=== PATIENT | male | born 1995 | race Caucasian/White ===

== ENCOUNTER 2021-07-02 23:22 | Emergency (ER) | payer OTHER, SELFPAY ==
[2021-07-02 23:27] VITALS: BP 127/72; PULSE 70; O2SAT 100
--- NOTE | 2021-07-03 00:30 | PC.NURSE ---
pt has been covid swabbed, moaning out loud in the chair, taking his mask off and needs freg repeating to keep his mask on. pt has been explained that we are waiting for a bed for him and covid results.
[2021-07-03 00:54] LABS: COVID-19 Test Negative (Negative)
[2021-07-03 01:14] VITALS: BP 126/50; PULSE 78; RESP 18; TEMP 36.6; O2SAT 99
--- NOTE | 2021-07-03 01:14 | ED.GENADULT ---
HPI - General Adult General Chief complaint: Nausea/Vomiting/Diarrhea Stated complaint: flu like symptoms Time Seen by Provider: 07/02/21 23:42 Source: patient History of Present Illness HPI narrative: Patient complains of nausea and vomiting for the past 2 days. No diarrhea or constipation. Generalized abdominal discomfort. Positive rhinorrhea. He states he has been feeling hot cold. No sick contacts that he knows of. No prior history of similar issues. He has a history of bipolar disorder and ADHD for which he is post be on medications but has not taken them in a while as he has not come back to see his doctor Related Data Previous Rx's Medication Instructions Recorded azithromycin 250 mg tablet See Rx Instructions PO .COMPLEX #6 11/01/20 tab fluticasone propionate 50 1 spray INTRANASAL DAILY PRN 30 11/01/20 mcg/actuation nasal Days #16 g spray,suspension omeprazole magnesium 20 mg 20 mg PO BID #30 tab 07/03/21 tablet,delayed release (Prilosec OTC) ondansetron HCl 4 mg tablet 4 mg PO Q8H #10 tab 07/03/21 (Zofran) Allergies Allergy/AdvReac Type Severity Reaction Status Date / Time No Known Allergies Allergy Verified 11/01/20 11:52 [No Known Allergies*] Review of Systems Constitutional: Comments: Chills and sweats and general malaise ENT: Comments: Rhinorrhea Cardiovascular: Comments: No chest pain Respiratory: Comments: No cough Gastrointestinal: Comments: Nausea vomiting abdominal pain PMFSH Past Medical History Medical History (Updated 07/03/21 @ 01:44 by Jonatan Velasquez MD) Allergic rhinitis Surgical History History of surgery Family History Family History Father Depression Asthma Mother Asthma Depression Migraine Brother No problems noted. Sister No problems noted. Son In good health Social History Social History Alcohol intake: current Alcohol intake frequency: a few times a week Patient Tobacco Use Status: Current everyday Tobacco user Cigarettes Per Day: 5 Smoked in Last 30 Days: Yes Use of substances other than those prescribed or required for medical reasons: No Advance Directives: No Advance Directives Information Provided: No Physical Exam Vital Signs: Vital Signs: Last Vital Signs Temp 97.8 F 07/03/21 01:18 Pulse 78 07/03/21 01:18 Resp 15 07/03/21 01:18 BP 126/50 L 07/03/21 01:18 Pulse Ox 99 07/03/21 01:18 Body Mass Index 21.7 Const: Other: Patient wrapped in a blanket initially refusing to cooperate with the exam. Once he rolled over incorporated he appears in no acute distress. Overall he is disheveled and smells of marijuana HENMT: Other: Conjunctival injection bilaterally without discharge. Positive rhinorrhea Resp: Other: Clear and equal bilaterally Cardio: Other: Regular rate and rhythm without murmurs rubs or gallops GI: Other: Soft. Diffusely minimally tender without guarding or rebound. Normoactive bowel sounds. Nondistended Skin: Other: Warm and dry Psych: Other: Patient appears anxious Course Course Course Narrative: Gastroenteritis Dehydration Viral syndrome COVID-19 infection Cannabinoid hyperemesis syndrome Will treat with Zofran With tolerating p.o. as. Stable for discharge home Medical Decision Making Lab Data Labs: Lab Results 07/03/21 Range/Units 00:26 COVID-19 ([facility]) Negative (Negative) COVID-19 Clin Com See Note Discharge Plan Discharge Clinical Impression: Upper respiratory tract infection, Gastroenteritis Patient Disposition: Home, Self-Care Instructions: Upper Respiratory Infection (ED), Acute Nausea and Vomiting (ED) Prescriptions: New ondansetron HCl [Zofran] 4 mg tablet 4 mg PO Q8H Qty: 10 RF: 0 omeprazole magnesium [Prilosec OTC] 20 mg tablet,delayed release (DR/EC) 20 mg PO BID Qty: 30 RF: 0 No Action azithromycin 250 mg tablet See Rx Instructions PO .COMPLEX Qty: 6 RF: 0 fluticasone propionate 50 mcg/actuation spray,suspension 1 spray intranasal DAILY PRN (Reason: allergy symptoms) 30 Days Qty: 16 RF: 5
[2021-07-03 01:18] VITALS: BP 126/50; PULSE 78; RESP 15; TEMP 36.6; O2SAT 99; BMI 21.7
[2021-07-03] MEDS: Ondansetron ODT 4 MG TAB.RAPDIS TRANSLINGU (01:25)
--- NOTE | 2021-07-03 02:22 | PC.NURSE ---
Pt alert and oriented x4. Pt aggressive towards staff calling nursing staff stupid ass bitch . Pt signed dc paperwork and educated on dc and prescriptions and then continued to refuse leaving hospital. Security to bedside with conveyor line battery charger to educate patient on needing to leave hospital after dc. Pt ambulated out to waiting room with security. No IV in place, Vitals stable. Multiple attempts to call girlfriend for hop picker by RN.
--- NOTE | 2021-07-03 02:23 | PC.NURSE ---
RN CALLED TO PT BEDSIDE PT WAS D/C BUT REFUSING TO LEAVE THE ROOM. PT EXPRESSED HE DID NOT HAVE A RIDE, RN AV ATTEMPTED TO CALL PTS GF BUT SHE DID NOT ANSWER (DID CALL BACK AND STATED SHE WOULD PICK PT UP.) SECURITY WAS CALLED TO BEDSIDE W/THIS RN WHERE PT PROCEEDED TO REFUSE TO LEAVE THE BED, AND WHEN IT WAS EXPLAINED TO PT HE COULD WAIT FOR RIDE IN THE WAITING ROOM HE CALLED THIS RN A FUCKING STUPID BITCH AND TOLD SECURITY MULTIPLE TIMES TO SHUT THE FUCK UP ALSO STATING I AIN'T FUCKING SCARED OF YOU, I BEEN TO LONG TERM PT WAS ESCORTED OUT OF THE DEPT BY SECURITY DUE TO VERBAL ABUSE AND THREATS OF PHYSICAL VIOLENCE.
[2021-07-03 02:26] VITALS: BP 124/72; PULSE 74; RESP 15; TEMP 36.6; O2SAT 98
--- NOTE | 2021-07-03 02:26 | PC.NURSE ---
RN spoke with girlfriend, girlfriend on her way to citrus picker patient now.
== END 2021-07-03 02:27 | disposition home or self-care (01) ==
PROVIDERS: Emergency Provider Emergency Medicine; PCP Physician Assistant
DX: J06.9 Acute upper respiratory infection, unspecified (principal); K52.9 Noninfective gastroenteritis and colitis, unspecified; R11.2 Nausea with vomiting, unspecified; F17.210 Nicotine dependence, cigarettes, uncomplicated; Z20.822 Contact with and (suspected) exposure to COVID-19; Z71.6 Tobacco abuse counseling; Z79.899 Other long term (current) drug therapy
CPT/HCPCS: 36415; 87635; 99283; 99284

== ENCOUNTER 2021-07-30 23:33 | Emergency (ER) | payer OTHER, SELFPAY ==
--- NOTE | 2021-07-30 23:52 | ED.OVERDOSE ---
HPI - Overdose General Chief Complaint: General Medical Stated Complaint: ABD PAIN/DRUG ABUSE Time Seen by Provider: 07/30/21 23:48 Source: patient Mode of arrival: EMS History of Present Illness HPI Narrative: Patient history of substance abuse snort heroin and takes cannabis noted 5 bags earlier today no complaining of nausea not feeling good feels like throwing up feels better after hot shower Related Data Previous Rx's Medication Instructions Recorded azithromycin 250 mg tablet See Rx Instructions PO .COMPLEX #6 11/01/20 tab fluticasone propionate 50 1 spray INTRANASAL DAILY PRN 30 11/01/20 mcg/actuation nasal Days #16 g spray,suspension omeprazole magnesium 20 mg 20 mg PO BID #30 tab 07/03/21 tablet,delayed release (Prilosec OTC) ondansetron HCl 4 mg tablet 4 mg PO Q8H #10 tab 07/03/21 (Zofran) Allergies Allergy/AdvReac Type Severity Reaction Status Date / Time No Known Allergies Allergy Verified 11/01/20 11:52 [No Known Allergies*] Review of Systems Review of Systems: Yes all other systems are reviewed and are negative PMFSH Past Medical History Medical History Allergic rhinitis Surgical History History of surgery Family History Family History Father Depression Asthma Mother Asthma Depression Migraine Brother No problems noted. Sister No problems noted. Son In good health Social History Social History Alcohol intake: current Alcohol intake frequency: a few times a week Patient Tobacco Use Status: Current everyday Tobacco user Cigarettes Per Day: 5 Advance Directives: No Advance Directives Information Provided: No Physical Exam Vital Signs: Vital Signs: Last Vital Signs Temp 98.7 F 07/31/21 00:03 Pulse 90 07/31/21 00:03 Resp 18 07/31/21 00:03 BP 133/63 07/31/21 00:03 Pulse Ox 99 07/31/21 00:03 Body Mass Index 22.4 Appearance: Alert. Oriented X3. Very anxious Eyes: PERRLA, ENT: Pharynx normal. Oral Mucosa moist Neck: Normal inspection. Neck supple. CVS: Normal heart rate and rhythm. Pulses normal. Respiratory: No respiratory distress. Equal air entry bilateral, no wheezing/rales/rhonchi Abdomen: Soft and nontender. Bowel sounds are present, no mass palpable, no CVA tenderness Skin: Skin warm and dry. Normal skin color. Normal skin turgor. Extremities: No lower extremity edema. No calf tenderness Neuro: Oriented X 3. MDM - Overdose MDM Narrative Medical decision making narrative: Patient with anxiety cannabis and opiate use after Ativan feeling relaxed sleeping no active vomiting at this time will discharge patient home advised to follow-up with detox Lab Data Labs: Lab Results 07/31/21 Range/Units 00:09 COVID-19 ([facility]) Negative (Negative) COVID-19 Clin Com See Note Discharge Plan Discharge Clinical Impression: Multiple substance abuse Patient Disposition: Home, Self-Care Instructions: Polysubstance Abuse (ED) Additional Instructions: Stop using heroin and cannabis Follow-up with detox Prescriptions: No Action ondansetron HCl [Zofran] 4 mg tablet 4 mg PO Q8H Qty: 10 RF: 0 omeprazole magnesium [Prilosec OTC] 20 mg tablet,delayed release (DR/EC) 20 mg PO BID Qty: 30 RF: 0 azithromycin 250 mg tablet See Rx Instructions PO .COMPLEX Qty: 6 RF: 0 fluticasone propionate 50 mcg/actuation spray,suspension 1 spray intranasal DAILY PRN (Reason: allergy symptoms) 30 Days Qty: 16 RF: 5
[2021-07-30] MEDS: LORazepam 2 MG/ML VIAL IM (23:58)
[2021-07-30] MEDS: Ondansetron ODT 4 MG TAB.RAPDIS TRANSLINGU (23:58)
[2021-07-31 00:02] VITALS: BP 133/63; PULSE 90
[2021-07-31] MEDS: cloNIDine HCL 0.2 MG TABLET PO (00:02)
[2021-07-31 00:03] VITALS: BP 133/63; PULSE 90; RESP 18; TEMP 37.1; O2SAT 99; BMI 22.4
--- NOTE | 2021-07-31 00:28 | PC.NURSE ---
PTROLLING AROUND ON STRETCHER, YELLING FOR HELP, YELLING DOCTOR LOUDLY. EXPLAINED TO PT THAT WE NEEDED TO OBTAIN VITALS AND TRIAGE HIM. PT GIVEN SL CHOCOFRAN LYNN, FOR VOMITING. ASKED PT TO SCAN HIS WRIST BAND, HAD TO PRINT ANOTHER COPY, PT WRIPPED HIS BAND OFF. PT CONTINUED TO YELL, CLAIMED HE COULDN'T MOVE HIS ARM FOLLOWING IM INJECTION.
[2021-07-31 00:32] LABS: COVID-19 Test Negative (Negative); IDNOW Serial# 08D9AD1C
--- NOTE | 2021-07-31 00:46 | PC.NURSE ---
PT REQUESTED AND WAS GIVEN ICE CUBES. EXPLAINED TO PATIENT THAT HE NEEDS TO HOLD OFF ON WATER FOR NOW.
--- NOTE | 2021-07-31 01:01 | PC.NURSE ---
PT ABLE TO TOLERATE ICE CHIPS. PT ABLE TO FALL ASLEEP INTERMITTENTLY.
--- NOTE | 2021-07-31 01:19 | PC.NURSE ---
PT'S MOTHER IN WAITING ROOM TO BRING HIM HOME. PT BROUGHT TO WR BY WHEEN CHAIR BECAUSE HE STILL FELT A LITTLE NAUSEOUS. PT WAITING FOR RIDE WITH MOTHER IN [place]. SECURITY ASSISTED TRANSFERRING PT TO FOR SAFETY. PT HAS GOOD RESPIRATORY RATE AND EFFORT.
[2021-07-31 01:21] VITALS: BP 131/75; PULSE 89; RESP 16; O2SAT 97
== END 2021-07-31 01:23 | disposition home or self-care (01) ==
PROVIDERS: Emergency Provider Internal Medicine
DX: F11.10 Opioid abuse, uncomplicated (principal); F12.10 Cannabis abuse, uncomplicated; Z20.822 Contact with and (suspected) exposure to COVID-19
CPT/HCPCS: 36415; 87635; 96372; 99284; J2060

== ENCOUNTER 2021-07-31 13:43 | Emergency (ER) | payer OTHER, SELFPAY ==
[2021-07-31 14:01] VITALS: BP 104/84; PULSE 89; RESP 16; TEMP 36.9; O2SAT 99; BMI 22.4
--- NOTE | 2021-07-31 16:03 | ED_ITS ---
HPI - Nausea/Vomiting/Diarrhea General Chief complaint: Nausea/Vomiting/Diarrhea Stated complaint: vomiting body aches Time Seen by Provider: 07/31/21 16:02 Source: patient and old records reviewed Mode of arrival: ambulatory Limitations: no limitations History of Present Illness MD elicited complaint: nausea, vomiting and other (body aches, withdrawal from oxycodone and fentanyl) Pertinent past history: other (oxycodone and fentanyl abuse) Onset (ago): day(s) (last used Saturday ) Description of vomiting: food contents Associated nausea: Yes Associated abdominal pain: No Pain consistency: constant Severity: mild Quality: aching Exacerbating factors: none Relieving factors: none Context: other (substance abuse and withdrawal) Associated symptoms: myalgias, fever/chills, headaches, loss of appetite and malaise Treatment prior to arrival: other (seen yesterday for same thing) Related Data Previous Rx's Medication Instructions Recorded azithromycin 250 mg tablet See Rx Instructions PO .COMPLEX #6 11/01/20 tab fluticasone propionate 50 1 spray INTRANASAL DAILY PRN 30 11/01/20 mcg/actuation nasal Days #16 g spray,suspension omeprazole magnesium 20 mg 20 mg PO BID #30 tab 07/03/21 tablet,delayed release (Prilosec OTC) ondansetron HCl 4 mg tablet 4 mg PO Q8H #10 tab 07/03/21 (Zofran) buprenorphine 4 mg-naloxone 1 mg 1 film SUBLINGUAL DAILY #4 ea 07/31/21 sublingual film (Suboxone) ondansetron 4 mg disintegrating 4 mg PO Q8H PRN #20 tab 07/31/21 tablet Allergies Allergy/AdvReac Type Severity Reaction Status Date / Time No Known Allergies Allergy Verified 11/01/20 11:52 [No Known Allergies*] Review of Systems Review of Systems: Constitutional : No Weight loss, No Fever, No Chills ENT/Mouth : No sore throat, No Rhinorrhea Eyes: No Swelling, No Redness Cardiovascular : No Chest Pain, No SOB, NoEdema Respiratory : No Cough, No Sputum, No Wheezing Gastrointestinal : Positive Nausea, Positive Vomiting, positive Diarrhea, no abdominal Pain, No Hematochezia, No Melena Genitourinary : No Dysuria, No Urinary Frequency, No Hematuria, No Urgency Musculoskeletal : No joint pain, pos Myalgias, No Joint Swelling Skin : No Skin Lesions, No rash Neuro : No Weakness, No Numbness, No Dizziness, No Headache Psych : No Anxiety/Panic, No Depression Heme/Lymph: No Bruising, No Lymphadenopathy Endocrine : No Polyuria, No Polydipsia All other systems reviewed and are negative. Gastrointestinal: Gastrointestinal: Reports nausea PMFSH Past Medical History Attestation statement: The following information was validated with the patient. Medical History Allergic rhinitis Surgical History History of surgery Family History Family History Father Depression Asthma Mother Asthma Depression Migraine Brother No problems noted. Sister No problems noted. Son In good health Social History Social History (Updated 07/31/21 @ 16:33 by Darya Bishop DO) Alcohol intake: current Alcohol intake frequency: a few times a week Patient Tobacco Use Status: Current everyday Tobacco user Cigarettes Per Day: 5 Substance Use Type: Opiates Advance Directives: No Advance Directives Information Provided: Yes Physical Exam Vital Signs: Vital Signs: Last Vital Signs Temp 98.4 F 07/31/21 14:01 Pulse 89 07/31/21 14:01 Resp 16 07/31/21 14:01 BP 104/84 07/31/21 14:01 Pulse Ox 99 07/31/21 14:01 Body Mass Index 22.4 Appearance: Alert. Oriented X3. No acute distress. Eyes: Pupils equal, round and reactive to light. ENT: Pharynx normal. Neck: Normal inspection. Neck supple. CVS: Normal heart rate and rhythm. Pulses normal. Respiratory: No respiratory distress. Breath sounds normal. Abdomen: Soft and nontender. Skin: Skin warm and dry. Normal skin color. Normal skin turgor. Extremities: No lower extremity edema. No calf ttp Neuro: Oriented X 3. No motor deficit. No sensory deficit. Course Course Course Narrative: repeat dosing 2/0.5 did well with suboxone stable for DC can tolerate PO MDM - Nausea/Vomiting/Diarrhea MDM Narrative Medical decision making narrative: 25 yo male with opiate abuse using oxycodone with fentanyl last used Saturday here with body aches n/v and feeling in withdrawal. His story has changed somewhat but he is now firm on Saturday. Invol evie the recovery team he will be set up in our clinic. Does not want detox - will start on low dose suboxone Lab Data Result diagrams: 07/31/21 17:16 07/31/21 17:15 Labs: Lab Results 07/31/21 07/31/21 Range/Units 17:15 17:16 WBC 9.4 (4.8-10.8) X10*3/uL RBC 4.59 L (4.60-5.80) X10*6/uL Hgb 14.1 (14.0-18.0) g/dl Hct 40.8 L (42-52) % MCV 88.9 (80-98) fL MCH 30.7 (27.0-33.0) pg MCHC 34.6 (31.0-36.0) g/dl RDW 12.4 (11.0-16.0) % Plt Count 306 (160-400) X10*3/uL MPV 10.1 (9.4-12.4) fL Immature Gran % (Auto) 0.3 (0.0-0.4) % Neut % (Auto) 79.3 H (45-73) % Lymph % (Auto) 11.2 L (20-40) % [place] % (Auto) 9.0 (2-11) % Eos % (Auto) 0.0 (0-4) % Baso % (Auto) 0.2 (0-2) % Lymph # (Auto) 1.1 L (1.2-4.9) X10*3/uL [place] # (Auto) 0.8 (0.1-1.2) X10*3/uL Eos # (Auto) 0.0 (0.0-0.4) X10*3/uL Baso # (Auto) 0.0 (0.0-0.2) X10*3/uL Abs Immat Gran (auto) 0.03 (0.00-0.03) X10*3/uL Absolute Neuts (auto) 7.4 (2.0-8.3) X10*3/uL Absolute Nucleated RBC 0.000 (0.0-0.012) X10*3/uL Nucleated RBC % (auto) 0.0 (0.0-0.2) /100WBC Sodium 136 (135-145) mmol/L Potassium 3.6 (3.3-5.1) mmol/L Chloride 101 (96-108) mmol/L Carbon Dioxide 24 (22-29) mmol/L Anion Gap 15 (12-20) BUN 18 H (9-16) mg/dL Creatinine 1.01 (0.5-1.4) mg/dL Estim Creat Clear Calc 96.8 Estimated GFR > 60 Random Glucose 120 H (60-115) mg/dL Calcium 10.1 (8.4-10.2) mg/dL Total Bilirubin 1.1 H (0.0-1.0) mg/dL Direct Bilirubin 0.5 (0.0-0.5) mg/dL AST 32 (5-37) U/L ALT 16 (0-40) U/L Alkaline Phosphatase 73 (39-117) U/L Total Protein 7.9 (6.5-8.0) g/dL Albumin 4.6 (3.5-5.0) g/dL Discharge Plan Discharge Clinical Impression: Opiate withdrawal Patient Disposition: Home, Self-Care Instructions: Opioid Withdrawal (ED), Opioid Use Disorder (ED) Additional Instructions: return to ED for any worsening symptoms or concerns please follow up with our suboxone clinic Prescriptions: New buprenorphine-naloxone [Suboxone] 4-1 mg film 1 film sublingual DAILY Qty: 4 RF: 0 ondansetron 4 mg tablet,disintegrating 4 mg PO Q8H PRN (Reason: nausea and vomiting) Qty: 20 RF: 0 No Action ondansetron HCl [Zofran] 4 mg tablet 4 mg PO Q8H Qty: 10 RF: 0 omeprazole magnesium [Prilosec OTC] 20 mg tablet,delayed release (DR/EC) 20 mg PO BID Qty: 30 RF: 0 azithromycin 250 mg tablet See Rx Instructions PO .COMPLEX Qty: 6 RF: 0 fluticasone propionate 50 mcg/actuation spray,suspension 1 spray intranasal DAILY PRN (Reason: allergy symptoms) 30 Days Qty: 16 RF: 5
[2021-07-31] MEDS: Ondansetron ODT 4 MG TAB.RAPDIS TRANSLINGU (16:55)
--- NOTE | 2021-07-31 17:08 | PC.NURSE ---
pt projectile vomiting s/p zofran administration, suboxone held at this time, also unable to tolerate attempt at phlebotomy, MD Bishop made aware
[2021-07-31 17:27] LABS: MANUAL DIFF FLAG NO
[2021-07-31 17:28] LABS: Basophils Percent Auto 0.2 % (0-2); Hematocrit 40.8 % (42-52); Hemoglobin 14.1 g/dl (14.0-18.0); Imm Gran Abs Auto 0.03 X10*3/uL (0.00-0.03); Imm Gran Pct Auto 0.3 % (0.0-0.4); Lymphocytes Absolute Auto 1.1 X10*3/uL (1.2-4.9); Lymphocytes Percent Auto 11.2 % (20-40); Mean Corpuscular HGB Conc 34.6 g/dl (31.0-36.0); Mean Corpuscular Hemoglobin 30.7 pg (27.0-33.0); Mean Corpuscular Volume 88.9 fL (80-98); Mean Platelet Volume 10.1 fL (9.4-12.4); Monocytes Absolute Auto 0.8 X10*3/uL (0.1-1.2); Neutrophils Absolute Auto 7.4 X10*3/uL (2.0-8.3); Neutrophils Percent Auto 79.3 % (45-73); Platelet Count 306 X10*3/uL (160-400); Red Blood Count 4.59 X10*6/uL (4.60-5.80); Red Cell Distribution Width 12.4 % (11.0-16.0); White Blood Count 9.4 X10*3/uL (4.8-10.8)
[2021-07-31] MEDS: diphenhydrAMINE HCL 50 MG/ML VIAL 25 MG IM (17:31)
[2021-07-31] MEDS: Metoclopramide HCl 10 MG/2 ML VIAL IM (17:31)
[2021-07-31 17:46] LABS: Alanine Aminotransferase 16 U/L (0-40); Albumin Level 4.6 g/dL (3.5-5.0); Alkaline Phosphatase 73 U/L (39-117); Anion Gap 15 (12-20); Aspartate Amino Transferase 32 U/L (5-37); Bilirubin Direct 0.5 mg/dL (0.0-0.5); Bilirubin Total 1.1 mg/dL (0.0-1.0); Blood Urea Nitrogen 18 mg/dL (9-16); Calcium 10.1 mg/dL (8.4-10.2); Carbon Dioxide 24 mmol/L (22-29); Chloride 101 mmol/L (96-108); Creatinine Clr Calc Pharmacy 96.8; Estimated Glomerular Filt Rate > 60; Glucose Random 120 mg/dL (60-115); Potassium 3.6 mmol/L (3.3-5.1); Sodium 136 mmol/L (135-145); Total Protein 7.9 g/dL (6.5-8.0)
[2021-07-31] MEDS: Buprenorphine/Naloxone 2/0.5mg FILM 1 FILM SUBLINGUAL ×2 (18:39→19:55)
== END 2021-07-31 20:38 | disposition home or self-care (01) ==
PROVIDERS: Emergency Provider Emergency Medicine; PCP Internal Medicine
DX: F11.23 Opioid dependence with withdrawal (principal)
CPT/HCPCS: 36415; 80048; 80076; 85025; 96372; 99283; 99284; J1200; J2765

== ENCOUNTER 2021-08-03 08:07 | Emergency (ER) | payer OTHER, SELFPAY ==
--- NOTE | ~2021-08-03 | CT_ITS ---
EXAMINATION: CT ABDOMEN AND PELVIS WITHOUT CONTRAST CLINICAL INFORMATION: Abdominal pain, nausea and vomiting COMPARISON: Previous CT of the abdomen and pelvis March 2019 TECHNIQUE: Multidetector volumetric imaging was performed from the superior aspect of the liver through the pubic symphysis. Sagittal and coronal reformatted images were obtained on the technologist's workstation. This CT examination was performed using dose optimization techniques as appropriate, variously including the following: *Automated exposure control *Adjustment of mA and/or kV according to patient size (this includes techniques or standardized protocols for targeted exams where dose is matched to indication/reason for exam; i.e. extremities or head) *Use of iterative reconstruction technique DLP: 340 mGy-cm FINDINGS: LUNG BASES: The lung bases are clear. LIVER, GALLBLADDER, AND BILIARY TREE: The liver is normal in size, shape, and attenuation. No focal hepatic lesion or biliary ductal dilatation is present. The gallbladder is unremarkable with no evidence of radiopaque gallstones, gallbladder wall thickening, or obvious pericholecystic inflammatory changes. PANCREAS: Unremarkable. SPLEEN: Unremarkable. ADRENAL GLANDS: Unremarkable. KIDNEYS AND URETERS: The kidneys are normal in size, shape, and attenuation. No hydronephrosis, hydroureter, or calculi seen. No perinephric stranding. BLADDER: Unremarkable. GASTROINTESTINAL TRACT: The small and large bowel are unremarkable. The appendix is unremarkable. ABDOMINAL WALL: No significant hernia is appreciated. LYMPH NODES: Normal. VASCULAR: Unremarkable. PELVIC VISCERA: Unremarkable. OSSEOUS STRUCTURES: Unremarkable. CT/CT abdomen pelvis wo con IMPRESSION: Unremarkable exam.
[2021-08-03 08:24] VITALS: BP 113/78; PULSE 65; RESP 18; TEMP 36.6; O2SAT 98; BMI 22.4
--- NOTE | 2021-08-03 08:49 | ED_ITS ---
HPI - General Adult General Chief complaint: Nausea/Vomiting/Diarrhea Stated complaint: abd burning & pain, vomiting Time Seen by Provider: 08/03/21 08:49 Source: patient Mode of arrival: ambulatory Limitations: no limitations History of Present Illness HPI narrative: 25-year-old male is here today for complaints of abdominal pain. Patient was here twice on the and for the same. 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 Came in with abdominal pain diarrhea and nausea and vomiting. Patient reports that he has started Suboxone couple a days ago, however he reports that symptoms of withdrawal are better but he can stop vomiting. Patient has been vomiting for the last 2 days. Patient reports that he has severe vomiting and he has seen blood when he vomits. Patient reports that his diarrhea subsided. He reports severe epigastric discomfort and tenderness. Pain does not radiate anywhere. Patient reports that he can not keep anything down. Onset (ago): day(s) Location: abdomen Radiation: non-radiation Severity: severe Quality: stabbing and sharp Related Data Previous Rx's Medication Instructions Recorded azithromycin 250 mg tablet See Rx Instructions PO .COMPLEX #6 11/01/20 tab fluticasone propionate 50 1 spray INTRANASAL DAILY PRN 30 11/01/20 mcg/actuation nasal Days #16 g spray,suspension ondansetron HCl 4 mg tablet 4 mg PO Q8H #10 tab 07/03/21 (Zofran) buprenorphine 4 mg-naloxone 1 mg 1 film SUBLINGUAL DAILY #4 ea 07/31/21 sublingual film (Suboxone) omeprazole magnesium 20 mg 20 mg PO BID #30 tab 08/02/21 tablet,delayed release (Prilosec OTC) ondansetron 4 mg disintegrating 4 mg PO Q8H PRN #20 tab 08/02/21 tablet famotidine 20 mg tablet 20 mg PO BEDTIME #20 tab 08/03/21 pantoprazole 40 mg tablet,delayed 40 mg PO DAILY #20 tab 08/03/21 release Allergies Allergy/AdvReac Type Severity Reaction Status Date / Time No Known Allergies Allergy Verified 11/01/20 11:52 [No Known Allergies*] Review of Systems Review of Systems: Constitutional : No Weight loss, No Fever, No Chills, No Night Sweats, No Fatigue, No Malaise ENT/Mouth : No Hearing loss, No Ear Pain, No Nasal Congestion, No Sinus Pain, No Hoarseness, No sore throat, No Rhinorrhea, No Swallowing Difficulty Eyes: No Eye Pain, No Swelling, No Redness, No Foreign Body, No Discharge, No Vision Changes Cardiovascular : No Chest Pain, No SOB, No Dyspnea on Exertion, No Orthopnea, No Edema, No Palpitations Respiratory : No Cough, No Sputum, No Wheezing, No Smoke Exposure, No Dyspnea Gastrointestinal : Nausea, Vomiting, Diarrhea, No Constipation, abdominal Pain, No Hematochezia, No Melena Genitourinary : no irregular bleeding, No Dysuria, No Urinary Frequency, No Hematuria, No Urinary Incontinence, No Urgency, No Flank Pain, No Urinary Flow C hanges, No Hesitancy Musculoskeletal : No joint pain, No Myalgias, No Joint Swelling Skin : No Skin Lesions, No rash Neuro : No Weakness, No Numbness, No Paresthesias, No Loss of Consciousness, No Dizziness, No Headache Psych : Anxiety, No Depression, No SI/HI/AH/VH, No Social Issues, Yes all other systems are reviewed and are negative PMFSH Past Medical History Medical History Allergic rhinitis Surgical History History of surgery Family History Family History Father Depression Asthma Mother Asthma Depression Migraine Brother No problems noted. Sister No problems noted. Son In good health Social History Social History (Updated 07/31/21 @ 16:33 by Darya Bishop DO) Alcohol intake: current Alcohol intake frequency: does not drink Patient Tobacco Use Status: Current everyday Tobacco user Cigarettes Per Day: 5 Substance Use Type: Opiates Physical Exam Vital Signs: Vital Signs: Last Vital Signs Temp 98 F 08/03/21 08:24 Pulse 65 08/03/21 08:24 Resp 18 08/03/21 08:24 BP 113/78 08/03/21 08:24 Pulse Ox 98 08/03/21 08:24 Body Mass Index 22.4 Const: General: healthy appearing, no acute distress and well developed Nutritional Appearance: well nourished Orientation/consciousness: patient oriented x3 HENMT: Head: Yes normal to inspection, Yes normocephalic and Yes atraumatic Ears: hearing grossly normal bilaterally, external ears normal and TM's normal bilaterally General nose exam: Normal external nose present, Normal nares present and Normal nasal mucous membranes and turbinates present Face and s inus: Yes normal facial exam, Yes sinuses nontender and Yes face symmetric Mouth: Normal oral and palatal mucosa present, lip normal, tongue normal, oropharynx normal and moist mucous membranes Throat: Yes posterior oropharynx normal, Yes tonsils normal and Yes uvula midline Eyes: General: appearance normal, both eyes and all related structures Neck: Neck: Yes normal visual inspection, Yes full ROM and Yes trachea midline Thyroid: Thyroid normal Resp: Effort & Inspection: normal respiratory effort and able to speak in complete sentences Auscultation: clear to auscultation bilaterally Cardio: Rate: regular rate Rhythm: regular rhythm Heart sounds: S1 normal heart sound present and S2 normal heart sound present GI: Inspection: Yes normal to inspection and No distended Palpation (GI): Soft to palpation, Tenderness to palpation present (GI) (Epigastric area), Guarding due to palpation present (GI) (Epigastric area) and No hepatosplenomegaly present Auscultation: normal bowel sounds : General: Yes no CVA tenderness Back/Spine/Pelvis: Back: no CVA tenderness Cervical Spine: normal cervical lordosis Thoracic/Lumbar Spine: thoracic and lumbar spine normal to inspection Skin: General skin exam: elasticity normal, turgor normal and dry skin Neuro: General: patient oriented x3 Psych: Appearance: grossly normal Mental Status: other (Feeling anxious, tearful) Speech and movement: Normal speech and movement present Affect: normal affect Attitude: cooperative Course Course Course Narrative: 25-year-old male is here today after 3 days of withdrawing from heroin. Started Suboxone yesterday and reports that he feels like his withdrawal symptoms are going away, however he now reports that he has been vomiting. Upper epigastric discomfort, tenderness on exam. Will do CBC, liver profile lipase, BMP, IV fluids, will give him Protonix, Maalox with lidocaine. Will order CT scan as well Reevaluation(s) Reevaluation #1: Patient reports he is feeling much better. CT scan negative for any acute findings. No leukocytosis or anemia. Patient will go home and follow-up with PCP and GI. I will send him home with pantoprazole in the morning and famotidine in the evening. Patient's COVID test is negative Medical Decision Making Lab Data Result diagrams: 08/03/21 09:48 08/03/21 09:48 Labs: Lab Results 08/03/21 08/03/21 08/03/21 Range/Units 09:48 09:48 09:48 WBC 7.6 (4.8-10.8) X10*3/uL RBC 4.97 (4.60-5.80) X10*6/uL Hgb 15.5 (14.0-18.0) g/dl Hct 44.9 (42-52) % MCV 90.3 (80-98) fL MCH 31.2 (27.0-33.0) pg MCHC 34.5 (31.0-36.0) g/dl RDW 12.2 (11.0-16.0) % Plt Count 297 (160-400) X10*3/uL MPV 10.4 (9.4-12.4) fL Immature Gran % (Auto) 0.4 (0.0-0.4) % Neut % (Auto) 62.0 (45-73) % Lymph % (Auto) 24.3 (20-40) % [place] % (Auto) 11.8 H (2-11) % Eos % (Auto) 1.0 (0-4) % Baso % (Auto) 0.5 (0-2) % Lymph # (Auto) 1.9 (1.2-4.9) X10*3/uL [place] # (Auto) 0.9 (0.1-1.2) X10*3/uL Eos # (Auto) 0.1 (0.0-0.4) X10*3/uL Baso # (Auto) 0.0 (0.0-0.2) X10*3/uL Abs Immat Gran (auto) 0.03 (0.00-0.03) X10*3/uL Absolute Neuts (auto) 4.7 (2.0-8.3) X10*3/uL Absolute Nucleated RBC 0.000 (0.0-0.012) X10*3/uL Nucleated RBC % (auto) 0.0 (0.0-0.2) /100WBC Sodium 137 (135-145) mmol/L Potassium 4.2 (3.3-5.1) mmol/L Chloride 100 (96-108) mmol/L Carbon Dioxide 29 (22-29) mmol/L Anion Gap 12 (12-20) BUN 16 (9-16) mg/dL Creatinine 1.06 (0.5-1.4) mg/dL Estim Creat Clear Calc 92.2 Estimated GFR > 60 Random Glucose 114 (60-115) mg/dL Calcium 9.7 (8.4-10.2) mg/dL Total Bilirubin 1.4 H (0.0-1.0) mg/dL Direct Bilirubin 0.5 (0.0-0.5) mg/dL AST 27 (5-37) U/L ALT 15 (0-40) U/L Alkaline Phosphatase 72 (39-117) U/L Total Protein 8.0 (6.5-8.0) g/dL Albumin 4.6 (3.5-5.0) g/dL Lipase 28 (8-78) U/L COVID-19 ([facility]) Negative (Negative) COVID-19 Clin Com See Note Discharge Plan Discharge Clinical Impression: Gastroenteritis Abdominal pain Qualifiers: Abdominal location: epigastric Qualified Code(s): R10.13 - Epigastric pain Patient Disposition: Home, Self-Care Instructions: Gastritis (ED) Additional Instructions: You were seen here today for epigastric pain, nausea and vomiting. All your blood work and your CT scan are negative for any acute findings. Please follow- up with your primary care provider and GI specialist. You may return to emergency department if his symptoms will get worse or if you will experience any additional concerning symptoms. You will be given pantoprazole please take this in the morning half an hour before breakfast and famotidine take that in the evening. Stop taking Omeprazole Prescriptions: New pantoprazole 40 mg tablet,delayed release (DR/EC) 40 mg PO DAILY Qty: 20 RF: 0 famotidine 20 mg tablet 20 mg PO BEDTIME Qty: 20 RF: 0 No Action ondansetron 4 mg tablet,disintegrating 4 mg PO Q8H PRN (Reason: nausea and vomiting) Qty: 20 RF: 0 omeprazole magnesium [Prilosec OTC] 20 mg tablet,delayed release (DR/EC) 20 mg PO BID Qty: 30 RF: 0 ondansetron HCl [Zofran] 4 mg tablet 4 mg PO Q8H Qty: 10 RF: 0 buprenorphine-naloxone [Suboxone] 4-1 mg film 1 film sublingual DAILY Qty: 4 RF: 0 azithromycin 250 mg tablet See Rx Instructions PO .COMPLEX Qty: 6 RF: 0 fluticasone propionate 50 mcg/actuation spray,suspension 1 spray intranasal DAILY PRN (Reason: allergy symptoms) 30 Days Qty: 16 RF: 5 Referrals: Jimmy Gaitan MD [Primary Care Provider] - 2 days Osiris Ac MD [Physician] - 2 weeks Interventions: ED Discharge Assessment Last Done: 08/03/21 11:41 Discharge Date/Time: 08/03/21 11:42
[2021-08-03] MEDS: Pantoprazole Sodium 40 MG/10 ML VIAL IVPUSH (09:53)
[2021-08-03] MEDS: Magnesium Hydrox/Alum Hydrox 30 ML ORAL.SUSP 15 ML PO (09:56)
[2021-08-03] MEDS: Lidocaine HCl Viscous 2 % 15 ML SOLUTION MUCOUS MEM (09:56)
[2021-08-03] MEDS: 0.9 % Sodium Chloride 1,000 ML 999 ML IV (09:56)
[2021-08-03 10:01] LABS: MANUAL DIFF FLAG NO
[2021-08-03 10:10] LABS: Basophils Percent Auto 0.5 % (0-2); Eosinophils Absolute Auto 0.1 X10*3/uL (0.0-0.4); Hematocrit 44.9 % (42-52); Hemoglobin 15.5 g/dl (14.0-18.0); Imm Gran Abs Auto 0.03 X10*3/uL (0.00-0.03); Imm Gran Pct Auto 0.4 % (0.0-0.4); Lymphocytes Absolute Auto 1.9 X10*3/uL (1.2-4.9); Lymphocytes Percent Auto 24.3 % (20-40); Mean Corpuscular HGB Conc 34.5 g/dl (31.0-36.0); Mean Corpuscular Hemoglobin 31.2 pg (27.0-33.0); Mean Corpuscular Volume 90.3 fL (80-98); Mean Platelet Volume 10.4 fL (9.4-12.4); Monocytes Absolute Auto 0.9 X10*3/uL (0.1-1.2); Monocytes Percent Auto 11.8 % (2-11); Neutrophils Absolute Auto 4.7 X10*3/uL (2.0-8.3); Platelet Count 297 X10*3/uL (160-400); Red Blood Count 4.97 X10*6/uL (4.60-5.80); Red Cell Distribution Width 12.2 % (11.0-16.0); White Blood Count 7.6 X10*3/uL (4.8-10.8)
[2021-08-03 10:27] LABS: Alanine Aminotransferase 15 U/L (0-40); Albumin Level 4.6 g/dL (3.5-5.0); Alkaline Phosphatase 72 U/L (39-117); Anion Gap 12 (12-20); Aspartate Amino Transferase 27 U/L (5-37); Bilirubin Direct 0.5 mg/dL (0.0-0.5); Bilirubin Total 1.4 mg/dL (0.0-1.0); Blood Urea Nitrogen 16 mg/dL (9-16); Calcium 9.7 mg/dL (8.4-10.2); Carbon Dioxide 29 mmol/L (22-29); Chloride 100 mmol/L (96-108); Creatinine Clr Calc Pharmacy 92.2; Estimated Glomerular Filt Rate > 60; Glucose Random 114 mg/dL (60-115); Lipase 28 U/L (8-78); Potassium 4.2 mmol/L (3.3-5.1); Sodium 137 mmol/L (135-145)
[2021-08-03 10:29] LABS: COVID-19 Test Negative (Negative); IDNOW Serial# 9DD0AD1C
== END 2021-08-03 11:42 | disposition home or self-care (01) ==
PROVIDERS: Nurse Practitioner Family; Emergency Provider Emergency Medicine; PCP Internal Medicine
DX: K52.9 Noninfective gastroenteritis and colitis, unspecified (principal); R10.13 Epigastric pain; R11.2 Nausea with vomiting, unspecified; F17.200 Nicotine dependence, unspecified, uncomplicated; F11.20 Opioid dependence, uncomplicated; Z20.822 Contact with and (suspected) exposure to COVID-19
CPT/HCPCS: 36415; 74176; 80048; 80076; 83690; 85025; 87635; 96361; 96374; 96375; 99285

== ENCOUNTER 2021-08-07 17:29 | Emergency (ER) | payer OTHER, SELFPAY ==
[2021-08-07 17:37] VITALS: BP 141/94; PULSE 66; O2SAT 100
[2021-08-07 18:13] VITALS: BP 128/86; PULSE 72; RESP 18; TEMP 37.2; O2SAT 98; BMI 22.4
[2021-08-07 19:39] LABS: MANUAL DIFF FLAG NO
[2021-08-07] MEDS: 0.9 % Sodium Chloride 1,000 ML 999 ML IV (19:39)
[2021-08-07] MEDS: Magnesium Hydrox/Alum Hydrox 30 ML ORAL.SUSP PO (19:39)
[2021-08-07] MEDS: Famotidine/PF 20 MG/2 ML VIAL IVPUSH (19:39)
[2021-08-07] MEDS: Lidocaine HCl Viscous 2 % 15 ML SOLUTION MUCOUS MEM (19:39)
[2021-08-07 19:41] LABS: Basophils Percent Auto 0.3 % (0-2); Hematocrit 44.9 % (42.0-52.0); Hemoglobin 15.3 g/dl (14.0-18.0); Imm Gran Abs Auto 0.02 X10*3/uL (0.00-0.03); Imm Gran Pct Auto 0.3 % (0.0-0.4); Lymphocytes Absolute Auto 1.1 X10*3/uL (1.2-4.9); Lymphocytes Percent Auto 13.8 % (20-40); Mean Corpuscular HGB Conc 34.1 g/dl (31.0-36.0); Mean Corpuscular Volume 90.9 fL (80.0-98.0); Mean Platelet Volume 9.8 fL (9.4-12.4); Monocytes Absolute Auto 0.6 X10*3/uL (0.1-1.2); Monocytes Percent Auto 8.1 % (2-11); Neutrophils Absolute Auto 5.95 x10*3/uL (2.0-8.3); Neutrophils Percent Auto 77.5 % (45-73); Platelet Count 326 X10*3/uL (160-400); Red Blood Count 4.94 X10*6/uL (4.60-5.80); Red Cell Distribution Width 12.6 % (11.0-16.0); White Blood Count 7.7 X10*3/uL (4.8-10.8)
--- NOTE | 2021-08-07 19:50 | ED_ITS ---
HPI - Nausea/Vomiting/Diarrhea General Chief complaint: Nausea/Vomiting/Diarrhea Stated complaint: N/V ABD PAIN SINCE EATING THIS AM Time Seen by Provider: 08/07/21 19:14 Source: patient and EMS Mode of arrival: EMS Limitations: no limitations History of Present Illness HPI Narrative: 25-year-old male with a history of substance abuse here with complaints of nausea, vomiting and diarrhea since this morning after eating an egg breakfast sandwich. Patient is also complains of generalized abdominal pain. No fevers, chills, urinary symptoms. Of note patient was seen here August 03 for similar symptoms. He was thought to have some underlying gastritis and was discharged home on a PPI. At that time he was also withdrawing from opiates and he had just initiated Suboxone. Patient tells me discharge was feeling improved and for the last 2 days he has been feeling well until today when he ate the sandwich. He tells me he has vomited 3 times and had 3 episodes of diarrhea. Emesis is nonbloody, nonbilious. Associated nausea: Yes Related Data Previous Rx's Medication Instructions Recorded azithromycin 250 mg tablet See Rx Instructions PO .COMPLEX #6 11/01/20 tab fluticasone propionate 50 1 spray INTRANASAL DAILY PRN 30 11/01/20 mcg/actuation nasal Days #16 g spray,suspension ondansetron HCl 4 mg tablet 4 mg PO Q8H #10 tab 07/03/21 (Zofran) buprenorphine 4 mg-naloxone 1 mg 1 film SUBLINGUAL DAILY #4 ea 07/31/21 sublingual film (Suboxone) omeprazole magnesium 20 mg 20 mg PO BID #30 tab 08/02/21 tablet,delayed release (Prilosec OTC) ondansetron 4 mg disintegrating 4 mg PO Q8H PRN #20 tab 08/02/21 tablet famotidine 20 mg tablet 20 mg PO BEDTIME #20 tab 08/03/21 pantoprazole 40 mg tablet,delayed 40 mg PO DAILY #20 tab 08/03/21 release omeprazole 40 mg capsule,delayed 40 mg PO DAILY #30 cap 08/07/21 release ondansetron 4 mg disintegrating 4 mg PO Q6H PRN #10 tab 08/07/21 tablet sucralfate 1 gram tablet (Carafate) 1 g PO .achs #60 tab 08/07/21 Allergies Allergy/AdvReac Type Severity Reaction Status Date / Time No Known Allergies Allergy Verified 11/01/20 11:52 [No Known Allergies*] Review of Systems Review of Systems: Yes all other systems are reviewed and are negative Constitutional: Constitutional: Reports no additional constitutional complaints, Denies body ache(s), Denies chills, Denies fever(s), Denies headache(s) and Denies weakness Eyes: Eyes: Reports no additional eye complaints and Denies change in vision ENT: Reports system reviewed and no additional complaints, except as do cumented, Denies dizziness, Denies headache(s), Denies nasal congestion, Denies nasal discharge and Denies neck pain Cardiovascular: Cardiovascular: Reports no additional cardiovascular complaints, Denies chest pain, Denies leg edema and Denies dyspnea Respiratory: Respiratory: Reports no additional respiratory complaints, Denies cough and Denies dyspnea Gastrointestinal: Gastrointestinal: Reports no additional gastrointestinal complaints, Reports abdominal pain, Reports diarrhea, Reports nausea and Reports vomiting Genitourinary: Genitourinary: Denies urinary incontinence Musculoskeletal: Musculoskeletal: Reports no additional musculoskeletal complaints, Denies back pain, Denies arthralgias, Denies joint swelling, Denies neck pain, Denies numbness and Denies tingling Integumentary/Breasts: Skin/Breast: Reports system reviewed and no additional complaints, except as docu and Denies rash Neurologic: Reports system reviewed and no additional complaints, except as documented, Denies Abnormal speech present, Denies dizziness, Denies h eadache(s), Denies numbness, Denies tingling and Denies weakness PMFSH Past Medical History Attestation statement: The following information was validated with the patient. Source: old records reviewed and nursing notes reviewed Medical History Allergic rhinitis Surgical History History of surgery Family History Family History Father Depression Asthma Mother Asthma Depression Migraine Brother No problems noted. Sister No problems noted. Son In good health Social History Social History Alcohol intake: never Patient Tobacco Use Status: Current everyday Tobacco user Cigarettes Per Day: 5 Use of substances other than those prescribed or required for medical reasons: No Substance Use Type: Opiates Advance Directives: No Advance Directives Information Provided: No Physical Exam Vital Signs: Vital Signs: Last Vital Signs Temp 99 F 08/07/21 18:13 Pulse 72 08/07/21 18:13 Resp 18 08/07/21 18:13 BP 128/86 08/07/21 18:13 Pulse Ox 98 08/07/21 18:13 Body Mass Index 22.4 Const: General: cooperative, healthy appearing, comfortable and no acute distress Orientation/consciousness: patient oriented x3 Limitations: no limitations HENMT: Head: Yes normal to inspection Ears: hearing grossly normal bilaterally General nose exam: Normal external nose present Face and sinus: Yes normal facial exam Mouth: Normal oral and palatal mucosa present Throat: Yes posterior oropharynx normal Eyes: General: appearance normal, both eyes and all related structures Pupils: Equal, round and reactive pupils present Neck: Neck: Yes normal visual inspection Chest: Chest palpation & inspection: normal inspection of the chest Resp: Effort & Inspection: normal respiratory effort Auscultation: clear to auscultation bilaterally Cardio: Rate: regular rate Rhythm: regular rhythm Peripheral pulses: Peripheral pulses 2+ throughout GI: Inspection: Yes normal to inspection Palpation (GI): Soft to palpation and Tenderness to palpation present (GI) (Diffusely tender with no rebound or guarding) Auscultation: normal bowel sounds Back/Spine/Pelvis: Thoracic/Lumbar Spine: thoracic and lumbar spine normal to inspection Skin: General skin exam: no rashes or lesions noted Neuro: General: patient oriented x3, no focal motor deficits and normal sensation to monofilament Cranial nerves: Yes Equal, round and reactive pupils present Cognition (Neuro): normal cognition Speech: No Abnormal speech present Gait exam (Neuro): Normal gait present Motor exam (neuro): 5/5 motor strength present throughout Extrem: General: Yes normal to inspection Course Course Course Narrative: 25-year-old male here with complaints of nausea, vomiting, diarrhea, abdominal discomfort which is generalized after eating a breakfast sandwich is morning. Of note, the patient was seen here on August 03 and had labs, CT scan of the abdomen and pelvis on normal and was discharged home on a PPI for presumed gastritis. Patient tells me he at that time had started Suboxone for opiate withdrawal. However he has not continued Suboxone as he has not gone to the clinic. He is not using. On exam has mild diffuse tenderness with no rebound or guarding. Will check labs, UA. Will give PPI, GI cocktail and reassess 2049-labs are unchanged from previous. Patient is feeling improved. Will attempt PO trial. 2210-patient ate a cup and a half of ice. No additional vomiting episodes. Repeat abdominal exam benign. Feeling improved. Will discharge home. Reviewed worrisome signs and symptoms of when to return to the emergency department. Comfortable discharge home. MDM - Nausea/Vomiting/Diarrhea Medical Records Attestation: I reviewed the patient's medical records. Lab Data Attestation: I reviewed the patient's lab results. Result diagrams: 08/07/21 19:33 08/07/21 19:33 Labs: Lab Results 08/07/21 08/07/21 Range/Units 19:33 19:33 WBC 7.7 (4.8-10.8) X10*3/uL RBC 4.94 (4.60-5.80) X10*6/uL Hgb 15.3 (14.0-18.0) g/dl Hct 44.9 (42.0-52.0) % MCV 90.9 (80.0-98.0) fL MCH 31.0 (27.0-33.0) pg MCHC 34.1 (31.0-36.0) g/dl RDW 12.6 (11.0-16.0) % Plt Count 326 (160-400) X10*3/uL MPV 9.8 (9.4-12.4) fL Immature Gran % (Auto) 0.3 (0.0-0.4) % Neut % (Auto) 77.5 H (45-73) % Lymph % (Auto) 13.8 L (20-40) % [place] % (Auto) 8.1 (2-11) % Eos % (Auto) 0.0 (0-4) % Baso % (Auto) 0.3 (0-2) % Lymph # (Auto) 1.1 L (1.2-4.9) X10*3/uL [place] # (Auto) 0.6 (0.1-1.2) X10*3/uL Eos # (Auto) 0.0 (0.0-0.4) X10*3/uL Baso # (Auto) 0.0 (0.0-0.2) X10*3/uL Abs Immat Gran (auto) 0.02 (0.00-0.03) X10*3/uL Absolute Neuts (auto) 5.95 (2.0-8.3) x10*3/uL Absolute Nucleated RBC 0.000 (0.0-0.012) X10*3/uL Nucleated RBC % (auto) 0.0 (0.0-0.2) /100WBC Sodium 139 (135-145) mmol/L Potassium 4.4 (3.3-5.1) mmol/L Chloride 104 (96-108) mmol/L Carbon Dioxide 25 (22-29) mmol/L Anion Gap 14 (12-20) BUN 18 H (9-16) mg/dL Creatinine 1.10 (0.5-1.4) mg/dL Estim Creat Clear Calc 88.9 Estimated GFR > 60 Random Glucose 110 (60-115) mg/dL Calcium 9.8 (8.4-10.2) mg/dL Total Bilirubin 1.4 H (0.0-1.0) mg/dL Direct Bilirubin 0.5 (0.0-0.5) mg/dL AST 23 (5-37) U/L ALT 16 (0-40) U/L Alkaline Phosphatase 72 (39-117) U/L Total Protein 8.0 (6.5-8.0) g/dL Albumin 4.8 (3.5-5.0) g/dL Lipase 35 (8-78) U/L Discharge Plan Discharge Clinical Impression: Gastritis Patient Disposition: Home, Self-Care Instructions: Gastritis (ED), Diet for Stomach Ulcers and Gastritis (ED) Additional Instructions: Very bland diet as discussed. Follow-up with gastroenterology Prescriptions: New ondansetron 4 mg tablet,disintegrating 4 mg PO Q6H PRN (Reason: nausea and vomiting) Qty: 10 RF: 0 sucralfate [Carafate] 1 gram tablet 1 g PO .achs Qty: 60 RF: 0 omeprazole 40 mg capsule,delayed release(DR/EC) 40 mg PO DAILY Qty: 30 RF: 0 No Action ondansetron 4 mg tablet,disintegrating 4 mg PO Q8H PRN (Reason: nausea and vomiting) Qty: 20 RF: 0 omeprazole magnesium [Prilosec OTC] 20 mg tablet,delayed release (DR/EC) 20 mg PO BID Qty: 30 RF: 0 ondansetron HCl [Zofran] 4 mg tablet 4 mg PO Q8H Qty: 10 RF: 0 buprenorphine-naloxone [Suboxone] 4-1 mg film 1 film sublingual DAILY Qty: 4 RF: 0 pantoprazole 40 mg tablet,delayed release (DR/EC) 40 mg PO DAILY Qty: 20 RF: 0 famotidine 20 mg tablet 20 mg PO BEDTIME Qty: 20 RF: 0 azithromycin 250 mg tablet See Rx Instructions PO .COMPLEX Qty: 6 RF: 0 fluticasone propionate 50 mcg/actuation spray,suspension 1 spray intranasal DAILY PRN (Reason: allergy symptoms) 30 Days Qty: 16 RF: 5 Referrals: Osiris Ac MD [Physician] - 2 days Interventions: ED Discharge Assessment Last Done: 08/07/21 22:09 Discharge Date/Time: 08/07/21 22:10
[2021-08-07 20:01] LABS: Alanine Aminotransferase 16 U/L (0-40); Albumin Level 4.8 g/dL (3.5-5.0); Alkaline Phosphatase 72 U/L (39-117); Anion Gap 14 (12-20); Aspartate Amino Transferase 23 U/L (5-37); Bilirubin Direct 0.5 mg/dL (0.0-0.5); Bilirubin Total 1.4 mg/dL (0.0-1.0); Blood Urea Nitrogen 18 mg/dL (9-16); Calcium 9.8 mg/dL (8.4-10.2); Carbon Dioxide 25 mmol/L (22-29); Chloride 104 mmol/L (96-108); Creatinine Clr Calc Pharmacy 88.9; Estimated Glomerular Filt Rate > 60; Glucose Random 110 mg/dL (60-115); Lipase 35 U/L (8-78); Potassium 4.4 mmol/L (3.3-5.1); Sodium 139 mmol/L (135-145)
== END 2021-08-07 22:10 | disposition home or self-care (01) ==
PROVIDERS: Nurse Practitioner Family; Emergency Provider Emergency Medicine
DX: K29.70 Gastritis, unspecified, without bleeding (principal); F11.10 Opioid abuse, uncomplicated
CPT/HCPCS: 36415; 80048; 80076; 83690; 85025; 96361; 96374; 99284

== ENCOUNTER 2021-08-21 02:12 | Emergency (ER) | payer OTHER, SELFPAY ==
[2021-08-21 02:59] VITALS: BP 132/81; PULSE 75; RESP 16; TEMP 36.8; O2SAT 99; BMI 22.4
[2021-08-21 03:04] VITALS: BP 121/80; PULSE 76
[2021-08-21] MEDS: diphenhydrAMINE HCL 50 MG/ML VIAL 25 MG IM (03:28)
[2021-08-21] MEDS: Metoclopramide HCl 10 MG/2 ML VIAL IM (03:28)
[2021-08-21] MEDS: Ondansetron ODT 4 MG TAB.RAPDIS TRANSLINGU (03:28)
--- NOTE | 2021-08-21 03:53 | PC.NURSE ---
PT HAS BEEN NON COMPLIANT WITH HIS GERD MEDICATION, CAN'T GIVE A GOOD REASON WHY.
--- NOTE | 2021-08-21 03:54 | PC.NURSE ---
WANTS TO TRY A P.O[employer]ALLENGE, WILL START WITH ICE CHIPS.
--- NOTE | 2021-08-21 03:57 | ED_ITS ---
HPI - General Adult General Chief complaint: Nausea/Vomiting/Diarrhea Stated complaint: pain Time Seen by Provider: 08/21/21 03:12 Source: patient Mode of arrival: EMS History of Present Illness HPI narrative: 25-year-old male with history of peptic ulcer, GERD and presents with vomiting and epigastric pain that started approximately 4 hours ago. Patient endorses positive marijuana history otherwise, denies fevers, chills Related Data Previous Rx's Medication Instructions Recorded azithromycin 250 mg tablet See Rx Instructions PO .COMPLEX #6 11/01/20 tab fluticasone propionate 50 1 spray INTRANASAL DAILY PRN 30 11/01/20 mcg/actuation nasal Days #16 g spray,suspension ondansetron HCl 4 mg tablet 4 mg PO Q8H #10 tab 07/03/21 (Zofran) buprenorphine 4 mg-naloxone 1 mg 1 film SUBLINGUAL DAILY #4 ea 07/31/21 sublingual film (Suboxone) omeprazole magnesium 20 mg 20 mg PO BID #30 tab 08/02/21 tablet,delayed release (Prilosec OTC) ondansetron 4 mg disintegrating 4 mg PO Q8H PRN #20 tab 08/02/21 tablet famotidine 20 mg tablet 20 mg PO BEDTIME #20 tab 08/03/21 pantoprazole 40 mg tablet,delayed 40 mg PO DAILY #20 tab 08/03/21 release omeprazole 40 mg capsule,delayed 40 mg PO DAILY #30 cap 08/07/21 release ondansetron 4 mg disintegrating 4 mg PO Q6H PRN #10 tab 08/07/21 tablet sucralfate 1 gram tablet (Carafate) 1 g PO .achs #60 tab 08/07/21 Allergies Allergy/AdvReac Type Severity Reaction Status Date / Time No Known Allergies Allergy Verified 11/01/20 11:52 [No Known Allergies*] Review of Systems Review of Systems: Pertinent positives and negatives as stated in HPI 10 point review of systems is otherwise negative. [facility] Past Medical History Source: nursing notes reviewed Medical History Allergic rhinitis Surgical History History of surgery Family History Family History Father Depression Asthma Mother Asthma Depression Migraine Brother No problems noted. Sister No problems noted. Son In good health Social History Social History Alcohol intake: never Patient Tobacco Use Status: Current everyday Tobacco user Cigarettes Per Day: 5 Substance Use Type: Opiates Advance Directives: No Physical Exam Vital Signs: Vital Signs: Last Vital Signs Temp 98.2 F 08/21/21 02:59 Pulse 75 08/21/21 02:59 Resp 16 08/21/21 02:59 BP 132/81 08/21/21 02:59 Pulse Ox 99 08/21/21 02:59 Body Mass Index 22.4 VITAL SIGNS: Reviewed. GENERAL: Well developed, well nourished, in no acute distress. HEAD: Normocephalic/atraumatic EYES: PERRLA, EOMI OROPHARYNX: no oral lesions noted, posterior pharynx clear NECK: Supple, no adenopathy LUNGS: Normal breath sounds. No adventitious sounds or accessory muscle use. SpO2<99> CARDIOVASCULAR: Regular rate and rhythm without noted murmurs ABDOMEN: Soft, non-tender, non-distended with bowel sounds. SKIN: Inspection of the skin reveals no rashes NEUROLOGIC: Alert and oriented x 4. Course Course Course Narrative: 25-year-old male with history and clinical presentation consistent with gastritis and will be treated with combination medications to control vomiting and then provide medication for the inflammation and do a p.o. challenge. Patient was able to tolerate oral intake after receiving medication for the inflammation in his stomach and was strongly recommended to fill his prescription and take them as prescribed as well as following up with his primary care provider. Discharge Plan Discharge Clinical Impression: Gastritis Patient Disposition: Home, Self-Care Instructions: Diet for Stomach Ulcers and Gastritis (ED), Gastritis (ED) Additional Instructions: Resume all medications as prescribed for your stomach condition. Return to the ER for acute worsening of symptoms. Prescriptions: No Action ondansetron 4 mg tablet,disintegrating 4 mg PO Q8H PRN (Reason: nausea and vomiting) Qty: 20 RF: 0 omeprazole magnesium [Prilosec OTC] 20 mg tablet,delayed release (DR/EC) 20 mg PO BID Qty: 30 RF: 0 ondansetron HCl [Zofran] 4 mg tablet 4 mg PO Q8H Qty: 10 RF: 0 buprenorphine-naloxone [Suboxone] 4-1 mg film 1 film sublingual DAILY Qty: 4 RF: 0 pantoprazole 40 mg tablet,delayed release (DR/EC) 40 mg PO DAILY Qty: 20 RF: 0 famotidine 20 mg tablet 20 mg PO BEDTIME Qty: 20 RF: 0 ondansetron 4 mg tablet,disintegrating 4 mg PO Q6H PRN (Reason: nausea and vomiting) Qty: 10 RF: 0 sucralfate [Carafate] 1 gram tablet 1 g PO .achs Qty: 60 RF: 0 omeprazole 40 mg capsule,delayed release(DR/EC) 40 mg PO DAILY Qty: 30 RF: 0 azithromycin 250 mg tablet See Rx Instructions PO .COMPLEX Qty: 6 RF: 0 fluticasone propionate 50 mcg/actuation spray,suspension 1 spray intranasal DAILY PRN (Reason: allergy symptoms) 30 Days Qty: 16 RF: 5 Referrals: Jimmy Gaitan MD [Primary Care Provider] - 2 days Seferino Reveles [Physician] - 2 days (Patient with multiple visits for or significant gastritis symptoms. History of peptic ulcer, has been discharge on sucralfate. Would appreciate evaluation and treatment as indicated.)
[2021-08-21] MEDS: Lidocaine HCl Viscous 2 % 15 ML SOLUTION 10 ML MUCOUS MEM (04:17)
[2021-08-21] MEDS: Magnesium Hydrox/Alum Hydrox 30 ML ORAL.SUSP PO (04:17)
--- NOTE | 2021-08-21 04:24 | PC.NURSE ---
PT HAS HAD 2 CUPS OF ICE CHIPS AND 8 OUNCES OF WATER.
[2021-08-21] MEDS: Sucralfate Oral Suspension 1 GM/10 ML ORAL.SUSP PO (04:34)
[2021-08-21 04:46] VITALS: BP 130/80; PULSE 72; RESP 16; O2SAT 99
== END 2021-08-21 04:49 | disposition home or self-care (01) ==
PROVIDERS: Emergency Provider Student in an Organized Health Care Education/Training Program; PCP Internal Medicine
DX: K29.70 Gastritis, unspecified, without bleeding (principal)
CPT/HCPCS: 96372; 99284; J1200; J2765

== ENCOUNTER 2021-08-21 10:56 | Emergency (ER) | payer OTHER, SELFPAY ==
--- NOTE | 2021-08-21 11:13 | ED.NAVMDI ---
HPI - Nausea/Vomiting/Diarrhea General Chief complaint: Nausea/Vomiting/Diarrhea Stated complaint: N/V Time Seen by Provider: 08/21/21 11:06 Source: patient Mode of arrival: EMS Limitations: no limitations History of Present Illness HPI Narrative: This is a 25 years old male presented to the emergency department by ambulance with chief complaint no nausea vomiting or epigastric abdominal pain. He was seen yesterday by Dr. Rivera he was treated and released with diagnosis of gastritis MD elicited complaint: nausea and vomiting Pertinent past history: anorexia Onset (ago): day(s) (2) Description of vomiting: none Associated nausea: Yes Associated abdominal pain: Yes Location of pain: epigastric Radiation: epigastric Pain consistency: constant Quality: cramping Relieving factors: none Related Data Previous Rx's Medication Instructions Recorded azithromycin 250 mg tablet See Rx Instructions PO .COMPLEX #6 11/01/20 tab fluticasone propionate 50 1 spray INTRANASAL DAILY PRN 30 11/01/20 mcg/actuation nasal Days #16 g spray,suspension ondansetron HCl 4 mg tablet 4 mg PO Q8H #10 tab 07/03/21 (Zofran) buprenorphine 4 mg-naloxone 1 mg 1 film SUBLINGUAL DAILY #4 ea 07/31/21 sublingual film (Suboxone) omeprazole magnesium 20 mg 20 mg PO BID #30 tab 08/02/21 tablet,delayed release (Prilosec OTC) ondansetron 4 mg disintegrating 4 mg PO Q8H PRN #20 tab 08/02/21 tablet famotidine 20 mg tablet 20 mg PO BEDTIME #20 tab 08/03/21 pantoprazole 40 mg tablet,delayed 40 mg PO DAILY #20 tab 08/03/21 release omeprazole 40 mg capsule,delayed 40 mg PO DAILY #30 cap 08/07/21 release ondansetron 4 mg disintegrating 4 mg PO Q6H PRN #10 tab 08/07/21 tablet sucralfate 1 gram tablet (Carafate) 1 g PO .achs #60 tab 08/07/21 Allergies Allergy/AdvReac Type Severity Reaction Status Date / Time No Known Allergies Allergy Verified 11/01/20 11:52 [No Known Allergies*] Review of Systems Review of Systems: Yes all other systems are reviewed and are negative Constitutional: Constitutional: Reports fatigue and Denies fever(s) Cardiovascular: Cardiovascular: Reports Epigastric Pain Respiratory: Respiratory: Reports no additional respiratory complaints Gastrointestinal: Gastrointestinal: Reports nausea Neurologic: Reports system reviewed and no additional complaints, except as documented Endocrine: Endocrine: Reports fatigue PMFSH Past Medical History Medical History Allergic rhinitis Surgical History History of surgery Family History Family History Father Depression Asthma Mother Asthma Depression Migraine Brother No problems noted. Sister No problems noted. Son In good health Social History Social History Alcohol intake: never Patient Tobacco Use Status: Current everyday Tobacco user Cigarettes Per Day: 5 Substance Use Type: Opiates Advance Directives: No Advance Directives Information Provided: Yes Physical Exam Vital Signs: Vital Signs: Last Vital Signs Temp 97.5 F 08/21/21 11:52 Pulse 78 08/21/21 16:10 Resp 18 08/21/21 16:10 BP 125/60 08/21/21 16:10 Pulse Ox 99 08/21/21 16:10 Body Mass Index 22.4 Const: General: cooperative and well developed HENMT: Head: Yes normal to inspection Face and sinus: Yes normal facial exam Mouth: Normal oral and palatal mucosa present Neck: Neck: Yes normal visual inspection, Yes full ROM and Yes no lymphadenopathy Chest: Chest palpation & inspection: normal inspection of the chest Resp: Effort & Inspection: normal respiratory effort Auscultation: clear to auscultation bilaterally Cardio: Jugular venous distension: no JVD Palpation: normal PMI Rate: regular rate Rhythm: regular rhythm GI: Inspection: Yes normal to inspection Palpation (GI): Soft to palpation, not firm and nontender Course Course Course Narrative: Patient remained hemodynamically stable his blood work is unremarkable including CBC a chemistry he has been here almost 2 hours he has not vomited in the emergency room , he has no comorbidity , I think he can go home with antiemetic a clear liquid diet MDM - Nausea/Vomiting/Diarrhea Lab Data Result diagrams: 08/21/21 11:27 08/21/21 11:27 Labs: Lab Results 08/21/21 08/21/21 Range/Units 11:27 11:27 WBC 10.0 (4.8-10.8) X10*3/uL RBC 4.66 (4.60-5.80) X10*6/uL Hgb 14.4 (14.0-18.0) g/dl Hct 42.4 (42.0-52.0) % MCV 91.0 (80.0-98.0) fL MCH 30.9 (27.0-33.0) pg MCHC 34.0 (31.0-36.0) g/dl RDW 12.8 (11.0-16.0) % Plt Count 322 (160-400) X10*3/uL MPV 9.9 (9.4-12.4) fL Immature Gran % (Auto) 0.2 (0.0-0.4) % Neut % (Auto) 74.6 H (45-73) % Lymph % (Auto) 16.4 L (20-40) % [place] % (Auto) 8.5 (2-11) % Eos % (Auto) 0.0 (0-4) % Baso % (Auto) 0.3 (0-2) % Lymph # (Auto) 1.6 (1.2-4.9) X10*3/uL [place] # (Auto) 0.9 (0.1-1.2) X10*3/uL Eos # (Auto) 0.0 (0.0-0.4) X10*3/uL Baso # (Auto) 0.0 (0.0-0.2) X10*3/uL Abs Immat Gran (auto) 0.02 (0.00-0.03) X10*3/uL Absolute Neuts (auto) 7.5 (2.0-8.3) x10*3/uL Absolute Nucleated RBC 0.000 (0.0-0.012) X10*3/uL Nucleated RBC % (auto) 0.0 (0.0-0.2) /100WBC Sodium 140 (135-145) mmol/L Potassium 3.8 (3.3-5.1) mmol/L Chloride 103 (96-108) mmol/L Carbon Dioxide 24 (22-29) mmol/L Anion Gap 17 (12-20) BUN 15 (9-16) mg/dL Creatinine 1.04 (0.5-1.4) mg/dL Estim Creat Clear Calc 94.0 Estimated GFR > 60 Random Glucose 117 H (60-115) mg/dL Calcium 9.9 (8.4-10.2) mg/dL Total Bilirubin 1.1 H (0.0-1.0) mg/dL AST 27 (5-37) U/L ALT 17 (0-40) U/L Alkaline Phosphatase 74 (39-117) U/L Total Protein 7.7 (6.5-8.0) g/dL Albumin 4.5 (3.5-5.0) g/dL Lipase 30 (8-78) U/L Discharge Plan Discharge Clinical Impression: Vomiting Patient Disposition: Home, Self-Care Instructions: Acute Nausea and Vomiting (ED) Additional Instructions: Please merchandise pickup/receiving associate the prescriptions that were given to you a early this morning by my colleague stay on liquid diet for 24 hours Prescriptions: No Action ondansetron 4 mg tablet,disintegrating 4 mg PO Q8H PRN (Reason: nausea and vomiting) Qty: 20 RF: 0 omeprazole magnesium [Prilosec OTC] 20 mg tablet,delayed release (DR/EC) 20 mg PO BID Qty: 30 RF: 0 ondansetron HCl [Zofran] 4 mg tablet 4 mg PO Q8H Qty: 10 RF: 0 buprenorphine-naloxone [Suboxone] 4-1 mg film 1 film sublingual DAILY Qty: 4 RF: 0 pantoprazole 40 mg tablet,delayed release (DR/EC) 40 mg PO DAILY Qty: 20 RF: 0 famotidine 20 mg tablet 20 mg PO BEDTIME Qty: 20 RF: 0 ondansetron 4 mg tablet,disintegrating 4 mg PO Q6H PRN (Reason: nausea and vomiting) Qty: 10 RF: 0 sucralfate [Carafate] 1 gram tablet 1 g PO .achs Qty: 60 RF: 0 omeprazole 40 mg capsule,delayed release(DR/EC) 40 mg PO DAILY Qty: 30 RF: 0 azithromycin 250 mg tablet See Rx Instructions PO .COMPLEX Qty: 6 RF: 0 fluticasone propionate 50 mcg/actuation spray,suspension 1 spray intranasal DAILY PRN (Reason: allergy symptoms) 30 Days Qty: 16 RF: 5 Interventions: ED Discharge Assessment Last Done: 08/21/21 16:11 Discharge Date/Time: 08/21/21 16:11
[2021-08-21 11:18] VITALS: BP 120/68; BP 132/78; PULSE 58; PULSE 64; RESP 18; TEMP 36.1; O2SAT 100; BMI 22.4
[2021-08-21 11:31] LABS: MANUAL DIFF FLAG NO
[2021-08-21 11:39] LABS: Basophils Percent Auto 0.3 % (0-2); Hematocrit 42.4 % (42.0-52.0); Hemoglobin 14.4 g/dl (14.0-18.0); Imm Gran Abs Auto 0.02 X10*3/uL (0.00-0.03); Imm Gran Pct Auto 0.2 % (0.0-0.4); Lymphocytes Absolute Auto 1.6 X10*3/uL (1.2-4.9); Lymphocytes Percent Auto 16.4 % (20-40); Mean Corpuscular Hemoglobin 30.9 pg (27.0-33.0); Mean Platelet Volume 9.9 fL (9.4-12.4); Monocytes Absolute Auto 0.9 X10*3/uL (0.1-1.2); Monocytes Percent Auto 8.5 % (2-11); Neutrophils Absolute Auto 7.5 x10*3/uL (2.0-8.3); Neutrophils Percent Auto 74.6 % (45-73); Platelet Count 322 X10*3/uL (160-400); Red Blood Count 4.66 X10*6/uL (4.60-5.80); Red Cell Distribution Width 12.8 % (11.0-16.0)
[2021-08-21] MEDS: Metoclopramide HCl 10 MG/2 ML VIAL IVPUSH (11:49)
[2021-08-21] MEDS: LORazepam 2 MG/ML VIAL 1 MG IVPUSH (11:50)
[2021-08-21] MEDS: 0.9 % Sodium Chloride 1,000 ML 999 ML IVCONT (11:51)
[2021-08-21 11:52] VITALS: BP 123/69; PULSE 60; RESP 16; TEMP 36.4; O2SAT 100
[2021-08-21 11:57] LABS: Alanine Aminotransferase 17 U/L (0-40); Albumin Level 4.5 g/dL (3.5-5.0); Alkaline Phosphatase 74 U/L (39-117); Anion Gap 17 (12-20); Aspartate Amino Transferase 27 U/L (5-37); Bilirubin Total 1.1 mg/dL (0.0-1.0); Blood Urea Nitrogen 15 mg/dL (9-16); Calcium 9.9 mg/dL (8.4-10.2); Carbon Dioxide 24 mmol/L (22-29); Chloride 103 mmol/L (96-108); Estimated Glomerular Filt Rate > 60; Glucose Random 117 mg/dL (60-115); Lipase 30 U/L (8-78); Potassium 3.8 mmol/L (3.3-5.1); Sodium 140 mmol/L (135-145); Total Protein 7.7 g/dL (6.5-8.0)
--- NOTE | 2021-08-21 13:19 | PC.NURSE ---
pt is currently asleep, respirations even and unlabored,
--- NOTE | 2021-08-21 15:59 | PC.NURSE ---
pt tolerating po liquids no vomiting since the arrival t the ed,
[2021-08-21 16:10] VITALS: BP 125/60; PULSE 78; RESP 18; O2SAT 99
== END 2021-08-21 16:11 | disposition home or self-care (01) ==
PROVIDERS: Emergency Provider Emergency Medicine; PCP Physician Assistant
DX: R11.10 Vomiting, unspecified (principal)
CPT/HCPCS: 36415; 80053; 83690; 85025; 96361; 96374; 96375; 99284; J2060; J2765

== ENCOUNTER 2021-08-22 21:50 | Emergency (ER) | payer OTHER, SELFPAY ==
[2021-08-22 22:37] VITALS: BP 134/94; PULSE 67; TEMP 37.9; O2SAT 98; BMI 22.4
[2021-08-23] MEDS: Lidocaine HCl Viscous 2 % 15 ML SOLUTION 10 ML MUCOUS MEM (00:06)
[2021-08-23] MEDS: Magnesium Hydrox/Alum Hydrox 30 ML ORAL.SUSP PO (00:06)
[2021-08-23] MEDS: Ondansetron ODT 4 MG TAB.RAPDIS TRANSLINGU (00:06)
--- NOTE | 2021-08-23 00:47 | PC.NURSE ---
I attempted to re-assess this patient after administering GI cocktail and PO Zofran to the patient. Before I could finish asking the pt if he had any relief he stated yo, you're a fucking nigger and im about to go to [facility] your fucking ass. The pt then continued by yelling that you're not doing a goddamn thing to help me. Prior to this I had informed the pt that we had administered a GI cocktail and that I would re-assess him to see if it had helped any of the symptoms he presented with (epigastric discomfort/nausea/vomiting). I promptly walked away from this patient, informed him that I will no longer be caring for him, and informed charge machine operator and MD. MD is at bedside to speak with pt. Of Note: pt is alert and oriented x 3, does not appear to be in any distress - respirations are non-labored, speech celar and appropriate, skin warm and dry, pt is oriented x 3.
--- NOTE | 2021-08-23 01:05 | ED_ITS ---
HPI - Abdominal Pain General Chief Complaint: Abdominal Pain Stated Complaint: abd pain Time Seen by Provider: 08/22/21 23:32 Source: patient and family Mode of arrival: ambulatory History of Present Illness HPI narrative: 25-year-old male presents with recurrent visits for epigastric pain and history of peptic ulcer disease. Patient states that he has not picked up the medication that he has previously been prescribed. He denies any h ematemesis or melena/hematochezia but states that the pain is bothering him and he has had decreased appetite and nausea because of this. Related Data Previous Rx's Medication Instructions Recorded azithromycin 250 mg tablet See Rx Instructions PO .COMPLEX #6 11/01/20 tab fluticasone propionate 50 1 spray INTRANASAL DAILY PRN 30 11/01/20 mcg/actuation nasal Days #16 g spray,suspension ondansetron HCl 4 mg tablet 4 mg PO Q8H #10 tab 07/03/21 (Zofran) buprenorphine 4 mg-naloxone 1 mg 1 film SUBLINGUAL DAILY #4 ea 07/31/21 sublingual film (Suboxone) omeprazole magnesium 20 mg 20 mg PO BID #30 tab 08/02/21 tablet,delayed release (Prilosec OTC) ondansetron 4 mg disintegrating 4 mg PO Q8H PRN #20 tab 08/02/21 tablet famotidine 20 mg tablet 20 mg PO BEDTIME #20 tab 08/03/21 pantoprazole 40 mg tablet,delayed 40 mg PO DAILY #20 tab 08/03/21 release omeprazole 40 mg capsule,delayed 40 mg PO DAILY #30 cap 08/07/21 release ondansetron 4 mg disintegrating 4 mg PO Q6H PRN #10 tab 08/07/21 tablet sucralfate 1 gram tablet (Carafate) 1 g PO .achs #60 tab 08/07/21 ondansetron 4 mg disintegrating 4 mg PO Q6H PRN #10 tab 08/23/21 tablet sucralfate 100 mg/mL oral 10 ml PO QID #420 ml 08/23/21 suspension (Carafate) Allergies Allergy/AdvReac Type Severity Reaction Status Date / Time No Known Allergies Allergy Verified 11/01/20 11:52 [No Known Allergies*] Review of Systems Review of Systems Pertinent positives and negatives as stated in HPI 10 point review of systems is otherwise negative. Physical Exam Vital Signs: Vital Signs: Last Vital Signs Temp 100.2 F 08/22/21 22:37 Pulse 67 08/22/21 22:37 BP 134/94 H 08/22/21 22:37 Pulse Ox 98 08/22/21 22:37 Body Mass Index 22.4 VITAL SIGNS: Reviewed. GENERAL: Well developed, well nourished, in no acute distress. HEAD: Normocephalic/atraumatic EYES: PERRLA, EOMI OROPHARYNX: no oral lesions noted, posterior pharynx clear NECK: Supple, no adenopathy LUNGS: Normal breath sounds. No adventitious sounds or accessory muscle use. SpO2<98> CARDIOVASCULAR: Regular rate and rhythm without noted murmurs ABDOMEN: Soft, epigastric pain,, non-distended with bowel sounds. NEUROLOGIC: Alert and oriented x 4. Course Course Course Narrative: 25-year-old male with history and clinical presentation consi stent with gastritis and likely ulcer disease. Patient has been poorly compliant with prescriptions and medications for this treatment. He does have a follow-up appointment with his primary care provider next week and will be provided with a referral to see Gastroenterology. Patient tolerated combination gastritis medication and is stable for discharge to home. Discharge Plan Discharge Clinical Impression: Gastritis, Peptic ulcer disease Patient Disposition: Home, Self-Care Instructions: Peptic Ulcer (ED), Gastritis (ED), Diet for Stomach Ulcers and Gastritis (ED) Additional Instructions: 1. You have been sent sucralfate, ondansetron (Zofran) to the [facility] at [facility]. This pharmacy is open 24 hours. 2. At your last visit your provided with a referral to see Gastroenterology, I have again provided you with the referral below. Return to the ER for worsening symptoms. Prescriptions: New sucralfate [Carafate] 100 mg/mL suspension 10 ml PO QID Qty: 420 RF: 0 ondansetron 4 mg tablet,disintegrating 4 mg PO Q6H PRN (Reason: nausea and vomiting) Qty: 10 RF: 0 No Action ondansetron 4 mg tablet,disintegrating 4 mg PO Q8H PRN (Reason: nausea and vomiting) Qty: 20 RF: 0 omeprazole magnesium [Prilosec OTC] 20 mg tablet,delayed release (DR/EC) 20 mg PO BID Qty: 30 RF: 0 ondansetron HCl [Zofran] 4 mg tablet 4 mg PO Q8H Qty: 10 RF: 0 buprenorphine-naloxone [Suboxone] 4-1 mg film 1 film sublingual DAILY Qty: 4 RF: 0 pantoprazole 40 mg tablet,delayed release (DR/EC) 40 mg PO DAILY Qty: 20 RF: 0 famotidine 20 mg tablet 20 mg PO BEDTIME Qty: 20 RF: 0 ondansetron 4 mg tablet,disintegrating 4 mg PO Q6H PRN (Reason: nausea and vomiting) Qty: 10 RF: 0 sucralfate [Carafate] 1 gram tablet 1 g PO .achs Qty: 60 RF: 0 omeprazole 40 mg capsule,delayed release(DR/EC) 40 mg PO DAILY Qty: 30 RF: 0 azithromycin 250 mg tablet See Rx Instructions PO .COMPLEX Qty: 6 RF: 0 fluticasone propionate 50 mcg/actuation spray,suspension 1 spray intranasal DAILY PRN (Reason: allergy symptoms) 30 Days Qty: 16 RF: 5 Referrals: Jimmy Gaitan MD [Primary Care Provider] - 2 days Angel Luis Smiley MD [Physician] - 2 days (Suspect patient has peptic ulcer disease in addition to gastritis. Started on sucralfate) Print Language: Upper Sorbian [facility] Past Medical History Source: nursing notes reviewed Medical History Allergic rhinitis Surgical History History of surgery Family History Family History Father Depression Asthma Mother Asthma Depression Migraine Brother No problems noted. Sister No problems noted. Son In good health Social History Social History Alcohol intake: never Patient Tobacco Use Status: Current everyday Tobacco user Cigarettes Per Day: 5 Substance Use Type: Opiates Advance Directives: No Advance Directives Information Provided: No
--- NOTE | 2021-08-23 01:38 | PC.NURSE ---
Discharged at this time. The pt took PO Carafate and stated it wont even work by the time i get home anyways. He verbalized an understanding of all DC orders. I stressed the importance of following up with a range aide so that he could avoid returning to the E.D. I also stressed filing the prescribed meds and taking them according to the order - something he has admitted to not being compliant with after rtecent ER visits. He verbalized an understanding of this. Earlier, when the pt decided to yell at me, he also decided to refuse bloodwork and covid swab. was aware of this.
[2021-08-23] MEDS: Sucralfate Oral Suspension 1 GM/10 ML ORAL.SUSP PO (01:40)
== END 2021-08-23 01:44 | disposition home or self-care (01) ==
PROVIDERS: Emergency Provider Student in an Organized Health Care Education/Training Program; PCP Internal Medicine
DX: K29.00 Acute gastritis without bleeding (principal); R10.13 Epigastric pain; Z79.899 Other long term (current) drug therapy
CPT/HCPCS: 99284

== ENCOUNTER 2021-08-24 15:40 | Emergency (ER) | payer OTHER, SELFPAY ==
[2021-08-24 17:52] VITALS: BP 123/79; BP 128/86; PULSE 60; PULSE 67; RESP 18; TEMP 36.7; O2SAT 98; BMI 22.4
[2021-08-24 18:33] LABS: MANUAL DIFF FLAG NO
[2021-08-24 18:43] LABS: Appearance Urine CLEAR; Basophils Percent Auto 0.5 % (0-2); Color Urine YELLOW; Eosinophils Absolute Auto 0.1 X10*3/uL (0.0-0.4); Eosinophils Percent Auto 1.3 % (0-4); Glucose Urine UA NEG (NEG); Hematocrit 45.8 % (42.0-52.0); Hemoglobin 15.5 g/dl (14.0-18.0); Imm Gran Abs Auto 0.02 X10*3/uL (0.00-0.03); Imm Gran Pct Auto 0.3 % (0.0-0.4); Leukocyte Esterase Urine NEG (NEG); Lymphocytes Absolute Auto 1.4 X10*3/uL (1.2-4.9); Lymphocytes Percent Auto 18.1 % (20-40); Mean Corpuscular HGB Conc 33.8 g/dl (31.0-36.0); Mean Corpuscular Hemoglobin 30.8 pg (27.0-33.0); Mean Corpuscular Volume 91.1 fL (80.0-98.0); Mean Platelet Volume 9.9 fL (9.4-12.4); Monocytes Absolute Auto 0.8 X10*3/uL (0.1-1.2); Monocytes Percent Auto 10.7 % (2-11); Neutrophils Absolute Auto 5.4 x10*3/uL (2.0-8.3); Neutrophils Percent Auto 69.1 % (45-73); Nitrite Urine NEG (NEG); PH 6.5 (5.0-8.0); Platelet Count 324 X10*3/uL (160-400); Red Blood Count 5.03 X10*6/uL (4.60-5.80); Red Cell Distribution Width 12.3 % (11.0-16.0); Specific Gravity - Urine >= 1.030 (1.005-1.025); UACC Culture Trigger NO; Urine Blood NEG (NEG); Urine Ketones 5 MG/DL (NEG); Urine Protein 1+ MG/DL (NEG-TRACE); White Blood Count 7.7 X10*3/uL (4.8-10.8)
[2021-08-24 18:50] LABS: Alanine Aminotransferase 13 U/L (0-40); Albumin Level 4.7 g/dL (3.5-5.0); Alkaline Phosphatase 79 U/L (39-117); Anion Gap 13 (12-20); Aspartate Amino Transferase 21 U/L (5-37); Bilirubin Total 0.9 mg/dL (0.0-1.0); Blood Urea Nitrogen 11 mg/dL (9-16); Calcium 9.7 mg/dL (8.4-10.2); Carbon Dioxide 28 mmol/L (22-29); Chloride 100 mmol/L (96-108); Creatinine Clr Calc Pharmacy 97.8; Estimated Glomerular Filt Rate > 60; Glucose Random 115 mg/dL (60-115); Potassium 3.8 mmol/L (3.3-5.1); Sodium 137 mmol/L (135-145); Total Protein 7.9 g/dL (6.5-8.0)
[2021-08-24 18:55] LABS: Calcium Oxalate Crystals Urine TRACE /LPF; Mucus Urine 4+ /LPF; Squamous Epithelial Cell Urine TRACE /LPF
[2021-08-24 18:56] LABS: RBC Urine 0 /HPF (0)
== END 2021-08-24 22:23 | disposition left against medical advice (07) ==
PROVIDERS: Emergency Provider Emergency Medicine; PCP Internal Medicine
DX: K21.9 Gastro-esophageal reflux disease without esophagitis (principal)
CPT/HCPCS: 36415; 80053; 81001; 85025; 99283

== ENCOUNTER 2021-08-24 23:57 | Emergency (ER) | payer OTHER, SELFPAY ==
[2021-08-25 00:47] VITALS: BP 136/76; PULSE 60; RESP 18; TEMP 37.4; O2SAT 99; BMI 21.2
--- NOTE | 2021-08-25 04:25 | ED_ITS ---
HPI - General Adult General Chief complaint: Abdominal Pain Stated complaint: Abd pain Time Seen by Provider: 08/25/21 04:25 Source: patient Mode of arrival: ambulatory Limitations: no limitations History of Present Illness HPI narrative: patient with the chills and stomach burning for the past 4 days. In reviewing his chart he has had a complete work up including CT abd and pelvis and multiple labs. Patient states that he is not actively using drugs but is not taking suboxone. Patient had been using everyday for 2 months but stopped when we gave him suboxone. He did not enter a program. Onset (ago): week(s) Severity: mild Quality: burning Pain Consistency: constant Associated symptoms: denies other symptoms Related Data Previous Rx's Medication Instructions Recorded azithromycin 250 mg tablet See Rx Instructions PO .COMPLEX #6 11/01/20 tab fluticasone propionate 50 1 spray INTRANASAL DAILY PRN 30 11/01/20 mcg/actuation nasal Days #16 g spray,suspension ondansetron HCl 4 mg tablet 4 mg PO Q8H #10 tab 07/03/21 (Zofran) buprenorphine 4 mg-naloxone 1 mg 1 film SUBLINGUAL DAILY #4 ea 07/31/21 sublingual film (Suboxone) omeprazole magnesium 20 mg 20 mg PO BID #30 tab 08/02/21 tablet,delayed release (Prilosec OTC) ondansetron 4 mg disintegrating 4 mg PO Q8H PRN #20 tab 08/02/21 tablet famotidine 20 mg tablet 20 mg PO BEDTIME #20 tab 08/03/21 pantoprazole 40 mg tablet,delayed 40 mg PO DAILY #20 tab 08/03/21 release omeprazole 40 mg capsule,delayed 40 mg PO DAILY #30 cap 08/07/21 release ondansetron 4 mg disintegrating 4 mg PO Q6H PRN #10 tab 08/07/21 tablet sucralfate 1 gram tablet (Carafate) 1 g PO .achs #60 tab 08/07/21 ondansetron 4 mg disintegrating 4 mg PO Q6H PRN #10 tab 08/23/21 tablet sucralfate 100 mg/mL oral 10 ml PO QID #420 ml 08/23/21 suspension (Carafate) Allergies Allergy/AdvReac Type Severity Reaction Status Date / Time No Known Allergies Allergy Verified 08/24/21 17:51 [No Known Allergies*] Review of Systems Constitutional: Constitutional: Reports no additional constitutional complaints Eyes: Eyes: Reports no additional eye complaints ENT: Denies dizziness Cardiovascular: Cardiovascular: Reports no additional cardiovascular complaints Respiratory: Respiratory: Reports as per HPI Gastrointestinal: Gastrointestinal: Reports no additional gastrointestinal complaints Musculoskeletal: Musculoskeletal: Reports no additional musculoskeletal complaints Integumentary/Breasts: Skin/Breast: Denies rash Neurologic: Reports system reviewed and no additional complaints, except as documented, Denies dizziness and Denies Sensory deficit (Neuro) Psychiatric: Psychiatric: Denies anxiety [facility] Past Medical History Medical History Allergic rhinitis Surgical History History of surgery Family History Family History Father Depression Asthma Mother Asthma Depression Migraine Brother No problems noted. Sister No problems noted. Son In good health Social History Social History Alcohol intake: never Patient Tobacco Use Status: Current everyday Tobacco user Cigarettes Per Day: 5 Substance Use Type: Opiates Advance Directives: No Physical Exam Vital Signs: Vital Signs: Last Vital Signs Temp 99.4 F 08/25/21 00:47 Pulse 60 08/25/21 00:47 Resp 18 08/25/21 00:47 BP 136/76 08/25/21 00:47 Pulse Ox 99 08/25/21 00:47 Body Mass Index 21.2 Const: Other: diaphoresis Nutritional Appearance: average body habitus Orientation/consciousness: oriented to person and patient oriented x3 Limitations: no limitations HENMT: Head: Yes normal to inspection Ears: external ears normal General nose exam: Normal external nose present Mouth: Normal oral and palatal mucosa present and oropharynx normal Throat: Yes posterior oropharynx normal Eyes: General: appearance normal, both eyes and all related structures Neck: Other: supple Neck: Yes normal visual inspection Chest: Chest palpation & inspection: normal inspection of the chest Resp: Auscultation: clear to auscultation bilaterally Cardio: Jugular venous distension: no JVD Rate: regular rate Rhythm: regular rhythm Heart sounds: S1 normal heart sound present and S2 normal heart sound present GI: Inspection: Yes normal to inspection Palpation (GI): Soft to palpation, nontender and No hepatosplenomegaly present Auscultation: normal bowel sounds : General: Yes no CVA tenderness Back/Spine/Pelvis: Back: no CVA tenderness Skin: Other: diaphoretic General skin exam: no rashes or lesions noted Neuro: General: oriented to person and patient oriented x3 Cranial nerves: Yes CN's II-XII intact bilaterally Motor exam (neuro): 5/5 motor strength present throughout Sensory Exam: No Sensory deficit (Neuro) Extrem: General: Yes normal to inspection Psych: Appearance: grossly normal Course Reevaluation(s) Reevaluation #1: by history patient in opiate withdrawal, no with nausea, abdominal pain, diaphoresis, weakness shakes. Will give suboxone 4 and refer to [facility] detox Time: 04:37 Discharge Plan Discharge Clinical Impression: Opiate withdrawal Patient Disposition: Home, Self-Care Instructions: Opioid Withdrawal (ED), Opioid Use Disorder (ED) Additional Instructions: Must go to suboxone clinic on [facility] Prescriptions: No Action ondansetron 4 mg tablet,disintegrating 4 mg PO Q8H PRN (Reason: nausea and vomiting) Qty: 20 RF: 0 omeprazole magnesium [Prilosec OTC] 20 mg tablet,delayed release (DR/EC) 20 mg PO BID Qty: 30 RF: 0 ondansetron HCl [Zofran] 4 mg tablet 4 mg PO Q8H Qty: 10 RF: 0 buprenorphine-naloxone [Suboxone] 4-1 mg film 1 film sublingual DAILY Qty: 4 RF: 0 pantoprazole 40 mg tablet,delayed release (DR/EC) 40 mg PO DAILY Qty: 20 RF: 0 famotidine 20 mg tablet 20 mg PO BEDTIME Qty: 20 RF: 0 ondansetron 4 mg tablet,disintegrating 4 mg PO Q6H PRN (Reason: nausea and vomiting) Qty: 10 RF: 0 sucralfate [Carafate] 1 gram tablet 1 g PO .achs Qty: 60 RF: 0 omeprazole 40 mg capsule,delayed release(DR/EC) 40 mg PO DAILY Qty: 30 RF: 0 sucralfate [Carafate] 100 mg/mL suspension 10 ml PO QID Qty: 420 RF: 0 ondansetron 4 mg tablet,disintegrating 4 mg PO Q6H PRN (Reason: nausea and vomiting) Qty: 10 RF: 0 azithromycin 250 mg tablet See Rx Instructions PO .COMPLEX Qty: 6 RF: 0 fluticasone propionate 50 mcg/actuation spray,suspension 1 spray intranasal DAILY PRN (Reason: allergy symptoms) 30 Days Qty: 16 RF: 5
[2021-08-25] MEDS: Buprenorphine/Naloxone 4/1 mg FILM 1 FILM SUBLINGUAL (04:45)
[2021-08-25 04:49] VITALS: BP 130/62; PULSE 60; RESP 18; TEMP 37.2; O2SAT 99
== END 2021-08-25 04:54 | disposition home or self-care (01) ==
PROVIDERS: Emergency Provider Emergency Medicine
DX: F11.13 Opioid abuse with withdrawal (principal); R10.9 Unspecified abdominal pain; R68.83 Chills (without fever); F17.200 Nicotine dependence, unspecified, uncomplicated
CPT/HCPCS: 99283; 99284

== ENCOUNTER 2021-10-28 09:56 | Emergency (ER) | payer MEDICAID, SELFPAY ==
[2021-10-28 10:03] VITALS: BP 140/59; PULSE 120; RESP 19; TEMP 36.6; O2SAT 99; BMI 22.9
--- NOTE | 2021-10-28 10:31 | ED.GENADULT ---
HPI - General Adult General Chief complaint: General Medical Stated complaint: going through withdrawals Time Seen by Provider: 10/28/21 09:58 Source: patient Mode of arrival: ambulatory Limitations: no limitations History of Present Illness HPI narrative: 25-year-old male with a history of opiate use disorder on 12 mg of Suboxone daily, ADHD, bipolar disorder here with reports of restlessness, anxiety, irritability, body aches for the last 2 days. Patient tells me that 2 days ago he was smoking marijuana with friends that he believes was laced with fentanyl. He tells me that after using it several hours later he started to feel irritable and anxious and restless and has been unable to sleep with reports of body aches and joint pain. No nausea, vomiting, diarrhea or abdominal cramping. Denies any additional substance use. Has not taking his Suboxone last 2 days as he was worried this may put him into precipitated withdrawal Related Data Previous Rx's Medication Instructions Recorded azithromycin 250 mg tablet See Rx Instructions PO .COMPLEX #6 11/01/20 tab fluticasone propionate 50 1 spray INTRANASAL DAILY PRN 30 11/01/20 mcg/actuation nasal Days #16 g spray,suspension ondansetron HCl 4 mg tablet 4 mg PO Q8H #10 tab 07/03/21 (Zofran) buprenorphine 4 mg-naloxone 1 mg 1 film SUBLINGUAL DAILY #4 ea 07/31/21 sublingual film (Suboxone) omeprazole magnesium 20 mg 20 mg PO BID #30 tab 08/02/21 tablet,delayed release (Prilosec OTC) ondansetron 4 mg disintegrating 4 mg PO Q8H PRN #20 tab 08/02/21 tablet famotidine 20 mg tablet 20 mg PO BEDTIME #20 tab 08/03/21 pantoprazole 40 mg tablet,delayed 40 mg PO DAILY #20 tab 08/03/21 release omeprazole 40 mg capsule,delayed 40 mg PO DAILY #30 cap 08/07/21 release ondansetron 4 mg disintegrating 4 mg PO Q6H PRN #10 tab 08/07/21 tablet sucralfate 1 gram tablet (Carafate) 1 g PO .achs #60 tab 08/07/21 ondansetron 4 mg disintegrating 4 mg PO Q6H PRN #10 tab 08/23/21 tablet sucralfate 100 mg/mL oral 10 ml PO QID #420 ml 08/23/21 suspension (Carafate) Allergies Allergy/AdvReac Type Severity Reaction Status Date / Time No Known Allergies Allergy Verified 08/24/21 17:51 [No Known Allergies*] Review of Systems Review of Systems: Yes all other systems are reviewed and are negative Constitutional: Constitutional: Reports no additional constitutional complaints, Reports body ache(s), Denies chills, Denies fever(s), Denies headache(s) and Denies weakness Eyes: Eyes: Reports no additional eye complaints and Denies change in vision ENT: Reports system reviewed and no additional complaints, except as documented, Denies dizziness, Denies headache(s), Denies nasal congestion, Denies nasal discharge and Denies neck pain Cardiovascular: Cardiovascular: Reports no additional cardiovascular complaints, Denies chest pain, Denies leg edema and Denies dyspnea Respiratory: Respiratory: Reports no additional respiratory complaints, Denies cough and Denies dyspnea Gastrointestinal: Gastrointestinal: Reports no additional gastrointestinal complaints, Denies abdominal pain, Denies diarrhea, Denies nausea and Denies vomiting Genitourinary: Genitourinary: Denies urinary incontinence Musculoskeletal: Musculoskeletal: Reports no additional musculoskeletal complaints, Denies back pain, Denies arthralgias, Denies joint swelling, Denies neck pain, Denies numbness and Denies tingling Integumentary/Breasts: Skin/Breast: Reports system reviewed and no additional complaints, except as docu and Denies rash Neurologic: Reports system reviewed and no additional complaints, except as documented, Denies Abnormal speech present, Denies dizziness, Denies headache(s), Denies numbness, Denies tingling and Denies weakness Psychiatric: Psychiatric: Reports anxiety and Reports irritability Comments: +restlessness PMFSH Past Medical History Attestation statement: The following information was validated with the patient. Source: old records reviewed and nursing notes reviewed Medical History ADHD Allergic rhinitis Bipolar 1 disorder Surgical History History of surgery Family History Family History Father Depression Asthma Mother Asthma Depression Migraine Brother No problems noted. Sister No problems noted. Son In good health Social History Social History Alcohol intake: never Patient Tobacco Use Status: Current everyday Tobacco user Cigarettes Per Day: 5 Substance Use Type: Opiates Advance Directives: No Advance Directives Information Provided: No Physical Exam Vital Signs: Vital Signs: Last Vital Signs Temp 98 F 10/28/21 10:03 Pulse 120 H 10/28/21 10:03 Resp 19 10/28/21 10:03 BP 140/59 H 10/28/21 10:03 Pulse Ox 99 10/28/21 10:03 BMI result Body Mass Index 22.9 Const: Other: +anxious, pacing, restless General: cooperative Orientation/consciousness: patient oriented x3 Limitations: no limitations HENMT: Head: Yes normal to inspection Ears: hearing grossly normal bilaterally General nose exam: Normal external nose present Face and sinus: Yes normal facial exam Mouth: Normal oral and palatal mucosa present Throat: Yes posterior oropharynx normal Eyes: General: appearance normal, both eyes and all related structures Pupils: Equal, round and reactive pupils present Neck: Neck: Yes normal visual inspection Chest: Chest palpation & inspection: normal inspection of the chest Resp: Effort & Inspection: normal respiratory effort Auscultation: clear to auscultation bilaterally Cardio: Rate: regular rate Rhythm: regular rhythm Peripheral pulses: Peripheral pulses 2+ throughout GI: Inspection: Yes normal to inspection Palpation (GI): Soft to palpation and nontender Auscultation: normal bowel sounds Back/Spine/Pelvis: Thoracic/Lumbar Spine: thoracic and lumbar spine normal to inspection Skin: General skin exam: no rashes or lesions noted Neuro: General: patient oriented x3, no focal motor deficits and normal sensation to monofilament Cranial nerves: Yes Equal, round and reactive pupils present Cognition (Neuro): normal cognition Speech: No Abnormal speech present Gait exam (Neuro): Normal gait present Motor exam (neuro): 5/5 motor strength present throughout Extrem: General: Yes normal to inspection Course Course Course Narrative: 25-year-old male here with reports of irritability, restlessness, body pain, anxiety after smoking some marijuana 2 days ago that he is concerned was laced with fentanyl. He does have a longstanding history of opiate use disorder and is currently on Suboxone 12 mg daily. He d denies any additional substance use. He has not used his Suboxone last 2 days as he felt like this may put him into precipitated withdrawal Will check drug screen. Patient does not want to take his suboxone today. Will give IM toradol, PO ativan and re-assess. 1105-ZAFAR + opiates (fentanyl), PCP, cocaine, THC. Interested in detox. Will speak to recovery team 1130-Patient met with recovery team. Given info for follow-up in clinic. Searching for detox bed 1245-Declined by detox due to reports of single use. Given outpatient resources for home. Reviewed worrisome signs and symptoms of when to return to the emergency department. Comfortable discharge home. Medical Decision Making Lab Data Labs: Lab Results 10/28/21 Range/Units 10:36 Urine Opiates Screen POSITIVE H (Not Detect) Urine Fentanyl Screen POSITIVE H (Not Detect) Ur Barbiturates Screen Not Detected (Not Detect) Ur Phencyclidine Scrn POSITIVE H (Not Detect) Ur Amphetamines Screen Not Detected (Not Detect) U Benzodiazepines Scrn Not Detected (Not Detect) Urine Cocaine Screen POSITIVE H (Not Detect) U Marijuana (THC) Screen POSITIVE H (Not Detect) Discharge Plan Discharge Clinical Impression: Substance use Patient Disposition: Home, Self-Care Instructions: Polysubstance Abuse (ED) Additional Instructions: Start your Suboxone when you feel comfortable Follow-up with the clinic with the paperwork you were given by our recovery team Prescriptions: No Action ondansetron 4 mg tablet,disintegrating 4 mg PO Q8H PRN (Reason: nausea and vomiting) Qty: 20 RF: 0 omeprazole magnesium [Prilosec OTC] 20 mg tablet,delayed release (DR/EC) 20 mg PO BID Qty: 30 RF: 0 ondansetron HCl [Zofran] 4 mg tablet 4 mg PO Q8H Qty: 10 RF: 0 buprenorphine-naloxone [Suboxone] 4-1 mg film 1 film sublingual DAILY Qty: 4 RF: 0 pantoprazole 40 mg tablet,delayed release (DR/EC) 40 mg PO DAILY Qty: 20 RF: 0 famotidine 20 mg tablet 20 mg PO BEDTIME Qty: 20 RF: 0 ondansetron 4 mg tablet,disintegrating 4 mg PO Q6H PRN (Reason: nausea and vomiting) Qty: 10 RF: 0 sucralfate [Carafate] 1 gram tablet 1 g PO .achs Qty: 60 RF: 0 omeprazole 40 mg capsule,delayed release(DR/EC) 40 mg PO DAILY Qty: 30 RF: 0 sucralfate [Carafate] 100 mg/mL suspension 10 ml PO QID Qty: 420 RF: 0 ondansetron 4 mg tablet,disintegrating 4 mg PO Q6H PRN (Reason: nausea and vomiting) Qty: 10 RF: 0 azithromycin 250 mg tablet See Rx Instructions PO .COMPLEX Qty: 6 RF: 0 fluticasone propionate 50 mcg/actuation spray,suspension 1 spray intranasal DAILY PRN (Reason: allergy symptoms) 30 Days Qty: 16 RF: 5 Referrals: Jimmy Gaitan MD [Primary Care Provider] - 2 days Interventions: ED Discharge Assessment Last Done: 10/28/21 12:51 Discharge Date/Time: 10/28/21 12:54
[2021-10-28 10:58] LABS: Amphetamine Screen Urine Not Detected (Not Detect); Barbiturates, Urine Not Detected (Not Detect); Benzodiazepines Screen Urine Not Detected (Not Detect); Cannabinoid Screen Urine POSITIVE (Not Detect); Cocaine Screen Urine POSITIVE (Not Detect); Fentanyl, urine POSITIVE (Not Detect); Opiate Screen Urine POSITIVE (Not Detect); Phencyclidine Screen Urine POSITIVE (Not Detect)
[2021-10-28] MEDS: Ketorolac Tromethamine 60 MG/2 ML VIAL IM (10:59)
[2021-10-28] MEDS: LORazepam 1 MG TABLET 2 MG PO (11:00)
--- NOTE | 2021-10-28 12:16 | MHC.RECOVSUP ---
Recovery Support note: Patient is a 25 year old Malagasy speaking male who presented to [facility] ED due to withdrawal symptoms. Patient reports believes the cannabis he used was laced. Patient reports using cocaine and PCP. Patient reports he last used yesterday afternoon. Informed patient that it is most likely the opiates were present in the cocaine or PCP. Discussed harm reduction and fentanyl test strips. Patient reports he is on Suboxone however he is not sure if he is able to return to his program as he missed an appointment. Discussed [facility] and Hope saira Solis and provided patient with resources and the contact information for this technical proposal writer. Instructed patient to contact this technical proposal writer if he is unable to return to his clinic and this technical proposal writer will assist him with getting an appointment at the [facility]. Patient acknowledged. Patient is interested in going to detox. This technical proposal writer will attempt to secure an ATS bed for patient. Discussed case with patient's ED provider.
--- NOTE | 2021-10-28 12:50 | MHC.RECOVSUP ---
Recovery Support note: Jefe declines patient due to patient not having a pattern of use. No ATS beds at this time. Discussed with patient. Encouraged patient to restart Suboxone at home, waiting as long as he can and taking 1mg tonight or tomorrow and proceeding with additional small doses if symptoms improve with the first. Patient reports no questions at this time. Patient has contact information for this radio news writer in the event that he has questions or issues. Discussed case with ED provider.
== END 2021-10-28 12:54 | disposition home or self-care (01) ==
PROVIDERS: Nurse Practitioner Family; Emergency Provider Internal Medicine; PCP Internal Medicine
DX: F19.90 Other psychoactive substance use, unspecified, uncomplicated (principal); F17.200 Nicotine dependence, unspecified, uncomplicated; F11.20 Opioid dependence, uncomplicated; F12.90 Cannabis use, unspecified, uncomplicated; F14.90 Cocaine use, unspecified, uncomplicated
CPT/HCPCS: 80307; 96372; 99284; J1885

== ENCOUNTER 2021-11-26 18:04 | Emergency (ER) | payer MEDICAID, SELFPAY ==
[2021-11-26 18:08] VITALS: BP 132/68; PULSE 99; RESP 18; TEMP 36.7; O2SAT 99; BMI 27.4
--- NOTE | 2021-11-26 18:10 | PC.NURSE ---
unable to place order, pt given sl zofran in triage, ok per md
[2021-11-26 18:26] VITALS: BP 120/69; PULSE 76; RESP 16; O2SAT 98
--- NOTE | 2021-11-26 18:26 | ED.PSYCH ---
HPI - Psych General Chief Complaint: ETOH/Substance Use Stated Complaint: seeking detox, nausea Time Seen by Provider: 11/26/21 18:25 Source: patient Mode of arrival: ambulatory Limitations: no limitations History of Present Illness HPI Narrative: This is a 26-year-old male past medical history significant for substance abuse disorder, ADHD, bipolar d/o presenting to the emergency department with complaints of withdrawal from percocet, fentanyl and heroin he tells me he is seeking detox at this time. He tells me that the last time he used was this morning he used heroin and fentanyl, snorted. He tells me he typically uses about 2 bundles a day. He also reports body aches, fatigue and malaise and a slight abdominal discomfort. He tells me has been having intermittent chills but no fever. No sick contacts. He denies chest pain, shortness of breath, nausea, vomiting, fevers, weakness, dizziness, headache. He denies suicide ideation and homicidal ideation, he tells me is living with his girlfriend. MD complaint: substance abuse Onset (ago): day(s) (1) Duration: constant History of same: Yes Relieving factors: none Exacerbating factors: none Context: recent drug abuse Associated psychiatric symptoms: none Associated symptoms: denies other symptoms Treatments prior to arrival: none Related Data Previous Rx's Medication Instructions Recorded azithromycin 250 mg tablet See Rx Instructions PO .COMPLEX #6 11/01/20 tab fluticasone propionate 50 1 spray INTRANASAL DAILY PRN 30 11/01/20 mcg/actuation nasal Days #16 g spray,suspension ondansetron HCl 4 mg tablet 4 mg PO Q8H #10 tab 07/03/21 (Zofran) buprenorphine 4 mg-naloxone 1 mg 1 film SUBLINGUAL DAILY #4 ea 07/31/21 sublingual film (Suboxone) omeprazole magnesium 20 mg 20 mg PO BID #30 tab 08/02/21 tablet,delayed release (Prilosec OTC) ondansetron 4 mg disintegrating 4 mg PO Q8H PRN #20 tab 08/02/21 tablet famotidine 20 mg tablet 20 mg PO BEDTIME #20 tab 08/03/21 pantoprazole 40 mg tablet,delayed 40 mg PO DAILY #20 tab 08/03/21 release omeprazole 40 mg capsule,delayed 40 mg PO DAILY #30 cap 08/07/21 release ondansetron 4 mg disintegrating 4 mg PO Q6H PRN #10 tab 08/07/21 tablet sucralfate 1 gram tablet (Carafate) 1 g PO .achs #60 tab 08/07/21 ondansetron 4 mg disintegrating 4 mg PO Q6H PRN #10 tab 08/23/21 tablet sucralfate 100 mg/mL oral 10 ml PO QID #420 ml 08/23/21 suspension (Carafate) Allergies Allergy/AdvReac Type Severity Reaction Status Date / Time No Known Allergies Allergy Verified 08/24/21 17:51 [No Known Allergies*] Review of Systems Review of Systems: Constitutional : No Fever, + Chills, + body aches, +fatigue ENT/Mouth : No sore throat, No Rhinorrhea Eyes: No Eye Pain, No Swelling, No Redness Cardiovascular : No Chest Pain, No SOB Respiratory : No Cough, No Sputum Gastrointestinal : No Nausea, No Vomiting, No Diarrhea, No abdominal Pain Genitourinary : No Dysuria, No Hematuria Musculoskeletal : No joint pain, No Myalgias, No Joint Swelling Skin : No Skin Lesions, No rash Neuro : No Weakness, No Numbness Psych : No Anxiety, No Depression, No SI/HI/AH/VH All other systems reviewed and are negative Yes all other systems are reviewed and are negative [facility] Past Medical History Attestation statement: The following information was validated with the patient. Source: old records reviewed and nursing notes reviewed Medical History ADHD Allergic rhinitis Bipolar 1 disorder Surgical History History of surgery Family History Family History Father Depression Asthma Mother Asthma Depression Migraine Brother No problems noted. Sister No problems noted. Son In good health Social History Social History Alcohol intake: never Patient Tobacco Use Status: Current everyday Tobacco user Cigarettes Per Day: 5 Substance Use Type: Opiates Advance Directives: No Advance Directives Information Provided: No Physical Exam Vital Signs: Vital Signs: Last Vital Signs Temp 98.0 F 11/26/21 18:08 Pulse 99 11/26/21 18:08 Resp 18 11/26/21 18:08 BP 132/68 11/26/21 18:08 Pulse Ox 99 11/26/21 18:08 BMI result Body Mass Index 27.4 VSS Appearance: Alert.? Oriented X3.? No acute distress.? Head: Normocephalic, atraumatic, no step-offs or deformities Eyes: Pupils equal, round and reactive to light.? ENT: Pharynx normal.? Neck: Normal inspection.? Neck supple.? CVS: Normal heart rate and rhythm.? Pulses normal.? Respiratory: No respiratory distress.? Breath sounds normal.? Abdomen: Soft and nontender.? Skin: Skin warm and dry.? Normal skin color.? Normal skin turgor.? Extremities: No lower extremity edema.? No calf ttp. 5/5 strength to bilateral upper and lower extremities Back: No midline tenderness, no C-spine tenderness, full range of motion, no CVA tenderness bilaterally Neuro: Oriented X 3.? No motor deficit.? No sensory deficit. CN 2- 12 intact Course Reevaluation(s) Reevaluation #1: Spoke to the recovery specialist Eliseo that tells me that he has an intake at [facility] on he will likely be going there tomorrow morning. Will medically clear then placed in physician observation. Time: 18:30 Reevaluation #2: [facility] will be taking the patient tomorrow morning. Will continue to monitor until then. Time: 19:02 Reevaluation #3: CBC within normal limits. No acute electrolyte abnormalities. UA clean. Ethanol less than 10. COVID and flu negative. Patient's symptoms likely secondary to opiate withdrawal. Patient was given Ativan with improvement. Urine toxicology pending. At this time patient will be placed in physician observation to allow more time to be evaluated by the behavioral health team. At this time plan is for patient to go to [facility]. The reason I still want patient evaluated by the behavioral health team is to ensure patient has outpatient providers. At time observation was started patient, cooperative. No acute distress. Denies SI and HI. Will continue to monitor. Time: 20:16 MDM - Psych MDM Narrative Medical decision making narrative: 182 26-year-old male presenting to the emergency department requesting detox. No medical complaints PE benign Plan- speak to recovery specialist and medically clear. Will test for influenza as he reports sudden onset bodyaches. Medical Records Attestation: I reviewed the patient's medical records. Lab Data Attestation: I reviewed the patient's lab results. Result diagrams: 11/26/21 19:23 11/26/21 19:23 Labs: Lab Results 11/26/21 11/26/21 11/26/21 Range/Units 19:23 19: 19:23 WBC 6.0 (4.8-10.8) X10*3/uL RBC 4.81 (4.60-5.80) X10*6/uL Hgb 14.9 (14.0-18.0) g/dl Hct 44.8 (42.0-52.0) % MCV 93.1 (80.0-98.0) fL MCH 31.0 (27.0-33.0) pg MCHC 33.3 (31.0-36.0) g/dl RDW 12.8 (11.0-16.0) % Plt Count 298 (160-400) X10*3/uL MPV 10.0 (9.4-12.4) fL Immature Gran % (Auto) 0.2 (0.0-0.4) % Neut % (Auto) 81.5 H (45-73) % Lymph % (Auto) 11.9 L (20-40) % [place]ima % (Auto) 5.7 (2-11) % Eos % (Auto) 0.2 (0-4) % Baso % (Auto) 0.5 (0-2) % Lymph # (Auto) 0.7 L (1.2-4.9) X10*3/uL [place] # (Auto) 0.3 (0.1-1.2) X10*3/uL Eos # (Auto) 0.0 (0.0-0.4) X10*3/uL Baso # (Auto) 0.0 (0.0-0.2) X10*3/uL Abs Immat Gran (auto) 0.01 (0.00-0.03) X10*3/uL Absolute Neuts (auto) 4.9 (2.0-8.3) x10*3/uL Absolute Nucleated RBC 0.000 (0.0-0.012) X10*3/uL Nucleated RBC % (auto) 0.0 (0.0-0.2) /100WBC Sodium 138 (135-145) mmol/L Potassium 4.2 (3.3-5.1) mmol/L Chloride 103 (96-108) mmol/L Carbon Dioxide 27 (22-29) mmol/L Anion Gap 12 (12-20) BUN 14 (9-16) mg/dL Creatinine 0.82 (0.5-1.4) mg/dL Estim Creat Clear Calc 115.8 Estimated GFR > 60 Random Glucose 115 (60-115) mg/dL Calcium 10.4 H D (8.4-10.2) mg/dL Total Bilirubin 0.7 (0.0-1.0) mg/dL AST 31 D (5-37) U/L ALT 13 (0-40) U/L Alkaline Phosphatase 88 (39-117) U/L Total Protein 8.4 H (6.5-8.0) g/dL Albumin 4.7 (3.5-5.0) g/dL Lipase (8-78) U/L Ethyl Alcohol mg/dL COVID-19 (KIMBERLEE) Negative (Negative) COVID-19 Clin Com See Note Influenza Type A (JAMEE) (Negative) Influenza Type B (JAMEE) (Negative) Influenza A & B Note 11/26/21 11/26/21 11/26/21 Range/Units 19:23 19:23 19:23 WBC (4.8-10.8) X10*3/uL RBC (4.60-5.80) X10*6/uL Hgb (14.0-18.0) g/dl Hct (42.0-52.0) % MCV (80.0-98.0) fL MCH (27.0-33.0) pg MCHC (31.0-36.0) g/dl RDW (11.0-16.0) % Plt Count (160-400) X10*3/uL MPV (9.4-12.4) fL Immature Gran % (Auto) (0.0-0.4) % Neut % (Auto) (45-73) % Lymph % (Auto) (20-40) % Pima % (Auto) (2-11) % Eos % (Auto) (0-4) % Baso % (Auto) (0-2) % Lymph # (Auto) (1.2-4.9) X10*3/uL Pima # (Auto) (0.1-1.2) X10*3/uL Eos # (Auto) (0.0-0.4) X10*3/uL Baso # (Auto) (0.0-0.2) X10*3/uL Abs Immat Gran (auto) (0.00-0.03) X10*3/uL Absolute Neuts (auto) (2.0-8.3) x10*3/uL Absolute Nucleated RBC (0.0-0.012) X10*3/uL Nucleated RBC % (auto) (0.0-0.2) /100WBC Sodium (135-145) mmol/L Potassium (3.3-5.1) mmol/L Chloride (96-108) mmol/L Carbon Dioxide (22-29) mmol/L Anion Gap (12-20) BUN (9-16) mg/dL Creatinine (0.5-1.4) mg/dL Estim Creat Clear Calc Estimated GFR Random Glucose (60-115) mg/dL Calcium (8.4-10.2) mg/dL Total Bilirubin (0.0-1.0) mg/dL AST (5-37) U/L ALT (0-40) U/L Alkaline Phosphatase (39-117) U/L Total Protein (6.5-8.0) g/dL Albumin (3.5-5.0) g/dL Lipase 44 (8-78) U/L Ethyl Alcohol < 10 mg/dL COVID-19 (KIMBERLEE) (Negative) COVID-19 Clin Com Influenza Type A (JAMEE) Negative (Negative) Influenza Type B (JAMEE) Negative (Negative) Influenza A & B Note See Note Critical Care Time Critical Care Time Critical Care Time: No Discharge Plan Discharge Clinical Impression: Opiate withdrawal Patient Disposition: Still a Patient Prescriptions: No Action ondansetron 4 mg tablet,disintegrating 4 mg PO Q8H PRN (Reason: nausea and vomiting) Qty: 20 0RF omeprazole magnesium [Prilosec OTC] 20 mg tablet,delayed release (DR/EC) 20 mg PO BID Qty: 30 0RF ondansetron HCl [Zofran] 4 mg tablet 4 mg PO Q8H Qty: 10 0RF buprenorphine-naloxone [Suboxone] 4-1 mg film 1 film sublingual DAILY Qty: 4 0RF Rx Instructions: [id number] pantoprazole 40 mg tablet,delayed release (DR/EC) 40 mg PO DAILY Qty: 20 0RF Rx Instructions: Take 1 tablet half an hour before breakfast famotidine 20 mg tablet 20 mg PO BEDTIME Qty: 20 0RF ondansetron 4 mg tablet,disintegrating 4 mg PO Q6H PRN (Reason: nausea and vomiting) Qty: 10 0RF sucralfate [Carafate] 1 gram tablet 1 g PO .achs Qty: 60 0RF omeprazole 40 mg capsule,delayed release(DR/EC) 40 mg PO DAILY Qty: 30 0RF sucralfate [Carafate] 100 mg/mL suspension 10 ml PO QID Qty: 420 0RF Rx Instructions: swish in mouth and swallow; use after food/drink ondansetron 4 mg tablet,disintegrating 4 mg PO Q6H PRN (Reason: nausea and vomiting) Qty: 10 0RF azithromycin 250 mg tablet See Rx Instructions PO .COMPLEX Qty: 6 0RF Rx Instructions: take 500 mg today (day 1), then 250 mg for 4 days (days 2-5) PO fluticasone propionate 50 mcg/actuation spray,suspension 1 spray intranasal DAILY PRN (Reason: allergy symptoms) 30 Days Qty: 16 5RF Rx Instructions: administer into each nostril
--- NOTE | 2021-11-26 18:52 | MHC.RECOVSUP ---
? Reason for consult Recovery Support o Current location: [facility] o Identified substance use concern: Heroin - Withdrawal - Seeking ATS (detox) - Support ? Intervention: o ATS bed search started 630PM/completed 650PM o Community resources provided o Harm reduction discussion ? Plan: <del>o</del> <del>Referral</del> <del>to</del> <del>[facility]</del> <del>o</del> <del>Bed</del> <del>search</del> <del>in</del> <del>progress</del> <del>to</del> o Follow up tomorrow o Patient awaiting crisis evaluation o Patient to follow up with [facility] after discharge ? Additional information: Patient Has a bed Pending at [facility] Client just needs to update intake with [facility] @ 8 AM..
[2021-11-26 19:34] LABS: MANUAL DIFF FLAG NO
[2021-11-26 19:36] LABS: Basophils Percent Auto 0.5 % (0-2); Eosinophils Percent Auto 0.2 % (0-4); Hematocrit 44.8 % (42.0-52.0); Hemoglobin 14.9 g/dl (14.0-18.0); Imm Gran Abs Auto 0.01 X10*3/uL (0.00-0.03); Imm Gran Pct Auto 0.2 % (0.0-0.4); Lymphocytes Absolute Auto 0.7 X10*3/uL (1.2-4.9); Lymphocytes Percent Auto 11.9 % (20-40); Mean Corpuscular HGB Conc 33.3 g/dl (31.0-36.0); Mean Corpuscular Volume 93.1 fL (80.0-98.0); Monocytes Absolute Auto 0.3 X10*3/uL (0.1-1.2); Monocytes Percent Auto 5.7 % (2-11); Neutrophils Absolute Auto 4.9 x10*3/uL (2.0-8.3); Neutrophils Percent Auto 81.5 % (45-73); Platelet Count 298 X10*3/uL (160-400); Red Blood Count 4.81 X10*6/uL (4.60-5.80); Red Cell Distribution Width 12.8 % (11.0-16.0)
[2021-11-26] MEDS: LORazepam 1 MG TABLET PO ×2 (19:36→21:50)
[2021-11-26 19:51] LABS: Ethanol < 10 mg/dL
[2021-11-26 19:53] LABS: IDNOW Serial# 55D5AD1C; Influenza A Negative (Negative); Influenza B2 Negative (Negative)
[2021-11-26 19:54] LABS: COVID-19 Test Negative (Negative); Lipase 44 U/L (8-78)
[2021-11-26 19:56] LABS: Alanine Aminotransferase 13 U/L (0-40); Albumin Level 4.7 g/dL (3.5-5.0); Alkaline Phosphatase 88 U/L (39-117); Anion Gap 12 (12-20); Aspartate Amino Transferase 31 U/L (5-37); Bilirubin Total 0.7 mg/dL (0.0-1.0); Blood Urea Nitrogen 14 mg/dL (9-16); Calcium 10.4 mg/dL (8.4-10.2); Carbon Dioxide 27 mmol/L (22-29); Chloride 103 mmol/L (96-108); Creatinine Clr Calc Pharmacy 115.8; Estimated Glomerular Filt Rate > 60; Glucose Random 115 mg/dL (60-115); Potassium 4.2 mmol/L (3.3-5.1); Sodium 138 mmol/L (135-145); Total Protein 8.4 g/dL (6.5-8.0)
--- NOTE | 2021-11-26 19:59 | PC.NURSE ---
REQUESTED URINE SAMPLE. PT STATES ICAN'T PEE OFFERED WATER, PT HAD GINGERALE. PT STATES IT MAKES ME COLD. OFFERED PATIENT HOT TEA. PT REFUSED. PT ASKING FOR PAIN MED. [place] AWARE. STATES HE NEEDS TO GIVE A URINE FIRST. PT AWARE HE HAS TO GIVE URINE.
[2021-11-26] MEDS: Magnesium Hydrox/Alum Hydrox 30 ML ORAL.SUSP PO (20:38)
[2021-11-26] MEDS: PHENobarb/Hyoscy/Atropine/Scop 10 ML ELIXIR PO (20:38)
[2021-11-26] MEDS: Famotidine 20 MG TABLET PO (20:38)
--- NOTE | 2021-11-26 20:44 | PC.NURSE ---
PT C/O BURNING IN STOMACH. ASKING IF HE DOES NOT WANT TO GO TO DETOX THEN WHEN CAN HE TAKE SUBOXONE. HE HAS SCRIPTS AT HOME. DISCUSSED WITH PROVIDER. UNSAFE TO START SUBOXONE WITH OUT SUPERVISION CAN HAVE WORSE WITHDRAWLS. PT AWARE. PT HAS BED AT [facility] TOMORROW AM. PT ENCOURAGED TO WAIT. PT C/O CHILLS. PT YAWNING OCCASSIONALLY DURING CONVERSATION.
[2021-11-27 00:33] VITALS: BP 105/48; PULSE 104; RESP 16; TEMP 37.4; O2SAT 98
--- NOTE | 2021-11-27 00:46 | PC.NURSE ---
PT HAD CALLED THIS NURSE ASKING FOR SOMETHING FOR HIS CHILLS, APPEARED RESTLESS. MOVING LEGS AND FIDGETING IN BED. PT OFFERED WARM BLANKETS, JUICE, CRACKRS. PT AGREEABLE. PT ASKING FOR ICE. SPOKE WITH PROVIDER FOR SOMETHING FOR HIS WITHDRAWAL SYMPTOMS. WENT BACK TO ROOM PT ASLEEP ON BED. CALLED TO PATIENT. PT ANSWERED THAT HE WANTED BLANKETS. BLANKETS APPLIED. ASKED PT IF HE WANTED JUICE. PT CONTINUED TO SLEEP. RESP UNLABORED. WILL HOLD MEDS UNTIL PATIENT AWAKE. PROVIDER AWARE.
[2021-11-27] MEDS: Ondansetron ODT 4 MG TAB.RAPDIS TRANSLINGU ×3 (01:26→07:48)
[2021-11-27] MEDS: LORazepam 1 MG TABLET 2 MG PO (01:35)
[2021-11-27] MEDS: diphenhydrAMINE HCL 25 MG TABLET 50 MG PO (01:36)
--- NOTE | 2021-11-27 01:54 | PC.NURSE ---
PT MOVED TO BED 1 IN MAIN ED. CARE TRANSFERED AND REPORT GIVEN TO RODRIGO PICKARD.
[2021-11-27 02:58] VITALS: BP 126/77; PULSE 87; O2SAT 98
[2021-11-27] MEDS: TiZANidine HCL 4 MG TABLET PO (03:04)
[2021-11-27] MEDS: cloNIDine HCL 0.1 MG TABLET PO (03:04)
[2021-11-27 05:28] VITALS: BP 128/63; PULSE 78; RESP 16; O2SAT 97
[2021-11-27 06:09] VITALS: RESP 16; O2SAT 97
[2021-11-27] MEDS: LORazepam 1 MG TABLET PO (07:48)
== END 2021-11-27 09:33 | disposition other institution (70) ==
PROVIDERS: Physician Assistant; Emergency Provider Internal Medicine
DX: F11.23 Opioid dependence with withdrawal (principal); Z79.899 Other long term (current) drug therapy; Z20.822 Contact with and (suspected) exposure to COVID-19; Z71.51 Drug abuse counseling and surveillance of drug abuser
CPT/HCPCS: 80053; 82077; 83690; 85025; 87502; 87635; 99285; Q0163

== ENCOUNTER 2022-09-26 13:36 | Emergency (ER) | payer MEDICAID, SELFPAY ==
--- NOTE | ~2022-09-26 | XR_ITS ---
EXAMINATION: XR CHEST CLINICAL INFORMATION: Cough and right pleuritic chest pain. COMPARISON: None TECHNIQUE: 2 views of the chest were obtained. FINDINGS: No significant abnormality is noted involving the heart, lungs, mediastinum, bony thorax or soft tissues. XR/XR chest 2V IMPRESSION: Unremarkable chest examination.
[2022-09-26 13:38] VITALS: BP 134/86; PULSE 84; O2SAT 99
--- NOTE | 2022-09-26 13:43 | ED.URI ---
HPI - URI/Sore Throat General Chief Complaint: Nausea/Vomiting/Diarrhea Stated Complaint: flu like symptoms Time Seen by Provider: 09/26/22 14:13 Source: patient Mode of arrival: ambulatory Limitations: no limitations History of Present Illness MD elicited complaint: other ( Chills with nausea and vomiting) Onset (ago): day(s) (3) Consistency: constant Severity: mild Exacerbating factors: nothing Relieving factors: nothing Associated symptoms: chills, nausea and vomiting Treatments prior to arrival: none Related Data Previous Rx's Medication Instructions Recorded azithromycin 250 mg tablet See Rx Instructions PO .COMPLEX #6 11/01/20 tabs fluticasone propionate 50 1 spray intranasal DAILY PRN 11/01/20 mcg/actuation nasal allergy symptoms 30 days #16 grams spray,suspension ondansetron HCl 4 mg tablet 4 mg PO Q8H #10 tabs 07/03/21 (Zofran) buprenorphine 4 mg-naloxone 1 mg 1 film sublingual DAILY #4 ea 07/31/21 sublingual film (Suboxone) omeprazole magnesium 20 mg 20 mg PO BID #30 tabs 08/02/21 tablet,delayed release (Prilosec OTC) ondansetron 4 mg disintegrating 4 mg PO Q8H PRN nausea and 08/02/21 tablet vomiting #20 tabs famotidine 20 mg tablet 20 mg PO BEDTIME #20 tabs 08/03/21 pantoprazole 40 mg tablet,delayed 40 mg PO DAILY #20 tabs 08/03/21 release omeprazole 40 mg capsule,delayed 40 mg PO DAILY #30 caps 08/07/21 release ondansetron 4 mg disintegrating 4 mg PO Q6H PRN nausea and 08/07/21 tablet vomiting #10 tabs sucralfate 1 gram tablet (Carafate) 1 g PO .achs #60 tabs 08/07/21 ondansetron 4 mg disintegrating 4 mg PO Q6H PRN nausea and 08/23/21 tablet vomiting #10 tabs sucralfate 100 mg/mL oral 10 ml PO QID #420 mL 08/23/21 suspension (Carafate) cyclobenzaprine 10 mg tablet 10 mg PO Q8H #14 tabs 09/26/22 ibuprofen 800 mg tablet 800 mg PO Q8H PRN pain #14 tabs 09/26/22 Allergies Allergy/AdvReac Type Severity Reaction Status Date / Time No Known Allergies Allergy Verified 08/24/21 17:51 [No Known Allergies*] Review of Systems Review of Systems: Constitutional : No Weight loss, No Fever, + Chills, No Night Sweats, No Fatigue, No Malaise ENT/Mouth : No Hearing loss, No Ear Pain, No Nasal Congestion, No Sinus Pain, No Hoarseness, No sore throat, No Rhinorrhea, No Swallowing Difficulty Eyes: No Eye Pain, No Swelling, No Redness, No Foreign Body, No Discharge, No Vision Changes Cardiovascular : No Chest Pain, No SOB, No Dyspnea on Exertion, No Orthopnea, No Edema, No Palpitations Respiratory : No Cough, No Sputum, No Wheezing, No Smoke Exposure, No Dyspnea Gastrointestinal : + Nausea, + Vomiting, No Diarrhea, No Constipation, No abdominal Pain, No Hematochezia, No Melena Genitourinary : no irregular bleeding, No Dysuria, No Urinary Frequency, No Hematuria, No Urinary Incontinence, No Urgency, No Flank Pain, No Urinary Flow Changes, No Hesitancy Musculoskeletal : No joint pain, No Myalgias, No Joint Swelling Skin : No Skin Lesions, No rash Neuro : No Weakness, No Numbness, No Paresthesias, No Loss of Consciousness, No Dizziness, No Headache Psych : No Anxiety/Panic, No Depression, No SI/HI/AH/VH, No Social Issues, Heme/Lymph: No Bruising, No Bleeding,No Lymphadenopathy Endocrine : No Polyuria, No Polydipsia, No Temperature Intolerance Yes all other systems are reviewed and are negative [facility] Past Medical History Attestation statement: The following information was validated with the patient. Source: old records reviewed and nursing notes reviewed Medical History ADHD Allergic rhinitis Bipolar 1 disorder Surgical History History of surgery Family History Family History Father Depression Asthma Mother Asthma Depression Migraine Brother No problems noted. Sister No problems noted. Son In good health Social History Social History Alcohol intake: never Patient Tobacco Use Status: Current everyday Tobacco user Cigarettes Per Day: 5 Substance Use Type: Opiates Advance Directives: No Advance Directives Information Provided: No Physical Exam Vital Signs: Vital Signs: Last Vital Signs Temp 98.4 F 09/26/22 13:47 Pulse 81 09/26/22 13:47 Resp 18 09/26/22 13:47 BP 105/64 09/26/22 13:47 Pulse Ox 96 09/26/22 13:47 O2 Del Method 09/26/22 13:47 BMI result Body Mass Index 25.6 vital signs have been reviewed as normal and appeared to be correct. Blood pressure normal. Heart rate normal. Respiration rate normal. Temperature normal. Oxygen saturation normal. Appearance: Alert. Oriented X3. No acute distress. Head: Normal external exam. Normocephalic. Eyes: PERRLA. EOMI. Conjunctiva and sclera normal. Eyelids normal. ENT: EAC WNL. TM WNL. Pharynx normal. Uvula midline. Moist mucous membranes. No trismus noted. No drooling noted. No muffled voice noted. Neck: Normal inspection. Neck supple. FROM. No adenopathy. No meningeal signs. CVS: Normal heart rate and rhythm. Heart sound normal. No murmurs noted. Pulses normal throughout. Respiratory: No respiratory distress. Painless inspiration. Breath sounds normal. No wheezes/rales/rhonchi noted. Chest nontender. No accessory muscle usage noted or decreased air movement noted. Abdomen: Soft and nontender. Nondistended. No guarding. No rigidity. Bowel sounds normal in all 4 quadrants. No distention noted. No organomegaly noted. No visible injury noted. No rebound tenderness. Negative Rovsing sign. Negative obturator's sign. Negative psoas sign. Negative Frazier sign. Back: No CVA tenderness. Full range of motion noted. Skin: Skin warm and dry. Normal skin color. Normal skin turgor. No rashes/lesions/lacerations noted. Extremities: Extremities exhibit normal range of motion. Extremities nontender. Neuro: Oriented X 3. No motor deficit. No sensory deficit. Reflexes normal. Normal steady gait. CN's II-XII intact bilaterally? Course Course Course Narrative: patient negative for COVID/RSV/ flu. Patient able to tolerate p.o. fluids. Will DC home with symptomatic treatment instructions return if any new or worsening symptoms follow up with primary care provider. Patient understands agrees with this plan. Medical Decision Making Lab Data MDM Lab Attestation statement: I reviewed the patient's lab results. Labs: Lab Results 09/26/22 Range/Units 14:06 Influenza Type A (PCR) NEGATIVE (Negative) Influenza Type B (PCR) NEGATIVE (Negative) RSV RNA Qual (PCR) NEGATIVE (Negative) SARS-CoV-2 RNA (RT-PCR) NEGATIVE (Negative) Discharge Plan Discharge Clinical Impression: Acute viral syndrome Patient Disposition: Home, Self-Care Instructions: Viral Syndrome (ED) Prescriptions: New ibuprofen 800 mg tablet 800 mg PO Q8H PRN (Reason: pain) Qty: 14 0RF cyclobenzaprine 10 mg tablet 10 mg PO Q8H Qty: 14 0RF No Action ondansetron 4 mg tablet,disintegrating 4 mg PO Q8H PRN (Reason: nausea and vomiting) Qty: 20 0RF omeprazole magnesium [Prilosec OTC] 20 mg tablet,delayed release (DR/EC) 20 mg PO BID Qty: 30 0RF ondansetron HCl [Zofran] 4 mg tablet 4 mg PO Q8H Qty: 10 0RF buprenorphine-naloxone [Suboxone] 4-1 mg film 1 film sublingual DAILY Qty: 4 0RF Rx Instructions: [id number] pantoprazole 40 mg tablet,delayed release (DR/EC) 40 mg PO DAILY Qty: 20 0RF Rx Instructions: Take 1 tablet half an hour before breakfast famotidine 20 mg tablet 20 mg PO BEDTIME Qty: 20 0RF ondansetron 4 mg tablet,disintegrating 4 mg PO Q6H PRN (Reason: nausea and vomiting) Qty: 10 0RF sucralfate [Carafate] 1 gram tablet 1 g PO .achs Qty: 60 0RF omeprazole 40 mg capsule,delayed release(DR/EC) 40 mg PO DAILY Qty: 30 0RF sucralfate [Carafate] 100 mg/mL suspension 10 ml PO QID Qty: 420 0RF Rx Instructions: swish in mouth and swallow; use after food/drink ondansetron 4 mg tablet,disintegrating 4 mg PO Q6H PRN (Reason: nausea and vomiting) Qty: 10 0RF azithromycin 250 mg tablet See Rx Instructions PO .COMPLEX Qty: 6 0RF Rx Instructions: take 500 mg today (day 1), then 250 mg for 4 days (days 2-5) PO fluticasone propionate 50 mcg/actuation spray,suspension 1 spray intranasal DAILY PRN (Reason: allergy symptoms) 30 Days Qty: 16 5RF Rx Instructions: administer into each nostril Referrals: [facility] [Primary Care Provider] - 2 days
[2022-09-26 13:47] VITALS: BP 105/64; PULSE 81; RESP 18; TEMP 36.9; O2SAT 96; BMI 25.6
[2022-09-26 15:02] LABS: Influenza A PCR NEGATIVE (Negative); Influenza B PCR NEGATIVE (Negative); Resp Syncy Virus RNA Qual PCR NEGATIVE (Negative); SARS COV2 PCR INHOUSE NEGATIVE (Negative)
== END 2022-09-26 15:35 | disposition home or self-care (01) ==
PROVIDERS: Emergency Medicine Emergency Medical Services; Emergency Provider Student in an Organized Health Care Education/Training Program
DX: B34.9 Viral infection, unspecified (principal); R11.2 Nausea with vomiting, unspecified; Z20.822 Contact with and (suspected) exposure to COVID-19; F17.210 Nicotine dependence, cigarettes, uncomplicated
CPT/HCPCS: 0241U; 71046; 99283

== ENCOUNTER 2022-09-27 02:07 | Emergency (ER) | payer MEDICAID, SELFPAY ==
[2022-09-27 02:19] VITALS: BP 116/76; BP 156/72; PULSE 88; PULSE 89; RESP 17; TEMP 36.8; O2SAT 98; BMI 27.6
[2022-09-27 02:43] LABS: Basophils Percent Auto 0.6 % (0-2); Eosinophils Percent Auto 0.6 % (0-4); Hematocrit 44.5 % (42.0-52.0); Hemoglobin 15.2 g/dl (14.0-18.0); Imm Gran Abs Auto 0.02 X10*3/uL (0.00-0.03); Imm Gran Pct Auto 0.3 % (0.0-0.4); Lymphocytes Absolute Auto 1.2 X10*3/uL (1.2-4.9); Lymphocytes Percent Auto 17.6 % (20-40); MANUAL DIFF FLAG NO; Mean Corpuscular HGB Conc 34.2 g/dl (31.0-36.0); Mean Corpuscular Volume 87.9 fL (80.0-98.0); Mean Platelet Volume 10.6 fL (9.4-12.4); Monocytes Absolute Auto 0.7 X10*3/uL (0.1-1.2); Monocytes Percent Auto 9.9 % (2-11); Neutrophils Absolute Auto 4.7 x10*3/uL (2.0-8.3); Platelet Count 297 X10*3/uL (160-400); Red Blood Count 5.06 X10*6/uL (4.60-5.80); Red Cell Distribution Width 13.2 % (11.0-16.0); White Blood Count 6.6 X10*3/uL (4.8-10.8)
[2022-09-27] MEDS: LORazepam 2 MG/ML VIAL IVPUSH (02:57)
[2022-09-27] MEDS: 0.9 % Sodium Chloride 1,000 ML 999 ML IV (02:58)
[2022-09-27] MEDS: Prochlorperazine Edisylate 10 MG/2 ML VIAL IVPUSH (02:58)
[2022-09-27 03:01] LABS: Alanine Aminotransferase 13 U/L (0-40); Albumin Level 4.8 g/dL (3.5-5.0); Alkaline Phosphatase 99 U/L (39-117); Anion Gap 17 (12-20); Aspartate Amino Transferase 30 U/L (5-37); Bilirubin Total 1.1 mg/dL (0.0-1.0); Blood Urea Nitrogen 17 mg/dL (9-16); Calcium 10.3 mg/dL (8.4-10.2); Carbon Dioxide 22 mmol/L (22-29); Chloride 106 mmol/L (96-108); Creatinine Clr Calc Pharmacy 95.1; Estimated Glomerular Filt Rate > 60; Glucose Random 112 mg/dL (60-115); Potassium 4.1 mmol/L (3.3-5.1); Sodium 141 mmol/L (135-145); Total Protein 8.3 g/dL (6.5-8.0)
--- NOTE | 2022-09-27 03:36 | ED_ITS ---
HPI - Nausea/Vomiting/Diarrhea General Chief complaint: Nausea/Vomiting/Diarrhea Stated complaint: N/V/D Time Seen by Provider: 09/27/22 02:20 Source: patient Mode of arrival: EMS Limitations: no limitations History of Present Illness HPI Narrative: Patient history of substance abuse use cocaine heroin and cannabis 2 days ago since been vomiting was seen here earlier went home came back as not able to take the medication and still throwing up patient took a hot shower with partial relief Related Data Previous Rx's Medication Instructions Recorded azithromycin 250 mg tablet See Rx Instructions PO .COMPLEX #6 11/01/20 tabs fluticasone propionate 50 1 spray intranasal DAILY PRN 11/01/20 mcg/actuation nasal allergy symptoms 30 days #16 grams spray,suspension ondansetron HCl 4 mg tablet 4 mg PO Q8H #10 tabs 07/03/21 (Zofran) buprenorphine 4 mg-naloxone 1 mg 1 film sublingual DAILY #4 ea 07/31/21 sublingual film (Suboxone) omeprazole magnesium 20 mg 20 mg PO BID #30 tabs 08/02/21 tablet,delayed release (Prilosec OTC) ondansetron 4 mg disintegrating 4 mg PO Q8H PRN nausea and 08/02/21 tablet vomiting #20 tabs famotidine 20 mg tablet 20 mg PO BEDTIME #20 tabs 08/03/21 pantoprazole 40 mg tablet,delayed 40 mg PO DAILY #20 tabs 08/03/21 release omeprazole 40 mg capsule,delayed 40 mg PO DAILY #30 caps 08/07/21 release ondansetron 4 mg disintegrating 4 mg PO Q6H PRN nausea and 08/07/21 tablet vomiting #10 tabs sucralfate 1 gram tablet (Carafate) 1 g PO .achs #60 tabs 08/07/21 ondansetron 4 mg disintegrating 4 mg PO Q6H PRN nausea and 08/23/21 tablet vomiting #10 tabs sucralfate 100 mg/mL oral 10 ml PO QID #420 mL 08/23/21 suspension (Carafate) cyclobenzaprine 10 mg tablet 10 mg PO Q8H #14 tabs 09/26/22 ibuprofen 800 mg tablet 800 mg PO Q8H PRN pain #14 tabs 09/26/22 ondansetron HCl 4 mg tablet 4 mg PO Q8H #14 tabs 09/26/22 Allergies Allergy/AdvReac Type Severity Reaction Status Date / Time No Known Allergies Allergy Verified 08/24/21 17:51 [No Known Allergies*] Review of Systems Review of Systems: Yes all other systems are reviewed and are negative REPLACED BY [facility] Past Medical History Medical History ADHD Allergic rhinitis Bipolar 1 disorder Surgical History History of surgery Family History Family History Father Depression Asthma Mother Asthma Depression Migraine Brother No problems noted. Sister No problems noted. Son In good health Social History Social History Alcohol intake: current Alcohol intake frequency: holidays/special occasions only Alcohol type: hard liquor Patient Tobacco Use Status: Current everyday Tobacco user Cigarettes Per Day: 5 Smoked in Last 30 Days: Yes Use of substances other than those prescribed or required for medical reasons: Yes Substance Use Type: Heroin Last Used Substance: Days (ago) Advance Directives: No Physical Exam Vital Signs: Vital Signs: Last Vital Signs Temp 98.2 F 09/27/22 02:19 Pulse 89 09/27/22 02:19 Resp 17 09/27/22 02:19 BP 116/76 09/27/22 02:19 Pulse Ox 98 09/27/22 02:19 O2 Del Method 09/27/22 02:19 BMI result Body Mass Index 27.6 Appearance: Alert. Oriented X3. No acute distress. Eyes: PERRLA, No Nystagmus ENT: Pharynx normal. Oral Mucosa moist Neck: Normal inspection. Neck supple. CVS: Normal heart rate and rhythm. Pulses normal. Respiratory: No respiratory distress. Equal air entry bilateral, no wheezing/rales/rhonchi Abdomen: Soft and nontender. Bowel sounds are present, no mass palpable, no CVA tenderness Skin: Skin warm and dry. Normal skin color. Normal skin turgor. Extremities: No lower extremity edema. No calf tenderness Neuro: Oriented X 3. No motor deficit. No sensory deficit.No cerebellar signs , cranial nerves II-XII intact Medications Administered Discontinued Medications Generic Name Dose Route Start Last Admin Trade Name Farhad PRN Reason Stop Dose Admin Sodium Chloride 1,000 mls @ 999 mls/hr 09/27/22 02:48 09/27/22 04:00 Ns IV 09/27/22 03:48 Infused .Q1H1M ONE Infusion Lorazepam 2 mg 09/27/22 02:48 09/27/22 02:57 Lorazepam 2 Mg/Ml Vial IVPUSH 09/27/22 02:49 2 mg ONCE ONE Administration Prochlorperazine Edisylate 10 mg 09/27/22 02:48 09/27/22 02:58 Prochlorperazine Edisylate 10 Mg/2 Ml Vial IVPUSH 09/27/22 02:49 10 mg ONCE ONE Administration Medical Decision Making Medical Decision Making MDM Narrative: Patient feeling better now taking p.o. fluids will discharge patient home Lab Data MDM Lab Attestation statement: I reviewed the patient's lab results. Result Diagrams: 09/27/22 02:38 09/27/22 02:38 Labs: Lab Results 09/27/22 09/27/22 Range/Units 02:38 02:38 WBC 6.6 (4.8-10.8) X10*3/uL RBC 5.06 (4.60-5.80) X10*6/uL Hgb 15.2 (14.0-18.0) g/dl Hct 44.5 (42.0-52.0) % MCV 87.9 (80.0-98.0) fL MCH 30.0 (27.0-33.0) pg MCHC 34.2 (31.0-36.0) g/dl RDW 13.2 (11.0-16.0) % Plt Count 297 (160-400) X10*3/uL MPV 10.6 (9.4-12.4) fL Immature Gran % (Auto) 0.3 (0.0-0.4) % Neut % (Auto) 71.0 (45-73) % Lymph % (Auto) 17.6 L (20-40) % [place] % (Auto) 9.9 (2-11) % Eos % (Auto) 0.6 (0-4) % Baso % (Auto) 0.6 (0-2) % Lymph # (Auto) 1.2 (1.2-4.9) X10*3/uL [place] # (Auto) 0.7 (0.1-1.2) X10*3/uL Eos # (Auto) 0.0 (0.0-0.4) X10*3/uL Baso # (Auto) 0.0 (0.0-0.2) X10*3/uL Abs Immat Gran (auto) 0.02 (0.00-0.03) X10*3/uL Absolute Neuts (auto) 4.7 (2.0-8.3) x10*3/uL Absolute Nucleated RBC 0.000 (0.0-0.012) X10*3/uL Nucleated RBC % (auto) 0.0 (0.0-0.2) /100WBC Sodium 141 (135-145) mmol/L Potassium 4.1 (3.3-5.1) mmol/L Chloride 106 (96-108) mmol/L Carbon Dioxide 22 (22-29) mmol/L Anion Gap 17 (12-20) BUN 17 H (9-16) mg/dL Creatinine 1.00 (0.5-1.4) mg/dL Estim Creat Clear Calc 95.1 Estimated GFR > 60 Random Glucose 112 (60-115) mg/dL Calcium 10.3 H (8.4-10.2) mg/dL Total Bilirubin 1.1 H (0.0-1.0) mg/dL AST 30 (5-37) U/L ALT 13 (0-40) U/L Alkaline Phosphatase 99 (39-117) U/L Total Protein 8.3 H (6.5-8.0) g/dL Albumin 4.8 (3.5-5.0) g/dL Discharge Plan Discharge Clinical Impression: Polysubstance abuse Patient Disposition: Home, Self-Care Instructions: Polysubstance Abuse (ED) Additional Instructions: Stop using drugs Follow-up with detox Prescriptions: No Action ondansetron 4 mg tablet,disintegrating 4 mg PO Q8H PRN (Reason: nausea and vomiting) Qty: 20 0RF omeprazole magnesium [Prilosec OTC] 20 mg tablet,delayed release (DR/EC) 20 mg PO BID Qty: 30 0RF ibuprofen 800 mg tablet 800 mg PO Q8H PRN (Reason: pain) Qty: 14 0RF cyclobenzaprine 10 mg tablet 10 mg PO Q8H Qty: 14 0RF ondansetron HCl 4 mg tablet 4 mg PO Q8H Qty: 14 0RF ondansetron HCl [Zofran] 4 mg tablet 4 mg PO Q8H Qty: 10 0RF buprenorphine-naloxone [Suboxone] 4-1 mg film 1 film sublingual DAILY Qty: 4 0RF Rx Instructions: [id number] pantoprazole 40 mg tablet,delayed release (DR/EC) 40 mg PO DAILY Qty: 20 0RF Rx Instructions: Take 1 tablet half an hour before breakfast famotidine 20 mg tablet 20 mg PO BEDTIME Qty: 20 0RF ondansetron 4 mg tablet,disintegrating 4 mg PO Q6H PRN (Reason: nausea and vomiting) Qty: 10 0RF sucralfate [Carafate] 1 gram tablet 1 g PO .achs Qty: 60 0RF omeprazole 40 mg capsule,delayed release(DR/EC) 40 mg PO DAILY Qty: 30 0RF sucralfate [Carafate] 100 mg/mL suspension 10 ml PO QID Qty: 420 0RF Rx Instructions: swish in mouth and swallow; use after food/drink ondansetron 4 mg tablet,disintegrating 4 mg PO Q6H PRN (Reason: nausea and vomiting) Qty: 10 0RF azithromycin 250 mg tablet See Rx Instructions PO .COMPLEX Qty: 6 0RF Rx Instructions: take 500 mg today (day 1), then 250 mg for 4 days (days 2-5) PO fluticasone propionate 50 mcg/actuation spray,suspension 1 spray intranasal DAILY PRN (Reason: allergy symptoms) 30 Days Qty: 16 5RF Rx Instructions: administer into each nostril Discharge Date/Time: 09/27/22 04:52
== END 2022-09-27 04:52 | disposition home or self-care (01) ==
PROVIDERS: Emergency Provider Internal Medicine
DX: F19.10 Other psychoactive substance abuse, uncomplicated (principal); R11.2 Nausea with vomiting, unspecified; F11.20 Opioid dependence, uncomplicated; F17.210 Nicotine dependence, cigarettes, uncomplicated; F12.90 Cannabis use, unspecified, uncomplicated
CPT/HCPCS: 36415; 80053; 85025; 96361; 96374; 96375; 99284; J2060

== ENCOUNTER 2022-11-13 03:22 | Emergency (ER) | payer MEDICAID, SELFPAY ==
[2022-11-13 03:27] VITALS: BP 113/87; BP 116/73; PULSE 85; PULSE 86; RESP 14; TEMP 36.4; O2SAT 98; O2SAT 99; BMI 24.2
--- NOTE | 2022-11-13 03:39 | ED_ITS ---
HPI - Overdose General Chief Complaint: Overdose Stated Complaint: OD, 4MG NARCAN GIVEN Time Seen by Provider: 11/13/22 03:25 History of Present Illness HPI Narrative: Patient is a 27-year-old male status post overdose on heroin. Presented today after getting 4 Narcan from [employer]. Patient complaining of mild headache. No other complaints. He did to drugs for recreational reasons. Related Data Previous Rx's Medication Instructions Recorded azithromycin 250 mg tablet See Rx Instructions PO .COMPLEX #6 11/01/20 tabs fluticasone propionate 50 1 spray intranasal DAILY PRN 11/01/20 mcg/actuation nasal allergy symptoms 30 days #16 grams spray,suspension ondansetron HCl 4 mg tablet 4 mg PO Q8H #10 tabs 07/03/21 (Zofran) buprenorphine 4 mg-naloxone 1 mg 1 film sublingual DAILY #4 ea 07/31/21 sublingual film (Suboxone) omeprazole magnesium 20 mg 20 mg PO BID #30 tabs 08/02/21 tablet,delayed release (Prilosec OTC) ondansetron 4 mg disintegrating 4 mg PO Q8H PRN nausea and 08/02/21 tablet vomiting #20 tabs famotidine 20 mg tablet 20 mg PO BEDTIME #20 tabs 08/03/21 pantoprazole 40 mg tablet,delayed 40 mg PO DAILY #20 tabs 08/03/21 release omeprazole 40 mg capsule,delayed 40 mg PO DAILY #30 caps 08/07/21 release ondansetron 4 mg disintegrating 4 mg PO Q6H PRN nausea and 08/07/21 tablet vomiting #10 tabs sucralfate 1 gram tablet (Carafate) 1 g PO .achs #60 tabs 08/07/21 ondansetron 4 mg disintegrating 4 mg PO Q6H PRN nausea and 08/23/21 tablet vomiting #10 tabs sucralfate 100 mg/mL oral 10 ml PO QID #420 mL 08/23/21 suspension (Carafate) cyclobenzaprine 10 mg tablet 10 mg PO Q8H #14 tabs 09/26/22 ibuprofen 800 mg tablet 800 mg PO Q8H PRN pain #14 tabs 09/26/22 ondansetron HCl 4 mg tablet 4 mg PO Q8H #14 tabs 09/26/22 Allergies Allergy/AdvReac Type Severity Reaction Status Date / Time No Known Allergies Allergy Verified 08/24/21 17:51 [No Known Allergies*] Review of Systems Review of Systems: Positive overdose on heroin Yes all other systems are reviewed and are negative [facility] Past Medical History Attestation statement: The following information was validated with the patient. Medical History ADHD Allergic rhinitis Bipolar 1 disorder Surgical History History of surgery Family History Family History Father Depression Asthma Mother Asthma Depression Migraine Brother No problems noted. Sister No problems noted. Son In good health Social History Social History Alcohol intake: current Alcohol intake frequency: holidays/special occasions only Alcohol type: hard liquor Patient Tobacco Use Status: Current everyday Tobacco user Cigarettes Per Day: 5 Substance Use Type: Heroin Physical Exam Vital Signs: Vital Signs: Last Vital Signs Temp 97.5 F 11/13/22 03:27 Pulse 85 11/13/22 03:27 Resp 16 11/13/22 04:36 BP 116/73 11/13/22 03:27 Pulse Ox 99 11/13/22 03:27 O2 Del Method 11/13/22 03:27 BMI result Body Mass Index 24.2 Appearance: Alert. Oriented X3. No acute distress. Eyes: Pupils equal, round and reactive to light. ENT: Pharynx normal. Neck: Normal inspection. Neck supple. No lymph nodes noted. No crepitus CVS: Normal heart rate and rhythm. Pulses normal. Normal S1 and S2 Respiratory: No respiratory distress. Breath sounds normal. No Wheezing. No rales Abdomen: Soft and nontender. No rigidity. No distention. good BS x4 Skin: Skin warm and dry. Normal skin color. Normal skin turgor. Extremities: No lower extremity edema. Neurovascular intact to all extremities. No Lacerations. No Rash Neuro: Oriented X 3. No motor deficit. No sensory deficit. Moving all extermities. No slurred speech Medications Administered Discontinued Medications Generic Name Dose Route Start Last Admin Trade Name Freq PRN Reason Stop Dose Admin Acetaminophen 650 mg 11/13/22 03:42 11/13/22 03:51 Acetaminophen 325 Mg Tablet PO 11/13/22 03:43 650 mg ONCE ONE Administration Ondansetron HCl 4 mg 11/13/22 03:53 11/13/22 03:58 Ondansetron Odt 4 Mg Tab.Shannon PLATT 11/13/22 03:54 4 mg ONCE ONE Administration Medical Decision Making Medical Decision Making [facility] Narrative: Well-appearing no acute distress. Will monitor patient for 2 hours. Offered patient detox. He refused at this time. Differential Diagnosis Differential Diagnoses: The differential diagnosis associated with the presentation includes Overdose on heroin, hypoglycemia Lab Data [facility] Lab Attestation statement: I reviewed the patient's lab results. External Record Review External record reviewed: Inpatient record Social Determinants Patient?s care significantly limited by Social Determinants of Health including: Alcoholism and drug addiction in family and Unemployment Discharge Plan Discharge Clinical Impression: Accidental heroin overdose Instructions: Narcotic Use Disorder (ED) Additional Instructions: Please stop using heroin. Please go to detox. Prescriptions: No Action ondansetron 4 mg tablet,disintegrating 4 mg PO Q8H PRN (Reason: nausea and vomiting) Qty: 20 0RF omeprazole magnesium [Prilosec OTC] 20 mg tablet,delayed release (DR/EC) 20 mg PO BID Qty: 30 0RF ibuprofen 800 mg tablet 800 mg PO Q8H PRN (Reason: pain) Qty: 14 0RF cyclobenzaprine 10 mg tablet 10 mg PO Q8H Qty: 14 0RF ondansetron HCl 4 mg tablet 4 mg PO Q8H Qty: 14 0RF ondansetron HCl [Zofran] 4 mg tablet 4 mg PO Q8H Qty: 10 0RF buprenorphine-naloxone [Suboxone] 4-1 mg film 1 film sublingual DAILY Qty: 4 0RF Rx Instructions: [id number] pantoprazole 40 mg tablet,delayed release (DR/EC) 40 mg PO DAILY Qty: 20 0RF Rx Instructions: Take 1 tablet half an hour before breakfast famotidine 20 mg tablet 20 mg PO BEDTIME Qty: 20 0RF ondansetron 4 mg tablet,disintegrating 4 mg PO Q6H PRN (Reason: nausea and vomiting) Qty: 10 0RF sucralfate [Carafate] 1 gram tablet 1 g PO .achs Qty: 60 0RF omeprazole 40 mg capsule,delayed release(DR/EC) 40 mg PO DAILY Qty: 30 0RF sucralfate [Carafate] 100 mg/mL suspension 10 ml PO QID Qty: 420 0RF Rx Instructions: swish in mouth and swallow; use after food/drink ondansetron 4 mg tablet,disintegrating 4 mg PO Q6H PRN (Reason: nausea and vomiting) Qty: 10 0RF azithromycin 250 mg tablet See Rx Instructions PO .COMPLEX Qty: 6 0RF Rx Instructions: take 500 mg today (day 1), then 250 mg for 4 days (days 2-5) PO fluticasone propionate 50 mcg/actuation spray,suspension 1 spray intranasal DAILY PRN (Reason: allergy symptoms) 30 Days Qty: 16 5RF Rx Instructions: administer into each nostril Referrals: [facility] [Provider Group] Interventions: [place]-Suicide Risk Severity Scale Last Done: 11/13/22 03:46
--- NOTE | 2022-11-13 03:44 | PC.NURSE ---
this rn assumed care of pt at this time. 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 belongings secured with security. VSS. dr chawla present at bedside.
[2022-11-13] MEDS: Acetaminophen 325 MG TABLET 650 MG PO (03:51)
[2022-11-13] MEDS: Ondansetron ODT 4 MG TAB.RAPDIS TRANSLINGU (03:58)
--- NOTE | 2022-11-13 04:16 | PC.NURSE ---
pt awake and arousable at this time. pt medicated according to dec. pt wears gps ankle monitor. 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 per security and discharge rn pt okay to keep molded frames assembler in room to use as needed. pt tolerated PO medication
[2022-11-13 04:36] VITALS: RESP 16
--- NOTE | 2022-11-13 04:37 | PC.NURSE ---
pt sleeping on stretcher at this time. RR 16 non labored
[2022-11-13 05:04] VITALS: RESP 12
--- NOTE | 2022-11-13 05:36 | PC.NURSE ---
pt ready for discharge. pt asked if thisrn could try calling sister claudia @ [phone]. this rn LM for pt sister to return rebekah. relayed this message to pt. pt attempting to call sister as well as girl friend. RR 14 non labored at this time
[2022-11-13 06:00] VITALS: BP 107/48; PULSE 94; RESP 14; TEMP 36.8; O2SAT 97
[2022-11-13] MEDS: Naloxone HCl Nasal TAKE HOME 4 MG SPRAY NOSTRILALT (06:19)
--- NOTE | 2022-11-13 06:30 | PC.NURSE ---
vss. skin pwd. pt ambulatory at discharge. pt provided with at home narcan pack. bus pass provided to pt. pt calm and cooperative. pt provided with discharge packet. pt verbalizes understanding of discharge plan. this rn escorted pt down to decon to retrieve belongings at time of discharge. pt discharged to bus stop
== END 2022-11-13 06:33 | disposition home or self-care (01) ==
PROVIDERS: Emergency Provider Emergency Medicine Emergency Medical Services
DX: T40.1X1A Poisoning by heroin, accidental (unintentional), initial encounter (principal); R51.9 Headache, unspecified; Y92.9 Unspecified place or not applicable; Z79.899 Other long term (current) drug therapy; Z71.51 Drug abuse counseling and surveillance of drug abuser
CPT/HCPCS: 99283; 99285

== ENCOUNTER 2023-01-31 04:54 | Emergency (ER) | payer MEDICAID, SELFPAY ==
[2023-01-31 04:57] VITALS: BP 126/62; PULSE 83; RESP 18; TEMP 36.6; O2SAT 97; BMI 25.9
[2023-01-31 06:00] VITALS: BP 108/63; PULSE 79; RESP 16; TEMP 36.6; O2SAT 98
--- NOTE | 2023-01-31 06:36 | ED.NAVMDI ---
HPI - Nausea/Vomiting/Diarrhea General Chief complaint: Nausea/Vomiting/Diarrhea Stated complaint: Nausea vomitting Time Seen by Provider: 01/31/23 06:33 Source: patient and EMS Mode of arrival: EMS Limitations: no limitations History of Present Illness HPI Narrative: 27 yo male presents to the ER for evaluation of body aches, chills and fatigue that started yesterday along with nausea and vomiting that started today. He states his girlfriend had similar symptoms a few days ago and had the flu. He denies fevers, diarrhea, abdominal pain, chest pain, SOB, cough. He states he slept most of yesterday and did not eat much. He vomited a couple of times this morning, no bile or blood. MD elicited complaint: nausea and vomiting Onset (ago): hour(s) Description of vomiting: food contents Associated nausea: Yes Associated abdominal pain: No Location of pain: none Pain consistency: intermittent Exacerbating factors: none Relieving factors: none Context: sick contacts Associated symptoms: myalgias, fever/chills, headaches, loss of appetite, malaise, nausea/vomiting, weakness and fatigue Related Data Previous Rx's Medication Instructions Recorded azithromycin 250 mg tablet See Rx Instructions PO .COMPLEX #6 11/01/20 tabs fluticasone propionate 50 1 spray intranasal DAILY PRN 11/01/20 mcg/actuation nasal allergy symptoms 30 days #16 grams spray,suspension ondansetron HCl 4 mg tablet 4 mg PO Q8H #10 tabs 07/03/21 (Zofran) buprenorphine 4 mg-naloxone 1 mg 1 film sublingual DAILY #4 ea 07/31/21 sublingual film (Suboxone) omeprazole magnesium 20 mg 20 mg PO BID #30 tabs 08/02/21 tablet,delayed release (Prilosec OTC) ondansetron 4 mg disintegrating 4 mg PO Q8H PRN nausea and 08/02/21 tablet vomiting #20 tabs famotidine 20 mg tablet 20 mg PO BEDTIME #20 tabs 08/03/21 pantoprazole 40 mg tablet,delayed 40 mg PO DAILY #20 tabs 08/03/21 release omeprazole 40 mg capsule,delayed 40 mg PO DAILY #30 caps 08/07/21 release ondansetron 4 mg disintegrating 4 mg PO Q6H PRN nausea and 08/07/21 tablet vomiting #10 tabs sucralfate 1 gram tablet (Carafate) 1 g PO .achs #60 tabs 08/07/21 ondansetron 4 mg disintegrating 4 mg PO Q6H PRN nausea and 08/23/21 tablet vomiting #10 tabs sucralfate 100 mg/mL oral 10 ml PO QID #420 mL 08/23/21 suspension (Carafate) cyclobenzaprine 10 mg tablet 10 mg PO Q8H #14 tabs 09/26/22 ibuprofen 800 mg tablet 800 mg PO Q8H PRN pain #14 tabs 09/26/22 ondansetron HCl 4 mg tablet 4 mg PO Q8H #14 tabs 09/26/22 ondansetron 4 mg disintegrating 4 mg PO Q8H PRN nausea and 01/31/23 tablet vomiting #10 tabs Allergies Allergy/AdvReac Type Severity Reaction Status Date / Time No Known Allergies Allergy Verified 08/24/21 17:51 [No Known Allergies*] Review of Systems Review of Systems: Yes all other systems are reviewed and are negative Gastrointestinal: Gastrointestinal: Reports nausea PMFSH Past Medical History Medical History ADHD Allergic rhinitis Bipolar 1 disorder Surgical History History of surgery Family History Family History Father Depression Asthma Mother Asthma Depression Migraine Brother No problems noted. Sister No problems noted. Son In good health Social History Social History Alcohol intake: current Alcohol intake frequency: holidays/special occasions only Alcohol type: hard liquor Patient Tobacco Use Status: Current everyday Tobacco user Cigarettes Per Day: 5 Substance Use Type: Heroin Advance Directives: No Advance Directives Information Provided: Yes Physical Exam Vital Signs: Vital Signs: Last Vital Signs Temp 97.9 F 01/31/23 06:00 Pulse 79 01/31/23 06:00 Resp 16 01/31/23 06:00 BP 108/63 01/31/23 06:00 Pulse Ox 98 01/31/23 06:00 O2 Del Method Room Air 01/31/23 06:00 BMI result Body Mass Index 25.9 Appearance: Alert. Oriented X3. No acute distress. Head: normocephalic, atraumatic. Eyes: Pupils equal, round and reactive to light. ENT: Pharynx normal. No tonsillar swelling or exudate. Neck: Normal inspection. Neck supple. CVS: Normal heart rate and rhythm. Pulses normal. Respiratory: No respiratory distress. Breath sounds normal. Abdomen: Soft and nontender. +BS x4 Skin: Skin warm and dry. Normal skin color. Normal skin turgor. No rashes. Extremities: No lower extremity edema. No joint swelling. Neuro/psych: Oriented X 3. No motor deficit. No sensory deficit. CN II-XII intact. Normal speech and cognition. Medical Decision Making Medical Decision Making MDM Narrative: 27 yo male presents to the ER for evaluation of chills, fatigue, body aches, and nausea and vomiting in the setting of known flu exposure. His VS are stable and his exam is benign. He was given zofran and pepcid in the ER. He was tolerating PO. He is stable for d/c home with prn zofran and supportive care. patient agrees w/ plan, discussed findings, dx and treatment. Differential Diagnosis Differential Diagnoses: The differential diagnosis associated with the presentation includes viral syndrome, gastroenteritis, flu, covid, less likely cholecystitis, appendicitis, colitis, SBO Independent Historian Clinical information obtained from an independent historian. History obtained from or confirmed by: EMS External Record Review External record reviewed: Outpatient record and Prior outpatient labs Tests considered The following testing was considered but not selected: basic labs considered but deferred - VSS normal, PE normal. no clinical signs of dehydration Prescription Management I considered prescription management with: Antiviral and Other (antiemetics) Critical Care Time Critical Care Time Critical Care Time: No Discharge Plan Discharge Clinical Impression: Acute nausea with nonbilious vomiting, Acute viral syndrome Patient Disposition: Home, Self-Care Instructions: Acute Nausea and Vomiting (ED), Viral Syndrome (ED) Additional Instructions: take the prescribed nausea medication as directed rest and drink plenty of fluids take motrin and tylenol as needed for fevers, body aches and headache If you develop new or worsening symptoms call 911 or come back to the ER for further evaluation. Prescriptions: New ondansetron 4 mg tablet,disintegrating 4 mg PO Q8H PRN (Reason: nausea and vomiting) Qty: 10 0RF No Action ondansetron 4 mg tablet,disintegrating 4 mg PO Q8H PRN (Reason: nausea and vomiting) Qty: 20 0RF omeprazole magnesium [Prilosec OTC] 20 mg tablet,delayed release (DR/EC) 20 mg PO BID Qty: 30 0RF ibuprofen 800 mg tablet 800 mg PO Q8H PRN (Reason: pain) Qty: 14 0RF cyclobenzaprine 10 mg tablet 10 mg PO Q8H Qty: 14 0RF ondansetron HCl 4 mg tablet 4 mg PO Q8H Qty: 14 0RF ondansetron HCl [Zofran] 4 mg tablet 4 mg PO Q8H Qty: 10 0RF buprenorphine-naloxone [Suboxone] 4-1 mg film 1 film sublingual DAILY Qty: 4 0RF Rx Instructions: [id number] pantoprazole 40 mg tablet,delayed release (DR/EC) 40 mg PO DAILY Qty: 20 0RF Rx Instructions: Take 1 tablet half an hour before breakfast famotidine 20 mg tablet 20 mg PO BEDTIME Qty: 20 0RF ondansetron 4 mg tablet,disintegrating 4 mg PO Q6H PRN (Reason: nausea and vomiting) Qty: 10 0RF sucralfate [Carafate] 1 gram tablet 1 g PO .achs Qty: 60 0RF omeprazole 40 mg capsule,delayed release(DR/EC) 40 mg PO DAILY Qty: 30 0RF sucralfate [Carafate] 100 mg/mL suspension 10 ml PO QID Qty: 420 0RF Rx Instructions: swish in mouth and swallow; use after food/drink ondansetron 4 mg tablet,disintegrating 4 mg PO Q6H PRN (Reason: nausea and vomiting) Qty: 10 0RF azithromycin 250 mg tablet See Rx Instructions PO .COMPLEX Qty: 6 0RF Rx Instructions: take 500 mg today (day 1), then 250 mg for 4 days (days 2-5) PO fluticasone propionate 50 mcg/actuation spray,suspension 1 spray intranasal DAILY PRN (Reason: allergy symptoms) 30 Days Qty: 16 5RF Rx Instructions: administer into each nostril
[2023-01-31] MEDS: Famotidine 20 MG TABLET PO (06:52)
[2023-01-31] MEDS: Acetaminophen 325 MG TABLET 975 MG PO (06:52)
[2023-01-31] MEDS: Ondansetron ODT 4 MG TAB.RAPDIS TRANSLINGU (06:52)
== END 2023-01-31 07:02 | disposition home or self-care (01) ==
PROVIDERS: Emergency Provider Internal Medicine
DX: B34.9 Viral infection, unspecified (principal); R11.2 Nausea with vomiting, unspecified; F11.20 Opioid dependence, uncomplicated; F17.210 Nicotine dependence, cigarettes, uncomplicated
CPT/HCPCS: 99283; 99284

== ENCOUNTER 2023-01-31 15:01 | Emergency (ER) | payer MEDICAID, SELFPAY ==
[2023-01-31 15:10] VITALS: PULSE 86; O2SAT 98
--- NOTE | 2023-01-31 15:22 | ED.GENADULT ---
HPI - General Adult General Chief complaint: Nausea/Vomiting/Diarrhea Stated complaint: NAUSEA Related Data Home Medications ?Medication ?Instructions ?Recorded ?Confirmed albuterol sulfate 90 mcg/actuation 2 puff inhalation Q6H PRN wheezing 02/04/23 02/04/23 aerosol inhaler (Ventolin HFA) buprenorphine 12 mg-naloxone 3 mg 15 mg sublingual BID 02/04/23 02/04/23 sublingual film (Suboxone) clonidine HCl 0.1 mg tablet 0.1 mg PO BEDTIME PRN Anxiety 02/04/23 02/04/23 fluticasone propionate 50 1 spray intranasal DAILY 02/04/23 02/04/23 mcg/actuation nasal spray,suspension Previous Rx's ?Medication ?Instructions ?Recorded sucralfate 100 mg/mL oral 10 ml PO QID #420 mL 08/23/21 suspension (Carafate) buprenorphine 8 mg-naloxone 2 mg 1 film sublingual BID #10 ea 03/18/23 sublingual film (Suboxone) naloxone 4 mg/actuation nasal 4 mg intranasal Q2M PRN opioid 03/18/23 spray (Narcan) overdose #2 ea omeprazole 20 mg capsule,delayed 20 mg PO DAILY #14 caps 03/18/23 release buprenorphine 12 mg-naloxone 3 mg 1 film sublingual BID #14 ea 04/19/23 sublingual film (Suboxone) Allergies Allergy/AdvReac Type Severity Reaction Status Date / Time No Known Allergies Allergy Verified 02/29/24 12:57 [facility] Past Medical History Medical History ADHD Bipolar 1 disorder Allergic rhinitis Surgical History History of surgery Family History Family History Father Depression Asthma Mother Asthma Depression Migraine Brother No problems noted. Sister No problems noted. Son In good health Social History Social History Alcohol intake: current Alcohol intake frequency: holidays/special occasions only Alcohol type: hard liquor Patient Tobacco Use Status: Current everyday Tobacco user Cigarettes Per Day: 5 Substance Use Type: Heroin Physical Exam ED Vital Signs: BMI result Body Mass Index 22.6 Course Course Course Narrative: This is an RME: Additional HPI, ROS, PE not included below will be deferred to primary provider. 27 year old male presents with concerns of dehydration due to nausea and vomiting. Patient was seen in the ED yesterday and was given zofran and tylenol and reports little improvement of symptoms PE: benign Plan: basic labs Medical Decision Making Lab Data 01/31/23 15:37 01/31/23 15:37 Labs: Lab Results 01/31/23 Range/Units 15:37 WBC 8.7 (4.8-10.8) X10*3/uL RBC 5.04 (4.60-5.80) X10*6/uL Hgb 15.3 (14.0-18.0) g/dl Hct 46.4 (42.0-52.0) % MCV 92.1 (80.0-98.0) fL MCH 30.4 (27.0-33.0) pg MCHC 33.0 (31.0-36.0) g/dl RDW 13.4 (11.0-16.0) % Plt Count 322 (160-400) X10*3/uL MPV 10.1 (9.4-12.4) fL Immature Gran % (Auto) 0.1 (0.0-0.4) % Neut % (Auto) 65.1 (45-73) % Lymph % (Auto) 21.7 (20-40) % Garfield % (Auto) 9.7 (2-11) % Eos % (Auto) 2.6 (0-4) % Baso % (Auto) 0.8 (0-2) % Lymph # (Auto) 1.9 (1.2-4.9) X10*3/uL [place] # (Auto) 0.8 (0.1-1.2) X10*3/uL Eos # (Auto) 0.2 (0.0-0.4) X10*3/uL Baso # (Auto) 0.1 (0.0-0.2) X10*3/uL Abs Immat Gran (auto) 0.01 (0.00-0.03) X10*3/uL Absolute Neuts (auto) 5.7 (2.0-8.3) x10*3/uL Absolute Nucleated RBC 0.000 (0.0-0.012) X10*3/uL Nucleated RBC % (auto) 0.0 (0.0-0.2) /100WBC Sodium 145 (135-145) mmol/L Potassium 4.3 (3.3-5.1) mmol/L Chloride 107 (96-108) mmol/L Carbon Dioxide 26 (22-29) mmol/L Anion Gap 16 (12-20) BUN 8 L (9-16) mg/dL Creatinine 0.90 (0.5-1.4) mg/dL Estim Creat Clear Calc 110.7 Estimated GFR > 60 Random Glucose 117 H (60-115) mg/dL Calcium 10.1 (8.4-10.2) mg/dL Total Bilirubin 0.8 (0.0-1.0) mg/dL AST 28 (5-37) U/L ALT 34 (0-40) U/L Alkaline Phosphatase 85 (39-117) U/L Total Protein 8.0 (6.5-8.0) g/dL Albumin 4.6 (3.5-5.0) g/dL Discharge Plan Discharge Clinical Impression: Eloped from emergency department Patient Disposition: Elopement Prescriptions: No Action sucralfate [Carafate] 100 mg/mL suspension 10 ml PO QID Qty: 420 0RF Rx Instructions: swish in mouth and swallow; use after food/drink buprenorphine-naloxone [Suboxone] 12-3 mg film 1 film sublingual BID Qty: 14 0RF clonidine HCl 0.1 mg tablet 0.1 mg PO BEDTIME PRN (Reason: Anxiety) albuterol sulfate [Ventolin HFA] 90 mcg/actuation HFA aerosol inhaler 2 puff INHALATION Q6H PRN (Reason: wheezing) fluticasone propionate [Flonase] 50 mcg/actuation [place],Suspension 1 spray INTRANASAL DAILY Rx Instructions: administer into each nostril buprenorphine-naloxone [Suboxone] 12-3 mg film 15 mg sublingual BID omeprazole 20 mg capsule,delayed release(DR/EC) 20 mg PO DAILY Qty: 14 0RF naloxone [Narcan] 4 mg/actuation spray,non-aerosol 4 mg intranasal Q2M PRN (Reason: opioid overdose) Qty: 2 0RF Rx Instructions: spray 1 dose into ONE nostril; alternate nostrils w each dose until help arrives buprenorphine-naloxone [Suboxone] 8-2 mg film 1 film sublingual BID Qty: 10 0RF Interventions: ED Discharge Assessment Last Done: 01/31/23 19:40 Discharge Date/Time: 01/31/23 19:41 Print Language: Serbian
[2023-01-31 15:25] VITALS: BP 125/73; PULSE 97; RESP 20; TEMP 36.9; O2SAT 97; BMI 22.6
[2023-01-31 15:41] LABS: MANUAL DIFF FLAG NO
[2023-01-31 15:43] LABS: Basophils Absolute Auto 0.1 X10*3/uL (0.0-0.2); Basophils Percent Auto 0.8 % (0-2); Eosinophils Absolute Auto 0.2 X10*3/uL (0.0-0.4); Eosinophils Percent Auto 2.6 % (0-4); Hematocrit 46.4 % (42.0-52.0); Hemoglobin 15.3 g/dl (14.0-18.0); Imm Gran Abs Auto 0.01 X10*3/uL (0.00-0.03); Imm Gran Pct Auto 0.1 % (0.0-0.4); Lymphocytes Absolute Auto 1.9 X10*3/uL (1.2-4.9); Lymphocytes Percent Auto 21.7 % (20-40); Mean Corpuscular Hemoglobin 30.4 pg (27.0-33.0); Mean Corpuscular Volume 92.1 fL (80.0-98.0); Mean Platelet Volume 10.1 fL (9.4-12.4); Monocytes Absolute Auto 0.8 X10*3/uL (0.1-1.2); Monocytes Percent Auto 9.7 % (2-11); Neutrophils Absolute Auto 5.7 x10*3/uL (2.0-8.3); Neutrophils Percent Auto 65.1 % (45-73); Platelet Count 322 X10*3/uL (160-400); Red Blood Count 5.04 X10*6/uL (4.60-5.80); Red Cell Distribution Width 13.4 % (11.0-16.0); White Blood Count 8.7 X10*3/uL (4.8-10.8)
[2023-01-31 16:01] LABS: Alanine Aminotransferase 34 U/L (0-40); Albumin Level 4.6 g/dL (3.5-5.0); Alkaline Phosphatase 85 U/L (39-117); Anion Gap 16 (12-20); Aspartate Amino Transferase 28 U/L (5-37); Bilirubin Total 0.8 mg/dL (0.0-1.0); Blood Urea Nitrogen 8 mg/dL (9-16); Calcium 10.1 mg/dL (8.4-10.2); Carbon Dioxide 26 mmol/L (22-29); Chloride 107 mmol/L (96-108); Creatinine Clr Calc Pharmacy 110.7; Estimated Glomerular Filt Rate > 60; Glucose Random 117 mg/dL (60-115); Potassium 4.3 mmol/L (3.3-5.1); Sodium 145 mmol/L (135-145)
== END 2023-01-31 19:41 | disposition left against medical advice (07) ==
LOC: HO.ED 19:37
PROVIDERS: Physician Assistant; Emergency Provider Emergency Medicine
DX: R11.2 Nausea with vomiting, unspecified (principal); F11.20 Opioid dependence, uncomplicated; F17.210 Nicotine dependence, cigarettes, uncomplicated
CPT/HCPCS: 36415; 80053; 85025; 99282; 99283

== ENCOUNTER 2023-01-31 20:21 | Emergency (ER) | payer MEDICAID, SELFPAY ==
[2023-01-31 21:09] VITALS: BP 129/67; PULSE 102; RESP 20; TEMP 37.5; O2SAT 97; BMI 22.6
[2023-01-31 23:00] LABS: COVID-19 Test Negative (Negative); IDNOW Serial# 08D9AD1C
[2023-01-31 23:00] LABS: IDNOW Serial# BCCEAD1C; Influenza A Negative (Negative); Influenza B2 Negative (Negative)
[2023-01-31 23:46] VITALS: BP 119/38; PULSE 84; RESP 16; TEMP 36.8; O2SAT 96
[2023-01-31] MEDS: LORazepam 1 MG TABLET PO (23:57)
[2023-01-31] MEDS: Ondansetron ODT 4 MG TAB.RAPDIS TRANSLINGU (23:57)
[2023-01-31] MEDS: Magnesium Hydrox/Alum Hydrox 30 ML ORAL.SUSP PO (23:57)
[2023-01-31] MEDS: Lidocaine HCl Viscous 2 % 15 ML SOLUTION MUCOUS MEM (23:57)
--- NOTE | 2023-01-31 23:57 | ED_ITS ---
HPI - General Adult General Chief complaint: Nausea/Vomiting/Diarrhea Stated complaint: Vomiting Time Seen by Provider: 01/31/23 23:37 Source: patient, RN notes reviewed and old records reviewed Mode of arrival: ambulatory Limitations: no limitations History of Present Illness HPI narrative: 27-year-old male presents for evaluation of vomiting, chills, burning upper abdominal pain Patient was seen here early this morning. He had labs that were reassuring he was discharged home with Zofran. 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 He states that the registration department at this facility was able to give him his insurance number to bring to the pharmacy After reviewing the patient's medical history, I asked him if he had been using opiates. The patient admits that he did use 2 bags of heroin the day prior to the onset of his symptoms He is prescribed Suboxone in the community Related Data Previous Rx's Medication Instructions Recorded azithromycin 250 mg tablet See Rx Instructions PO .COMPLEX #6 11/01/20 tabs fluticasone propionate 50 1 spray intranasal DAILY PRN 11/01/20 mcg/actuation nasal allergy symptoms 30 days #16 grams spray,suspension ondansetron HCl 4 mg tablet 4 mg PO Q8H #10 tabs 07/03/21 (Zofran) buprenorphine 4 mg-naloxone 1 mg 1 film sublingual DAILY #4 ea 07/31/21 sublingual film (Suboxone) omeprazole magnesium 20 mg 20 mg PO BID #30 tabs 08/02/21 tablet,delayed release (Prilosec OTC) ondansetron 4 mg disintegrating 4 mg PO Q8H PRN nausea and 08/02/21 tablet vomiting #20 tabs famotidine 20 mg tablet 20 mg PO BEDTIME #20 tabs 08/03/21 pantoprazole 40 mg tablet,delayed 40 mg PO DAILY #20 tabs 08/03/21 release omeprazole 40 mg capsule,delayed 40 mg PO DAILY #30 caps 08/07/21 release ondansetron 4 mg disintegrating 4 mg PO Q6H PRN nausea and 08/07/21 tablet vomiting #10 tabs sucralfate 1 gram tablet (Carafate) 1 g PO .achs #60 tabs 08/07/21 ondansetron 4 mg disintegrating 4 mg PO Q6H PRN nausea and 08/23/21 tablet vomiting #10 tabs sucralfate 100 mg/mL oral 10 ml PO QID #420 mL 08/23/21 suspension (Carafate) cyclobenzaprine 10 mg tablet 10 mg PO Q8H #14 tabs 09/26/22 ibuprofen 800 mg tablet 800 mg PO Q8H PRN pain #14 tabs 09/26/22 ondansetron HCl 4 mg tablet 4 mg PO Q8H #14 tabs 09/26/22 ondansetron 4 mg disintegrating 4 mg PO Q8H PRN nausea and 01/31/23 tablet vomiting #10 tabs Allergies Allergy/AdvReac Type Severity Reaction Status Date / Time No Known Allergies Allergy Verified 01/31/23 21:13 [No Known Allergies*] Review of Systems Constitutional: Constitutional: Reports body ache(s), Reports chills, Denies fever(s) and Reports headache(s) ENT: Reports headache(s) Cardiovascular: Cardiovascular: Denies chest pain and Denies dyspnea Respiratory: Respiratory: Denies cough and Denies dyspnea Gastrointestinal: Gastrointestinal: Reports abdominal pain, Reports nausea and Reports vomiting Integumentary/Breasts: Skin/Breast: Denies rash Neurologic: Reports headache(s) [facility] Past Medical History Medical History ADHD Allergic rhinitis Bipolar 1 disorder Surgical History History of surgery Family History Family History Father Depression Asthma Mother Asthma Depression Migraine Brother No problems noted. Sister No problems noted. Son In good health Social History Social History Alcohol intake: never Patient Tobacco Use Status: Current everyday Tobacco user Cigarettes Per Day: 5 Smoked in Last 30 Days: Yes Use of substances other than those prescribed or required for medical reasons: Yes Substance Use Type: Marijuana Advance Directives: No Advance Directives Information Provided: Yes Physical Exam ED Vital Signs: Vital Signs - 24 hr 01/31/23 21:09 01/31/23 23:46 02/01/23 00:36 Temperature 99.5 F 98.3 F 98.0 F Pulse Rate 102 H 84 54 Respiratory Rate 20 16 10 L Blood Pressure 129/67 119/38 L 112/44 L Pulse Oximetry 97 96 96 Oxygen Delivery Method Room Air Room Air Room Air BMI result Body Mass Index 22.6 Const General: healthy appearing, comfortable, no acute distress, alert and awake Nutritional Appearance: well nourished Orientation/consciousness: patient oriented x3 HENMT Head: Yes normocephalic and Yes atraumatic Eyes Eyelids: Yes eyelids normal Conjunctivae: conjunctivae normal Sclerae: sclerae normal Corneas: corneas normal Pupils: Equal, round and reactive pupils present EOM: EOMs intact bilaterally Neck Neck: Yes full ROM Resp Effort & Inspection: normal respiratory effort, able to speak in complete sentences, no audible wheezes and not labored GI Inspection: No distended Palpation (GI): Soft to palpation, not firm, nontender, no guarding and not rig id Auscultation: normoactive bowel sounds Skin General skin exam: no rashes or lesions noted and elasticity normal Neuro General: patient oriented x3 Cranial nerves: Yes Equal, round and reactive pupils present and Yes Bilaterally intact EOM present Cognition (Neuro): normal cognition Extrem Other: Moving all extremities well without any obvious deformities Course Reevaluation(s) Reevaluation #1: Patient still reporting worsening symptoms. Explain to the patient that sometime believe this is related to withdrawal, Suboxone would likely help his symptoms as he has not taken in a few days. Explain to the patient that you should not use Suboxone wall your currently high but you should use when you are withdrawal and he is agreeable to take a dose of Suboxone. Time: 00:26 Reevaluation #2: Patient reports feeling somewhat better after the Suboxone, he is still somewhat anxious and restless. He will be given 1 more dose of Ativan and his younger sister will come pick him up for a sober ride home Time: 01:34 Medications Administered Discontinued Medications Generic Name Dose Route Start Last Admin Trade Name Reillyq PRN Reason Stop Dose Admin Al Hydroxide/Mg Hydroxide 30 ml 01/31/23 23:44 01/31/23 23:57 Magnesium Hydrox/Alum Hydrox 30 Ml Oral.Susp PO 01/31/23 23:45 30 ml ONCE ONE Administration Buprenorphine/Naloxone 1 film 02/01/23 00:26 02/01/23 00:42 Buprenorphine/Naloxone 8/2 Mg Film SUBLINGUAL 02/01/23 00:27 1 film ONCE ONE Administration Lidocaine HCl 15 ml 01/31/23 23:44 01/31/23 23:57 Lidocaine Hcl Viscous 2 % 15 Ml Solution MUCOUS MEM 01/31/23 23:45 15 ml ONCE ONE Administration Lorazepam 1 mg 01/31/23 23:44 01/31/23 23:57 Lorazepam 1 Mg Tablet PO 01/31/23 23:45 1 mg ONCE ONE Administration Ondansetron HCl 4 mg 01/31/23 23:44 01/31/23 23:57 Ondansetron Odt 4 Mg Tab.Rapdis TRANSLINGU 01/31/23 23:45 4 mg ONCE ONE Administration Medical Decision Making Medical Decision Making MDM Narrative: I reviewed the patient's workup from earlier today. After discussing with the patient his recent opiate abuse, I feel that the most likely diagnosis is opiate withdrawal. The patient reports that he was told in the past too we 48 hours after relapsing before he can safely his Suboxone again and he does not want to deviate from that. He is slightly tachycardic to 102 but otherwise vital signs are stable. I do not see any indication to repeat imaging. Will treat the patient symptomatically with GI cocktail, Zofran, Ativan. Differential Diagnosis Opiate withdrawal Gastritis Viral syndrome Influenza Lab Data Labs: Lab Results 01/31/23 01/31/23 Range/Units 22:16 22:17 COVID-19 (KIMBERLEE) Negative (Negative) COVID-19 Clin Com See Note Influenza Type A (JAMEE) Negative (Negative) Influenza Type B (JAMEE) Negative (Negative) Influenza A & B Note See Note Discharge Plan Discharge Clinical Impression: Opiate withdrawal Patient Disposition: Home, Self-Care Instructions: Opioid Withdrawal (ED) Additional Instructions: Your symptoms were most likely related to opiate withdrawal. You may resume your Suboxone tomorrow morning Follow-up with your primary doctor Prescriptions: No Action ondansetron 4 mg tablet,disintegrating 4 mg PO Q8H PRN (Reason: nausea and vomiting) Qty: 20 0RF omeprazole magnesium [Prilosec OTC] 20 mg tablet,delayed release (DR/EC) 20 mg PO BID Qty: 30 0RF ibuprofen 800 mg tablet 800 mg PO Q8H PRN (Reason: pain) Qty: 14 0RF cyclobenzaprine 10 mg tablet 10 mg PO Q8H Qty: 14 0RF ondansetron HCl 4 mg tablet 4 mg PO Q8H Qty: 14 0RF ondansetron HCl [Zofran] 4 mg tablet 4 mg PO Q8H Qty: 10 0RF buprenorphine-naloxone [Suboxone] 4-1 mg film 1 film sublingual DAILY Qty: 4 0RF Rx Instructions: [id number] pantoprazole 40 mg tablet,delayed release (DR/EC) 40 mg PO DAILY Qty: 20 0RF Rx Instructions: Take 1 tablet half an hour before breakfast famotidine 20 mg tablet 20 mg PO BEDTIME Qty: 20 0RF ondansetron 4 mg tablet,disintegrating 4 mg PO Q6H PRN (Reason: nausea and vomiting) Qty: 10 0RF sucralfate [Carafate] 1 gram tablet 1 g PO .achs Qty: 60 0RF omeprazole 40 mg capsule,delayed release(DR/EC) 40 mg PO DAILY Qty: 30 0RF sucralfate [Carafate] 100 mg/mL suspension 10 ml PO QID Qty: 420 0RF Rx Instructions: swish in mouth and swallow; use after food/drink ondansetron 4 mg tablet,disintegrating 4 mg PO Q6H PRN (Reason: nausea and vomiting) Qty: 10 0RF ondansetron 4 mg tablet,disintegrating 4 mg PO Q8H PRN (Reason: nausea and vomiting) Qty: 10 0RF azithromycin 250 mg tablet See Rx Instructions PO .COMPLEX Qty: 6 0RF Rx Instructions: take 500 mg today (day 1), then 250 mg for 4 days (days 2-5) PO fluticasone propionate 50 mcg/actuation spray,suspension 1 spray intranasal DAILY PRN (Reason: allergy symptoms) 30 Days Qty: 16 5RF Rx Instructions: administer into each nostril
[2023-02-01 00:36] VITALS: BP 112/44; PULSE 54; RESP 10; TEMP 36.7; O2SAT 96
[2023-02-01] MEDS: Buprenorphine/Naloxone 8/2 mg FILM 1 FILM SUBLINGUAL (00:42)
[2023-02-01] MEDS: LORazepam 1 MG TABLET PO (01:46)
== END 2023-02-01 01:48 | disposition home or self-care (01) ==
PROVIDERS: Emergency Provider Emergency Medicine
DX: F11.23 Opioid dependence with withdrawal (principal); R11.2 Nausea with vomiting, unspecified; F17.210 Nicotine dependence, cigarettes, uncomplicated; F12.90 Cannabis use, unspecified, uncomplicated; Z20.822 Contact with and (suspected) exposure to COVID-19
CPT/HCPCS: 87502; 87635; 99283; 99284

== ENCOUNTER 2023-02-01 04:48 | Emergency (ER) | payer MEDICAID, SELFPAY ==
[2023-02-01 05:00] VITALS: BP 150/100; BP 156/100; PULSE 110; PULSE 112; RESP 17; O2SAT 94; BMI 22.6
--- NOTE | 2023-02-01 05:05 | PC.NURSE ---
c/o abd pain, n/v, diarrhea states he threw up all of his meds and is concerned about needing more
--- NOTE | 2023-02-01 05:27 | ED.ABDPAIN ---
HPI - Abdominal Pain General Chief Complaint: Abdominal Pain Stated Complaint: vomiting abdominal pain Time Seen by Provider: 02/01/23 05:28 Source: patient Mode of arrival: EMS Limitations: no limitations History of Present Illness HPI narrative: Patient with cannabis induced vomiting/cyclic vomiting with history of substance abuse been here 3 times in last 24 hours for same unable to get the prescription filled says that when he went home started vomiting again Related Data Previous Rx's Medication Instructions Recorded azithromycin 250 mg tablet See Rx Instructions PO .COMPLEX #6 11/01/20 tabs fluticasone propionate 50 1 spray intranasal DAILY PRN 11/01/20 mcg/actuation nasal allergy symptoms 30 days #16 grams spray,suspension ondansetron HCl 4 mg tablet 4 mg PO Q8H #10 tabs 07/03/21 (Zofran) buprenorphine 4 mg-naloxone 1 mg 1 film sublingual DAILY #4 ea 07/31/21 sublingual film (Suboxone) omeprazole magnesium 20 mg 20 mg PO BID #30 tabs 08/02/21 tablet,delayed release (Prilosec OTC) ondansetron 4 mg disintegrating 4 mg PO Q8H PRN nausea and 08/02/21 tablet vomiting #20 tabs famotidine 20 mg tablet 20 mg PO BEDTIME #20 tabs 08/03/21 pantoprazole 40 mg tablet,delayed 40 mg PO DAILY #20 tabs 08/03/21 release omeprazole 40 mg capsule,delayed 40 mg PO DAILY #30 caps 08/07/21 release ondansetron 4 mg disintegrating 4 mg PO Q6H PRN nausea and 08/07/21 tablet vomiting #10 tabs sucralfate 1 gram tablet (Carafate) 1 g PO .achs #60 tabs 08/07/21 ondansetron 4 mg disintegrating 4 mg PO Q6H PRN nausea and 08/23/21 tablet vomiting #10 tabs sucralfate 100 mg/mL oral 10 ml PO QID #420 mL 08/23/21 suspension (Carafate) cyclobenzaprine 10 mg tablet 10 mg PO Q8H #14 tabs 09/26/22 ibuprofen 800 mg tablet 800 mg PO Q8H PRN pain #14 tabs 09/26/22 ondansetron HCl 4 mg tablet 4 mg PO Q8H #14 tabs 09/26/22 ondansetron 4 mg disintegrating 4 mg PO Q8H PRN nausea and 01/31/23 tablet vomiting #10 tabs Allergies Allergy/AdvReac Type Severity Reaction Status Date / Time No Known Allergies Allergy Verified 01/31/23 21:13 [No Known Allergies*] Review of Systems Review of Systems Yes all other systems are reviewed and are negative [facility] Past Medical History Medical History ADHD Allergic rhinitis Bipolar 1 disorder Surgical History History of surgery Family History Family History Father Depression Asthma Mother Asthma Depression Migraine Brother No problems noted. Sister No problems noted. Son In good health Social History Social History Alcohol intake: current Alcohol intake frequency: holidays/special occasions only Alcohol type: hard liquor Patient Tobacco Use Status: Current everyday Tobacco user Cigarettes Per Day: 5 Smoked in Last 30 Days: Yes Use of substances other than those prescribed or required for medical reasons: Yes Substance Use Type: Painkillers Substance Use Type Other:: percs Advance Directives: No Advance Directives Information Provided: Yes Physical Exam ED Vital Signs: Vital Signs - 24 hr 02/01/23 05:00 02/01/23 06:14 Pulse Rate 110 H 74 Respiratory Rate 17 23 H Blood Pressure 156/100 H 121/60 Pulse Oximetry 94 98 Oxygen Delivery Method Room Air Room Air BMI result Body Mass Index 22.6 Appearance: Alert. Oriented X3. No acute distress. Anxious Eyes: PERRLA, No Nystagmus ENT: Pharynx normal. Oral Mucosa moist Neck: Normal inspection. Neck supple. CVS: Normal heart rate and rhythm. Pulses normal. Respiratory: No respiratory distress. Equal air entry bilateral, no wheezing/rales/rhonchi Abdomen: Soft and nontender. Bowel sounds are present, no mass palpable, no CVA tenderness Skin: Skin warm and dry. Normal skin color. Normal skin turgor. Extremities: No lower extremity edema. No calf tenderness Neuro: Oriented X 3. No motor deficit. No sensory deficit.No cerebellar signs , cranial nerves II-XII intact Medical Decision Making Medical Decision Making [facility] Narrative: Patient with cannabis abuse cyclic vomiting feeling much better sleeping at this time after Compazine and Ativan will discharge patient home Medications Administered Discontinued Medications Generic Name Dose Route Start Last Admin Trade Name Freq PRN Reason Stop Dose Admin Lorazepam 2 mg 02/01/23 05:26 02/01/23 05:44 Lorazepam 2 Mg/Ml Vial IM 02/01/23 05:27 2 mg STAT STA Administration Prochlorperazine Edisylate 10 mg 02/01/23 05:26 02/01/23 05:42 Prochlorperazine Edisylate 10 Mg/2 Ml Vial IM 02/01/23 05:27 10 mg ONCE ONE Administration Discharge Plan Discharge Clinical Impression: Cyclic vomiting syndrome, Cannabinoid hyperemesis syndrome Patient Disposition: Home, Self-Care Instructions: Cannabis Abuse (ED), Cyclic Vomiting Syndrome (ED) Additional Instructions: Stop smoking cannabis and other drugs Follow with PCP Prescriptions: No Action ondansetron 4 mg tablet,disintegrating 4 mg PO Q8H PRN (Reason: nausea and vomiting) Qty: 20 0RF omeprazole magnesium [Prilosec OTC] 20 mg tablet,delayed release (DR/EC) 20 mg PO BID Qty: 30 0RF ibuprofen 800 mg tablet 800 mg PO Q8H PRN (Reason: pain) Qty: 14 0RF cyclobenzaprine 10 mg tablet 10 mg PO Q8H Qty: 14 0RF ondansetron HCl 4 mg tablet 4 mg PO Q8H Qty: 14 0RF ondansetron HCl [Zofran] 4 mg tablet 4 mg PO Q8H Qty: 10 0RF buprenorphine-naloxone [Suboxone] 4-1 mg film 1 film sublingual DAILY Qty: 4 0RF Rx Instructions: [id number] pantoprazole 40 mg tablet,delayed release (DR/EC) 40 mg PO DAILY Qty: 20 0RF Rx Instructions: Take 1 tablet half an hour before breakfast famotidine 20 mg tablet 20 mg PO BEDTIME Qty: 20 0RF ondansetron 4 mg tablet,disintegrating 4 mg PO Q6H PRN (Reason: nausea and vomiting) Qty: 10 0RF sucralfate [Carafate] 1 gram tablet 1 g PO .achs Qty: 60 0RF omeprazole 40 mg capsule,delayed release(DR/EC) 40 mg PO DAILY Qty: 30 0RF sucralfate [Carafate] 100 mg/mL suspension 10 ml PO QID Qty: 420 0RF Rx Instructions: swish in mouth and swallow; use after food/drink ondansetron 4 mg tablet,disintegrating 4 mg PO Q6H PRN (Reason: nausea and vomiting) Qty: 10 0RF ondansetron 4 mg tablet,disintegrating 4 mg PO Q8H PRN (Reason: nausea and vomiting) Qty: 10 0RF azithromycin 250 mg tablet See Rx Instructions PO .COMPLEX Qty: 6 0RF Rx Instructions: take 500 mg today (day 1), then 250 mg for 4 days (days 2-5) PO fluticasone propionate 50 mcg/actuation spray,suspension 1 spray intranasal DAILY PRN (Reason: allergy symptoms) 30 Days Qty: 16 5RF Rx Instructions: administer into each nostril
[2023-02-01] MEDS: Prochlorperazine Edisylate 10 MG/2 ML VIAL IM (05:42)
[2023-02-01] MEDS: LORazepam 2 MG/ML VIAL IM (05:44)
[2023-02-01 06:14] VITALS: BP 121/60; PULSE 74; RESP 23; O2SAT 98
--- NOTE | 2023-02-01 06:16 | PC.NURSE ---
Addendum entered by Ana Koch 02/01/23 06:16: bp wnl Original Note: vs assessed
== END 2023-02-01 06:24 | disposition home or self-care (01) ==
PROVIDERS: Emergency Provider Internal Medicine
DX: R11.15 Cyclical vomiting syndrome unrelated to migraine (principal); F12.10 Cannabis abuse, uncomplicated; F17.210 Nicotine dependence, cigarettes, uncomplicated; Z79.899 Other long term (current) drug therapy
CPT/HCPCS: 96372; 99284; J2060

== ENCOUNTER 2023-02-01 15:22 | Emergency (ER) | payer MEDICAID, SELFPAY ==
[2023-02-01 17:07] VITALS: BP 122/68; BP 122/75; PULSE 71; PULSE 75; RESP 18; TEMP 36.5; O2SAT 98; O2SAT 99; BMI 24.6
--- NOTE | 2023-02-01 17:08 | ED_ITS ---
HPI - Nausea/Vomiting/Diarrhea General Chief complaint: Abdominal Pain Stated complaint: NAUSEA, VOMITING Related Data Home Medications Medication Instructions Recorded Confirmed albuterol sulfate 90 mcg/actuation 2 puff inhalation Q6H PRN wheezing 02/04/23 02/04/23 aerosol inhaler (Ventolin HFA) buprenorphine 12 mg-naloxone 3 mg 15 mg sublingual BID 02/04/23 02/04/23 sublingual film (Suboxone) clonidine HCl 0.1 mg tablet 0.1 mg PO BEDTIME PRN Anxiety 02/04/23 02/04/23 fluticasone propionate 50 1 spray intranasal DAILY 02/04/23 02/04/23 mcg/actuation nasal spray,suspension Previous Rx's Medication Instructions Recorded sucralfate 100 mg/mL oral 10 ml PO QID #420 mL 08/23/21 suspension (Carafate) Allergies Allergy/AdvReac Type Severity Reaction Status Date / Time No Known Allergies Allergy Verified 01/31/23 21:13 [No Known Allergies*] PMFSH Past Medical History Medical History ADHD Allergic rhinitis Bipolar 1 disorder Surgical History History of surgery Family History Family History Father Depression Asthma Mother Asthma Depression Migraine Brother No problems noted. Sister No problems noted. Son In good health Social History Social History Alcohol intake: unknown Patient Tobacco Use Status: Current everyday Tobacco user Cigarettes Per Day: 5 Smoked in Last 30 Days: No Use of substances other than those prescribed or required for medical reasons: Yes Substance Use Type: Heroin Substance Use Frequency Other:: relapsed recently Last Used Substance: Days (ago) Advance Directives: No Advance Directives Information Provided: Yes Physical Exam Vital Signs: Vital Signs: Last Vital Signs Temp 97.7 F 02/01/23 17:07 Pulse 71 02/01/23 17:07 Resp 18 02/01/23 17:07 BP 122/75 02/01/23 17:07 Pulse Ox 99 02/01/23 17:07 O2 Del Method Room Air 02/01/23 17:07 BMI result Body Mass Index 24.6 Course Course Course Narrative: RME: 27yo M w/PMHx cyclical vomiting, seen in our ED multiple times in the last 2 days, most recently d/c this AM c/o nausea and vomiting x5 episodes since 11AM. Also reports abdominal pain Labs, UA, ZAFAR, ethanol ordered Full HPI, ROS and PE to be performed by primary ED provider. Discharge Plan Discharge Clinical Impression: Nausea & vomiting Patient Disposition: Elopement Prescriptions: No Action sucralfate [Carafate] 100 mg/mL suspension 10 ml PO QID Qty: 420 0RF Rx Instructions: swish in mouth and swallow; use after food/drink clonidine HCl 0.1 mg tablet 0.1 mg PO BEDTIME PRN (Reason: Anxiety) albuterol sulfate [Ventolin HFA] 90 mcg/actuation HFA aerosol inhaler 2 puff INHALATION Q6H PRN (Reason: wheezing) fluticasone propionate [Flonase] 50 mcg/actuation [place],Suspension 1 spray INTRANASAL DAILY Rx Instructions: administer into each nostril buprenorphine-naloxone [Suboxone] 12-3 mg film 15 mg sublingual BID Interventions: ED Discharge Assessment Last Done: 02/01/23 21:11 Discharge Date/Time: 02/01/23 21:19
--- NOTE | 2023-02-01 20:44 | PC.NURSE ---
pt not in waiting room at 2030
== END 2023-02-01 21:19 | disposition left against medical advice (07) ==
LOC: HO.ED 21:14
PROVIDERS: Emergency Provider Emergency Medicine
DX: R11.2 Nausea with vomiting, unspecified (principal); F11.20 Opioid dependence, uncomplicated
CPT/HCPCS: 99282

== ENCOUNTER 2023-02-02 16:09 | Emergency (ER) | payer MEDICAID, SELFPAY ==
--- NOTE | ~2023-02-02 | XR_ITS ---
EXAMINATION: XR CHEST CLINICAL INFORMATION: Nausea, vomiting, epigastric discomfort COMPARISON: Chest x-ray of 09/26/2022 and 06/21/2018 TECHNIQUE: 2 views of the chest were obtained. FINDINGS: Cardiomediastinal silhouette is stable and normal. No abnormal tracheal deviation. Lungs are symmetrically well expanded and clear. No evidence of pleural effusions, pneumothorax, pneumomediastinum or pulmonary edema. No evidence of free subdiaphragmatic air. Regional skeleton is intact. XR/XR chest 2V IMPRESSION: No radiographic evidence of pneumonia. No acute pulmonary process.
[2023-02-02 16:14] VITALS: BP 110/68; BP 118/71; PULSE 75; PULSE 84; RESP 16; TEMP 37; O2SAT 98; BMI 22.6
--- NOTE | 2023-02-02 17:14 | ED_ITS ---
HPI - General Adult General Chief complaint: General Medical Stated complaint: ABD PAIN Time Seen by Provider: 02/02/23 16:55 Source: patient, EMS and RN notes reviewed Mode of arrival: EMS History of Present Illness HPI narrative: 27-year-old male is here today for cyclic vomiting. Was seen here in the past couple days trying to get in to detox. Patient states the last time that he use opiates was 5 days ago. Patient reports epigastric discomfort feeling nauseous, anxious. project coach states that patient has a detox bed available in the morning. Related Data Previous Rx's Medication Instructions Recorded azithromycin 250 mg tablet See Rx Instructions PO .COMPLEX #6 11/01/20 tabs fluticasone propionate 50 1 spray intranasal DAILY PRN 11/01/20 mcg/actuation nasal allergy symptoms 30 days #16 grams spray,suspension ondansetron HCl 4 mg tablet 4 mg PO Q8H #10 tabs 07/03/21 (Zofran) buprenorphine 4 mg-naloxone 1 mg 1 film sublingual DAILY #4 ea 07/31/21 sublingual film (Suboxone) omeprazole magnesium 20 mg 20 mg PO BID #30 tabs 08/02/21 tablet,delayed release (Prilosec OTC) ondansetron 4 mg disintegrating 4 mg PO Q8H PRN nausea and 08/02/21 tablet vomiting #20 tabs famotidine 20 mg tablet 20 mg PO BEDTIME #20 tabs 08/03/21 pantoprazole 40 mg tablet,delayed 40 mg PO DAILY #20 tabs 08/03/21 release omeprazole 40 mg capsule,delayed 40 mg PO DAILY #30 caps 08/07/21 release ondansetron 4 mg disintegrating 4 mg PO Q6H PRN nausea and 08/07/21 tablet vomiting #10 tabs sucralfate 1 gram tablet (Carafate) 1 g PO .achs #60 tabs 08/07/21 ondansetron 4 mg disintegrating 4 mg PO Q6H PRN nausea and 08/23/21 tablet vomiting #10 tabs sucralfate 100 mg/mL oral 10 ml PO QID #420 mL 08/23/21 suspension (Carafate) cyclobenzaprine 10 mg tablet 10 mg PO Q8H #14 tabs 09/26/22 ibuprofen 800 mg tablet 800 mg PO Q8H PRN pain #14 tabs 09/26/22 ondansetron HCl 4 mg tablet 4 mg PO Q8H #14 tabs 09/26/22 ondansetron 4 mg disintegrating 4 mg PO Q8H PRN nausea and 01/31/23 tablet vomiting #10 tabs Allergies Allergy/AdvReac Type Severity Reaction Status Date / Time No Known Allergies Allergy Verified 01/31/23 21:13 [No Known Allergies*] Review of Systems Review of Systems: Constitutional : No Weight loss, No Fever, No Chills, No Night Sweats, No Fatigue, No Malaise ENT/Mouth : No Hearing loss, No Ear Pain, No Nasal Congestion, No Sinus Pain, No Hoarseness, No sore throat, No Rhinorrhea, No Swallowing Difficulty Eyes: No Eye Pain, No Swelling, No Redness, No Foreign Body, No Discharge, No Vision Changes Cardiovascular : No Chest Pain, No SOB, No Dyspnea on Exertion, No Orthopnea, No Edema, No Palpitations Respiratory : No Cough, No Sputum, No Wheezing, No Smoke Exposure, No Dyspnea Gastrointestinal : Nausea, Vomiting, No Diarrhea, No Constipation, No abdo mike Pain, No Hematochezia, No Melena Genitourinary : no irregular bleeding, No Dysuria, No Urinary Frequency, No Hematuria, No Urinary Incontinence, No Urgency, No Flank Pain, No Urinary Flow Changes, No Hesitancy Musculoskeletal : No joint pain, No Myalgias, No Joint Swelling Skin : No Skin Lesions, No rash Yes all other systems are reviewed and are negative PMFSH Past Medical History Medical History ADHD Allergic rhinitis Bipolar 1 disorder Surgical History History of surgery Family History Family History Father Depression Asthma Mother Asthma Depression Migraine Brother No problems noted. Sister No problems noted. Son In good health Social History Social History Alcohol intake: current Alcohol intake frequency: holidays/special occasions only Alcohol type: hard liquor Patient Tobacco Use Status: Current everyday Tobacco user Cigarettes Per Day: 5 Substance Use Type: Painkillers Advance Directives: No Advance Directives Information Provided: Yes Physical Exam ED Vital Signs: Vital Signs - 24 hr 02/02/23 16:14 02/02/23 19:27 Temperature 98.6 F 98.4 F Pulse Rate 75 71 Respiratory Rate 16 18 Blood Pressure 118/71 107/65 Pulse Oximetry 98 98 Oxygen Delivery Method Room Air Room Air BMI result Body Mass Index 22.6 Appearance: Alert. Oriented X3. No acute distress. Anxious Eyes: PERRLA, No Nystagmus ENT: Pharynx normal. Oral Mucosa moist Neck: Normal inspection. Neck supple. CVS: Normal heart rate and rhythm. Pulses normal. Respiratory: No respiratory distress. Equal air entry bilateral, no wheezing/rales/rhonchi Abdomen: Soft and nontender. Bowel sounds are present, no mass palpable, no CVA tenderness Skin: Skin warm and dry. Normal skin color. Normal skin turgor. Extremities: No lower extremity edema. No calf tenderness Neuro: Oriented X 3. No motor deficit. No sensory deficit.No cerebellar signs , cranial nerves II-XII intact Course Course Course Narrative: 27-year-old male is here today for cyclic vomiting. Was seen here in the past couple days trying to get in to detox. Patient states the last time that he use opiates was 5 days ago. Patient reports epigastric discomfort feeling nauseous, anxious. project coach states that patient has a detox bed available in the morning. Will repeat blood work again today, medicate patient with nausea medicine and Ativan. Reevaluation(s) Reevaluation #1: Mildly elevated liver enzymes, normal lipase. Patient reports that he is feeling better after medicated with lorazepam and Zofran. Patient cooperative denies SI or HI. Medications Administered Discontinued Medications Generic Name Dose Route Start Last Admin Trade Name Freq PRN Reason Stop Dose Admin Lorazepam 1 mg 02/02/23 17:27 02/02/23 18:11 Lorazepam 2 Mg/Ml Vial IVPUSH 02/02/23 17:28 1 mg STAT STA Administration Lorazepam 1 mg 02/02/23 20:43 02/02/23 20:47 Lorazepam 1 Mg Tablet PO 02/02/23 20:44 1 mg ONCE ONE Administration Lorazepam 1 mg 02/02/23 20:49 02/02/23 21:40 Lorazepam 2 Mg/Ml Vial IVPUSH 02/02/23 20:50 1 mg STAT STA Administration Ondansetron HCl 4 mg 02/02/23 17:27 02/02/23 18:11 Ondansetron Hcl 4 Mg/2 Ml Vial IVPUSH 02/02/23 17:28 4 mg ONCE STA Administration Medical Decision Making Medical Decision Making [facility] Narrative: 27-year-old male is here today for cyclic vomiting. Was seen here in the past couple days trying to get in to detox. Patient states the last time that he use opiates was 5 days ago. Patient reports epigastric discomfort feeling nauseous, anxious. project coach states that patient has a detox bed available in the morning. Will repeat blood work again today, medicate patient with nausea medicine and Ativan. Lab Data [facility] Lab Attestation statement: I reviewed the patient's lab results. 02/02/23 17:49 02/02/23 17:49 Labs: Lab Results 02/02/23 02/02/23 02/02/23 Range/Units 17:49 17:49 21:34 WBC 7.3 (4.8-10.8) X10*3/uL RBC 5.41 (4.60-5.80) X10*6/uL Hgb 16.0 (14.0-18.0) g/dl Hct 47.5 (42.0-52.0) % MCV 87.8 (80.0-98.0) fL MCH 29.6 (27.0-33.0) pg MCHC 33.7 (31.0-36.0) g/dl RDW 13.2 (11.0-16.0) % Plt Count 318 (160-400) X10*3/uL MPV 10.0 (9.4-12.4) fL Immature Gran % (Auto) 0.3 (0.0-0.4) % Neut % (Auto) 59.7 (45-73) % Lymph % (Auto) 25.5 (20-40) % Ada % (Auto) 13.6 H (2-11) % Eos % (Auto) 0.4 (0-4) % Baso % (Auto) 0.5 (0-2) % Lymph # (Auto) 1.9 (1.2-4.9) X10*3/uL Ada # (Auto) 1.0 (0.1-1.2) X10*3/uL Eos # (Auto) 0.0 (0.0-0.4) X10*3/uL Baso # (Auto) 0.0 (0.0-0.2) X10*3/uL Abs Immat Gran (auto) 0.02 (0.00-0.03) X10*3/uL Absolute Neuts (auto) 4.4 (2.0-8.3) x10*3/uL Absolute Nucleated RBC 0.000 (0.0-0.012) X10*3/uL Nucleated RBC % (auto) 0.0 (0.0-0.2) /100WBC Sodium 137 (135-145) mmol/L Potassium 4.2 (3.3-5.1) mmol/L Chloride 104 (96-108) mmol/L Carbon Dioxide 24 (22-29) mmol/L Anion Gap 13 (12-20) BUN 24 H (9-16) mg/dL Creatinine 0.91 (0.5-1.4) mg/dL Estim Creat Clear Calc 109.5 Estimated GFR > 60 Random Glucose 107 (60-115) mg/dL Calcium 10.3 H (8.4-10.2) mg/dL Total Bilirubin 1.5 H (0.0-1.0) mg/dL AST 50 H (5-37) U/L ALT 57 H (0-40) U/L Alkaline Phosphatase 85 (39-117) U/L Total Protein 8.5 H (6.5-8.0) g/dL Albumin 4.6 (3.5-5.0) g/dL Lipase 32 (8-78) U/L Urine Color Dark Yellow Urine Appearance Clear Urine pH 6.5 (5.0-9.0) Ur Specific [place] 1.025 (1.005-1.025) Urine Protein Trace (Neg-Trace) mg/dL Urine Glucose (UA) Negative (Negative) mg/dL Urine Ketones Trace (Negative) mg/dL Urine Blood Negative (Negative) Urine Nitrite Negative (Negative) Ur Leukocyte Esterase Negative (Negative) Urine Opiates Screen (Not Detect) Urine Fentanyl Screen (Not Detect) Ur Barbiturates Screen (Not Detect) Ur Phencyclidine Scrn (Not Detect) Ur Amphetamines Screen (Not Detect) U Benzodiazepines Scrn (Not Detect) Urine Cocaine Screen (Not Detect) U Marijuana (THC) Screen (Not Detect) 02/02/23 Range/Units 21:34 WBC (4.8-10.8) X10*3/uL RBC (4.60-5.80) X10*6/uL Hgb (14.0-18.0) g/dl Hct (42.0-52.0) % MCV (80.0-98.0) fL MCH (27.0-33.0) pg MCHC (31.0-36.0) g/dl RDW (11.0-16.0) % Plt Count (160-400) X10*3/uL MPV (9.4-12.4) fL Immature Gran % (Auto) (0.0-0.4) % Neut % (Auto) (45-73) % Lymph % (Auto) (20-40) % Ada % (Auto) (2-11) % Eos % (Auto) (0-4) % Baso % (Auto) (0-2) % Lymph # (Auto) (1.2-4.9) X10*3/uL Ada # (Auto) (0.1-1.2) X10*3/uL Eos # (Auto) (0.0-0.4) X10*3/uL Baso # (Auto) (0.0-0.2) X10*3/uL Abs Immat Gran (auto) (0.00-0.03) X10*3/uL Absolute Neuts (auto) (2.0-8.3) x10*3/uL Absolute Nucleated RBC (0.0-0.012) X10*3/uL Nucleated RBC % (auto) (0.0-0.2) /100WBC Sodium (135-145) mmol/L Potassium (3.3-5.1) mmol/L Chloride (96-108) mmol/L Carbon Dioxide (22-29) mmol/L Anion Gap (12-20) BUN (9-16) mg/dL Creatinine (0.5-1.4) mg/dL Estim Creat Clear Calc Estimated GFR Random Glucose (60-115) mg/dL Calcium (8.4-10.2) mg/dL Total Bilirubin (0.0-1.0) mg/dL AST (5-37) U/L ALT (0-40) U/L Alkaline Phosphatase (39-117) U/L Total Protein (6.5-8.0) g/dL Albumin (3.5-5.0) g/dL Lipase (8-78) U/L Urine Color Urine Appearance Urine pH (5.0-9.0) Ur Specific [place] (1.005-1.025) Urine Protein (Neg-Trace) mg/dL Urine Glucose (UA) (Negative) mg/dL Urine Ketones (Negative) mg/dL Urine Blood (Negative) Urine Nitrite (Negative) Ur Leukocyte Esterase (Negative) Urine Opiates Screen Not Detected (Not Detect) Urine Fentanyl Screen POSITIVE H (Not Detect) Ur Barbiturates Screen Not Detected (Not Detect) Ur Phencyclidine Scrn Not Detected (Not Detect) Ur Amphetamines Screen Not Detected (Not Detect) U Benzodiazepines Scrn Not Detected (Not Detect) Urine Cocaine Screen Not Detected (Not Detect) U Marijuana (THC) Screen POSITIVE H (Not Detect) Discharge Plan Discharge Clinical Impression: Admitted to substance misuse detoxification center Patient Disposition: Still a Patient Prescriptions: No Action ondansetron 4 mg tablet,disintegrating 4 mg PO Q8H PRN (Reason: nausea and vomiting) Qty: 20 0RF omeprazole magnesium [Prilosec OTC] 20 mg tablet,delayed release (DR/EC) 20 mg PO BID Qty: 30 0RF ibuprofen 800 mg tablet 800 mg PO Q8H PRN (Reason: pain) Qty: 14 0RF cyclobenzaprine 10 mg tablet 10 mg PO Q8H Qty: 14 0RF ondansetron HCl 4 mg tablet 4 mg PO Q8H Qty: 14 0RF ondansetron HCl [Zofran] 4 mg tablet 4 mg PO Q8H Qty: 10 0RF buprenorphine-naloxone [Suboxone] 4-1 mg film 1 film sublingual DAILY Qty: 4 0RF Rx Instructions: [id number] pantoprazole 40 mg tablet,delayed release (DR/EC) 40 mg PO DAILY Qty: 20 0RF Rx Instructions: Take 1 tablet half an hour before breakfast famotidine 20 mg tablet 20 mg PO BEDTIME Qty: 20 0RF ondansetron 4 mg tablet,disintegrating 4 mg PO Q6H PRN (Reason: nausea and vomiting) Qty: 10 0RF sucralfate [Carafate] 1 gram tablet 1 g PO .achs Qty: 60 0RF omeprazole 40 mg capsule,delayed release(DR/EC) 40 mg PO DAILY Qty: 30 0RF sucralfate [Carafate] 100 mg/mL suspension 10 ml PO QID Qty: 420 0RF Rx Instructions: swish in mouth and swallow; use after food/drink ondansetron 4 mg tablet,disintegrating 4 mg PO Q6H PRN (Reason: nausea and vomiting) Qty: 10 0RF ondansetron 4 mg tablet,disintegrating 4 mg PO Q8H PRN (Reason: nausea and vomiting) Qty: 10 0RF azithromycin 250 mg tablet See Rx Instructions PO .COMPLEX Qty: 6 0RF Rx Instructions: take 500 mg today (day 1), then 250 mg for 4 days (days 2-5) PO fluticasone propionate 50 mcg/actuation spray,suspension 1 spray intranasal DAILY PRN (Reason: allergy symptoms) 30 Days Qty: 16 5RF Rx Instructions: administer into each nostril
--- NOTE | 2023-02-02 17:17 | PC.NURSE ---
Per recovery team, pt has a bed at [facility] at 10am tomorrow, confirmed.
--- NOTE | 2023-02-02 17:25 | MHC.RECOVSUP ---
? Reason for consult Recovery Support o Current location: ED18 o Identified substance use concern: Alcohol/ opiate - Withdrawal - Seeking ATS (detox) - Support ? Intervention: <del>o</del> <del>ATS</del> <del>bed</del> <del>search</del> <del>started/completed/in</del> <del>process</del> <del>o</del> <del>MAT</del> <del>started</del> <del>or</del> <del>to</del> <del>be</del> <del>started</del> o Community resources provided o Harm reduction discussion ? Plan: o Patient to follow up with [facility] after discharge ? Additional information: Patient came to the ED seeking help with withdrawal.. Patient Has a confirmed bed for tomorrow 10:15 AM at [facility]..Patient will be held till tomorrow..
--- NOTE | 2023-02-02 17:28 | ECG_ITS ---
Test Reason : abd pain/vomitting Blood Pressure : / mmHG Vent. Rate : 073 BPM Atrial Rate : 073 BPM P-R Int : 128 ms QRS Dur : 116 ms QT Int : 386 ms P-R-T Axes : 023 059 048 degrees QTc Int : 425 ms Normal sinus rhythm Incomplete right bundle branch block Borderline ECG When compared with ECG of 16-NOV-2017 09:41, No significant change was found Referred By: Marita Roth Electronically Signed By:Bert Beaver
[2023-02-02 17:55] LABS: MANUAL DIFF FLAG NO
[2023-02-02 17:56] LABS: Basophils Percent Auto 0.5 % (0-2); Eosinophils Percent Auto 0.4 % (0-4); Hematocrit 47.5 % (42.0-52.0); Imm Gran Abs Auto 0.02 X10*3/uL (0.00-0.03); Imm Gran Pct Auto 0.3 % (0.0-0.4); Lymphocytes Absolute Auto 1.9 X10*3/uL (1.2-4.9); Lymphocytes Percent Auto 25.5 % (20-40); Mean Corpuscular HGB Conc 33.7 g/dl (31.0-36.0); Mean Corpuscular Hemoglobin 29.6 pg (27.0-33.0); Mean Corpuscular Volume 87.8 fL (80.0-98.0); Monocytes Percent Auto 13.6 % (2-11); Neutrophils Absolute Auto 4.4 x10*3/uL (2.0-8.3); Neutrophils Percent Auto 59.7 % (45-73); Platelet Count 318 X10*3/uL (160-400); Red Blood Count 5.41 X10*6/uL (4.60-5.80); Red Cell Distribution Width 13.2 % (11.0-16.0); White Blood Count 7.3 X10*3/uL (4.8-10.8)
[2023-02-02] MEDS: LORazepam 2 MG/ML VIAL 1 MG IVPUSH ×2 (18:11→21:40)
[2023-02-02] MEDS: ondansetron HCL 4 MG/2 ML VIAL IVPUSH (18:11)
[2023-02-02 18:12] LABS: Alanine Aminotransferase 57 U/L (0-40); Albumin Level 4.6 g/dL (3.5-5.0); Alkaline Phosphatase 85 U/L (39-117); Anion Gap 13 (12-20); Aspartate Amino Transferase 50 U/L (5-37); Bilirubin Total 1.5 mg/dL (0.0-1.0); Blood Urea Nitrogen 24 mg/dL (9-16); Calcium 10.3 mg/dL (8.4-10.2); Carbon Dioxide 24 mmol/L (22-29); Chloride 104 mmol/L (96-108); Creatinine Clr Calc Pharmacy 109.5; Estimated Glomerular Filt Rate > 60; Glucose Random 107 mg/dL (60-115); Lipase 32 U/L (8-78); Potassium 4.2 mmol/L (3.3-5.1); Sodium 137 mmol/L (135-145); Total Protein 8.5 g/dL (6.5-8.0)
[2023-02-02 19:27] VITALS: BP 107/65; PULSE 71; RESP 18; TEMP 36.9; O2SAT 98
[2023-02-02] MEDS: LORazepam 1 MG TABLET PO (20:47)
[2023-02-02 21:45] LABS: Appearance Urine Clear; Color Urine Dark Yellow; Glucose Urine UA Negative (Negative); Leukocyte Esterase Urine Negative (Negative); Nitrite Urine Negative (Negative); PH 6.5 (5.0-9.0); Specific Gravity - Urine 1.025 (1.005-1.025); Urine Blood Negative (Negative); Urine Ketones Trace mg/dL (Negative); Urine Protein Trace mg/dL (Neg-Trace)
[2023-02-02 22:04] LABS: Amphetamine Screen Urine Not Detected (Not Detect); Barbiturates, Urine Not Detected (Not Detect); Benzodiazepines Screen Urine Not Detected (Not Detect); Cannabinoid Screen Urine POSITIVE (Not Detect); Cocaine Screen Urine Not Detected (Not Detect); Fentanyl, urine POSITIVE (Not Detect); Opiate Screen Urine Not Detected (Not Detect); Phencyclidine Screen Urine Not Detected (Not Detect)
[2023-02-03] MEDS: LORazepam 1 MG TABLET PO (02:35)
== END 2023-02-03 02:47 | disposition home or self-care (01) ==
PROVIDERS: Nurse Practitioner Family; Emergency Provider Internal Medicine; PCP Nurse Practitioner Primary Care
DX: R11.15 Cyclical vomiting syndrome unrelated to migraine (principal); R11.0 Nausea; F41.9 Anxiety disorder, unspecified; R74.8 Abnormal levels of other serum enzymes; F11.20 Opioid dependence, uncomplicated; F17.210 Nicotine dependence, cigarettes, uncomplicated; Z79.899 Other long term (current) drug therapy
CPT/HCPCS: 36415; 71046; 80053; 80307; 81003; 83690; 85025; 93005; 96374; 96375; 99285; J2060; J2405

== ENCOUNTER 2023-02-04 00:11 | Emergency (ER) | payer MEDICAID, SELFPAY ==
[2023-02-04 00:27] VITALS: BP 106/62; BP 128/80; PULSE 65; PULSE 79; RESP 13; TEMP 36.7; O2SAT 98; BMI 22.6
--- NOTE | 2023-02-04 00:55 | PC.NURSE ---
pt has been at [facility] ED multiple times for detox [facility] him for 10:15am; upon pt's arrival he was told they unfortunately did not have a bed for him but that they would later this morning around the same time pt c/o n/v, dizziness, anxiety
[2023-02-04 01:03] VITALS: BP 106/62; PULSE 65; RESP 13; TEMP 36.7; O2SAT 98
--- NOTE | 2023-02-04 01:13 | ED_ITS ---
HPI - Nausea/Vomiting/Diarrhea General Chief complaint: Nausea/Vomiting/Diarrhea Stated complaint: n/v/d Time Seen by Provider: 02/04/23 01:12 Source: patient Mode of arrival: ambulatory Limitations: no limitations History of Present Illness HPI Narrative: Patient history of substance abuse takes fentanyl and heroin last dose was 1 week ago but discharge here earlier today at 10:00 supposed to go to detox but according to patient transfer was not coordinated and did not have the bed patient complaining nausea vomiting diffuse abdominal pain feels in withdrawal with increased anxiety Related Data Previous Rx's Medication Instructions Recorded azithromycin 250 mg tablet See Rx Instructions PO .COMPLEX #6 11/01/20 tabs fluticasone propionate 50 1 spray intranasal DAILY PRN 11/01/20 mcg/actuation nasal allergy symptoms 30 days #16 grams spray,suspension ondansetron HCl 4 mg tablet 4 mg PO Q8H #10 tabs 07/03/21 (Zofran) buprenorphine 4 mg-naloxone 1 mg 1 film sublingual DAILY #4 ea 07/31/21 sublingual film (Suboxone) omeprazole magnesium 20 mg 20 mg PO BID #30 tabs 08/02/21 tablet,delayed release (Prilosec OTC) ondansetron 4 mg disintegrating 4 mg PO Q8H PRN nausea and 08/02/21 tablet vomiting #20 tabs famotidine 20 mg tablet 20 mg PO BEDTIME #20 tabs 08/03/21 pantoprazole 40 mg tablet,delayed 40 mg PO DAILY #20 tabs 08/03/21 release omeprazole 40 mg capsule,delayed 40 mg PO DAILY #30 caps 08/07/21 release ondansetron 4 mg disintegrating 4 mg PO Q6H PRN nausea and 08/07/21 tablet vomiting #10 tabs sucralfate 1 gram tablet (Carafate) 1 g PO .achs #60 tabs 08/07/21 ondansetron 4 mg disintegrating 4 mg PO Q6H PRN nausea and 08/23/21 tablet vomiting #10 tabs sucralfate 100 mg/mL oral 10 ml PO QID #420 mL 08/23/21 suspension (Carafate) cyclobenzaprine 10 mg tablet 10 mg PO Q8H #14 tabs 09/26/22 ibuprofen 800 mg tablet 800 mg PO Q8H PRN pain #14 tabs 09/26/22 ondansetron HCl 4 mg tablet 4 mg PO Q8H #14 tabs 09/26/22 ondansetron 4 mg disintegrating 4 mg PO Q8H PRN nausea and 01/31/23 tablet vomiting #10 tabs Allergies Allergy/AdvReac Type Severity Reaction Status Date / Time No Known Allergies Allergy Verified 01/31/23 21:13 [No Known Allergies*] Review of Systems Review of Systems: Yes all other systems are reviewed and are negative [facility] Past Medical History Medical History ADHD Allergic rhinitis Bipolar 1 disorder Surgical History History of surgery Family History Family History Father Depression Asthma Mother Asthma Depression Migraine Brother No problems noted. Sister No problems noted. Son In good health Social History Social History Alcohol intake: unknown Patient Tobacco Use Status: Current everyday Tobacco user Cigarettes Per Day: 5 Smoked in Last 30 Days: No Use of substances other than those prescribed or required for medical reasons: Yes Substance Use Type: Heroin Substance Use Frequency Other:: relapsed recently Last Used Substance: Days (ago) Advance Directives: No Advance Directives Information Provided: Yes Physical Exam Vital Signs: Vital Signs: Last Vital Signs Temp 98.0 F 02/04/23 04:52 Pulse 60 02/04/23 04:52 Resp 12 02/04/23 04:52 BP 106/60 02/04/23 04:52 Pulse Ox 98 02/04/23 04:52 O2 Del Method Room Air 02/04/23 04:52 BMI result Body Mass Index 22.6 Appearance: Alert. Oriented X3. No acute distress. Eyes: PERRLA, No Nystagmus ENT: Pharynx normal. Oral Mucosa moist Neck: Normal inspection. Neck supple. CVS: Normal heart rate and rhythm. Pulses normal. Respiratory: No respiratory distress. Equal air entry bilateral, no wheezing/rales/rhonchi Abdomen: Soft and diffuse abdominal tenderness no rebound tenderness/ guarding. Bowel sounds are present, no mass palpable, no CVA tenderness Skin: Skin warm and dry. Normal skin color. Normal skin turgor. Extremities: No lower extremity edema. No calf tenderness Neuro: Oriented X 3. No motor deficit. No sensory deficit.No cerebellar signs , cranial nerves II-XII intact Medications Administered Discontinued Medications Generic Name Dose Route Start Last Admin Trade Name Freq PRN Reason Stop Dose Admin Buprenorphine/Naloxone 1 film 02/04/23 01:26 02/04/23 01:51 Buprenorphine/Naloxone 8/2 Mg Film SUBLINGUAL 02/04/23 01:27 1 film ONCE ONE Administration Lorazepam 2 mg 02/04/23 01:13 02/04/23 01:23 Lorazepam 2 Mg/Ml Vial IM 02/04/23 01:14 2 mg ONCE ONE Administration Prochlorperazine Edisylate 10 mg 02/04/23 01:13 02/04/23 01:22 Prochlorperazine Edisylate 10 Mg/2 Ml Vial IM 02/04/23 01:14 10 mg ONCE ONE Administration Medical Decision Making Medical Decision Making [facility] Narrative: Patient still wants to go to detox will get care team involved in a.m. patient medically cleared Lab Data [facility] Lab Attestation statement: I reviewed the patient's lab results. Labs: Lab Results 02/04/23 Range/Units 01:58 Urine Opiates Screen Not Detected (Not Detect) Urine Fentanyl Screen POSITIVE H (Not Detect) Ur Barbiturates Screen Not Detected (Not Detect) Ur Phencyclidine Scrn Not Detected (Not Detect) Ur Amphetamines Screen Not Detected (Not Detect) U Benzodiazepines Scrn Not Detected (Not Detect) Urine Cocaine Screen Not Detected (Not Detect) U Marijuana (THC) Screen POSITIVE H (Not Detect) Discharge Plan Discharge Clinical Impression: Active substance abuse Patient Disposition: Still a Patient Prescriptions: No Action ondansetron 4 mg tablet,disintegrating 4 mg PO Q8H PRN (Reason: nausea and vomiting) Qty: 20 0RF omeprazole magnesium [Prilosec OTC] 20 mg tablet,delayed release (DR/EC) 20 mg PO BID Qty: 30 0RF ibuprofen 800 mg tablet 800 mg PO Q8H PRN (Reason: pain) Qty: 14 0RF cyclobenzaprine 10 mg tablet 10 mg PO Q8H Qty: 14 0RF ondansetron HCl 4 mg tablet 4 mg PO Q8H Qty: 14 0RF ondansetron HCl [Zofran] 4 mg tablet 4 mg PO Q8H Qty: 10 0RF buprenorphine-naloxone [Suboxone] 4-1 mg film 1 film sublingual DAILY Qty: 4 0RF Rx Instructions: [id number] pantoprazole 40 mg tablet,delayed release (DR/EC) 40 mg PO DAILY Qty: 20 0RF Rx Instructions: Take 1 tablet half an hour before breakfast famotidine 20 mg tablet 20 mg PO BEDTIME Qty: 20 0RF ondansetron 4 mg tablet,disintegrating 4 mg PO Q6H PRN (Reason: nausea and vomiting) Qty: 10 0RF sucralfate [Carafate] 1 gram tablet 1 g PO .achs Qty: 60 0RF omeprazole 40 mg capsule,delayed release(DR/EC) 40 mg PO DAILY Qty: 30 0RF sucralfate [Carafate] 100 mg/mL suspension 10 ml PO QID Qty: 420 0RF Rx Instructions: swish in mouth and swallow; use after food/drink ondansetron 4 mg tablet,disintegrating 4 mg PO Q6H PRN (Reason: nausea and vomiting) Qty: 10 0RF ondansetron 4 mg tablet,disintegrating 4 mg PO Q8H PRN (Reason: nausea and vomiting) Qty: 10 0RF azithromycin 250 mg tablet See Rx Instructions PO .COMPLEX Qty: 6 0RF Rx Instructions: take 500 mg today (day 1), then 250 mg for 4 days (days 2-5) PO fluticasone propionate 50 mcg/actuation spray,suspension 1 spray intranasal DAILY PRN (Reason: allergy symptoms) 30 Days Qty: 16 5RF Rx Instructions: administer into each nostril
[2023-02-04] MEDS: Prochlorperazine Edisylate 10 MG/2 ML VIAL IM (01:22)
[2023-02-04] MEDS: LORazepam 2 MG/ML VIAL IM (01:23)
[2023-02-04] MEDS: Buprenorphine/Naloxone 8/2 mg FILM 1 FILM SUBLINGUAL (01:51)
[2023-02-04 02:21] LABS: Amphetamine Screen Urine Not Detected (Not Detect); Barbiturates, Urine Not Detected (Not Detect); Benzodiazepines Screen Urine Not Detected (Not Detect); Cannabinoid Screen Urine POSITIVE (Not Detect); Cocaine Screen Urine Not Detected (Not Detect); Fentanyl, urine POSITIVE (Not Detect); Opiate Screen Urine Not Detected (Not Detect); Phencyclidine Screen Urine Not Detected (Not Detect)
[2023-02-04 03:14] VITALS: BP 104/54; PULSE 57; RESP 12; TEMP 36.7; O2SAT 97
--- NOTE | 2023-02-04 03:15 | PC.NURSE ---
pt diaphoretic vs assessed MD aware pt expresses not wanting to be home alone with his thoughts as he fears using again lives with girlfriend, but girlfriend 'works a lot' hence why he is home alone for extended periods of time requesting refreshments- provided
[2023-02-04 04:52] VITALS: BP 106/60; PULSE 60; RESP 12; TEMP 36.7; O2SAT 98
[2023-02-04 07:11] VITALS: BP 90/56; PULSE 62; RESP 18; TEMP 37.1
--- NOTE | 2023-02-04 09:22 | PC.NURSE ---
this RN spoke to Rosalva Schmidt at [facility] concerning Pt's GPS monitor. She requested that pt be brought outside so GPS could unfreeze and a point could be accessed. We discussed his pending admission to [facility] and that if he is leaving shortly than the GPS could be unfrozen then
--- NOTE | 2023-02-04 09:56 | PHA.MEDREC ---
Pharmacy Consult ? Medication Reconciliation Pharmacy has completed the medication reconciliation.
[2023-02-04 10:03] VITALS: BP 103/49
== END 2023-02-04 10:20 ==
PROVIDERS: Emergency Provider Internal Medicine
DX: F11.10 Opioid abuse, uncomplicated (principal); R11.2 Nausea with vomiting, unspecified; F17.210 Nicotine dependence, cigarettes, uncomplicated; Z71.6 Tobacco abuse counseling; Z79.899 Other long term (current) drug therapy
CPT/HCPCS: 80307; 96372; 99284; J2060

== ENCOUNTER 2023-03-10 17:58 | Emergency (ER) | payer MEDICAID, SELFPAY ==
--- NOTE | ~2023-03-10 | CT_ITS ---
EXAMINATION: CT ABDOMEN AND PELVIS WITHOUT CONTRAST CLINICAL INFORMATION: Lower abdominal pain. Rule out appendicitis. COMPARISON: 08/03/2021 TECHNIQUE: Multidetector volumetric imaging was performed from the superior aspect of the liver through the pubic symphysis. Sagittal and coronal reformatted images were obtained on the technologist's workstation. This CT examination was performed using dose optimization techniques as appropriate, variously including the following: *Automated exposure control *Adjustment of mA and/or kV according to patient size (this includes techniques or standardized protocols for targeted exams where dose is matched to indication/reason for exam; i.e. extremities or head) *Use of iterative reconstruction technique DLP: 286 mGy-cm FINDINGS: LUNG BASES: The visualized lung bases are unremarkable. LIVER, GALLBLADDER, AND BILIARY TREE: The liver is normal in size, shape, and attenuation. No focal hepatic lesion or biliary ductal dilatation is present. The gallbladder is unremarkable with no evidence of radiopaque gallstones, gallbladder wall thickening, or obvious pericholecystic inflammatory changes. PANCREAS: Unremarkable. SPLEEN: Unremarkable. ADRENAL GLANDS: Unremarkable. KIDNEYS AND URETERS: The kidneys are normal in size, shape, and attenuation. No hydronephrosis, hydroureter, or calculi seen. No perinephric stranding. BLADDER: Unremarkable. GASTROINTESTINAL TRACT: Stomach, small bowel, and colon are normal in caliber. No bowel wall thickening or surrounding inflammatory changes. Appendix is normal. No intraperitoneal free fluid or free air. A small peripherally hyperattenuating 6 mm diverticulum is evident in the right lower quadrant in the region of the cecum without evidence of acute diverticulitis. ABDOMINAL WALL: No significant hernia is appreciated. LYMPH NODES: Normal. VASCULAR: Unremarkable. PELVIC VISCERA: The prostate and seminal vesicles are unremarkable. OSSEOUS STRUCTURES: Unremarkable. CT/CT abdomen pelvis wo IV con IMPRESSION: No acute intra-abdominal or intrapelvic abnormalities. Normal appendix. Probable mild right-sided colonic diverticulosis. Fleischner guidelines were followed.
[2023-03-10 18:01] VITALS: BP 118/78; PULSE 72; O2SAT 97
[2023-03-10 18:03] VITALS: BP 102/61; PULSE 80; RESP 18; TEMP 37; O2SAT 99; BMI 22.9
--- NOTE | 2023-03-10 18:06 | ED_ITS ---
HPI - General Adult General Chief complaint: Nausea/Vomiting/Diarrhea Stated complaint: VOMITNG,CHILLS AND SWEATS PER EMS Time Seen by Provider: 03/10/23 22:08 Source: patient Mode of arrival: ambulatory Limitations: no limitations History of Present Illness HPI narrative: 27-year-old male came in for evaluation of bone ache, runny nose, abdominal pain, fever, chills, nausea, and vomiting. Patient use street Percocet as a recreational drug last use was yesterday morning, patient feels withdrawal symptoms. Related Data Home Medications Medication Instructions Recorded Confirmed albuterol sulfate 90 mcg/actuation 2 puff inhalation Q6H PRN wheezing 02/04/23 02/04/23 aerosol inhaler (Ventolin HFA) buprenorphine 12 mg-naloxone 3 mg 15 mg sublingual BID 02/04/23 02/04/23 sublingual film (Suboxone) clonidine HCl 0.1 mg tablet 0.1 mg PO BEDTIME PRN Anxiety 02/04/23 02/04/23 fluticasone propionate 50 1 spray intranasal DAILY 02/04/23 02/04/23 mcg/actuation nasal spray,suspension Previous Rx's Medication Instructions Recorded sucralfate 100 mg/mL oral 10 ml PO QID #420 mL 08/23/21 suspension (Carafate) Allergies Allergy/AdvReac Type Severity Reaction Status Date / Time No Known Allergies Allergy Verified 03/10/23 18:02 [No Known Allergies*] Review of Systems Review of Systems: All other systems are reviewed and are negative Constitutional: Reports as per HPI and Reports no additional constitutional complaints Eyes: Reports as per HPI and Reports no additional eye complaints Reports system reviewed and no additional complaints, except as documented Cardiovascular: Reports as per HPI and Reports no additional cardiovascular complaints Respiratory: Reports as per HPI and Reports no additional respiratory complaints Gastrointestinal: Reports as per HPI and Reports no additional gastrointestinal complaints Genitourinary: Reports no additional female genitourinary complaints Musculoskeletal: Reports no additional musculoskeletal complaints Skin/Breast: Reports system reviewed and no additional complaints, except as docu Psychiatric: Reports no additional psychiatric complaints Endocrine: Reports no additional endocrine complaints Hematologic/Lymphatic: Reports no additional hematologic/lymphatic complaints Allergic/Immunologic: Reports no additional allergic/immunologic complaints Reports system reviewed and no additional complaints, except as documented and Reports Abnormal speech present [facility] Past Medical History Medical History ADHD Allergic rhinitis Bipolar 1 disorder Surgical History History of surgery Family History Family History Father Depression Asthma Mother Asthma Depression Migraine Brother No problems noted. Sister No problems noted. Son In good health Social History Social History Alcohol intake: current Alcohol intake frequency: holidays/special occasions only Alcohol type: hard liquor Patient Tobacco Use Status: Current everyday Tobacco user Cigarettes Per Day: 5 Substance Use Type: Prescription Drugs Physical Exam ED Vital Signs: Vital Signs - 24 hr 03/10/23 18:03 03/10/23 20:21 Temperature 98.6 F 97.6 F Pulse Rate 80 70 Respiratory Rate 18 16 Blood Pressure 102/61 100/57 L Pulse Oximetry 99 99 Oxygen Delivery Method Room Air Room Air BMI result Body Mass Index 22.9 Vital signs have been reviewed as appeared to be correct. Blood pressure normal. Heart rate normal. Respiration rate normal. Temperature normal. Oxygen saturation normal. Appearance: Alert. Oriented X3. No acute distress. Head: Normal external exam. Normocephalic. Atraumatic. No Padilla signs noted. No raccoon eyes noted Eyes: PERRLA. EOMI. Conjunctiva and sclera normal. Eyelids normal. ENT: TM's Normal. Pharynx normal. Uvula midline. Moist mucous membranes. No trismus noted. No drooling noted. No muffled voice noted. Neck: Normal inspection. Neck supple. FROM. No adenopathy. Thyroid Normal. No meningeal signs. No neck mass noted. CVS: Normal heart rate and rhythm. Heart sound normal. No murmurs noted. Pulses normal throughout. Respiratory: No respiratory distress. Painless inspiration. Breath sounds normal. No wheezes/rales/rhonchi noted. Chest nontender. No accessory muscle usage noted or decreased air movement noted. Abdomen: Soft, diffuse abdominal tenderness, no rebound tenderness, no guarding.. Bowel sounds normal in all 4 quadrants. No distention noted. No organomegaly noted. No visible injury noted. Back: No CVA tenderness. Full range of motion noted. Skin: Skin warm and dry. Normal skin color. Normal skin turgor. No rashes/lesions/lacerations noted. Extremities: No lower extremity edema. Extremities exhibit normal range of motion. Extremities nontender. Neuro: Oriented X 3. Cranial nerve exam: II-XII are grossly intact No motor deficit. No sensory deficit. Reflexes normal. Course Course Course Narrative: RME: 27 yold male presents tot he ED for abdominal pain, nausea and vomitting. patient state using perocet yesterday morning and admits to abusing them while by ingested them or sniffing. patient last used subaxone last week. Withdrawal symptoms? labs, UA, and ZAFAR. Reevaluation(s) Reevaluation #1: Narcotic withdrawn, patient now feels better, last use was yesterday morning patient was instructed to follow up with our [facility] in the morning to consider starting on Suboxone. Medications Administered Discontinued Medications Generic Name Dose Route Start Last Admin Trade Name Freq PRN Reason Stop Dose Admin Al Hydroxide/Mg Hydroxide 30 ml 03/10/23 22:19 03/10/23 22:35 Magnesium Hydrox/Alum Hydrox 30 Ml Oral.Susp PO 03/10/23 22:20 30 ml ONCE ONE Administration Famotidine 20 mg 03/10/23 22:19 03/10/23 22:36 Famotidine/Pf 20 Mg/2 Ml Vial IVPUSH 03/10/23 22:20 20 mg ONCE ONE Administration Sodium Chloride 1,000 mls @ 999 mls/hr 03/10/23 22:19 03/10/23 23:39 Ns IV 03/10/23 23:19 Infused .Q1H1M ONE Infusion Ondansetron HCl 4 mg 03/10/23 22:19 03/10/23 22:36 Ondansetron Hcl 4 Mg/2 Ml Vial IVPUSH 03/10/23 22:20 4 mg ONCE ONE Administration Medical Decision Making Differential Diagnosis Differential Diagnoses: The differential diagnosis associated with the presentation includes (Acute pancreatitis, acute appendicitis, colitis, gastroenteritis, narcotic withdrawal symptoms.) Admission/Observation Consideration of admission/observation: Escalation of care including admission/observation considered Lab Data MDM Lab Attestation statement: I reviewed the patient's lab results. 03/10/23 18:23 03/10/23 18:23 Labs: Lab Results 03/10/23 03/10/23 Range/Units 18:23 18:23 WBC 7.6 (4.8-10.8) X10*3/uL RBC 5.04 (4.60-5.80) X10*6/uL Hgb 15.4 (14.0-18.0) g/dl Hct 46.1 (42.0-52.0) % MCV 91.5 (80.0-98.0) fL MCH 30.6 (27.0-33.0) pg MCHC 33.4 (31.0-36.0) g/dl RDW 13.3 (11.0-16.0) % Plt Count 334 (160-400) X10*3/uL MPV 10.5 (9.4-12.4) fL Immature Gran % (Auto) 0.3 (0.0-0.4) % Neut % (Auto) 75.1 H (45-73) % Lymph % (Auto) 15.2 L (20-40) % [place] % (Auto) 7.7 (2-11) % Eos % (Auto) 0.9 (0-4) % Baso % (Auto) 0.8 (0-2) % Lymph # (Auto) 1.2 (1.2-4.9) X10*3/uL [place] # (Auto) 0.6 (0.1-1.2) X10*3/uL Eos # (Auto) 0.1 (0.0-0.4) X10*3/uL Baso # (Auto) 0.1 (0.0-0.2) X10*3/uL Abs Immat Gran (auto) 0.02 (0.00-0.03) X10*3/uL Absolute Neuts (auto) 5.7 (2.0-8.3) x10*3/uL Absolute Nucleated RBC 0.000 (0.0-0.012) X10*3/uL Nucleated RBC % (auto) 0.0 (0.0-0.2) /100WBC Sodium 141 (135-145) mmol/L Potassium 4.8 (3.3-5.1) mmol/L Chloride 105 (96-108) mmol/L Carbon Dioxide 26 (22-29) mmol/L Anion Gap 15 (12-20) BUN 14 (9-16) mg/dL Creatinine 0.95 (0.5-1.4) mg/dL Estim Creat Clear Calc 105.4 Estimated GFR > 60 Random Glucose 108 (60-115) mg/dL Calcium 10.2 (8.4-10.2) mg/dL Total Bilirubin 1.0 (0.0-1.0) mg/dL AST 21 (5-37) U/L ALT 9 (0-40) U/L Alkaline Phosphatase 83 (39-117) U/L Total Protein 8.2 H (6.5-8.0) g/dL Albumin 4.6 (3.5-5.0) g/dL Lipase 20 (8-78) U/L Independent Interpretation I performed an independent interpretation of an: CT Scan (Abdomen pelvis: No acute intra-abdominal pathology.) Radiology Impression Discussion of test interpretation with radiology: I have reviewed the radiologist's reading. Chronic Conditions Patient?s care impacted by: Other (Substance abuse) Discharge Plan Discharge Clinical Impression: Narcotic withdrawal Patient Disposition: Home, Self-Care Instructions: Narcotic Withdrawal (ED) Prescriptions: No Action sucralfate [Carafate] 100 mg/mL suspension 10 ml PO QID Qty: 420 0RF Rx Instructions: swish in mouth and swallow; use after food/drink clonidine HCl 0.1 mg tablet 0.1 mg PO BEDTIME PRN (Reason: Anxiety) albuterol sulfate [Ventolin HFA] 90 mcg/actuation HFA aerosol inhaler 2 puff INHALATION Q6H PRN (Reason: wheezing) fluticasone propionate [Flonase] 50 mcg/actuation [place],Suspension 1 spray INTRANASAL DAILY Rx Instructions: administer into each nostril buprenorphine-naloxone [Suboxone] 12-3 mg film 15 mg sublingual BID Referrals: Sharon Dumont CNP [Nurse Practitioner] - Camilla Montano NP [Primary Care Provider] - Interventions: ED Discharge Assessment Last Done: 03/11/23 07:08 Discharge Date/Time: 03/11/23 07:09
[2023-03-10 18:26] LABS: MANUAL DIFF FLAG NO
[2023-03-10 18:28] LABS: Basophils Absolute Auto 0.1 X10*3/uL (0.0-0.2); Basophils Percent Auto 0.8 % (0-2); Eosinophils Absolute Auto 0.1 X10*3/uL (0.0-0.4); Eosinophils Percent Auto 0.9 % (0-4); Hematocrit 46.1 % (42.0-52.0); Hemoglobin 15.4 g/dl (14.0-18.0); Imm Gran Abs Auto 0.02 X10*3/uL (0.00-0.03); Imm Gran Pct Auto 0.3 % (0.0-0.4); Lymphocytes Absolute Auto 1.2 X10*3/uL (1.2-4.9); Lymphocytes Percent Auto 15.2 % (20-40); Mean Corpuscular HGB Conc 33.4 g/dl (31.0-36.0); Mean Corpuscular Hemoglobin 30.6 pg (27.0-33.0); Mean Corpuscular Volume 91.5 fL (80.0-98.0); Mean Platelet Volume 10.5 fL (9.4-12.4); Monocytes Absolute Auto 0.6 X10*3/uL (0.1-1.2); Monocytes Percent Auto 7.7 % (2-11); Neutrophils Absolute Auto 5.7 x10*3/uL (2.0-8.3); Neutrophils Percent Auto 75.1 % (45-73); Platelet Count 334 X10*3/uL (160-400); Red Blood Count 5.04 X10*6/uL (4.60-5.80); Red Cell Distribution Width 13.3 % (11.0-16.0); White Blood Count 7.6 X10*3/uL (4.8-10.8)
[2023-03-10 18:44] LABS: Alanine Aminotransferase 9 U/L (0-40); Albumin Level 4.6 g/dL (3.5-5.0); Alkaline Phosphatase 83 U/L (39-117); Anion Gap 15 (12-20); Aspartate Amino Transferase 21 U/L (5-37); Blood Urea Nitrogen 14 mg/dL (9-16); Calcium 10.2 mg/dL (8.4-10.2); Carbon Dioxide 26 mmol/L (22-29); Chloride 105 mmol/L (96-108); Creatinine Clr Calc Pharmacy 105.4; Estimated Glomerular Filt Rate > 60; Glucose Random 108 mg/dL (60-115); Lipase 20 U/L (8-78); Potassium 4.8 mmol/L (3.3-5.1); Sodium 141 mmol/L (135-145); Total Protein 8.2 g/dL (6.5-8.0)
[2023-03-10 20:21] VITALS: BP 100/57; PULSE 70; RESP 16; TEMP 36.4; O2SAT 99
[2023-03-10] MEDS: Magnesium Hydrox/Alum Hydrox 30 ML ORAL.SUSP PO (22:35)
[2023-03-10] MEDS: ondansetron HCL 4 MG/2 ML VIAL IVPUSH (22:36)
[2023-03-10] MEDS: Famotidine/PF 20 MG/2 ML VIAL IVPUSH (22:36)
[2023-03-10] MEDS: 0.9 % Sodium Chloride 1,000 ML 999 ML IV (22:36)
== END 2023-03-11 07:09 | disposition home or self-care (01) ==
PROVIDERS: Physician Assistant; Emergency Provider Emergency Medicine; PCP Nurse Practitioner Primary Care
DX: F11.23 Opioid dependence with withdrawal (principal); R11.2 Nausea with vomiting, unspecified; M79.10 Myalgia, unspecified site; R50.9 Fever, unspecified; R10.2 Pelvic and perineal pain; F17.210 Nicotine dependence, cigarettes, uncomplicated; Z79.899 Other long term (current) drug therapy; Z71.6 Tobacco abuse counseling
CPT/HCPCS: 36415; 74176; 80053; 83690; 85025; 96361; 96374; 96375; 99284; J2405

== ENCOUNTER 2023-03-11 14:02 | Emergency (ER) | payer MEDICAID, SELFPAY ==
[2023-03-11 14:14] VITALS: BP 130/76; PULSE 70; O2SAT 99
[2023-03-11 15:10] VITALS: BP 113/65; BP 130/76; PULSE 70; PULSE 81; RESP 18; TEMP 36.6; O2SAT 100; O2SAT 99; BMI 22.8
--- NOTE | 2023-03-11 15:11 | ED.ABDPAIN ---
HPI - Abdominal Pain General Chief Complaint: Nausea/Vomiting/Diarrhea Stated Complaint: NAUSEA, VOMITING Related Data Home Medications Medication Instructions Recorded Confirmed albuterol sulfate 90 mcg/actuation 2 puff inhalation Q6H PRN wheezing 02/04/23 02/04/23 aerosol inhaler (Ventolin HFA) buprenorphine 12 mg-naloxone 3 mg 15 mg sublingual BID 02/04/23 02/04/23 sublingual film (Suboxone) clonidine HCl 0.1 mg tablet 0.1 mg PO BEDTIME PRN Anxiety 02/04/23 02/04/23 fluticasone propionate 50 1 spray intranasal DAILY 02/04/23 02/04/23 mcg/actuation nasal spray,suspension Previous Rx's Medication Instructions Recorded sucralfate 100 mg/mL oral 10 ml PO QID #420 mL 08/23/21 suspension (Carafate) Allergies Allergy/AdvReac Type Severity Reaction Status Date / Time No Known Allergies Allergy Verified 03/10/23 18:02 [No Known Allergies*] PMFSH Past Medical History Medical History ADHD Allergic rhinitis Bipolar 1 disorder Surgical History History of surgery Family History Family History Father Depression Asthma Mother Asthma Depression Migraine Brother No problems noted. Sister No problems noted. Son In good health Social History Social History Alcohol intake: current Alcohol intake frequency: holidays/special occasions only Alcohol type: hard liquor Patient Tobacco Use Status: Current everyday Tobacco user Cigarettes Per Day: 5 Substance Use Type: Prescription Drugs Physical Exam ED Vital Signs: Vital Signs - 24 hr 03/11/23 15:10 Temperature 97.9 F Pulse Rate 81 Respiratory Rate 18 Blood Pressure 113/65 Pulse Oximetry 100 Oxygen Delivery Method Room Air BMI result Body Mass Index 22.8 Course Course Course Narrative: Patient complains of nausea vomiting and diffuse abdominal pain worse in the mid abdomen coming and going Patient was here last night for same problem with CT normal, no acute lab abnormalities, 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 was in recovery until a relapse several weeks ago and was using opiates daily for about 3-4 weeks, stopped 4 days ago and has had nausea crampy abdominal 10 and vomiting and diarrhea for past 2 days In triage she is given a Zofran a Pepcid and a Suboxone patch which he consented to take Labs are ordered This is rapid medical exam in triage pending full evaluation by provider in the department with history exam evaluation and dispo Medications Administered Discontinued Medications Generic Name Dose Route Start Last Admin Trade Name Freq PRN Reason Stop Dose Admin Al Hydroxide/Mg Hydroxide 30 ml 03/11/23 15:17 03/11/23 15:22 Magnesium Hydrox/Alum Hydrox 30 Ml Oral.Susp PO 03/11/23 15:18 30 ml ONCE ONE Administration Buprenorphine/Naloxone 1 film 03/11/23 15:21 03/11/23 15:28 Buprenorphine/Naloxone 8/2 Mg Film SUBLINGUAL 03/11/23 15:22 1 film ONCE ONE Administration Famotidine 20 mg 03/11/23 15:16 03/11/23 15:19 Famotidine 20 Mg Tablet PO 03/11/23 15:17 20 mg ONCE ONE Administration Ondansetron HCl 4 mg 03/11/23 15:16 03/11/23 15:19 Ondansetron Odt 4 Mg Tab.Rapdis TRANSLINGU 03/11/23 15:17 4 mg ONCE ONE Administration Discharge Plan Discharge Prescriptions: No Action sucralfate [Carafate] 100 mg/mL suspension 10 ml PO QID Qty: 420 0RF Rx Instructions: swish in mouth and swallow; use after food/drink clonidine HCl 0.1 mg tablet 0.1 mg PO BEDTIME PRN (Reason: Anxiety) albuterol sulfate [Ventolin HFA] 90 mcg/actuation HFA aerosol inhaler 2 puff INHALATION Q6H PRN (Reason: wheezing) fluticasone propionate [Flonase] 50 mcg/actuation [place],Suspension 1 spray INTRANASAL DAILY Rx Instructions: administer into each nostril buprenorphine-naloxone [Suboxone] 12-3 mg film 15 mg sublingual BID
[2023-03-11] MEDS: Ondansetron ODT 4 MG TAB.RAPDIS TRANSLINGU (15:19)
[2023-03-11] MEDS: Famotidine 20 MG TABLET PO (15:19)
[2023-03-11] MEDS: Magnesium Hydrox/Alum Hydrox 30 ML ORAL.SUSP PO (15:22)
[2023-03-11] MEDS: Buprenorphine/Naloxone 8/2 mg FILM 1 FILM SUBLINGUAL (15:28)
--- NOTE | 2023-03-11 16:25 | MHC.RECOVRN ---
Met with pt in ED waiting room to discuss management of withdrawal symptoms. Pt actively vomiting, diaphoretic, rhinorrhea, watery eyes, body aches, restlessness. Pt reports having been on Suboxone in the past, per Kimberli, last script in November 2022, 24 mg daily, from [facility]. Pt wishes to reengage in care. Pt reveived 8 mg film at approx 1530, pt reports it did not dissolve due to vomiting. Pt interested in receiving more Suboxone to address withdrawal symptoms. Discussed with Sharon Dumont APRN. Recommendation 16 mg once, pt agreeable. Discussed with ED provider, Suboxone 16 mg ordered.
[2023-03-11 17:20] VITALS: BP 123/68; PULSE 64; RESP 16; TEMP 37.2; O2SAT 98
[2023-03-11 17:21] LABS: MANUAL DIFF FLAG NO
--- NOTE | 2023-03-11 17:21 | MHC.EDTECH ---
PT BLOOD DRAWN AND SENT TO LAB ,VITALS SIGN RECHECK ,PROVIDER SAID PT CAN HAVE ICE CHIPS .
[2023-03-11 17:27] LABS: Basophils Percent Auto 0.5 % (0-2); Hematocrit 47.3 % (42.0-52.0); Hemoglobin 15.9 g/dl (14.0-18.0); Imm Gran Abs Auto 0.02 X10*3/uL (0.00-0.03); Imm Gran Pct Auto 0.2 % (0.0-0.4); Lymphocytes Absolute Auto 0.7 X10*3/uL (1.2-4.9); Lymphocytes Percent Auto 8.2 % (20-40); Mean Corpuscular HGB Conc 33.6 g/dl (31.0-36.0); Mean Corpuscular Hemoglobin 30.2 pg (27.0-33.0); Mean Corpuscular Volume 89.8 fL (80.0-98.0); Mean Platelet Volume 10.1 fL (9.4-12.4); Monocytes Absolute Auto 0.4 X10*3/uL (0.1-1.2); Monocytes Percent Auto 4.8 % (2-11); Neutrophils Absolute Auto 7.2 x10*3/uL (2.0-8.3); Neutrophils Percent Auto 86.3 % (45-73); Platelet Count 346 X10*3/uL (160-400); Red Blood Count 5.27 X10*6/uL (4.60-5.80); Red Cell Distribution Width 13.1 % (11.0-16.0); White Blood Count 8.3 X10*3/uL (4.8-10.8)
[2023-03-11 17:39] LABS: Alanine Aminotransferase 13 U/L (0-40); Albumin Level 4.8 g/dL (3.5-5.0); Alkaline Phosphatase 80 U/L (39-117); Aspartate Amino Transferase 23 U/L (5-37); Bilirubin Direct 0.3 mg/dL (0.0-0.5); Bilirubin Total 1.2 mg/dL (0.0-1.0); Lipase 23 U/L (8-78); Total Protein 8.3 g/dL (6.5-8.0)
== END 2023-03-11 23:10 | disposition left against medical advice (07) ==
PROVIDERS: Physician Assistant Medical; Emergency Provider Emergency Medicine
DX: R11.2 Nausea with vomiting, unspecified (principal); R10.9 Unspecified abdominal pain; F11.20 Opioid dependence, uncomplicated; F17.210 Nicotine dependence, cigarettes, uncomplicated; Z79.899 Other long term (current) drug therapy
CPT/HCPCS: 36415; 80076; 83690; 85025; 99282; 99283

== ENCOUNTER 2023-03-18 06:25 | Emergency (ER) | payer MEDICAID, SELFPAY ==
--- NOTE | ~2023-03-18 | CT_ITS ---
EXAMINATION: CT ABDOMEN AND PELVIS WITH CONTRAST CLINICAL INFORMATION: Abdominal pain COMPARISON: Previous CT of the abdomen and pelvis March 2023 TECHNIQUE: Multidetector volumetric images were obtained from the superior aspect of the liver through the pubic symphysis following administration 85 mL of Omnipaque 350 intravenous contrast. Sagittal and coronal reformatted images were obtained on the technologist's workstation. Oral contrast: Yes This CT examination was performed using dose optimization techniques as appropriate, variously including the following: *Automated exposure control *Adjustment of mA and/or kV according to patient size (this includes techniques or standardized protocols for targeted exams where dose is matched to indication/reason for exam; i.e. extremities or head) *Use of iterative reconstruction technique DLP: 336 mGy-cm FINDINGS: LUNG BASES: The visualized lung bases are unremarkable. LIVER, GALLBLADDER, AND BILIARY TREE: The liver is normal in size, shape, and attenuation. No focal hepatic lesion or biliary ductal dilatation is present. The gallbladder is unremarkable with no evidence of radiopaque gallstones, gallbladder wall thickening, or obvious pericholecystic inflammatory changes. PANCREAS: Unremarkable. SPLEEN: Unremarkable. ADRENAL GLANDS: Unremarkable. KIDNEYS AND URETERS: The kidneys are normal in size, shape, and attenuation. No hydronephrosis, hydroureter, or calculi seen. No perinephric stranding. Small cyst in the upper pole of the left kidney. No imaging follow-up recommended. BLADDER: Not optimally distended. Question mild diffuse bladder wall thickening versus changes due to underdistention. GASTROINTESTINAL TRACT: There is question of mild wall thickening of the distal colon versus changes due to underdistention. There are prominent small bowel folds and mild dilatation of the fluid-filled loops of the small bowel as well. Appearance is questionable for mild enterocolitis. The small and large bowel are otherwise unremarkable. The appendix is unremarkable. ABDOMINAL WALL: No significant hernia is appreciated. LYMPH NODES: Normal. VASCULAR: Unremarkable. PELVIC VISCERA: Unremarkable. OSSEOUS STRUCTURES: Unremarkable. CT/CT abdomen pelvis w IV con IMPRESSION: Question mild enterocolitis. Mild diffuse bladder wall thickening versus changes due to underdistention. Fleischner guidelines were followed.
[2023-03-18 06:29] VITALS: BP 132/87; BP 144/90; PULSE 70; PULSE 81; RESP 20; TEMP 37; O2SAT 97; O2SAT 98; BMI 22.6
--- NOTE | 2023-03-18 06:33 | ED.GENADULT ---
HPI - General Adult General Chief complaint: ETOH/Substance Use Stated complaint: NAUSEA AND VOMITING 3XDAYS Time Seen by Provider: 03/18/23 06:32 Source: patient and EMS Mode of arrival: EMS Limitations: no limitations History of Present Illness HPI narrative: Patient is a 27 year old male with a significant past medical history of heroin use and suboxone use who presents to the emergency department today complaining of nausea and vomiting that started on 03/15/2023. He was seen a week ago for heroin overdose and had been started on Suboxone. However, patient explains that he was unable to fill his prescription over the weekend due to personal reasons and started experiencing symptoms of nausea, vomiting, diarrhea, chills, tremors and non-radiating, burning epigastric pain. Patient smokes a pack/day of cigarettes and is an occasional drinker. His last Suboxone use was 03/15/2023 or 03/16/2023, patient is unable to clarify which date. He denies headache, shortness of breath, chest tightness, dizziness or vision changes. He reports no other acute concerns at this time. Onset (ago): day(s) Location: abdomen Radiation: non-radiation and abdomen Severity: moderate Severity scale (1-10): 4 Quality: burning and constant Pain Consistency: constant Relieving factors: none Exacerbating factors: none Associated symptoms: fever/chills, malaise and nausea/vomiting Related Data Home Medications Medication Instructions Recorded Confirmed albuterol sulfate 90 mcg/actuation 2 puff inhalation Q6H PRN wheezing 02/04/23 02/04/23 aerosol inhaler (Ventolin HFA) buprenorphine 12 mg-naloxone 3 mg 15 mg sublingual BID 02/04/23 02/04/23 sublingual film (Suboxone) clonidine HCl 0.1 mg tablet 0.1 mg PO BEDTIME PRN Anxiety 02/04/23 02/04/23 fluticasone propionate 50 1 spray intranasal DAILY 02/04/23 02/04/23 mcg/actuation nasal spray,suspension Previous Rx's Medication Instructions Recorded sucralfate 100 mg/mL oral 10 ml PO QID #420 mL 08/23/21 suspension (Carafate) naloxone 4 mg/actuation nasal 4 mg intranasal Q2M PRN opioid 03/18/23 spray (Narcan) overdose #2 ea omeprazole 20 mg capsule,delayed 20 mg PO DAILY #14 caps 03/18/23 release Allergies Allergy/AdvReac Type Severity Reaction Status Date / Time No Known Allergies Allergy Verified 03/10/23 18:02 [No Known Allergies*] Review of Systems Constitutional: Constitutional: Reports no additional constitutional complaints, Denies chills, Denies fever(s) and Denies night sweats Eyes: Eyes: Reports no additional eye complaints, Denies blurry vision, Denies change in vision and Denies diplopia ENT: Denies dizziness Cardiovascular: Cardiovascular: Reports no additional cardiovascular complaints Respiratory: Respiratory: Reports no additional respiratory complaints Gastrointestinal: Gastrointestinal: Reports abdominal pain, Reports diarrhea, Reports nausea and Reports vomiting Genitourinary: Genitourinary: Reports no additional male genitourinary complaints Musculoskeletal: Musculoskeletal: Reports no additional musculoskeletal complaints, Denies numbness and Denies tingling Neurologic: Denies dizziness, Denies numbness and Denies tingling Psychiatric: Psychiatric: Reports no additional psychiatric complaints Endocrine: Endocrine: Reports no additional endocrine complaints Hematologic/Lymphatic: Hematologic/Lymphatic: Reports no additional hematologic/lymphatic complaints Allergic/Immunologic: Allergic/Immunologic: Reports no additional allergic/immunologic complaints [facility] Past Medical History Attestation statement: The following information was validated with the patient. Source: old records reviewed Medical History ADHD Allergic rhinitis Bipolar 1 disorder Surgical History History of surgery Family History Family History Father Depression Asthma Mother Asthma Depression Migraine Brother No problems noted. Sister No problems noted. Son In good health Social History Social History Alcohol intake: current Alcohol intake frequency: holidays/special occasions only Alcohol type: hard liquor Patient Tobacco Use Status: Current everyday Tobacco user Cigarettes Per Day: 5 Smoked in Last 30 Days: Yes Use of substances other than those prescribed or required for medical reasons: Yes Substance Use Type: Heroin Substance Use Frequency: Recent Binge Any prior treatment program specific to substance use: No Advance Directives: No Advance Directives Information Provided: Yes Physical Exam ED Vital Signs: Vital Signs - 24 hr 03/18/23 06:29 03/18/23 06:35 03/18/23 07:12 Temperature 98.6 F 98.6 F 98.5 F Pulse Rate 81 98 65 Respiratory Rate 20 18 18 Blood Pressure 132/87 132/87 132/80 Pulse Oximetry 97 99 99 Oxygen Delivery Method Room Air Room Air Room Air 03/18/23 11:00 Temperature Pulse Rate 59 Respiratory Rate 16 Blood Pressure 116/77 Pulse Oximetry 96 Oxygen Delivery Method Room Air BMI result Body Mass Index 22.6 Const General: cooperative, alert, awake, acute distress and ill appearing Nutritional Appearance: well nourished Orientation/consciousness: patient oriented x3 Limitations: no limitations HENMT Head: Yes normal to inspection and Yes atraumatic Ears: hearing grossly normal bilaterally and external ears normal General nose exam: Normal external nose present, no nasal discharge noted and no epistaxis Face and sinus: Yes normal facial exam, No abrasion and No laceration Mouth: Normal oral and palatal mucosa present, no drooling and no muffled voice Eyes General: appearance normal, both eyes and all related structures Periorbital: periorbital findings normal Eyelids: Yes eyelids normal Conjunctivae: conjunctivae normal Pupils: Equal, round and reactive pupils present EOM: EOMs intact bilaterally Neck Neck: Yes normal visual inspection, Yes full ROM and Yes no lymphadenopathy Chest Chest palpation & inspection: normal inspection of the chest Resp Effort & Inspection: normal respiratory effort and able to speak in complete sentences Auscultation: clear to auscultation bilaterally Cardio Jugular venous distension: no JVD Rhythm: regular rhythm Heart sounds: S1 normal heart sound present and S2 normal heart sound present GI Inspection: Yes normal to inspection Palpation (GI): Soft to palpation, not firm, nontender, no guarding and not rigid Neuro General: patient oriented x3 and moves all extremities Cranial nerves: Yes Equal, round and reactive pupils present Cognition (Neuro): normal cognition Motor exam (neuro): 5/5 motor strength present throughout Sensory Exam: Normal double simultaneous stimulation for sensation Coordination: [id number] test normal Extrem General: Yes normal to inspection, Yes full ROM and Yes capillary refill normal Psych Appearance: grossly normal Mental Status: mental status grossly normal Affect: normal affect Attitude: cooperative Thought process: Normal thought process present Thought content: Normal thought content present Insight: Good insight present (Psych) Medications Administered Discontinued Medications Generic Name Dose Route Start Last Admin Trade Name Freq PRN Reason Stop Dose Admin Buprenorphine/Naloxone 2 film 03/18/23 08:57 03/18/23 09:24 Buprenorphine/Naloxone 8/2 Mg Film SUBLINGUAL 03/18/23 08:58 2 film ONCE ONE Administration Haloperidol Lactate 5 mg 03/18/23 07:19 03/18/23 07:36 Haloperidol Lactate 5 Mg/Ml Vial IM 03/18/23 07:20 5 mg ONCE ONE Administration Sodium Chloride 1,000 mls @ 999 mls/hr 03/18/23 06:45 03/18/23 08:32 Ns IV 03/18/23 07:45 Infused .Q1H1M LULÚ Infusion Iohexol 100 ml 03/18/23 08:05 03/18/23 08:06 Iohexol 350 Mg/Ml 100 Ml Infus..Btl IV 03/18/23 08:06 85 ml ONCE ONE Administration Metoclopramide HCl 10 mg 03/18/23 06:38 03/18/23 06:52 Metoclopramide Hcl 10 Mg/2 Ml Vial IVPUSH 03/18/23 06:39 10 mg ONCE ONE Administration Pantoprazole Sodium 40 mg 03/18/23 10:35 03/18/23 10:57 Pantoprazole Sodium 40 Mg/10 Ml Vial IVPUSH 03/18/23 10:36 40 mg ONCE ONE Administration Medical Decision Making Medical Decision Making MDM Narrative: Patient is a 27 year old assigned male at with a history of heroin use and saboxone use presenting to the emergency department today with abdominal / epigastric pain, nausea, and vomiting. Patient's physical exam was as noted in the physical exam portion of this chart. Patient's blood work was unremarkable. Patient's abdomen/pelvis CT showed no acute process. Recovery team met with the patient and provided him suboxone and follow up. I explained my physical exam findings as well as all test results to the patient. I answered all questions asked by the patient. I stressed the importance of the patient taking his medication as prescribed. I stressed the importance of the patient following up with his primary care provider and a GI specialist. I stressed the importance of the patient returning to the emergency department immediately if his symptoms were to worsen or if he were to develop any dizziness, shortness of breath, difficulty breathing, chest pain, blurry vision, loss of vision, nausea, vomiting, abdominal pain, fever, chills, back pain, or any other complaints. Patient verbalized agreement and understanding with this treatment plan and discharge. Differential Diagnosis Differential Diagnoses: The differential diagnosis associated with the presentation includes epigastric pain, opiate withdrawal Admission/Observation Consideration of admission/observation: Escalation of care including admission/observation considered Patient would have been admitted to the hospital had his work up had any findings where hospital admission was appropriate. Consult Healthcare Provider Management of the patient was discussed with: Behavioral Health Provider (spoke with recovery team as noted in the MDM portion of this chart. ) Lab Data [facility] Lab Attestation statement: I reviewed the patient's lab results. My interpretation of these studies and their corresponding values is that they are grossly normal. 03/18/23 06:47 03/18/23 06:47 Labs: Lab Results 03/18/23 03/18/23 Range/Units 06:47 06:47 WBC 6.9 (4.8-10.8) X10*3/uL RBC 5.10 (4.60-5.80) X10*6/uL Hgb 15.5 (14.0-18.0) g/dl Hct 46.8 (42.0-52.0) % MCV 91.8 (80.0-98.0) fL MCH 30.4 (27.0-33.0) pg MCHC 33.1 (31.0-36.0) g/dl RDW 13.5 (11.0-16.0) % Plt Count 333 (160-400) X10*3/uL MPV 10.3 (9.4-12.4) fL Immature Gran % (Auto) 0.3 (0.0-0.4) % Neut % (Auto) 56.8 (45-73) % Lymph % (Auto) 31.0 (20-40) % [place] % (Auto) 7.6 (2-11) % Eos % (Auto) 3.3 (0-4) % Baso % (Auto) 1.0 (0-2) % Lymph # (Auto) 2.1 (1.2-4.9) X10*3/uL [place] # (Auto) 0.5 (0.1-1.2) X10*3/uL Eos # (Auto) 0.2 (0.0-0.4) X10*3/uL Baso # (Auto) 0.1 (0.0-0.2) X10*3/uL Abs Immat Gran (auto) 0.02 (0.00-0.03) X10*3/uL Absolute Neuts (auto) 3.9 (2.0-8.3) x10*3/uL Absolute Nucleated RBC 0.000 (0.0-0.012) X10*3/uL Nucleated RBC % (auto) 0.0 (0.0-0.2) /100WBC Sodium 144 (135-145) mmol/L Potassium 4.2 (3.3-5.1) mmol/L Chloride 109 H (96-108) mmol/L Carbon Dioxide 26 (22-29) mmol/L Anion Gap 13 (12-20) BUN 11 (9-16) mg/dL Creatinine 0.87 (0.5-1.4) mg/dL Estim Creat Clear Calc 114.5 Estimated GFR > 60 Random Glucose 102 (60-115) mg/dL Calcium 10.3 H (8.4-10.2) mg/dL Magnesium 2.1 (1.6-2.6) mg/dL Total Bilirubin 0.6 (0.0-1.0) mg/dL AST 24 (5-37) U/L ALT 20 (0-40) U/L Alkaline Phosphatase 79 (39-117) U/L Total Protein 8.1 H (6.5-8.0) g/dL Albumin 4.7 (3.5-5.0) g/dL Independent Interpretation I performed an independent interpretation of an: CT Scan Interpretation: My interpretation is in agreement with the radiologist's impression of this imaging study. EXAMINATION: CT ABDOMEN AND PELVIS WITH CONTRAST? CLINICAL INFORMATION: Abdominal pain? COMPARISON: Previous CT of the abdomen and pelvis March 2023 TECHNIQUE: Multidetector volumetric images were obtained from the superior aspect of the liver through the pubic symphysis following administration 85 mL of Omnipaque 350 intravenous contrast. Sagittal and coronal reformatted images were obtained on the technologist's workstation.? Oral contrast: Yes This CT examination was performed using dose optimization techniques as appropriate, variously including the following: *Automated exposure control *Adjustment of mA and/or kV according to patient size (this includes techniques or standardized protocols for targeted exams where dose is matched to indication/reason for exam; i.e. extremities or head) *Use of iterative reconstruction technique DLP: 336 mGy-cm FINDINGS: LUNG BASES: The visualized lung bases are unremarkable.? LIVER, GALLBLADDER, AND BILIARY TREE: The liver is normal in size, shape, and attenuation. No focal hepatic lesion or biliary ductal dilatation is present. The gallbladder is unremarkable with no evidence of radiopaque gallstones, gallbladder wall thickening, or obvious pericholecystic inflammatory changes.? PANCREAS: Unremarkable.? SPLEEN: Unremarkable.? ADRENAL GLANDS: Unremarkable.? KIDNEYS AND URETERS: The kidneys are normal in size, shape, and attenuation. No hydronephrosis, hydroureter, or calculi seen. No perinephric stranding. Small cyst in the upper pole of the left kidney. No imaging follow-up recommended. BLADDER: Not optimally distended. Question mild diffuse bladder wall thickening versus changes due to underdistention. GASTROINTESTINAL TRACT: There is question of mild wall thickening of the distal colon versus changes due to underdistention. There are prominent small bowel folds and mild dilatation of the fluid-filled loops of the small bowel as well. Appearance is questionable for mild enterocolitis. The small and large bowel are otherwise unremarkable. The appendix is unremarkable.? ABDOMINAL WALL: No significant hernia is appreciated.? LYMPH NODES: Normal. VASCULAR: Unremarkable. PELVIC VISCERA: Unremarkable.? OSSEOUS STRUCTURES: Unremarkable.? CT/CT abdomen pelvis w IV con IMPRESSION: Question mild enterocolitis. Mild diffuse bladder wall thickening versus changes due to underdistention. ? Fleischner guidelines were followed. Dictated By: Annette Jarvis MD Signed By: Electronically signed by Annette Jarvis MD 03/18/23 1340 Independent Historian Clinical information obtained from an independent historian. History obtained from or confirmed by: EMS (EMS provided additional history and confirmed the patient's history) Critical Care Time Critical Care Time Critical Care Time: Yes Total Critical Care Time: 30 Attestation: I spent 30 minutes of Critical Care Time with this patient. This does not include time spent on separately reported billable procedures. Discharge Plan Discharge Clinical Impression: Epigastric pain, Substance abuse Patient Disposition: Home, Self-Care Instructions: Polysubstance Abuse (ED), Epigastric Pain (ED) Additional Instructions: Follow up with your primary care provider and a GI specialist. Return to the emergency department immediately if your symptoms worsen or if you develop any dizziness, shortness of breath, difficulty breathing, chest pain, blurry vision, loss of vision, nausea, vomiting, abdominal pain, fever, chills, back pain, or any other complaints. Prescriptions: New omeprazole 20 mg capsule,delayed release(DR/EC) 20 mg PO DAILY Qty: 14 0RF naloxone [Narcan] 4 mg/actuation spray,non-aerosol 4 mg intranasal Q2M PRN (Reason: opioid overdose) Qty: 2 0RF Rx Instructions: spray 1 dose into ONE nostril; alternate nostrils w each dose until help arrives No Action sucralfate [Carafate] 100 mg/mL suspension 10 ml PO QID Qty: 420 0RF Rx Instructions: swish in mouth and swallow; use after food/drink clonidine HCl 0.1 mg tablet 0.1 mg PO BEDTIME PRN (Reason: Anxiety) albuterol sulfate [Ventolin HFA] 90 mcg/actuation HFA aerosol inhaler 2 puff INHALATION Q6H PRN (Reason: wheezing) fluticasone propionate [Flonase] 50 mcg/actuation [place],Suspension 1 spray INTRANASAL DAILY Rx Instructions: administer into each nostril buprenorphine-naloxone [Suboxone] 12-3 mg film 15 mg sublingual BID Referrals: [facility] Family Medicine [Provider Group] (Call to establish and follow up with a primary care provider. If you already have a primary care provider, please follow up with them.) [facility] [Provider Group] (Call to establish and follow up with a primary care provider. If you already have a primary care provider, please follow up with them.) [facility] [Provider Group] (Call to establish and follow up with a primary care provider. If you already have a primary care provider, please follow up with them.) Stand Alone Forms: Work/School Release Interventions: ED Discharge Assessment Last Done: 03/18/23 11:11 Discharge Date/Time: 03/18/23 11:11 Print Language: Ukrainian
[2023-03-18 06:35] VITALS: BP 132/87; PULSE 98; RESP 18; TEMP 37; O2SAT 99
[2023-03-18 06:52] LABS: MANUAL DIFF FLAG NO
[2023-03-18] MEDS: 0.9 % Sodium Chloride 1,000 ML 999 ML IV (06:52)
[2023-03-18] MEDS: Metoclopramide HCl 10 MG/2 ML VIAL IVPUSH (06:52)
[2023-03-18 06:54] LABS: Basophils Absolute Auto 0.1 X10*3/uL (0.0-0.2); Eosinophils Absolute Auto 0.2 X10*3/uL (0.0-0.4); Eosinophils Percent Auto 3.3 % (0-4); Hematocrit 46.8 % (42.0-52.0); Hemoglobin 15.5 g/dl (14.0-18.0); Imm Gran Abs Auto 0.02 X10*3/uL (0.00-0.03); Imm Gran Pct Auto 0.3 % (0.0-0.4); Lymphocytes Absolute Auto 2.1 X10*3/uL (1.2-4.9); Mean Corpuscular HGB Conc 33.1 g/dl (31.0-36.0); Mean Corpuscular Hemoglobin 30.4 pg (27.0-33.0); Mean Corpuscular Volume 91.8 fL (80.0-98.0); Mean Platelet Volume 10.3 fL (9.4-12.4); Monocytes Absolute Auto 0.5 X10*3/uL (0.1-1.2); Monocytes Percent Auto 7.6 % (2-11); Neutrophils Absolute Auto 3.9 x10*3/uL (2.0-8.3); Neutrophils Percent Auto 56.8 % (45-73); Platelet Count 333 X10*3/uL (160-400); Red Cell Distribution Width 13.5 % (11.0-16.0); White Blood Count 6.9 X10*3/uL (4.8-10.8)
[2023-03-18 07:12] VITALS: BP 132/80; PULSE 65; RESP 18; TEMP 36.9; O2SAT 99
--- NOTE | 2023-03-18 07:14 | PC.NURSE ---
pt is a/o x 4 no sob/rene noted speaks in full sentences. c/o / abd pain, n/v 100ml of vomittus. pt has an ankle bracelet on. ivf infusing. pt aware of plan of care.
[2023-03-18 07:22] LABS: Alanine Aminotransferase 20 U/L (0-40); Albumin Level 4.7 g/dL (3.5-5.0); Alkaline Phosphatase 79 U/L (39-117); Anion Gap 13 (12-20); Aspartate Amino Transferase 24 U/L (5-37); Bilirubin Total 0.6 mg/dL (0.0-1.0); Blood Urea Nitrogen 11 mg/dL (9-16); Calcium 10.3 mg/dL (8.4-10.2); Carbon Dioxide 26 mmol/L (22-29); Chloride 109 mmol/L (96-108); Creatinine Clr Calc Pharmacy 114.5; Estimated Glomerular Filt Rate > 60; Glucose Random 102 mg/dL (60-115); Magnesium 2.1 mg/dL (1.6-2.6); Potassium 4.2 mmol/L (3.3-5.1); Sodium 144 mmol/L (135-145); Total Protein 8.1 g/dL (6.5-8.0)
[2023-03-18] MEDS: Haloperidol Lactate 5 MG/ML VIAL IM (07:36)
--- NOTE | 2023-03-18 08:00 | PC.NURSE ---
pt is aware of plan of care for transfer to [facility] at 1030 today via ambulance. pt ate 100% of breakfast. pt denies any si/hi. 1:1 sitter at bedside.
[2023-03-18] MEDS: iohexoL 350 MG/ML 100 ML INFUS..BTL IV (08:06)
[2023-03-18] MEDS: Buprenorphine/Naloxone 8/2 mg FILM 2 FILM SUBLINGUAL (09:24)
[2023-03-18] MEDS: Pantoprazole Sodium 40 MG/10 ML VIAL IVPUSH (10:57)
[2023-03-18 11:00] VITALS: BP 116/77; PULSE 59; RESP 16; O2SAT 96
--- NOTE | 2023-03-18 12:18 | HO.ADDICT_ITS ---
History of Present Illness Date of Service: 03/18/2023 Chief Complaint: NAUSEA AND VOMITING 3XDAYS Reason for Consult: opioid withdrawal Discussed with referring provider: Yes Sources of Information: patient interviewed and chart reviewed HPI Narrative: Patient is a 27 year old male with OUD who presented to [facility] ED on 03/11/23 with opioid withdrawal sx, Suboxone rx sent to pharmacy and patient to follow up with otpatient provider. Today, patient presents reporting withdrawal sx, nausea and vomiting. He states that he never made it to pharmacy picking tech the prescription and last used opioids on Saturday. Seen with control and recovery special tactics in room 19 of ED. Patient awake, alert, engaged in interview, but difficult to obtain information as he was a bit evasive and general with his responses. He states he has been using on and off for the past two years, but started up again approx 2 weeks ago. Unclear regarding amount of use as he provided various responses btwn 2-3 bags a day or every other day to one bundle daily. He has been treated with suboxone in the past He reports one overdose very recently Would like to initiate suboxone today. Review of Systems Constitutional: Reports as per HPI Diagnostics Vital Signs (24Hr): Vital Signs - 24 hr 03/18/23 06:29 03/18/23 06:35 03/18/23 07:12 Temperature 98.6 F 98.6 F 98.5 F Pulse Rate 81 98 65 Respiratory Rate 20 18 18 Blood Pressure 132/87 132/87 132/80 Pulse Oximetry 97 99 99 Oxygen Delivery Method Room Air Room Air Room Air 03/18/23 11:00 Temperature Pulse Rate 59 Respiratory Rate 16 Blood Pressure 116/77 Pulse Oximetry 96 Oxygen Delivery Method Room Air BMI result Body Mass Index 22.6 Labs 03/18/23 06:47 03/18/23 06:47 Labs: Laboratory Results - last 48 hr 03/18/23 03/18/23 06:47 06:47 WBC 6.9 RBC 5.10 Hgb 15.5 Hct 46.8 MCV 91.8 MCH 30.4 MCHC 33.1 RDW 13.5 Plt Count 333 MPV 10.3 Immature Gran % (Auto) 0.3 Neut % (Auto) 56.8 Lymph % (Auto) 31.0 [place] % (Auto) 7.6 Eos % (Auto) 3.3 Baso % (Auto) 1.0 Lymph # (Auto) 2.1 [place] # (Auto) 0.5 Eos # (Auto) 0.2 Baso # (Auto) 0.1 Abs Immat Gran (auto) 0.02 Absolute Neuts (auto) 3.9 Absolute Nucleated RBC 0.000 Nucleated RBC % (auto) 0.0 Sodium 144 Potassium 4.2 Chloride 109 H Carbon Dioxide 26 Anion Gap 13 BUN 11 Creatinine 0.87 Estim Creat Clear Calc 114.5 Estimated GFR > 60 Random Glucose 102 Calcium 10.3 H Magnesium 2.1 Total Bilirubin 0.6 AST 24 ALT 20 Alkaline Phosphatase 79 Total Protein 8.1 H Albumin 4.7 Imaging Radiology Impressions: ITS Impressions Abdomen/Pelvis CT 03/18/23 08:06 IMPRESSION: Question mild enterocolitis. Mild diffuse bladder wall thickening versus changes due to underdistention. Fleischner guidelines were followed. Mental Status Exam Mental Status Exam Patient Appearance: Appropriate Patient Orientation: Person, Place, Time and Situation Level of Consciousness: Awake and Appropriate Patient Behavior: Appropriate, Guarded and Cooperative Affect Description: Anxious Medications Allergies Allergies Allergy/AdvReac Type Severity Reaction Status Date / Time No Known Allergies Allergy Verified 03/10/23 18:02 [No Known Allergies*] Assessment & Plan Assessment & Plan (1) Opioid use disorder: Status: Acute Code(s): F11.90 - Opioid use, unspecified, uncomplicated Assessment and Plan: * suboxone 16mg dose now * rx waiting for him at pharmacy * to followup with [facility] * RN reinforced importance of following up with clinic and picking up rx Total time managing care of this patient today _30___ minutes. [facility] Past Medical History Medical History ADHD Allergic rhinitis Bipolar 1 disorder Family History Family History Father Depression Asthma Mother Asthma Depression Migraine Brother No problems noted. Sister No problems noted. Son In good health Surgical History Surgical History History of surgery Social History Social History Alcohol intake: current Alcohol intake frequency: holidays/special occasions only Alcohol type: hard liquor Patient Tobacco Use Status: Current everyday Tobacco user Cigarettes Per Day: 5 Smoked in Last 30 Days: Yes Use of substances other than those prescribed or required for medical reasons: Yes Substance Use Type: Heroin Substance Use Frequency: Recent Binge Any prior treatment program specific to substance use: No Advance Directives: No Advance Directives Information Provided: Yes
== END 2023-03-18 11:11 | disposition home or self-care (01) ==
PROVIDERS: Physician Assistant Medical; Emergency Provider Emergency Medicine Emergency Medical Services
DX: R10.13 Epigastric pain (principal); R11.2 Nausea with vomiting, unspecified; F11.90 Opioid use, unspecified, uncomplicated; F19.10 Other psychoactive substance abuse, uncomplicated; Z79.899 Other long term (current) drug therapy
CPT/HCPCS: 36415; 74177; 80053; 83735; 85025; 96361; 96372; 96374; 96375; 99285; J2765; Q9967

== ENCOUNTER 2023-04-19 17:42 | Emergency (ER) | payer MEDICAID, SELFPAY ==
[2023-04-19 17:51] VITALS: BP 117/59; BP 135/90; PULSE 122; PULSE 99; RESP 16; TEMP 36.8; O2SAT 99; BMI 22.6
--- NOTE | 2023-04-19 18:15 | ED_ITS ---
HPI - Overdose General Chief Complaint: Overdose Stated Complaint: opiate od, per ems Time Seen by Provider: 04/19/23 17:49 Source: EMS Mode of arrival: EMS Limitations: altered mental status History of Present Illness HPI Narrative: Patient comes to emergency room via EMS. Patient was found by bystanders overdosed in a park in [place]. Patient was given 8 mg intranasally by police department. On arrival to the emergency room, patient is very somnolent, arousable, denies suicidal or homicidal ideation. Related Data Home Medications Medication Instructions Recorded Confirmed albuterol sulfate 90 mcg/actuation 2 puff inhalation Q6H PRN wheezing 02/04/23 02/04/23 aerosol inhaler (Ventolin HFA) buprenorphine 12 mg-naloxone 3 mg 15 mg sublingual BID 02/04/23 02/04/23 sublingual film (Suboxone) clonidine HCl 0.1 mg tablet 0.1 mg PO BEDTIME PRN Anxiety 02/04/23 02/04/23 fluticasone propionate 50 1 spray intranasal DAILY 02/04/23 02/04/23 mcg/actuation nasal spray,suspension Previous Rx's Medication Instructions Recorded sucralfate 100 mg/mL oral 10 ml PO QID #420 mL 08/23/21 suspension (Carafate) buprenorphine 8 mg-naloxone 2 mg 1 film sublingual BID #10 ea 03/18/23 sublingual film (Suboxone) naloxone 4 mg/actuation nasal 4 mg intranasal Q2M PRN opioid 03/18/23 spray (Narcan) overdose #2 ea omeprazole 20 mg capsule,delayed 20 mg PO DAILY #14 caps 03/18/23 release buprenorphine 12 mg-naloxone 3 mg 1 film sublingual BID #14 ea 04/19/23 sublingual film (Suboxone) Allergies Allergy/AdvReac Type Severity Reaction Status Date / Time No Known Allergies Allergy Verified 03/10/23 18:02 [No Known Allergies*] Review of Systems Review of Systems: Yes Unobtainable due to mental condition PMFSH Past Medical History Medical History ADHD Allergic rhinitis Bipolar 1 disorder Surgical History History of surgery Family History Family History Father Depression Asthma Mother Asthma Depression Migraine Brother No problems noted. Sister No problems noted. Son In good health Social History Social History Alcohol intake: current Alcohol intake frequency: holidays/special occasions only Alcohol type: hard liquor Patient Tobacco Use Status: Current everyday Tobacco user Cigarettes Per Day: 5 Smoked in Last 30 Days: Yes Use of substances other than those prescribed or required for medical reasons: No Substance Use Type: Heroin Advance Directives: No Advance Directives Information Provided: Yes Physical Exam Vital Signs: Vital Signs: Last Vital Signs Temp 98.2 F 04/19/23 17:51 Pulse 99 04/19/23 17:51 Resp 16 04/19/23 17:51 BP 117/59 L 04/19/23 17:51 Pulse Ox 99 04/19/23 17:51 O2 Del Method Room Air 04/19/23 17:51 BMI result Body Mass Index 22.6 Const: Other: Appearance: Somnolent, easily arousable, falls back asleep immediately Eyes: Pupils equal, round and reactive to light. ENT: Pharynx normal. Neck: Normal inspection. Neck supple. No lymph nodes noted. No crepitus CVS: Normal heart rate and rhythm. Pulses normal. Normal S1 and S2 Respiratory: No respiratory distress. Breath sounds normal. No Wheezing. No rales Abdomen: Soft and nontender. No rigidity. No distention. Skin: Skin warm and dry. Normal skin color. Normal skin turgor. Extremities: No lower extremity edema. No Lacerations. No Rash Neuro: Somnolent, easily arousable and falls back asleep immediately Psych: Somnolent Course Course Course Narrative: -Patient received 8 mg intranasal from police department -patient is somnolent, is arousable, denies SI or HI, no Section 12 -we will re-evaluate the patient once more awake. -urine toxicology pending -patient will be given home Narcan when discharged -current vitals blood pressure 117/59, heart rate 99, respirations 16, oxygen saturation 99% on room air -physician observation started at 18:30 Medical Decision Making Medical Decision Making MDM Narrative: -patient was seen by the care team, patient lost his script for Suboxone. -the care team was able to get in touch with Sharon Tim, a new prescription of Suboxone was sent by her. -patient denies suicidal or homicidal ideation, patient ready for discharge. Differential Diagnosis Differential Diagnoses: The differential diagnosis associated with the presentation includes (Accidental overdose, substance abuse) Admission/Observation Consideration of admission/observation: Escalation of care including admission/observation considered (Initially, admission/observation was considered. For the last couple of hours, patient is awake, alert and oriented x3, coherent, clinically sober) Consult Healthcare Provider Management of the patient was discussed with: Behavioral Health Provider (Care team ) Discharge Plan Discharge Clinical Impression: Accidental overdose Patient Disposition: Home, Self-Care Instructions: Adult Overdose (ED) Additional Instructions: Please follow-up with your primary care physician tomorrow. If you have any worsening or new symptoms, please return to the emergency room or call 911 Prescriptions: New buprenorphine-naloxone [Suboxone] 12-3 mg film 1 film sublingual BID Qty: 14 0RF No Action sucralfate [Carafate] 100 mg/mL suspension 10 ml PO QID Qty: 420 0RF Rx Instructions: swish in mouth and swallow; use after food/drink clonidine HCl 0.1 mg tablet 0.1 mg PO BEDTIME PRN (Reason: Anxiety) albuterol sulfate [Ventolin HFA] 90 mcg/actuation HFA aerosol inhaler 2 puff INHALATION Q6H PRN (Reason: wheezing) fluticasone propionate [Flonase] 50 mcg/actuation [place],Suspension 1 spray INTRANASAL DAILY Rx Instructions: administer into each nostril buprenorphine-naloxone [Suboxone] 12-3 mg film 15 mg sublingual BID omeprazole 20 mg capsule,delayed release(DR/EC) 20 mg PO DAILY Qty: 14 0RF naloxone [Narcan] 4 mg/actuation spray,non-aerosol 4 mg intranasal Q2M PRN (Reason: opioid overdose) Qty: 2 0RF Rx Instructions: spray 1 dose into ONE nostril; alternate nostrils w each dose until help arrives buprenorphine-naloxone [Suboxone] 8-2 mg film 1 film sublingual BID Qty: 10 0RF
[2023-04-19 20:41] VITALS: BP 117/59; PULSE 79; RESP 17; TEMP 36.6; O2SAT 100
[2023-04-19] MEDS: Naloxone HCl Nasal TAKE HOME 4 MG SPRAY 8 MG NOSTRILALT (20:42)
--- NOTE | 2023-04-19 20:42 | PC.NURSE ---
vss. pt provided with take home narcan. pt ambulatory at discharge. pt provided with discharge plan. pt verbalized understanding of discharge plan. pt walked to [facility] to obtain belongings
--- NOTE | 2023-04-19 21:02 | MHC.RECOVSUP ---
? Reason for consult:OPI o? Current location:[id number]? o? Identified substance use concern:? -? Overdose -? Support ? Intervention: o? Community resources provided o? Harm reduction discussion ? Plan:Discharge w script ? Additional information:[facility] met with this pt and discussed treatment, pt informed [facility] about active enrollment with MAT through Dr. Flowers. Pt stated he lost his script and had an accidental OD, I collaborated with Sharon Dumont ([facility]) to obtain a script for this pt, Pt was discharged with a script sent to [facility] pharmacy. informed DR. Langston and provided the pt with recovery resources and business card for further outpatient services.
== END 2023-04-19 20:44 | disposition home or self-care (01) ==
PROVIDERS: Emergency Provider Emergency Medicine
DX: T40.1X1A Poisoning by heroin, accidental (unintentional), initial encounter (principal); R41.82 Altered mental status, unspecified; Z79.899 Other long term (current) drug therapy; Z71.51 Drug abuse counseling and surveillance of drug abuser
CPT/HCPCS: 99284

== ENCOUNTER 2023-11-12 14:08 | Outpatient (REF) | payer MEDICAID, SELFPAY ==
[2023-11-12 16:58] LABS: Alanine Aminotransferase 9 U/L (0-40); Albumin Level 4.8 g/dL (3.5-5.0); Alkaline Phosphatase 69 U/L (39-117); Aspartate Amino Transferase 22 U/L (5-37); Bilirubin Direct 0.3 mg/dL (0.0-0.5); Bilirubin Total 0.7 mg/dL (0.0-1.0); Total Protein 8.6 g/dL (6.5-8.0)
[2023-11-13 05:01] LABS: Syphilis Screen Nonreactive (Nonreactive)
[2023-11-13 07:42] LABS: Hepatitis A Antibody IgG REACTIVE (Nonreactive); ~Hepatitis A Antibody IgG 7.98 S/CO (0.00-0.99)
[2023-11-13 07:51] LABS: HBS Num1 1.67 mIU/mL (0-7.99); HBc Num1 0.21 S/CO (0.00-0.79); HBsAGNum1 0.37 S/CO (0.00-0.99); HIV AB/AG Nonreactive (Nonreactive); HIV Num 1 0.05 S/CO (0.00-0.99); Hepatitis B Core Antibody Nonreactive (Nonreactive); Hepatitis B Surface Antigen Negative (Negative); ~HepC Num1 0.13 S/CO (0.00-0.79); ~Hepatitis B Surface Antibody NONREACTIVE (Nonreactive); ~Hepatitis C Antibody Nonreactive (Nonreactive)
[2023-11-15 12:24] LABS: TS Negative Control Passed; TS Panel A 0; TS Panel B 0; TS Positive Control Passed; TSpotTB Negative (Negative)
== END 2023-11-12 14:09 | disposition home or self-care (01) ==
LOC: HO.HHCL 14:08
PROVIDERS: Visit Provider Emergency Medicine
DX: F11.20 Opioid dependence, uncomplicated (principal)
CPT/HCPCS: 36415; 80076; 86481; 86704; 86706; 86708; 86780; 86803; 87340; 87389

== ENCOUNTER 2024-02-29 11:31 | Emergency (ER) | payer MEDICAID, SELFPAY ==
[2024-02-29] VITALS (12 sets, daily range): BP systolic 105–129; BP diastolic 59–90; PULSE 100–126; RESP 12–40; TEMP 32–37.3; O2SAT 61–97; BMI 18.4
--- NOTE | ~2024-02-29 | XR_ITS ---
EXAMINATION: XR chest 1V CLINICAL INFORMATION: Reason for Exam Post intubation/NG placement COMPARISON: 02/02/2023 TECHNIQUE: Single portable frontal view. Tubes and lines: Endotracheal tube tip properly positioned about 4 cm above jannie, gastric tube passing below the diaphragm into the stomach. Lungs and pleura: Pulmonary opacity projecting over the right upper lobe suggesting infiltrate newly developed on today's exam Heart and mediastinum: The mediastinum is within normal limits.. Bones/soft tissue: Skeletal structures included are normal for patient's age. XR/XR chest 1V IMPRESSION: 1. Right upper lobe infiltrate newly developed. 2. ET tube and gastric tube properly positioned. 3. No pleural effusion.
--- NOTE | ~2024-02-29 | XR_ITS ---
EXAMINATION: XR CHEST CLINICAL INFORMATION: Difficulty breathing COMPARISON: None available. TECHNIQUE: Frontal view of the chest was obtained. FINDINGS: Extensive infiltration right upper lobe laterally and patchy infiltration at both bases. Appearance favors pneumonia. No parapneumonic effusion. No definite cavitation or air-fluid level. Heart and mediastinum normal. XR/XR chest 1V IMPRESSION: Bilateral infiltrates consistent with pneumonia. Recommend follow-up to ensure resolution and to exclude any underlying lesion.
--- NOTE | 2024-02-29 11:57 | PC.NURSE ---
2mg IV push narcan administered 4mg IV push zofran administered respiratory and provider at bedside
--- NOTE | 2024-02-29 12:02 | ED_ITS ---
HPI - Overdose General Chief Complaint: Overdose Stated Complaint: OVERDOSE Time Seen by Provider: 02/29/24 12:01 Source: EMS Mode of arrival: EMS History of Present Illness ED Provider: Dr Turner HPI Narrative: EMS history is that patient is suspected to be an overdose and received 12 mg of Narcan by EMS. Related Data Home Medications ?Medication ?Instructions ?Recorded ?Confirmed albuterol sulfate 90 mcg/actuation 2 puff inhalation Q6H PRN wheezing 02/04/23 02/04/23 aerosol inhaler (Ventolin HFA) buprenorphine 12 mg-naloxone 3 mg 15 mg sublingual BID 02/04/23 02/04/23 sublingual film (Suboxone) clonidine HCl 0.1 mg tablet 0.1 mg PO BEDTIME PRN Anxiety 02/04/23 02/04/23 fluticasone propionate 50 1 spray intranasal DAILY 02/04/23 02/04/23 mcg/actuation nasal spray,suspension Previous Rx's ?Medication ?Instructions ?Recorded sucralfate 100 mg/mL oral 10 ml PO QID #420 mL 08/23/21 suspension (Carafate) buprenorphine 8 mg-naloxone 2 mg 1 film sublingual BID #10 ea 03/18/23 sublingual film (Suboxone) naloxone 4 mg/actuation nasal 4 mg intranasal Q2M PRN opioid 03/18/23 spray (Narcan) overdose #2 ea omeprazole 20 mg capsule,delayed 20 mg PO DAILY #14 caps 03/18/23 release buprenorphine 12 mg-naloxone 3 mg 1 film sublingual BID #14 ea 04/19/23 sublingual film (Suboxone) Allergies Allergy/AdvReac Type Severity Reaction Status Date / Time No Known Allergies Allergy Verified 02/29/24 12:57 Review of Systems 2 Review of Systems: Yes Unobtainable due to mental condition [facility] Past Medical History Source: nursing notes reviewed Medical History ADHD Bipolar 1 disorder Allergic rhinitis Surgical History History of surgery Family History Family History Father Depression Asthma Mother Asthma Depression Migraine Brother No problems noted. Sister No problems noted. Son In good health Social History Social History Alcohol intake: current Alcohol intake frequency: holidays/special occasions only Alcohol type: hard liquor Patient Tobacco Use Status: Current everyday Tobacco user Cigarettes Per Day: 5 Substance Use Type: Heroin Advance Directives: No Advance Directives Information Provided: No Do you have a plan to hurt others: No Plan Physical Exam 2 Vital Signs: Vital Signs: Last Vital Signs Temp 99.1 F 02/29/24 14:14 Pulse 110 H 02/29/24 14:14 Resp 20 02/29/24 14:14 BP 118/86 02/29/24 14:14 Pulse Ox 93 02/29/24 14:14 O2 Del Method Mechanical Ventil ation 02/29/24 14:14 O2 Flow Rate 15 02/29/24 12:13 FiO2 100 02/29/24 13:43 Oxygen Flow Rate 15 02/29/24 12:05 BMI result Body Mass Index 18.4 VITAL SIGNS: Reviewed. GENERAL: Well developed, well nourished, in severe distress. HEAD: Normocephalic/atraumatic EYES: PERRLA, EOMI EARS: Ext canals without abnormality NOSE: Nares patent bilateral OROPHARYNX: no oral lesions noted, posterior pharynx clear NECK: Supple, no adenopathy LUNGS: Decreased breath sounds with tachypnea. SpO2<50> despite 100% assistance with Ambu bag CARDIOVASCULAR: Regular rate and rhythm without noted murmurs, no JVD or lower extremity edema. ABDOMEN: Soft, non-tender, non-distended with bowel sounds. MUSCULOSKELETAL: No tenderness, deformities, or effusions noted on gross inspection. EXTREMITIES: No cyanosis, clubbing or edema. SKIN: Inspection of the skin reveals no rashes NEUROLOGIC: Obtunded GCS-6 Medications Administered Generic Name Dose Route Start Last Admin Trade Name Freq PRN Reason Stop Dose Admin Propofol 1,000 mg in 100 mls @ 0 mls/hr 02/29/24 12:45 02/29/24 14:09 Diprivan IVCONT 40 mcg/kg/min .Q0M LULÚ 13.97 mls/hr Titration Protocol Per Protocol Discontinued Medications Generic Name Dose Route Start Last Admin Trade Name Freq PRN Reason Stop Dose Admin Etomidate 20 mg 02/29/24 12:31 02/29/24 12:22 Etomidate 20 Mg/10 Ml Vial IVPUSH 02/29/24 12:32 20 mg NOW STA Administration Sodium Chloride 1,000 mls @ 999 mls/hr 02/29/24 12:45 02/29/24 13:55 Ns IV 02/29/24 13:45 Infused .Q1H1M LULÚ Infusion Sodium Chloride 1,000 mls @ 999 mls/hr 02/29/24 13:15 02/29/24 13:20 Ns IV 02/29/24 14:15 999 mls/hr .Q1H1M LULÚ Administration Piperacillin Sod/Tazobactam 100 mls @ 200 mls/hr 02/29/24 13:02 02/29/24 13:55 Sod 4.5 gm/ Sodium Chloride IV 02/29/24 13:31 Infused ONCE ONE Infusion Vancomycin HCl 1,000 mg/ 270 mls @ 270 mls/hr 02/29/24 13:02 02/29/24 13:37 Sodium Chloride IV 02/29/24 14:01 Not Given ONCE ONE Vancomycin HCl 1,500 mg/ 500 mls @ 333.333 mls/hr 02/29/24 13:05 02/29/24 13:55 Sodium Chloride IV 02/29/24 14:34 333.33 mls/hr ONCE ONE Administration Naloxone HCl 2 mg 02/29/24 12:02 02/29/24 12:09 Naloxone Hcl 2 Mg/2 Ml Syringe IVPUSH 02/29/24 12:03 2 mg ONCE ONE Administration Naloxone HCl 2 mg 02/29/24 12:08 02/29/24 12:49 Naloxone Hcl 2 Mg/2 Ml Syringe IVPUSH 02/29/24 12:09 Not Given ONCE ONE Ondansetron HCl 4 mg 02/29/24 12:02 02/29/24 12:09 Ondansetron Hcl 4 Mg/2 Ml Vial IVPUSH 02/29/24 12:03 4 mg ONCE ONE Administration Rocuronium Curtis 100 mg 02/29/24 12:31 02/29/24 12:23 Rocuronium Curtis 50 Mg/5 Ml Vial IVPUSH 02/29/24 12:32 100 mg ONCE ONE Administration Procedures Intubation Intubation Type:: Emergency Endotracheal Intubation Intubation Date:: 02/29/24 Time out performed: Yes sedative: Etomidate Mg Given: 20 paralytic: Rocuronium Mg Given: 100 Laryngoscope: fiber optic video scope ET Tube Size: 7.5 ET Tube Uncuffed: No Tube Secured Depth (cm): 26 Tube Secured Location: lips Tube Placement Confirmation: visualized tube passing through cords, equal breath sounds bilaterally, no breath sounds over epigastrium and confirmation by capnometry Patient Tolerated Procedure: well Intubation Complications: none Additional Comments: Airway noted to be mildly edematous Medical Decision Making Medical Decision Making MDM Narrative: Attempted to additional mg of Narcan without improvement of oxygenation, patient remains tachypneic. Patient moved to room 4 in preparation for possible intubation. ABG correlates with pulse oximetry findings and decision made to intubate especially as there is no significant improvement in mentation. No obvious signs of trauma. Patient successfully intubated after RSI, unable to get oxygenation greater than 60% prior to intubation despite aggressive bagging with good chest rise and application of PEEP. Copious secretions noted within the pharynx and there was noted edema. Patient started on a propofol drip, nasogastric tube was placed and set at low/intermittent. I reviewed all investigations and hematologic indices demonstrate a leukocytosis but patient is not febrile and suspect a component of this may be reactive in nature but patient covered with antibiotics. Serial ABGs demonstrate improvement in oxygenation but noted to be hypercapnic and mildly respiratory acidotic and will adjust vent settings accordingly. Chemistry indices do not demonstrate an COLTEN and there is no electrolyte or liver enzyme derangements, lactic acid is elevated but felt that this is secondary to patient's prolonged hypoxic state and do not suspect underlying infectious etiology however as mentioned above patient covered with antibiotics and will receive IV fluids. Urine toxicology is grossly positive but was obtained after our SI, there is evidence of buprenorphine/methadone/fentanyl/benzos/cocaine/marijuana. Both chest x-rays are pending, however postprocedure demonstrates ETT in good position and nasogastric tube transversus distal to the diaphragm. Viral testing negative for COVID-19/influenza. 1345: I discussed case with [facility] who accepts patient for transfer to the ICU under Dr Chacon. 1448: Bed assignment obtained from [facility] and patient will be transferred over via ALS. Differential Diagnosis Differential Diagnoses: The differential diagnosis associated with the presentation includes Please see the discussion above Admission/Observation Consideration of admission/observation: Escalation of care including admission/observation considered Please see the discussion above Consult Healthcare Provider Management of the patient was discussed with: [employer] Please see the discussion above Lab Data MDM Lab Attestation statement: I reviewed the patient's lab results. Please see the discussion above 02/29/24 12:28 02/29/24 12:28 Labs: Lab Results 02/29/24 02/29/24 02/29/24 Range/Units 11:57 12:05 12:28 WBC 22.6 H (4.8-10.8) X10*3/uL RBC 4.86 (4.60-5.80) X10*6/uL Hgb 15.2 (14.0-18.0) g/dl Hct 46.1 (42.0-52.0) % MCV 94.9 (80.0-98.0) fL MCH 31.3 (27.0-33.0) pg MCHC 33.0 (31.0-36.0) g/dl RDW 13.7 (11.0-16.0) % Plt Count 357 (160-400) X10*3/uL MPV 10.4 (9.4-12.4) fL Immature Gran % (Auto) Cancelled Neut % (Auto) Cancelled Lymph % (Auto) Cancelled [place] % (Auto) Cancelled Eos % (Auto) Cancelled Baso % (Auto) Cancelled Lymph # (Auto) Cancelled [place] # (Auto) Cancelled Eos # (Auto) Cancelled Baso # (Auto) Cancelled Abs Immat Gran (auto) Cancelled Absolute Neuts (auto) Cancelled Absolute Nucleated RBC 0.000 (0.0-0.012) X10*3/uL Nucleated RBC % (auto) 0.0 (0.0-0.2) /100WBC Neutrophils % (Manual) 79 H (45-73) % Band Neutrophils % 5 (3-5) % Lymphocytes % (Manual) 7 L (20-40) % Monocytes % (Manual) 8 (2-11) % Metamyelocytes % 1 % Abs Neuts (Manual) 19.0 H (2.0-8.3) X10*3/uL Lymphocytes # (Manual) 1.6 (1.2-4.9) X10*3/uL Monocytes # (Manual) 1.8 H (0.1-1.2) X10*3/uL Metamyelocytes # 0.2 X10*3/uL Toxic Vacuolation PRESENT Platelet Estimate NORMAL (NORMAL) Plt Morphology Comment NORMAL RBC Morphology NORMAL O2 Saturation 62.0 % ABG pH at Pt Temp 7.36 (7.35-7.45) ABG pCO2 at Pt Temp 42 (32-45) mmHg ABG pO2 at Pt Temp 34 L* (83-108) mmHg ABG HCO3 24 (22-26) mmol/L ABG Base Excess (Actual) -1.1 mmol/L Sodium 144 (135-145) mmol/L Potassium 4.9 (3.3-5.1) mmol/L Chloride 107 (96-108) mmol/L Carbon Dioxide 24 (22-29) mmol/L Anion Gap 18 (12-20) BUN 22 H (9-16) mg/dL Creatinine 1.17 (0.5-1.4) mg/dL Estim Creat Clear Calc 77.3 Estimated GFR > 60 POC Glucose 102 (60-115) mg/dL Random Glucose 100 (60-115) mg/dL Lactic Acid (0.5-2.0) mmol/L Calcium 9.0 D (8.4-10.2) mg/dL Total Bilirubin 0.4 (0.0-1.0) mg/dL AST 48 H (5-37) U/L ALT 18 (0-40) U/L Alkaline Phosphatase 66 (39-117) U/L Total Protein 8.0 (6.5-8.0) g/dL Albumin 4.3 (3.5-5.0) g/dL Urine Opiates Screen (Not Detect) Ur Buprenorphine Scrn (Not Detect) ng/mL Ur Oxycodone Screen (Not Detect) ng/mL Urine Methadone Screen (Not Detect) ng/mL Urine Fentanyl Screen (Not Detect) Ur Barbiturates Screen (Not Detect) Ur Phencyclidine Scrn (Not Detect) Ur Amphetamines Screen (Not Detect) U Benzodiazepines Scrn (Not Detect) Urine Cocaine Screen (Not Detect) U Marijuana (THC) Screen (Not Detect) COVID-19 (KIMBERLEE) (Negative) COVID-19 Clin Com Influenza Type A (JAMEE) (Negative) Influenza Type B (JAMEE) (Negative) Influenza A & B Note 02/29/24 02/29/24 02/29/24 Range/Units 12:52 13:03 13:25 WBC (4.8-10.8) X10*3/uL RBC (4.60-5.80) X10*6/uL Hgb (14.0-18.0) g/dl Hct (42.0-52.0) % MCV (80.0-98.0) fL MCH (27.0-33.0) pg MCHC (31.0-36.0) g/dl RDW (11.0-16.0) % Plt Count (160-400) X10*3/uL MPV (9.4-12.4) fL Immature Gran % (Auto) Neut % (Auto) Lymph % (Auto) [place] % (Auto) Eos % (Auto) Baso % (Auto) Lymph # (Auto) [place] # (Auto) Eos # (Auto) Baso # (Auto) Abs Immat Gran (auto) Absolute Neuts (auto) Absolute Nucleated RBC (0.0-0.012) X10*3/uL Nucleated RBC % (auto) (0.0-0.2) /100WBC Neutrophils % (Manual) (45-73) % Band Neutrophils % (3-5) % Lymphocytes % (Manual) (20-40) % Monocytes % (Manual) (2-11) % Metamyelocytes % % Abs Neuts (Manual) (2.0-8.3) X10*3/uL Lymphocytes # (Manual) (1.2-4.9) X10*3/uL Monocytes # (Manual) (0.1-1.2) X10*3/uL Metamyelocytes # X10*3/uL Toxic Vacuolation Platelet Estimate (NORMAL) Plt Morphology Comment RBC Morphology O2 Saturation 88.0 % ABG pH at Pt Temp 7.27 L (7.35-7.45) ABG pCO2 at Pt Temp 50 H (32-45) mmHg ABG pO2 at Pt Temp 60 L (83-108) mmHg ABG HCO3 23 (22-26) mmol/L ABG Base Excess (Actual) -3.8 mmol/L Sodium (135-145) mmol/L Potassium (3.3-5.1) mmol/L Chloride (96-108) mmol/L Carbon Dioxide (22-29) mmol/L Anion Gap (12-20) BUN (9-16) mg/dL Creatinine (0.5-1.4) mg/dL Estim Creat Clear Calc Estimated GFR POC Glucose (60-115) mg/dL Random Glucose (60-115) mg/dL Lactic Acid 6.3 H* (0.5-2.0) mmol/L Calcium (8.4-10.2) mg/dL Total Bilirubin (0.0-1.0) mg/dL AST (5-37) U/L ALT (0-40) U/L Alkaline Phosphatase (39-117) U/L Total Protein (6.5-8.0) g/dL Albumin (3.5-5.0) g/dL Urine Opiates Screen Not Detected (Not Detect) Ur Buprenorphine Scrn Positive H (Not Detect) ng/mL Ur Oxycodone Screen Not Detected (Not Detect) ng/mL Urine Methadone Screen Positive H (Not Detect) ng/mL Urine Fentanyl Screen POSITIVE H (Not Detect) Ur Barbiturates Screen Not Detected (Not Detect) Ur Phencyclidine Scrn Not Detected (Not Detect) Ur Amphetamines Screen Not Detected (Not Detect) U Benzodiazepines Scrn POSITIVE H (Not Detect) Urine Cocaine Screen POSITIVE H (Not Detect) U Marijuana (THC) Screen POSITIVE H (Not Detect) COVID-19 (KIMBERLEE) (Negative) COVID-19 Clin Com Influenza Type A (JAMEE) (Negative) Influenza Type B (JAMEE) (Negative) Influenza A & B Note 02/29/24 Range/Units 13:39 WBC (4.8-10.8) X10*3/uL RBC (4.60-5.80) X10*6/uL Hgb (14.0-18.0) g/dl Hct (42.0-52.0) % MCV (80.0-98.0) fL MCH (27.0-33.0) pg MCHC (31.0-36.0) g/dl RDW (11.0-16.0) % Plt Count (160-400) X10*3/uL MPV (9.4-12.4) fL Immature Gran % (Auto) Neut % (Auto) Lymph % (Auto) [place] % (Auto) Eos % (Auto) Baso % (Auto) Lymph # (Auto) [place] # (Auto) Eos # (Auto) Baso # (Auto) Abs Immat Gran (auto) Absolute Neuts (auto) Absolute Nucleated RBC (0.0-0.012) X10*3/uL Nucleated RBC % (auto) (0.0-0.2) /100WBC Neutrophils % (Manual) (45-73) % Band Neutrophils % (3-5) % Lymphocytes % (Manual) (20-40) % Monocytes % (Manual) (2-11) % Metamyelocytes % % Abs Neuts (Manual) (2.0-8.3) X10*3/uL Lymphocytes # (Manual) (1.2-4.9) X10*3/uL Monocytes # (Manual) (0.1-1.2) X10*3/uL Metamyelocytes # X10*3/uL Toxic Vacuolation Platelet Estimate (NORMAL) Plt Morphology Comment RBC Morphology O2 Saturation % ABG pH at Pt Temp (7.35-7.45) ABG pCO2 at Pt Temp (32-45) mmHg ABG pO2 at Pt Temp (83-108) mmHg ABG HCO3 (22-26) mmol/L ABG Base Excess (Actual) mmol/L Sodium (135-145) mmol/L Potassium (3.3-5.1) mmol/L Chloride (96-108) mmol/L Carbon Dioxide (22-29) mmol/L Anion Gap (12-20) BUN (9-16) mg/dL Creatinine (0.5-1.4) mg/dL Estim Creat Clear Calc Estimated GFR POC Glucose (60-115) mg/dL Random Glucose (60-115) mg/dL Lactic Acid (0.5-2.0) mmol/L Calcium (8.4-10.2) mg/dL Total Bilirubin (0.0-1.0) mg/dL AST (5-37) U/L ALT (0-40) U/L Alkaline Phosphatase (39-117) U/L Total Protein (6.5-8.0) g/dL Albumin (3.5-5.0) g/dL Urine Opiates Screen (Not Detect) Ur Buprenorphine Scrn (Not Detect) ng/mL Ur Oxycodone Screen (Not Detect) ng/mL Urine Methadone Screen (Not Detect) ng/mL Urine Fentanyl Screen (Not Detect) Ur Barbiturates Screen (Not Detect) Ur Phencyclidine Scrn (Not Detect) Ur Amphetamines Screen (Not Detect) U Benzodiazepines Scrn (Not Detect) Urine Cocaine Screen (Not Detect) U Marijuana (THC) Screen (Not Detect) COVID-19 (KIMBERLEE) Negative (Negative) COVID-19 Clin Com See Note Influenza Type A (JAMEE) Negative (Negative) Influenza Type B (JAMEE) Negative (Negative) Influenza A & B Note See Note Radiology Impression Discussion of test interpretation with radiology: I have reviewed the radiologist's reading. Radiologist Impression: Please see the discussion above External Record Review External record reviewed: Outpatient record, Prior outpatient labs and Prior outpatient radiology Chronic Conditions Patient?s care impacted by: Other Asthma, ADHD, bipolar Social Determinants Patient?s care significantly limited by Social Determinants of Health including: Alcoholism and drug addiction in family Critical Care Time Critical Care Time Critical Care Time: Yes Total Critical Care Time: 120 Attestation: I personally attest to this time spent taking care of the patient. Discharge Plan Discharge Clinical Impression: Overdose, Acute hypoxemic respiratory failure, Polysubstance use disorder Patient Disposition: [facility] Transfer Details: Escalated level of care to intensive care unit, this facility does not have ICU beds available. Prescriptions: No Action sucralfate [Carafate] 100 mg/mL suspension 10 ml PO QID Qty: 420 0RF Rx Instructions: swish in mouth and swallow; use after food/drink buprenorphine-naloxone [Suboxone] 12-3 mg film 1 film sublingual BID Qty: 14 0RF clonidine HCl 0.1 mg tablet 0.1 mg PO BEDTIME PRN (Reason: Anxiety) albuterol sulfate [Ventolin HFA] 90 mcg/actuation HFA aerosol inhaler 2 puff INHALATION Q6H PRN (Reason: wheezing) fluticasone propionate [Flonase] 50 mcg/actuation [place],Suspension 1 spray INTRANASAL DAILY Rx Instructions: administer into each nostril buprenorphine-naloxone [Suboxone] 12-3 mg film 15 mg sublingual BID omeprazole 20 mg capsule,delayed release(DR/EC) 20 mg PO DAILY Qty: 14 0RF naloxone [Narcan] 4 mg/actuation spray,non-aerosol 4 mg intranasal Q2M PRN (Reason: opioid overdose) Qty: 2 0RF Rx Instructions: spray 1 dose into ONE nostril; alternate nostrils w each dose until help arrives buprenorphine-naloxone [Suboxone] 8-2 mg film 1 film sublingual BID Qty: 10 0RF Print Language: Burundian
[2024-02-29] MEDS: Naloxone HCl 2 MG/2 ML SYRINGE IVPUSH (12:09)
[2024-02-29] MEDS: ondansetron HCL 4 MG/2 ML VIAL IVPUSH (12:09)
[2024-02-29 12:14] LABS: ABG Base Excess -1.1 mmol/L; ABG HCO3 24 mmol/L (22-26); ABG pCO2 42 mmHg (32-45); ABG pH 7.36 (7.35-7.45); ABG pO2 34 mmHg (83-108)
--- NOTE | 2024-02-29 12:18 | PC.NURSE ---
respiratory/provider at bedside for intubation 20 mg etomidate 100 mg rocuronium 7.5 et tube, 26 at lip + color change OG tube inserted by provider
[2024-02-29] MEDS: Etomidate 20 MG/10 ML VIAL IVPUSH (12:22)
[2024-02-29] MEDS: Rocuronium Bromide 50 MG/5 ML VIAL 100 MG IVPUSH (12:23)
--- NOTE | 2024-02-29 12:31 | PC.NURSE ---
Addendum entered by Coco Gayle 02/29/24 13:35: propofol gtt started 1230 at 30mcg/kg/min - hour entered in error Original Note: propofol gtt started 1230 at 30mcg/kg/hr
[2024-02-29 12:35] LABS: Glucose, Whole Blood 102 mg/dL (60-115)
[2024-02-29] MEDS: propofoL 1,000 MG/100 ML VIAL 10.48 MG IVCONT (12:36)
[2024-02-29 12:40] LABS: Hematocrit 46.1 % (42.0-52.0); Hemoglobin 15.2 g/dl (14.0-18.0); Mean Corpuscular Hemoglobin 31.3 pg (27.0-33.0); Mean Corpuscular Volume 94.9 fL (80.0-98.0); Mean Platelet Volume 10.4 fL (9.4-12.4); Platelet Count 357 X10*3/uL (160-400); Red Blood Count 4.86 X10*6/uL (4.60-5.80); Red Cell Distribution Width 13.7 % (11.0-16.0); White Blood Count 22.6 X10*3/uL (4.8-10.8)
[2024-02-29 12:41] LABS: ABG Refer to POC result
[2024-02-29] MEDS: 0.9 % Sodium Chloride 1,000 ML 999 ML IV ×2 (12:49→13:20)
[2024-02-29 12:55] LABS: Alanine Aminotransferase 18 U/L (0-40); Albumin Level 4.3 g/dL (3.5-5.0); Alkaline Phosphatase 66 U/L (39-117); Anion Gap 18 (12-20); Aspartate Amino Transferase 48 U/L (5-37); Bilirubin Total 0.4 mg/dL (0.0-1.0); Blood Urea Nitrogen 22 mg/dL (9-16); Carbon Dioxide 24 mmol/L (22-29); Chloride 107 mmol/L (96-108); Creatinine Clr Calc Pharmacy 77.3; Estimated Glomerular Filt Rate > 60; Glucose Random 100 mg/dL (60-115); Potassium 4.9 mmol/L (3.3-5.1); Sodium 144 mmol/L (135-145)
[2024-02-29 13:03] LABS: Band Neutrophils Percent 5 % (3-5); Lymphocytes Absolute Manual 1.6 X10*3/uL (1.2-4.9); Lymphocytes Percent Manual 7 % (20-40); Metamyelocytes Absolute 0.2 X10*3/uL; Metamyelocytes Percent 1 %; Monocytes Absolute Manual 1.8 X10*3/uL (0.1-1.2); Monocytes Percent Manual 8 % (2-11); Neutrophils Percent Manual 79 % (45-73); Platelet Estimate NORMAL (NORMAL); Platelet Morphology Comment NORMAL; RBC Morphology NORMAL; Toxic Vacuolation PRESENT
[2024-02-29 13:11] LABS: Amphetamine Screen Urine Not Detected (Not Detect); Barbiturates, Urine Not Detected (Not Detect); Benzodiazepines Screen Urine POSITIVE (Not Detect); Buprenorphine Scr Positive (Not Detect); Cannabinoid Screen Urine POSITIVE (Not Detect); Cocaine Screen Urine POSITIVE (Not Detect); Fentanyl, urine POSITIVE (Not Detect); Methadone Screen, Urine Positive (Not Detect); Opiate Screen Urine Not Detected (Not Detect); Oxycodone Screen Urine Not Detected (Not Detect); Phencyclidine Screen Urine Not Detected (Not Detect)
[2024-02-29 13:19] LABS: Lactic Acid 6.3 mmol/L (0.5-2.0)
[2024-02-29] MEDS: Piperacillin Sodium/Tazobactam 4.5 GM in 0.9 % Sodium Chloride 100 ML IV (13:21)
[2024-02-29 13:34] LABS: ABG Base Excess -3.8 mmol/L; ABG HCO3 23 mmol/L (22-26); ABG pCO2 50 mmHg (32-45); ABG pH 7.27 (7.35-7.45); ABG pO2 60 mmHg (83-108)
--- NOTE | 2024-02-29 13:36 | PC.NURSE ---
antibiotics infusing at this time. temp sensing alvarado in place with approx 100mL output. et tube now 25 at lip
[2024-02-29] MEDS: vancomycin HCL 1,500 MG in 0.9 % Sodium Chloride 500 ML 333.33 MG IV (13:55)
[2024-02-29 14:02] LABS: COVID-19 Test Negative (Negative); IDNOW Serial# 08D9AD1C; IDNOW Serial# 152EDE1D; Influenza A Negative (Negative); Influenza B2 Negative (Negative)
--- NOTE | 2024-02-29 14:13 | PC.NURSE ---
propofol gtt increased to 40mcg/kg/min.
--- NOTE | 2024-02-29 14:52 | MHC.EDTECH ---
emptied 975ml out of bag.
[2024-02-29 14:55] LABS: ABG Refer to POC result
--- NOTE | 2024-02-29 14:57 | PC.NURSE ---
report given to Hakeem PICKARD at [facility]
[2024-02-29 15:07] LABS: Reflex Lactate? Lactic Acid Added
--- NOTE | 2024-02-29 15:09 | PC.NURSE ---
belongings placed in [facility] upon arrival
[2024-02-29 16:05] LABS: ~Lactic Acid-LAB USE ONLY 3.9 mmol/L (0.5-2.0)
[2024-02-29 17:24] LABS: Reflex Lactate? 2 Y
== END 2024-02-29 16:02 | disposition short-term general hospital (02) ==
PROVIDERS: Emergency Provider Student in an Organized Health Care Education/Training Program
DX: T50.901A Poisoning by unspecified drugs, medicaments and biological substances, accidental (unintentional), initial encounter (principal); R40.4 Transient alteration of awareness; F19.10 Other psychoactive substance abuse, uncomplicated; J80 Acute respiratory distress syndrome; Y92.9 Unspecified place or not applicable
CPT/HCPCS: 31500; 36415; 51702; 71045; 80053; 80307; 82803; 82947; 83605; 85007; 85027; 87040; 87502; 87635; 94002; 96361; 96365; 96366; 96375; 99285; J2310; J2405; J2543; J2704; J3371

== ENCOUNTER 2024-03-26 11:56 | Outpatient (REF) | payer MEDICAID, SELFPAY ==
[2024-03-26 13:42] LABS: Alanine Aminotransferase 86 U/L (0-40); Albumin Level 4.2 g/dL (3.5-5.0); Alkaline Phosphatase 73 U/L (39-117); Aspartate Amino Transferase 59 U/L (5-37); Bilirubin Direct 0.2 mg/dL (0.0-0.5); Bilirubin Total 0.4 mg/dL (0.0-1.0); Total Protein 7.7 g/dL (6.5-8.0)
[2024-03-27 04:50] LABS: HBS Num1 0.95 mIU/mL (0-7.99); HBc Num1 0.14 S/CO (0.00-0.79); HBsAGNum1 0.28 S/CO (0.00-0.99); HIV AB/AG Nonreactive (Nonreactive); HIV Num 1 0.07 S/CO (0.00-0.99); Hepatitis A Antibody IgM 0.27 Index (0-0.79); Hepatitis B Core Antibody Nonreactive (Nonreactive); Hepatitis B Surface Antigen Negative (Negative); ~HepC Num1 0.12 S/CO (0.00-0.79); ~Hepatitis A Antibody IgM Nonreactive (Nonreactive); ~Hepatitis B Surface Antibody NONREACTIVE (Nonreactive); ~Hepatitis C Antibody Nonreactive (Nonreactive)
[2024-03-29 23:04] LABS: RPR Rapid Plasma Reagin NON-REACTIVE (NON-REACTIVE)
[2024-03-30 22:42] LABS: TS Negative Control Passed; TS Panel A 0; TS Panel B 0; TS Positive Control Passed; TSpotTB Negative (Negative)
== END 2024-03-26 11:57 | disposition home or self-care (01) ==
LOC: HO.HHCL 11:56
PROVIDERS: Visit Provider Internal Medicine
DX: F11.20 Opioid dependence, uncomplicated (principal)
CPT/HCPCS: 36415; 80076; 86481; 86592; 86704; 86706; 86709; 86803; 87340; 87389

== ENCOUNTER 2024-04-22 16:42 | Outpatient (REF) | payer MEDICAID, SELFPAY ==
[2024-04-22 16:53] LABS: Appearance Urine Clear; Bacteria Urine None Seen (None Seen); Color Urine Yellow; Glucose Urine UA Negative (Negative); Hyaline Casts Urine 0-2 /LPF (0-2); Leukocyte Esterase Urine Negative (Negative); Nitrite Urine Negative (Negative); RBC Urine 0-2 /HPF (0-2); Squamous Epithelial Cell Urine 0-2 /HPF (0-2); Urine Blood Negative (Negative); Urine Ketones Negative (Negative); Urine Protein Negative (Neg-Trace); WBC Urine 0-5 /HPF (0-5)
[2024-04-22 18:44] LABS: CT PCR NOT DETECTED (Not Detect.); NG PCR NOT DETECTED (Not Detect.)
== END 2024-04-22 16:43 | disposition home or self-care (01) ==
LOC: HO.HHCLNP 16:42
PROVIDERS: Visit Provider Internal Medicine
DX: R39.9 Unspecified symptoms and signs involving the genitourinary system (principal)
CPT/HCPCS: 81001; 87491; 87591

== ENCOUNTER 2024-05-04 16:20 | Emergency (ER) | payer MEDICAID, SELFPAY ==
--- NOTE | ~2024-05-04 | CT_ITS ---
EXAMINATION: CT PELVIS WITH CONTRAST CLINICAL INFORMATION: Left buttock abscess. Large history of substance abuse. COMPARISON: None available. TECHNIQUE: Helical scanning was performed with submillimeter collimation through the pelvis with the use of oral contrast and during bolus intravenous injection of 100 mL of Omnipaque 350 intravenous contrast. Sagittal and coronal multiplanar 2-D reconstructions were obtained. This CT examination was performed using dose optimization techniques as appropriate, variously including the following: *Automated exposure control *Adjustment of mA and/or kV according to patient size (this includes techniques or standardized protocols for targeted exams where dose is matched to indication/reason for exam; i.e. extremities or head) *Use of iterative reconstruction technique DLP: 187 mGy-cm FINDINGS: PELVIS: There is scattered stool and gas seen throughout the colon without distention.. No free air or free fluid seen. There are uterine bladder is nondistended. Prostate gland is normal size. There is a soft tissue mass left para midline buttock measuring 3.81 cm in craniocaudad length, 2.2 cm AP and 2.2 cm wide and measures 27 Hounsfield units. There is adjacent fat stranding in bilateral buttocks extending to the midline. No bony erosive changes seen involving the sacrum to suspect any osteomyelitis. OSSEOUS STRUCTURES: No lytic or sclerotic process. No periosteal elevation. CT/CT pelvis w IV con IMPRESSION: Soft tissue mass left para midline buttock likely solidified abscess. There is no gas within. There is adjacent soft tissue induration and fat stranding. There is no evidence of osteomyelitis
[2024-05-04 16:57] VITALS: BP 142/78; PULSE 101; RESP 16; TEMP 37.7; O2SAT 98; BMI 24.5
--- NOTE | 2024-05-04 16:58 | ED_ITS ---
HPI - General Adult General Chief complaint: Skin/Abscess/Foreign Body Stated complaint: ? cyst on between buttock Time Seen by Provider: 05/04/24 18:47 Source: patient Mode of arrival: ambulatory Limitations: no limitations History of Present Illness ED Provider: Melanie ANN HPI narrative: 28-year-old male history of substance abuse on Suboxone ( denies IVDA), ADHD, pulmonary embolism on anticoagulants presents to the emergency department with abscess to the left buttocks, patient reports abscess has been present for the past 5 days it is very painful, hurts if he is sitting on his bottom, has drastically increased in size however he does tell me that he tried to pop it a few times. Patient reports pain 10/10 and a/c chills and night sweats. Denies fevers, nausea, vomiting, headache, vision changes, dizziness, chest pain and shortness of breath. Related Data Home Medications ?Medication ?Instructions ?Recorded ?Confirmed albuterol sulfate 90 mcg/actuation 2 puff inhalation Q6H PRN wheezing 02/04/23 02/04/23 aerosol inhaler (Ventolin HFA) buprenorphine 12 mg-naloxone 3 mg 15 mg sublingual BID 02/04/23 02/04/23 sublingual film (Suboxone) clonidine HCl 0.1 mg tablet 0.1 mg PO BEDTIME PRN Anxiety 02/04/23 02/04/23 fluticasone propionate 50 1 spray intranasal DAILY 02/04/23 02/04/23 mcg/actuation nasal spray,suspension Previous Rx's ?Medication ?Instructions ?Recorded sucralfate 100 mg/mL oral 10 ml PO QID #420 mL 08/23/21 suspension (Carafate) buprenorphine 8 mg-naloxone 2 mg 1 film sublingual BID #10 ea 03/18/23 sublingual film (Suboxone) naloxone 4 mg/actuation nasal 4 mg intranasal Q2M PRN opioid 03/18/23 spray (Narcan) overdose #2 ea omeprazole 20 mg capsule,delayed 20 mg PO DAILY #14 caps 03/18/23 release buprenorphine 12 mg-naloxone 3 mg 1 film sublingual BID #14 ea 04/19/23 sublingual film (Suboxone) cephalexin 500 mg tablet 500 mg PO Q6H 10 days #40 tabs 05/05/24 doxycycline hyclate 100 mg capsule 100 mg PO BID 10 days #20 caps 05/05/24 Allergies Allergy/AdvReac Type Severity Reaction Status Date / Time No Known Allergies Allergy Verified 05/04/24 16:58 Review of Systems 2 Review of Systems: Yes all other systems are reviewed and are negative [facility] Past Medical History Attestation statement: The following information was validated with the patient. Source: old records reviewed and nursing notes reviewed Medical History ADHD Bipolar 1 disorder Allergic rhinitis Surgical History History of surgery Family History Family History Father Depression Asthma Mother Asthma Depression Migraine Brother No problems noted. Sister No problems noted. Son In good health Social History Social History Alcohol intake: current Alcohol intake frequency: holidays/special occasions only Alcohol type: hard liquor Patient Tobacco Use Status: Current everyday Tobacco user Cigarettes Per Day: 5 Smoked in Last 30 Days: No Use of substances other than those prescribed or required for medical reasons: No Substance Use Type: Heroin Advance Directives: No Advance Directives Information Provided: No Do you have a plan to hurt others: No Plan Physical Exam ED Vital Signs: Vital Signs - 24 hr 05/04/24 16:57 Temperature 99.8 F Pulse Rate 101 H Respiratory Rate 16 Blood Pressure 142/78 H Pulse Oximetry 98 Oxygen Delivery Method Room Air BMI result Body Mass Index 24.5 vss Appearance: Alert.? Oriented X3.? No acute distress.? Head: Normocephalic, atraumatic, no step-offs or deformities Eyes: Pupils equal, round and reactive to light.? ENT: Pharynx normal.? Neck: Normal inspection.? Neck supple.? CVS: Normal heart rate and rhythm.? Pulses normal.? Respiratory: No respiratory distress.? Breath sounds normal.? Abdomen: Soft and nontender.? Skin: Skin warm and dry.? Normal skin color.? Normal skin turgor.? Extremities: No lower extremity edema.? No calf ttp. 5/5 strength to bilateral upper and lower extremities Sensative: PA-S Christopher G at bedside as senior director of strategy, large left sidded abscess to buttocks and tracking into gluteal cleft very ttp w/ overlying errythema and warmth Neuro: Oriented X 3.? No motor deficit.? No sensory deficit. CN 2-12 intact Course Course Course Narrative: This is an RME: Additional HPI, ROS, PE not included below will be deferred to primary provider. RME assessment and note performed by: Carol Duque PA-C This is a [id number]-male who presents to the ER with complaints of lump on buttocks x 5 days. Getting more painful and larger. No hx of similar in the past. No drainage. Unable to visualize in triage. Plan: Further ER evaluation needed/ Reevaluation(s) Reevaluation #1: CBC with leukocytosis 12.4 no left shift. Chemistry unremarkable. CRP elevated likely secondary to abscess. Initially patient was adamant that he only wanted a fine-needle aspiration, 20 cc of purulence removed. Then an incision and drainage was done with a small amount of purulence expressed from the site. Patient tolerated procedure well. He states he is feeling better. Patient to be discharged home with doxycycline Keflex. I did discuss this case with general surgery who recommends incision and drainage, p.o. antibiotics with MRSA coverage. And follow up as needed. Will send patient with strict return precautions due to the size of the abscess will have patient follow-up in 2 days for wound check. Educated patient on diagnosis and treatment plan, answered all question, patient verbalizes understanding. At this time patient will be discharged home, advised to return with new or worsening symptoms. Educated on worrisome signs and symptoms and when to return. At this time I feel comfortable discharge home. Time: 00:06 Medications Administered Discontinued Medications Generic Name Dose Route Start Last Admin Trade Name Freq PRN Reason Stop Dose Admin Piperacillin Sod/Tazobactam 50 mls @ 100 mls/hr 05/04/24 19:39 05/04/24 20:59 Sod 3.375 gm/ Sodium Chloride IV 05/04/24 20:08 Infused ONCE ONE Infusion Iohexol 85 ml 05/04/24 21:25 05/04/24 21:25 Iohexol 350 Mg/Ml 100 Ml Infus..Btl IV 05/04/24 21:26 85 ml ONCE ONE Administration Ketorolac Tromethamine 30 mg 05/04/24 19:38 05/04/24 20:08 Ketorolac Tromethamine 30 Mg/Ml Vial IVPUSH 05/04/24 19:39 30 mg ONCE ONE Administration Lidocaine HCl 30 ml 05/04/24 21:57 05/04/24 23:01 Lidocaine Hcl 1 % 10 Ml Vial SUBCUT 05/04/24 21:58 30 ml ONCE ONE Administration Medical Decision Making Medical Decision Making [facility] Narrative: 28-year-old male presents with painful abscess to buttocks x5 days worsening. History of substance use disorder however denies IVDA Physical exam with large abscess to left buttocks Hx and pe concerning for large abscess to left buttocks and w/ overlying cellulitis. Less likely Pedrito gangrene, osteomyelitis, necrotizing infection Plan- labs, imaging ( due to size and streaking), esr, crp, atbx Differential Diagnosis Differential Diagnoses: The differential diagnosis associated with the presentation includes Hx and pe concerning for large abscess to left buttocks and w/ overlying cellulitis. Less likely Ped[place] gangrene, osteomyelitis, necrotizing infection Admission/Observation Consideration of admission/observation: Escalation of care including admission/observation considered Possible Lab Data [facility] Lab Attestation statement: I reviewed the patient's lab results. 05/04/24 20:01 05/04/24 20:01 Labs: Lab Results 05/04/24 Range/Units 20:01 WBC 12.4 H (4.8-10.8) X10*3/uL RBC 4.65 (4.60-5.80) X10*6/uL Hgb 14.7 (14.0-18.0) g/dl Hct 42.5 (42.0-52.0) % MCV 91.4 (80.0-98.0) fL MCH 31.6 (27.0-33.0) pg MCHC 34.6 (31.0-36.0) g/dl RDW 13.0 (11.0-16.0) % Plt Count 257 D (160-400) X10*3/uL MPV 10.7 (9.4-12.4) fL Immature Gran % (Auto) 0.3 (0.0-0.4) % Neut % (Auto) 75.2 H (45-73) % Lymph % (Auto) 15.0 L (20-40) % [place] % (Auto) 8.8 (2-11) % Eos % (Auto) 0.2 (0-4) % Baso % (Auto) 0.5 (0-2) % Lymph # (Auto) 1.9 (1.2-4.9) X10*3/uL [place] # (Auto) 1.1 (0.1-1.2) X10*3/uL Eos # (Auto) 0.0 (0.0-0.4) X10*3/uL Baso # (Auto) 0.1 (0.0-0.2) X10*3/uL Abs Immat Gran (auto) 0.04 H (0.00-0.03) X10*3/uL Absolute Neuts (auto) 9.4 H (2.0-8.3) x10*3/uL Absolute Nucleated RBC 0.000 (0.0-0.012) X10*3/uL Nucleated RBC % (auto) 0.0 (0.0-0.2) /100WBC ESR 29 H (0-15) MM/HR Sodium 139 (135-145) mmol/L Potassium 3.8 D (3.3-5.1) mmol/L Chloride 100 (96-108) mmol/L Carbon Dioxide 27 (22-29) mmol/L Anion Gap 16 (12-20) BUN 12 (9-16) mg/dL Creatinine 0.80 (0.5-1.4) mg/dL Estim Creat Clear Calc 124.0 Estimated GFR > 60 Random Glucose 99 (60-115) mg/dL Lactic Acid 1.4 (0.5-2.0) mmol/L Calcium 10.6 H D (8.4-10.2) mg/dL Magnesium 1.8 (1.6-2.6) mg/dL Total Bilirubin 1.2 H (0.0-1.0) mg/dL AST 25 (5-37) U/L ALT 17 (0-40) U/L Alkaline Phosphatase 77 (39-117) U/L C-Reactive Protein 12.62 H (< or = 0.50) mg/dL Total Protein 9.2 H (6.5-8.0) g/dL Albumin 5.0 (3.5-5.0) g/dL Independent Interpretation I performed an independent interpretation of an: CT Scan (CT/CT pelvis w IV con IMPRESSION: Soft tissue mass left para midline buttock likely solidified abscess. There is no gas within. There is adjacent soft tissue induration and fat stranding. There is no evidence of osteomyelitis ) Radiology Impression Discussion of test interpretation with radiology: I have reviewed the radiologist's reading. External Record Review External record reviewed: Inpatient record, Office record, Outpatient record, Prior outpatient labs, Prior outpatient radiology, Primary care record and Outside ED record Chronic Conditions Patient?s care impacted by: Other (polysubstance abuse ) Social Determinants Patient?s care significantly limited by Social Determinants of Health including: Alcoholism and drug addiction in family and Other Social Determinant of Health Critical Care Time Critical Care Time Critical Care Time: No Discharge Plan Discharge Clinical Impression: Abscess of buttock, left Patient Disposition: Home, Self-Care Instructions: Abscess (ED), Abscess Follow-up (ED), Abscess Incision and Drainage (DC) Additional Instructions: Take your medications as prescribed. If you were prescribed antibiotics today, it is important that you take your medication to their entirety, do not skip any doses, do not finish them early. Follow-up with your primary care provider this week. Return to the emergency department with new or worsening symptoms. In case of emergency call 911 Return in 2 days for wound check. Follow up with general surgery if needed Apply warm compresses to the area. Prescriptions: New doxycycline hyclate 100 mg capsule 100 mg PO BID 10 Days Qty: 20 0RF cephalexin 500 mg tablet 500 mg PO Q6H 10 Days Qty: 40 0RF No Action sucralfate [Carafate] 100 mg/mL suspension 10 ml PO QID Qty: 420 0RF Rx Instructions: swish in mouth and swallow; use after food/drink buprenorphine-naloxone [Suboxone] 12-3 mg film 1 film sublingual BID Qty: 14 0RF clonidine HCl 0.1 mg tablet 0.1 mg PO BEDTIME PRN (Reason: Anxiety) albuterol sulfate [Ventolin HFA] 90 mcg/actuation HFA aerosol inhaler 2 puff INHALATION Q6H PRN (Reason: wheezing) fluticasone propionate [Flonase] 50 mcg/actuation [place],Suspension 1 spray INTRANASAL DAILY Rx Instructions: administer into each nostril buprenorphine-naloxone [Suboxone] 12-3 mg film 15 mg sublingual BID omeprazole 20 mg capsule,delayed release(DR/EC) 20 mg PO DAILY Qty: 14 0RF naloxone [Narcan] 4 mg/actuation spray,non-aerosol 4 mg intranasal Q2M PRN (Reason: opioid overdose) Qty: 2 0RF Rx Instructions: spray 1 dose into ONE nostril; alternate nostrils w each dose until help arrives buprenorphine-naloxone [Suboxone] 8-2 mg film 1 film sublingual BID Qty: 10 0RF Referrals: [facility] [place] General Surgeons [Provider Group] - 1 week Giulia Huff MD [Primary Care Provider] - 2 days Stand Alone Forms: Work/School Release Print Language: Citizen Of [place]
[2024-05-04 20:08] LABS: MANUAL DIFF FLAG NO
[2024-05-04] MEDS: Ketorolac Tromethamine 30 MG/ML VIAL IVPUSH (20:08)
[2024-05-04] MEDS: Piperacillin Sodium/Tazobactam 3.375 GM in 0.9 % Sodium Chloride 50 ML IV (20:09)
[2024-05-04 20:14] LABS: Basophils Absolute Auto 0.1 X10*3/uL (0.0-0.2); Basophils Percent Auto 0.5 % (0-2); Eosinophils Percent Auto 0.2 % (0-4); Hematocrit 42.5 % (42.0-52.0); Hemoglobin 14.7 g/dl (14.0-18.0); Imm Gran Abs Auto 0.04 X10*3/uL (0.00-0.03); Imm Gran Pct Auto 0.3 % (0.0-0.4); Lymphocytes Absolute Auto 1.9 X10*3/uL (1.2-4.9); Mean Corpuscular HGB Conc 34.6 g/dl (31.0-36.0); Mean Corpuscular Hemoglobin 31.6 pg (27.0-33.0); Mean Corpuscular Volume 91.4 fL (80.0-98.0); Mean Platelet Volume 10.7 fL (9.4-12.4); Monocytes Absolute Auto 1.1 X10*3/uL (0.1-1.2); Monocytes Percent Auto 8.8 % (2-11); Neutrophils Absolute Auto 9.4 x10*3/uL (2.0-8.3); Neutrophils Percent Auto 75.2 % (45-73); Platelet Count 257 X10*3/uL (160-400); Red Blood Count 4.65 X10*6/uL (4.60-5.80); White Blood Count 12.4 X10*3/uL (4.8-10.8)
--- NOTE | 2024-05-04 20:21 | PC.NURSE ---
pt from home, a&ox4, respirations even and unlabored. pt reporting onset of left buttox lump x5 days ago, pt reports pain and redness has increased. pt reports pain with ambulation and walking. pt reports attempting to squeeze lump without success. 20G placed in left ac, labs obtained, pt medicated per dec.
[2024-05-04 20:24] LABS: Lactic Acid 1.4 mmol/L (0.5-2.0)
[2024-05-04 20:29] LABS: Alanine Aminotransferase 17 U/L (0-40); Alkaline Phosphatase 77 U/L (39-117); Anion Gap 16 (12-20); Aspartate Amino Transferase 25 U/L (5-37); Bilirubin Total 1.2 mg/dL (0.0-1.0); Blood Urea Nitrogen 12 mg/dL (9-16); C Reactive Protein 12.62 mg/dL (< or = 0.50); Calcium 10.6 mg/dL (8.4-10.2); Carbon Dioxide 27 mmol/L (22-29); Chloride 100 mmol/L (96-108); Estimated Glomerular Filt Rate > 60; Glucose Random 99 mg/dL (60-115); Magnesium 1.8 mg/dL (1.6-2.6); Potassium 3.8 mmol/L (3.3-5.1); Sodium 139 mmol/L (135-145); Total Protein 9.2 g/dL (6.5-8.0)
[2024-05-04] MEDS: iohexoL 350 MG/ML 100 ML INFUS..BTL 85 ML IV (21:25)
[2024-05-04 21:36] LABS: Erythrocyte Sedimentation Rate 29 MM/HR (0-15)
--- NOTE | 2024-05-04 22:48 | PC.NURSE ---
Nitza DUMONT at bedside, 20CC of fluid drained from abscess at this time. pt refusing I&d at this time. pt refusing incision cut into abscess at this time. pt denies pain at this time, reporting some relief to buttox.
[2024-05-04] MEDS: Lidocaine HCl 1 % 10 ML VIAL 30 ML SUBCUT (23:01)
--- NOTE | 2024-05-04 23:02 | PC.NURSE ---
pt medicated per mar for anxiety at this time.
[2024-05-05 00:33] VITALS: BP 142/78; PULSE 74; RESP 16; TEMP 36.4; O2SAT 98
--- NOTE | 2024-05-07 02:51 | PC.NURSE ---
late entry- pt medicated with 2MG IV Ativan at 2300 05/04/2024. Nitza DUMONT to place order.
== END 2024-05-05 00:40 | disposition home or self-care (01) ==
PROVIDERS: Physician Assistant; Emergency Provider Emergency Medicine; PCP Internal Medicine
DX: L02.31 Cutaneous abscess of buttock (principal); R10.2 Pelvic and perineal pain; F11.10 Opioid abuse, uncomplicated; F17.210 Nicotine dependence, cigarettes, uncomplicated; Z79.899 Other long term (current) drug therapy
CPT/HCPCS: 10060; 36415; 72193; 80053; 83605; 83735; 85025; 85652; 86140; 87040; 96365; 96375; 99284; J1885; J2543; Q9967

== ENCOUNTER 2024-10-15 02:25 | Emergency (ER) | payer MEDICAID, SELFPAY ==
[2024-10-15 02:32] VITALS: BP 118/72; PULSE 90; O2SAT 99; BMI 24.4
[2024-10-15 02:39] VITALS: BP 125/73; PULSE 94; RESP 16; TEMP 36.6; O2SAT 99
--- NOTE | 2024-10-15 03:19 | MHC.EDTECH ---
This tech attempted to draw labs, patient uncooperative
[2024-10-15] MEDS: ondansetron HCL 4 MG/2 ML VIAL IVPUSH (04:12)
[2024-10-15] MEDS: 0.9 % Sodium Chloride 1,000 ML 999 ML IV ×2 (04:12→07:18)
[2024-10-15 04:13] LABS: Basophils Absolute Auto 0.1 X10*3/uL (0.0-0.2); Basophils Percent Auto 1.1 % (0-2); Eosinophils Absolute Auto 0.7 X10*3/uL (0.0-0.4); Eosinophils Percent Auto 8.3 % (0-4); Hematocrit 42.8 % (42.0-52.0); Hemoglobin 14.7 g/dl (14.0-18.0); Imm Gran Abs Auto 0.02 X10*3/uL (0.00-0.03); Imm Gran Pct Auto 0.2 % (0.0-0.4); Lymphocytes Absolute Auto 1.7 X10*3/uL (1.2-4.9); Lymphocytes Percent Auto 21.2 % (20-40); MANUAL DIFF FLAG NO; Mean Corpuscular HGB Conc 34.3 g/dl (31.0-36.0); Mean Corpuscular Hemoglobin 30.6 pg (27.0-33.0); Mean Corpuscular Volume 89.2 fL (80.0-98.0); Monocytes Absolute Auto 0.7 X10*3/uL (0.1-1.2); Monocytes Percent Auto 8.6 % (2-11); Neutrophils Percent Auto 60.6 % (45-73); Platelet Count 323 X10*3/uL (160-400); Red Cell Distribution Width 12.8 % (11.0-16.0); White Blood Count 8.2 X10*3/uL (4.8-10.8)
[2024-10-15 04:16] LABS: Appearance Urine Turbid; Color Urine Yellow; Glucose Urine UA Negative (Negative); Leukocyte Esterase Urine Negative (Negative); Nitrite Urine Negative (Negative); PH 8.5 (5.0-9.0); Specific Gravity - Urine >= 1.030 (1.005-1.025); Urine Blood Negative (Negative); Urine Ketones Trace mg/dL (Negative); Urine Protein Trace mg/dL (Neg-Trace)
--- NOTE | 2024-10-15 04:18 | PC.NURSE ---
Pt has been aggitated, refusing Labs and IV initially. Requesting ice chips and blankets repeatedly but leaving all on the floor. Pt walked to BR with steady gait. Has requested that new RN be assigned to care. Pt is hyperactive, denies ETOH and drug use. Disorganized and discheveled.
[2024-10-15 04:33] LABS: Amphetamine Screen Urine Not Detected (Not Detect); Barbiturates, Urine Not Detected (Not Detect); Benzodiazepines Screen Urine Not Detected (Not Detect); Buprenorphine Scr Not Detected (Not Detect); Cannabinoid Screen Urine POSITIVE (Not Detect); Cocaine Screen Urine POSITIVE (Not Detect); Fentanyl, urine POSITIVE (Not Detect); Methadone Screen, Urine Not Detected (Not Detect); Opiate Screen Urine POSITIVE (Not Detect); Oxycodone Screen Urine Not Detected (Not Detect); Phencyclidine Screen Urine Not Detected (Not Detect)
[2024-10-15 04:36] LABS: Alanine Aminotransferase 11 U/L (0-40); Albumin Level 4.2 g/dL (3.5-5.0); Alkaline Phosphatase 66 U/L (39-117); Anion Gap 14 (12-20); Aspartate Amino Transferase 35 U/L (5-37); Bilirubin Total 0.3 mg/dL (0.0-1.0); Blood Urea Nitrogen 13 mg/dL (9-16); Calcium 9.6 mg/dL (8.4-10.2); Carbon Dioxide 23 mmol/L (22-29); Chloride 111 mmol/L (96-108); Creatinine Clr Calc Pharmacy 149.4; Estimated Glomerular Filt Rate > 60; Ethanol < 10 mg/dL; Glucose Random 108 mg/dL (60-115); Lipase 79 U/L (8-78); Sodium 144 mmol/L (135-145); Total Protein 7.8 g/dL (6.5-8.0)
--- NOTE | 2024-10-15 05:03 | MHC.EDTECH ---
Pt threw up all over the floor, tech's including myself helped to clean him up. Patient was being disrespectful to me and the nurse.
--- NOTE | 2024-10-15 05:12 | PC.NURSE ---
late entry for 445. pt vomited all over the floor.
--- NOTE | 2024-10-15 05:45 | PC.NURSE ---
vomited again all over bed/floor. refused linen change. awaits Provider eval.
--- NOTE | 2024-10-15 05:48 | MHC.EDTECH ---
Unable to obtain patients vitals at this time. Patient denied vitals
[2024-10-15] MEDS: Metoclopramide HCl 10 MG/2 ML VIAL IVPUSH (07:02)
[2024-10-15] MEDS: diphenhydrAMINE HCL 50 MG/ML VIAL 25 MG IVPUSH (07:02)
--- NOTE | 2024-10-15 07:26 | ED.NAVMDI ---
HPI - Nausea/Vomiting/Diarrhea General Chief complaint: Nausea/Vomiting/Diarrhea Stated complaint: feeeling unwell, uncooperative w/ EMS Time Seen by Provider: 10/15/24 06:36 Source: patient, EMS, RN notes reviewed and old records reviewed Mode of arrival: EMS History of Present Illness ED Provider: Judit Wick PA-C HPI Narrative: 28-year-old male with a past medical history bipolar, ADHD, presenting to the ED via EMS complaining of abdominal discomfort, nausea, vomiting, diarrhea, chills x last night. Admits to illicit substance use. Denies ETOH. Denies fever, chills, travel, suspicious food intake, SI/HI. Poor historian, not forthcoming with information Related Data Home Medications ?Medication ?Instructions ?Recorded ?Confirmed albuterol sulfate 90 mcg/actuation 2 puff inhalation Q6H PRN wheezing 02/04/23 02/04/23 aerosol inhaler (Ventolin HFA) buprenorphine 12 mg-naloxone 3 mg 15 mg sublingual BID 02/04/23 02/04/23 sublingual film (Suboxone) clonidine HCl 0.1 mg tablet 0.1 mg PO BEDTIME PRN Anxiety 02/04/23 02/04/23 fluticasone propionate 50 1 spray intranasal DAILY 02/04/23 02/04/23 mcg/actuation nasal spray,suspension Previous Rx's ?Medication ?Instructions ?Recorded sucralfate 100 mg/mL oral 10 ml PO QID #420 mL 08/23/21 suspension (Carafate) buprenorphine 8 mg-naloxone 2 mg 1 film sublingual BID #10 ea 03/18/23 sublingual film (Suboxone) naloxone 4 mg/actuation nasal 4 mg intranasal Q2M PRN opioid 03/18/23 spray (Narcan) overdose #2 ea omeprazole 20 mg capsule,delayed 20 mg PO DAILY #14 caps 03/18/23 release buprenorphine 12 mg-naloxone 3 mg 1 film sublingual BID #14 ea 04/19/23 sublingual film (Suboxone) cephalexin 500 mg tablet 500 mg PO Q6H 10 days #40 tabs 05/05/24 doxycycline hyclate 100 mg capsule 100 mg PO BID 10 days #20 caps 05/05/24 Allergies Allergy/AdvReac Type Severity Reaction Status Date / Time No Known Allergies Allergy Verified 10/15/24 02:35 Review of Systems Review of Systems: Yes all other systems are reviewed and are negative Constitutional: Constitutional: Reports as per [facility] Past Medical History Attestation statement: The following information was validated with the patient. Source: old records reviewed Medical History ADHD Bipolar 1 disorder Allergic rhinitis Surgical History History of surgery Family History Family History Father Depression Asthma Mother Asthma Depression Migraine Brother No problems noted. Sister No problems noted. Son In good health Social History Social History Alcohol intake: current Alcohol intake frequency: holidays/special occasions only Alcohol type: hard liquor Patient Tobacco Use Status: Current everyday Tobacco user Cigarettes Per Day: 5 Smoked in Last 30 Days: No Use of substances other than those prescribed or required for medical reasons: No Substance Use Type: Heroin Advance Directives: No Advance Directives Information Provided: Yes Do you have a plan to hurt others: No Plan Physical Exam Vital Signs: Vital Signs: Last Vital Signs Temp 97.9 F 10/15/24 02:39 Pulse 94 10/15/24 02:39 Resp 16 10/15/24 02:39 BP 125/73 10/15/24 02:39 Pulse Ox 99 10/15/24 02:39 O2 Del Method Room Air 10/15/24 02:39 BMI result Body Mass Index 24.4 Const: Other: Disheveled General: no acute distress Orientation/consciousness: patient oriented x3 Limitations: no limitations HEENT: Head: Yes normal to inspection and Yes atraumatic Ears: hearing grossly normal bilaterally General nose exam: Normal external nose present Face and sinus: Yes normal facial exam Eyes: General: appearance normal, both eyes and all related structures EOM: EOMs intact bilaterally Neck: Neck: Yes normal visual inspection and Yes no meningeal signs Resp: Effort & Inspection: normal respiratory effort and no respiratory distress Auscultation: clear to auscultation bilaterally Cardio: Rate: regular rate Heart sounds: S1 normal heart sound present and S2 normal heart sound present GI: Inspection: Yes normal to inspection Palpation (GI): Soft to palpation, nontender, no guarding and not rigid Skin: Rashes: no rashes Wounds: no wounds Neuro: General: patient oriented x3, tone normal and no meningeal signs Cranial nerves: Yes CN's II-XII intact bilaterally Gait exam (Neuro): Normal gait present Extrem: General: Yes normal to inspection Course Course Course Narrative: -1313--no leukocytosis. Lipase 79. Labs otherwise reassuring. -UA not infected. Tox screen positive for opiates, fentanyl, cocaine, marijuana -viral testing negative -patient has tolerated p.o. in the ED without nausea or vomiting > addiction medicine spoke with patient, recommended initiating patient on 40 mg of methadone now, and he will follow-up with [facility]] tomorrow for additional dosing. Will discharge home with take-home Narcan. Results discussed with patient including worrisome signs and symptoms and strict return precautions, and when to return to the emergency department. They verbalized understanding and feel safe for discharge at this time. Medications Administered Discontinued Medications Generic Name Dose Route Start Last Admin Trade Name Farhad PRN Reason Stop Dose Admin Diphenhydramine HCl 25 mg 10/15/24 06:47 10/15/24 07:02 Diphenhydramine Hcl 50 Mg/Ml Vial IVPUSH 10/15/24 06:48 25 mg ONCE ONE Administration Sodium Chloride 1,000 mls @ 999 mls/hr 10/15/24 03:30 10/15/24 05:27 Ns IV 10/15/24 04:30 Infused .Q1H1M LULÚ Infusion Sodium Chloride 1,000 mls @ 999 mls/hr 10/15/24 07:15 10/15/24 09:31 Ns IV 10/15/24 08:15 Infused .Q1H1M LULÚ Infusion Ketorolac Tromethamine 15 mg 10/15/24 08:10 10/15/24 08:18 Ketorolac Tromethamine 15 Mg/Ml Vial IVPUSH 10/15/24 08:11 15 mg ONCE ONE Administration Metoclopramide HCl 10 mg 10/15/24 06:47 10/15/24 07:02 Metoclopramide Hcl 10 Mg/2 Ml Vial IVPUSH 10/15/24 06:48 10 mg ONCE ONE Administration Ondansetron HCl 4 mg 10/15/24 03:30 10/15/24 04:12 Ondansetron Hcl 4 Mg/2 Ml Vial IVPUSH 10/15/24 03:31 4 mg ONCE ONE Administration Medical Decision Making Medical Decision Making [facility] Narrative: 28-year-old male with a past medical history bipolar, ADHD, presenting to the ED via EMS complaining of abdominal discomfort, nausea, vomiting, diarrhea, chills x last night. On exam vital signs stable, NAD, nontoxic appearing, abdomen soft/nontender. Disheveled. Not forthcoming with history, partially cooperative with exam. Concern for substance abuse vs cyclical vomiting vs gastroenteritis vs viral illness vs opiate withdrawal.. Lower suspicion for acute appendicitis/diverticulitis Plan: Labs, UA, tox screen, addiction medicine consult, viral testing Please refer to course for remaining clinical decision making, interpretation of labs/imaging results, and discussions with consultants and/or family members. Differential Diagnosis Differential Diagnoses: The differential diagnosis associated with the presentation includes As above Admission/Observation Consideration of admission/observation: Escalation of care including admission/observation considered Consult Healthcare Provider Management of the patient was discussed with: Behavioral Health Provider (Addiction medicine) Lab Data [facility] Lab Attestation statement: I reviewed the patient's lab results. 10/15/24 04:07 10/15/24 04:07 Labs: Lab Results 10/15/24 10/15/24 10/15/24 Range/Units 04:07 04:08 07:16 WBC 8.2 (4.8-10.8) X10*3/uL RBC 4.80 (4.60-5.80) X10*6/uL Hgb 14.7 (14.0-18.0) g/dl Hct 42.8 (42.0-52.0) % MCV 89.2 (80.0-98.0) fL MCH 30.6 (27.0-33.0) pg MCHC 34.3 (31.0-36.0) g/dl RDW 12.8 (11.0-16.0) % Plt Count 323 D (160-400) X10*3/uL MPV 10.0 (9.4-12.4) fL Immature Gran % (Auto) 0.2 (0.0-0.4) % Neut % (Auto) 60.6 (45-73) % Lymph % (Auto) 21.2 (20-40) % [place] % (Auto) 8.6 (2-11) % Eos % (Auto) 8.3 H (0-4) % Baso % (Auto) 1.1 (0-2) % Lymph # (Auto) 1.7 (1.2-4.9) X10*3/uL [place] # (Auto) 0.7 (0.1-1.2) X10*3/uL Eos # (Auto) 0.7 H (0.0-0.4) X10*3/uL Baso # (Auto) 0.1 (0.0-0.2) X10*3/uL Abs Immat Gran (auto) 0.02 (0.00-0.03) X10*3/uL Absolute Neuts (auto) 5.0 (2.0-8.3) x10*3/uL Absolute Nucleated RBC 0.000 (0.0-0.012) X10*3/uL Nucleated RBC % (auto) 0.0 (0.0-0.2) /100WBC Sodium 144 (135-145) mmol/L Potassium 4.0 (3.3-5.1) mmol/L Chloride 111 H (96-108) mmol/L Carbon Dioxide 23 (22-29) mmol/L Anion Gap 14 (12-20) BUN 13 (9-16) mg/dL Creatinine 0.76 (0.5-1.4) mg/dL Estim Creat Clear Calc 149.4 Estimated GFR > 60 Random Glucose 108 (60-115) mg/dL Calcium 9.6 D (8.4-10.2) mg/dL Magnesium 2.1 (1.6-2.6) mg/dL Total Bilirubin 0.3 (0.0-1.0) mg/dL AST 35 (5-37) U/L ALT 11 (0-40) U/L Alkaline Phosphatase 66 (39-117) U/L Total Protein 7.8 (6.5-8.0) g/dL Albumin 4.2 (3.5-5.0) g/dL Lipase 79 H (8-78) U/L Urine Color Yellow Urine Appearance Turbid Urine pH 8.5 (5.0-9.0) Ur Specific [place] >= 1.030 H (1.005-1.025) Urine Protein Trace (Neg-Trace) mg/dL Urine Glucose (UA) Negative (Negative) mg/dL Urine Ketones Trace (Negative) mg/dL Urine Blood Negative (Negative) Urine Nitrite Negative (Negative) Ur Leukocyte Esterase Negative (Negative) Urine Opiates Screen POSITIVE H (Not Detect) Ur Buprenorphine Scrn Not Detected (Not Detect) ng/mL Ur Oxycodone Screen Not Detected (Not Detect) ng/mL Urine Methadone Screen Not Detected (Not Detect) ng/mL Urine Fentanyl Screen POSITIVE H (Not Detect) Ur Barbiturates Screen Not Detected (Not Detect) Ur Phencyclidine Scrn Not Detected (Not Detect) Ur Amphetamines Screen Not Detected (Not Detect) U Benzodiazepines Scrn Not Detected (Not Detect) Urine Cocaine Screen POSITIVE H (Not Detect) U Marijuana (THC) Screen POSITIVE H (Not Detect) Ethyl Alcohol < 10 mg/dL Influenza Type A (PCR) NEGATIVE (Negative) Influenza Type B (PCR) NEGATIVE (Negative) RSV RNA Qual (PCR) NEGATIVE (Negative) SARS-CoV-2 RNA (RT-PCR) NEGATIVE (Negative) Radiology Impression Discussion of test interpretation with radiology: I have reviewed the radiologist's reading. Independent Historian Clinical information obtained from an independent historian. History obtained from or confirmed by: EMS External Record Review External record reviewed: Inpatient record, Office record, Outpatient record, Prior outpatient labs, Prior outpatient radiology, Primary care record and Outside ED record Tests considered The following testing was considered but not selected: As above Prescription Management I considered prescription management with: Pain Medication and Other Chronic Conditions Patient?s care impacted by: Other Social Determinants Patient?s care significantly limited by Social Determinants of Health including: Inadequate housing, Low income, Alcoholism and drug addiction in family, Problems related to primary support group, Unemployment, Problems related to employment and Other Social Determinant of Health Discharge Plan Discharge Clinical Impression: Polysubstance use disorder, Nausea & vomiting, Opiate misuse Patient Disposition: Home, Self-Care Instructions: Acute Nausea and Vomiting (ED), Polysubstance Abuse (ED) Additional Instructions: Your blood work is reassuring You were dose of 40 mg of methadone today Please follow up with [facility] tomorrow as discussed for additional dosing/follow-up You are being sent home with Narcan, please have this on you at all times Please try to avoid alcohol and drug use. This can kill you Opiate use disorder You were seen in our Emergency Department today for treatment of opiate use disorder. You may have been dosed with medication for opiate use disorder (MOUD) in the form of suboxone or methadone. You may experience feeling some withdrawal symptoms and this is normal. The? dose in the Emergency Department is a starting dose and meant to be titrated up once you follow up with a clinic. Please do not feel discouraged, it is a process. The nurse has reviewed with you where to follow up and what information to bring with you, to continue treatment. You also may have been given naloxone (narcan) to take home with you. This medication is used to potentially treat opiate overdose. If you decide you want to stop or cut down on how much you?re using, you can call or walk into our outpatient Addiction Treatment office: [facility] (M-F 9am-5p) [address] [place] [address], [address] [phone] You may have been provided with safer injection?items, please take time to take care of YOU and your health. Use new supplies whenever possible to lessen the chances of infections and other illnesses.? ?If you need more supplies, please go [facility],? [address] [place] [address] OR you can call or text to coordinate delivery of safer supplies. You were also provided a list of several treatment providers in the area.? If you experience any worsening symptoms you cannot control please return to the ED or call 911. Please follow up at your next appointment. Things to look out for are fevers, chest pain, shortness of breath, severe pain, dizziness, fainting or any other concerns. Prescriptions: No Action sucralfate [Carafate] 100 mg/mL suspension 10 ml PO QID Qty: 420 0RF Rx Instructions: swish in mouth and swallow; use after food/drink buprenorphine-naloxone [Suboxone] 12-3 mg film 1 film sublingual BID Qty: 14 0RF clonidine HCl 0.1 mg tablet 0.1 mg PO BEDTIME PRN (Reason: Anxiety) albuterol sulfate [Ventolin HFA] 90 mcg/actuation HFA aerosol inhaler 2 puff INHALATION Q6H PRN (Reason: wheezing) fluticasone propionate [Flonase] 50 mcg/actuation [place],Suspension 1 spray INTRANASAL DAILY Rx Instructions: administer into each nostril buprenorphine-naloxone [Suboxone] 12-3 mg film 15 mg sublingual BID omeprazole 20 mg capsule,delayed release(DR/EC) 20 mg PO DAILY Qty: 14 0RF naloxone [Narcan] 4 mg/actuation spray,non-aerosol 4 mg intranasal Q2M PRN (Reason: opioid overdose) Qty: 2 0RF Rx Instructions: spray 1 dose into ONE nostril; alternate nostrils w each dose until help arrives buprenorphine-naloxone [Suboxone] 8-2 mg film 1 film sublingual BID Qty: 10 0RF doxycycline hyclate 100 mg capsule 100 mg PO BID 10 Days Qty: 20 0RF cephalexin 500 mg tablet 500 mg PO Q6H 10 Days Qty: 40 0RF Referrals: [facility] [Primary Care Provider] - Sharon Dumont CNP [Nurse Practitioner] - Stand Alone Forms: Substance Abuse Outpt Detox Print Language: Setswana
--- NOTE | 2024-10-15 07:49 | PC.NURSE ---
Care of Pt assumed at change of shift. Pt is very restless and agitated. A&Ox3 Skin is warm and dry Breaths and speech are unlabored Pt medicated per DEC.
[2024-10-15 07:50] LABS: Magnesium 2.1 mg/dL (1.6-2.6)
[2024-10-15] MEDS: Ketorolac Tromethamine 15 MG/ML VIAL IVPUSH (08:18)
--- NOTE | 2024-10-15 08:26 | PC.NURSE ---
Pt continues to be restless and agitated. Pt medicated per MAR for generalized discomfort. Pt offered PO trial and declined.
[2024-10-15 08:27] LABS: Influenza A PCR NEGATIVE (Negative); Influenza B PCR NEGATIVE (Negative); Resp Syncy Virus RNA Qual PCR NEGATIVE (Negative); SARS COV2 PCR INHOUSE NEGATIVE (Negative)
--- NOTE | 2024-10-15 09:35 | PC.NURSE ---
Pt request detox services. Provider aware and consult to recovery to be entered.
[2024-10-15] MEDS: methADONE HCl 20 MG/2 ML ORAL.CONC 40 MG PO (10:38)
[2024-10-15] MEDS: Naloxone HCl Nasal TAKE HOME 4 MG SPRAY 8 MG NOSTRILALT (10:40)
[2024-10-15 10:51] VITALS: BP 127/68; PULSE 88; RESP 18; TEMP 37.4; O2SAT 97
[2024-10-15 10:52] VITALS: BP 127/68; PULSE 88; RESP 18; TEMP 37.4; O2SAT 97
== END 2024-10-15 11:23 | disposition home or self-care (01) ==
PROVIDERS: Physician Assistant; Emergency Provider Emergency Medicine
DX: F19.10 Other psychoactive substance abuse, uncomplicated (principal); R11.2 Nausea with vomiting, unspecified; F11.20 Opioid dependence, uncomplicated; Z03.818 Encounter for observation for suspected exposure to other biological agents ruled out; F17.210 Nicotine dependence, cigarettes, uncomplicated; F31.9 Bipolar disorder, unspecified; F90.9 Attention-deficit hyperactivity disorder, unspecified type; Z79.899 Other long term (current) drug therapy
CPT/HCPCS: 0241U; 36415; 80053; 80307; 81003; 83690; 83735; 85025; 96361; 96374; 96375; 99285; J1200; J1885; J2405; J2765; S9485

== ENCOUNTER 2024-10-16 00:58 | Emergency (ER) | payer MEDICAID, SELFPAY ==
[2024-10-16 00:49] VITALS: BP 131/82; PULSE 75; O2SAT 98
[2024-10-16 00:59] VITALS: BP 115/76; PULSE 68; RESP 18; TEMP 36.8; O2SAT 98; BMI 19.9
[2024-10-16 02:00] VITALS: BP 116/73; PULSE 64; RESP 20; TEMP 37.1; O2SAT 96
[2024-10-16] MEDS: LORazepam 1 MG TABLET PO (03:32)
[2024-10-16] MEDS: Prochlorperazine Edisylate 10 MG/2 ML VIAL IM (03:46)
[2024-10-16 04:00] VITALS: BP 120/79; PULSE 73; RESP 20; TEMP 36.9; O2SAT 96
--- NOTE | 2024-10-16 04:29 | ED.NAVMDI ---
HPI - Nausea/Vomiting/Diarrhea General Chief complaint: Nausea/Vomiting/Diarrhea Stated complaint: nausea Time Seen by Provider: 10/16/24 03:06 Source: patient Mode of arrival: EMS Limitations: no limitations History of Present Illness ED Provider: HPI Narrative: Patient's history of opiate abuse has not taken heroin for last 2 days was seen here yesterday for vomiting/withdrawal comes here again for the same thing uncooperative with EMS did not vomit during transfer but started vomiting after coming to the ER does have a history of anxiety could not sleep for last 2 days Related Data Home Medications ?Medication ?Instructions ?Recorded ?Confirmed albuterol sulfate 90 mcg/actuation 2 puff inhalation Q6H PRN wheezing 02/04/23 02/04/23 aerosol inhaler (Ventolin HFA) buprenorphine 12 mg-naloxone 3 mg 15 mg sublingual BID 02/04/23 02/04/23 sublingual film (Suboxone) clonidine HCl 0.1 mg tablet 0.1 mg PO BEDTIME PRN Anxiety 02/04/23 02/04/23 fluticasone propionate 50 1 spray intranasal DAILY 02/04/23 02/04/23 mcg/actuation nasal spray,suspension Previous Rx's ?Medication ?Instructions ?Recorded sucralfate 100 mg/mL oral 10 ml PO QID #420 mL 08/23/21 suspension (Carafate) buprenorphine 8 mg-naloxone 2 mg 1 film sublingual BID #10 ea 03/18/23 sublingual film (Suboxone) naloxone 4 mg/actuation nasal 4 mg intranasal Q2M PRN opioid 03/18/23 spray (Narcan) overdose #2 ea omeprazole 20 mg capsule,delayed 20 mg PO DAILY #14 caps 03/18/23 release buprenorphine 12 mg-naloxone 3 mg 1 film sublingual BID #14 ea 04/19/23 sublingual film (Suboxone) cephalexin 500 mg tablet 500 mg PO Q6H 10 days #40 tabs 05/05/24 doxycycline hyclate 100 mg capsule 100 mg PO BID 10 days #20 caps 05/05/24 Allergies Allergy/AdvReac Type Severity Reaction Status Date / Time No Known Allergies Allergy Verified 10/16/24 01:01 Review of Systems Review of Systems: Yes all other systems are reviewed and are negative PMFSH Past Medical History Medical History ADHD Bipolar 1 disorder Allergic rhinitis Surgical History History of surgery Family History Family History Father Depression Asthma Mother Asthma Depression Migraine Brother No problems noted. Sister No problems noted. Son In good health Social History Social History Alcohol intake: current Alcohol intake frequency: holidays/special occasions only Alcohol type: hard liquor Patient Tobacco Use Status: Current everyday Tobacco user Cigarettes Per Day: 5 Substance Use Type: Heroin Advance Directives: No Physical Exam Vital Signs: Vital Signs: Last Vital Signs Temp 98.2 F 10/16/24 06:00 Pulse 74 10/16/24 06:00 Resp 16 10/16/24 06:00 BP 119/80 10/16/24 06:00 Pulse Ox 97 10/16/24 06:00 O2 Del Method Room Air 10/16/24 06:00 BMI result Body Mass Index 19.9 Appearance: Alert. Oriented X3. No acute distress. Eyes: No pallor or icterus ENT: Pharynx normal. Oral Mucosa moist Neck: Normal inspection. Neck supple. CVS: Normal heart rate and rhythm. Pulses normal. Respiratory: No respiratory distress. Equal air entry bilateral, no wheezing/rales/rhonchi Abdomen: Soft and nontender. Bowel sounds are present, no mass palpable, no CVA tenderness Skin: Skin warm and dry. Normal skin color. Normal skin turgor. Extremities: No lower extremity edema. No calf tenderness Neuro: Oriented X 3. No motor deficit. Medications Administered Discontinued Medications Generic Name Dose Route Start Last Admin Trade Name Freq PRN Reason Stop Dose Admin Lorazepam 1 mg 10/16/24 03:15 10/16/24 03:32 Lorazepam 1 Mg Tablet PO 10/16/24 03:16 1 mg ONCE ONE Administration Prochlorperazine Edisylate 10 mg 10/16/24 03:37 10/16/24 03:46 Prochlorperazine Edisylate 10 Mg/2 Ml Vial IM 10/16/24 03:38 10 mg ONCE ONE Administration Medical Decision Making Medical Decision Making MDM Narrative: Patient's opiate use disorder was not Suboxone still using drugs at this time patient calm and cooperative sleeping will follow up with detox today Discharge Plan Discharge Clinical Impression: Opioid use disorder Patient Disposition: Home, Self-Care Instructions: Opioid Use Disorder (ED) Additional Instructions: Stop using opiates and follow with detox as advised Prescriptions: No Action sucralfate [Carafate] 100 mg/mL suspension 10 ml PO QID Qty: 420 0RF Rx Instructions: swish in mouth and swallow; use after food/drink buprenorphine-naloxone [Suboxone] 12-3 mg film 1 film sublingual BID Qty: 14 0RF clonidine HCl 0.1 mg tablet 0.1 mg PO BEDTIME PRN (Reason: Anxiety) albuterol sulfate [Ventolin HFA] 90 mcg/actuation HFA aerosol inhaler 2 puff INHALATION Q6H PRN (Reason: wheezing) fluticasone propionate [Flonase] 50 mcg/actuation [place],Suspension 1 spray INTRANASAL DAILY Rx Instructions: administer into each nostril buprenorphine-naloxone [Suboxone] 12-3 mg film 15 mg sublingual BID omeprazole 20 mg capsule,delayed release(DR/EC) 20 mg PO DAILY Qty: 14 0RF naloxone [Narcan] 4 mg/actuation spray,non-aerosol 4 mg intranasal Q2M PRN (Reason: opioid overdose) Qty: 2 0RF Rx Instructions: spray 1 dose into ONE nostril; alternate nostrils w each dose until help arrives buprenorphine-naloxone [Suboxone] 8-2 mg film 1 film sublingual BID Qty: 10 0RF doxycycline hyclate 100 mg capsule 100 mg PO BID 10 Days Qty: 20 0RF cephalexin 500 mg tablet 500 mg PO Q6H 10 Days Qty: 40 0RF Print Language: [place]
[2024-10-16 06:00] VITALS: BP 119/80; PULSE 74; RESP 16; TEMP 36.8; O2SAT 97
[2024-10-16 06:33] VITALS: BP 119/80; PULSE 74; RESP 16; TEMP 36.8; O2SAT 97
--- NOTE | 2024-11-04 12:47 | MHC.RECOVRN ---
Pt accepted to [facility], transported via [facility].
== END 2024-10-16 06:33 | disposition home or self-care (01) ==
PROVIDERS: Emergency Provider Internal Medicine
DX: R11.2 Nausea with vomiting, unspecified (principal); F11.10 Opioid abuse, uncomplicated; F17.210 Nicotine dependence, cigarettes, uncomplicated; Z79.899 Other long term (current) drug therapy; Z71.51 Drug abuse counseling and surveillance of drug abuser
CPT/HCPCS: 99283; J0737

== ENCOUNTER 2024-11-04 07:00 | Emergency (ER) | payer MEDICAID, SELFPAY ==
[2024-11-04 07:13] VITALS: BP 128/83; BP 134/81; PULSE 84; RESP 16; TEMP 36.8; O2SAT 95; O2SAT 98; BMI 23.3
[2024-11-04 07:16] VITALS: BP 134/81; PULSE 84; RESP 16; TEMP 36.8; O2SAT 95
--- NOTE | 2024-11-04 07:23 | ED.GENADULT ---
[facility] - General Adult General Chief complaint: Nausea/Vomiting/Diarrhea Stated complaint: n/v/d since 8pm, not able to keep anything down Time Seen by Provider: 11/04/24 07:10 Source: patient Mode of arrival: ambulatory History of Present Illness ED Provider: Yue LITTLE narrative: 29-year-old male with history of asthma, denies alcohol use but states that he relapsed off of his Suboxone in used heroin yesterday morning, he began having upper abdominal discomfort with episodes of nausea and vomiting last night is unsure whether or not it may be related to food, states he began having small amounts of diarrhea at approximately 04:00 this morning. Also endorses cannabis use. Related Data Home Medications ?Medication ?Instructions ?Recorded ?Confirmed albuterol sulfate 90 mcg/actuation 2 puff inhalation Q6H PRN wheezing 02/04/23 02/04/23 aerosol inhaler (Ventolin HFA) buprenorphine 12 mg-naloxone 3 mg 15 mg sublingual BID 02/04/23 02/04/23 sublingual film (Suboxone) clonidine HCl 0.1 mg tablet 0.1 mg PO BEDTIME PRN Anxiety 02/04/23 02/04/23 fluticasone propionate 50 1 spray intranasal DAILY 02/04/23 02/04/23 mcg/actuation nasal spray,suspension Previous Rx's ?Medication ?Instructions ?Recorded sucralfate 100 mg/mL oral 10 ml PO QID #420 mL 08/23/21 suspension (Carafate) buprenorphine 8 mg-naloxone 2 mg 1 film sublingual BID #10 ea 03/18/23 sublingual film (Suboxone) naloxone 4 mg/actuation nasal 4 mg intranasal Q2M PRN opioid 03/18/23 spray (Narcan) overdose #2 ea omeprazole 20 mg capsule,delayed 20 mg PO DAILY #14 caps 03/18/23 release buprenorphine 12 mg-naloxone 3 mg 1 film sublingual BID #14 ea 04/19/23 sublingual film (Suboxone) cephalexin 500 mg tablet 500 mg PO Q6H 10 days #40 tabs 05/05/24 doxycycline hyclate 100 mg capsule 100 mg PO BID 10 days #20 caps 05/05/24 Allergies Allergy/AdvReac Type Severity Reaction Status Date / Time No Known Allergies Allergy Verified 11/04/24 07:15 Review of Systems Review of Systems: Pertinent positives and negatives as stated in HPI PMF Past Medical History Source: nursing notes reviewed Medical History ADHD Bipolar 1 disorder Allergic rhinitis Surgical History History of surgery Family History Family History Father Depression Asthma Mother Asthma Depression Migraine Brother No problems noted. Sister No problems noted. Son In good health Social History Social History Alcohol intake: current Alcohol intake frequency: a few times a month Alcohol type: hard liquor Patient Tobacco Use Status: Current everyday Tobacco user Cigarettes Per Day: 5 Smoked in Last 30 Days: Yes Use of substances other than those prescribed or required for medical reasons: Yes Substance Use Type: Opiates Substance Use Frequency Other:: Pt reports he quit 2 days ago Last Used Substance: Days (ago) Advance Directives: No Advance Directives Information Provided: Yes Do you have a plan to hurt others: No Plan Physical Exam ED Vital Signs: Vital Signs - 24 hr 11/04/24 07:13 11/04/24 07:16 Temperature 98.3 F 98.3 F Pulse Rate 84 84 Respiratory Rate 16 16 Blood Pressure 134/81 134/81 Pulse Oximetry 95 95 Oxygen Delivery Method Room Air Room Air BMI result Body Mass Index 23.3 VITAL SIGNS: Reviewed. GENERAL: Well developed, well nourished, in no acute distress. HEAD: Normocephalic/atraumatic EYES: PERRLA, EOMI EARS: Ext canals without abnormality NOSE: Nares patent bilateral OROPHARYNX: no oral lesions noted, posterior pharynx clear NECK: Supple, no adenopathy LUNGS: Normal breath sounds. No adventitious sounds or accessory muscle use. SpO2<95> CARDIOVASCULAR: Regular rate and rhythm without noted murmurs ABDOMEN: Soft, epigastric discomfort, non-distended with bowel sounds. MUSCULOSKELETAL: No tenderness, deformities, or effusions noted on gross inspection. EXTREMITIES: No cyanosis, clubbing or edema. SKIN: Inspection of the skin reveals no rashes NEUROLOGIC: Alert and oriented x 4. Strength and sensation to light touch were grossly intact x 4. Medications Administered Discontinued Medications Generic Name Dose Route Start Last Admin Trade Name Freq PRN Reason Stop Dose Admin Methadone HCl 35 mg 11/04/24 09:36 11/04/24 09:58 Methadone Hcl 20 Mg/2 Ml Oral.Conc PO 11/04/24 09:37 35 mg ONCE ONE Administration Ondansetron HCl 4 mg 11/04/24 07:19 11/04/24 07:30 Ondansetron Odt 4 Mg Tab.Rapdis TRANSLINGU 11/04/24 07:20 4 mg ONCE ONE Administration Ondansetron HCl 4 mg 11/04/24 09:36 11/04/24 09:42 Ondansetron Odt 4 Mg Tab.Rapdis TRANSLINGU 11/04/24 09:37 4 mg ONCE ONE Administration Medical Decision Making Medical Decision Making MDM Narrative: 07: 29-year-old male with history and clinical presentation, DD DX: Gastroenteritis, hyperemesis cannabis, pancreatitis, no clinical suspicion at this time for acute appendicitis or acute cholecystitis. PLAN: CBC, CMP, lipase, Zofran ODT, reassess Patient otherwise stable, cows-11, on review of patient's home medications it does appear that he received a prescription for Suboxone t.i.d. /2 on 10/27. Will offer patient Suboxone and place in addiction medicine consultation as it does not appear that he has interfaced with our addiction medicine team despite having been seen here on 10/16. 0906: I reviewed interpreted all investigations and there is no evidence of infectious leukocytosis, anemia, or thrombocytopenia. There is no demonstrate COLTEN/electrolyte or liver enzyme derangements. He is otherwise tolerating oral intake. I did communicate with addiction medicine who will evaluate and see the patient at this time. 0930: Addiction medicine evaluated the patient and reports that patient does not want to continue with Suboxone and instead wants to switch to methadone and attend the [facility]. The plan is to get nausea under control and provide patient with 35 mg of methadone here in the emergency room today and addiction medicine will refer the patient to the [facility] clinic and we will provide the patient with a last given dose of methadone letter. Differential Diagnosis Differential Diagnoses: The differential diagnosis associated with the presentation includes See above Admission/Observation Consideration of admission/observation: Escalation of care including admission/observation considered Patient does not meet inpatient level of care Lab Data 11/04/24 07:47 11/04/24 07:47 Labs: Lab Results 11/04/24 Range/Units 07:47 WBC 9.4 (4.8-10.8) X10*3/uL RBC 4.87 (4.60-5.80) X10*6/uL Hgb 15.1 (14.0-18.0) g/dl Hct 44.5 (42.0-52.0) % MCV 91.4 (80.0-98.0) fL MCH 31.0 (27.0-33.0) pg MCHC 33.9 (31.0-36.0) g/dl RDW 13.2 (11.0-16.0) % Plt Count 327 (160-400) X10*3/uL MPV 9.9 (9.4-12.4) fL Immature Gran % (Auto) 0.3 (0.0-0.4) % Neut % (Auto) 62.6 (45-73) % Lymph % (Auto) 15.8 L (20-40) % [place]rell % (Auto) 8.5 (2-11) % Eos % (Auto) 11.9 H (0-4) % Baso % (Auto) 0.9 (0-2) % Lymph # (Auto) 1.5 (1.2-4.9) X10*3/uL [place] # (Auto) 0.8 (0.1-1.2) X10*3/uL Eos # (Auto) 1.1 H (0.0-0.4) X10*3/uL Baso # (Auto) 0.1 (0.0-0.2) X10*3/uL Abs Immat Gran (auto) 0.03 (0.00-0.03) X10*3/uL Absolute Neuts (auto) 5.9 (2.0-8.3) x10*3/uL Absolute Nucleated RBC 0.000 (0.0-0.012) X10*3/uL Nucleated RBC % (auto) 0.0 (0.0-0.2) /100WBC Sodium 143 (135-145) mmol/L Potassium 4.1 (3.3-5.1) mmol/L Chloride 110 H (96-108) mmol/L Carbon Dioxide 26 (22-29) mmol/L Anion Gap 11 L (12-20) BUN 9 (9-16) mg/dL Creatinine 0.77 (0.5-1.4) mg/dL Estim Creat Clear Calc 127.7 Estimated GFR > 60 Random Glucose 97 (60-115) mg/dL Calcium 9.8 (8.4-10.2) mg/dL Total Bilirubin 0.5 (0.0-1.0) mg/dL AST 33 (5-37) U/L ALT 15 (0-40) U/L Total Protein 8.2 H (6.5-8.0) g/dL Albumin 4.3 (3.5-5.0) g/dL Lipase 38 (8-78) U/L Discharge Plan Discharge Clinical Impression: Opioid use disorder, Opiate withdrawal Patient Disposition: Home, Self-Care Instructions: Polysubstance Abuse (ED), Opioid Withdrawal (ED) Additional Instructions: You have been given a referral to [facility] as requested by you. You have received 1st dose of methadone in the emergency room and will be provided with the necessary letter when you present to [facility] tomorrow. Do not hesitate to return to the emergency room for any acute worsening of your symptoms. Prescriptions: No Action sucralfate [Carafate] 100 mg/mL suspension 10 ml PO QID Qty: 420 0RF Rx Instructions: swish in mouth and swallow; use after food/drink buprenorphine-naloxone [Suboxone] 12-3 mg film 1 film sublingual BID Qty: 14 0RF clonidine HCl 0.1 mg tablet 0.1 mg PO BEDTIME PRN (Reason: Anxiety) albuterol sulfate [Ventolin HFA] 90 mcg/actuation HFA aerosol inhaler 2 puff INHALATION Q6H PRN (Reason: wheezing) fluticasone propionate [Flonase] 50 mcg/actuation [place],Suspension 1 spray INTRANASAL DAILY Rx Instructions: administer into each nostril buprenorphine-naloxone [Suboxone] 12-3 mg film 15 mg sublingual BID omeprazole 20 mg capsule,delayed release(DR/EC) 20 mg PO DAILY Qty: 14 0RF naloxone [Narcan] 4 mg/actuation spray,non-aerosol 4 mg intranasal Q2M PRN (Reason: opioid overdose) Qty: 2 0RF Rx Instructions: spray 1 dose into ONE nostril; alternate nostrils w each dose until help arrives buprenorphine-naloxone [Suboxone] 8-2 mg film 1 film sublingual BID Qty: 10 0RF doxycycline hyclate 100 mg capsule 100 mg PO BID 10 Days Qty: 20 0RF cephalexin 500 mg tablet 500 mg PO Q6H 10 Days Qty: 40 0RF Referrals: Giulia Huff MD [Primary Care Provider] - Print Language: Marshallese
[2024-11-04] MEDS: Ondansetron ODT 4 MG TAB.RAPDIS TRANSLINGU ×2 (07:30→09:42)
--- OUTSIDE RECORDS SUMMARY | 2024-11-04 07:42 | XMS_ITS | Encounter Summary ---
Author Organization [employer] Address [address] [place] [address] Care Team Providers Care Spring Fitter Name Role Phone Giulia Huff MD Primary Care Provider + Sukhdeep Lane Unavailable Unavailable Temitope Lane RN Unavailable [phone] Encounter Details Date Type Department Care Team (Latest Contact Info) Description 10/13/2024 9:30 AM EST Clinical Support [facility] [address] [place] [address] Tracie Martin, NEERAJ Uncomplicated opioid dependence (CMS/HCC) Social History Tobacco Use Types Packs/Day Years Used Date Smoking Tobacco: Every Day Cigarettes Smokeless Tobacco: Never Alcohol Use Standard Drinks/Week Comments Not Currently 0 (1 standard drink = 0.6 oz pur e alcohol) oca Depression Answer Date Recorded Patient Health Questionnaire-9 Score 11 04/15/2024 Patient Health Questionnaire-9 Score 11 04/15/2024 Last PHQ-9: Questionnaire Data Not on file 0 04/15/2024 Housing Stability Answer Date Recorded What is your housing situation today? I have jamil winters 03/11/[address] you li ve. Do you have problems with any of the following? None of the above 03/11/2024 Food Insecurity Answer Date Recorded Within the past 12 months, y ou worried that your food would run out before you got money to buy more: Never True 07/24/2023 Within the past 12 months,th e food you bought just didn't last and you didn't have enough money to get more: Never True Transportation Answer Date Recorded In the past 12 months, has l ack of transportation kept you from medical appts, meetings, work or from getting things needed for daily living? No 07/24/2023 Utilities Answer Date Recorded In the past 12 months, has t he electric, gas, oil or water company threatened to shut off services in your home? No 07/24/2023 Depression Answer Date Recorded Patient Health Questionnaire-2 Score 4 04/15/2024 Sex and Gender Information Value Date Recorded Sex Assigned at Male 08/06/2022 10:39 AM EDT Legal Sex Male 10:39 AM EDT Gender Identity Male 08/06/2022 10:39 AM EDT Sexual Orientation Straight 08/06/2022 10 :39 AM EDT documented as of this encounter Progress Notes * Tracie Martin RN - 10/13/2024 9:30 AM EST Patient on current Suboxone dose of 24/6 mg Followed by Tracie Martin RN/[facility] Induction date: 07/26/23. LFTs done: 05/04/24 Behavioral health therapist: Magno Coleman Coach: Johnathon Dover LAST VISIT 09/29/24 F/U for opioid use disorder Utox CHAN, OPI, FEN, THC Returns to program for first time since July. States his primary goal is to stop using heroin. Started using ~ 2 months ago, now ~ 2 bundles a day. Snorts or smokes. Only snorts cocaine. No hx of IVDU. States has Narcan and FEN test strips. Does not want anymore. States has taking clonidine in the past without problems. This has included taking some from someone who had a Rx. Left his house a few days ago. Spending a lot of time on the street but has place to stay. Feels down. States no S.I., 'I would never do that' Recently to [facility] and will stop by today. Has been to Saturday 12 step support group. Declines seeing a team therapist. Maybe Detox post New Years, not now. WD symptoms diarrhe, vomiting, feeling terrible with chills. Use heroin this morning. As above. Welcomed back and reminded that we will provide as much support as he wants. Considering Detox post New Years. Declines Narcan and FEN test strips. Precipitated WD reviewed in detail. Rxed clonidine, imodium, and zofran. Reviwed possible ADRs withattention to clonidine, States he will stop by [place]. Rx 24/, prior dose. F/U 1 week. Cocaine use As above. Safe use reviewed. Continue to discuss. Tobacco use disorder Review at future visit. Diagnoses and all orders for this visit: Uncomplicated opioid dependence (CMS/[facility]) Cocaine use Tobacco use disorder TODAY 10/13/24 Luis presented today for OBAT RN IN PERSON VISIT for Opioid Use Disorder. He reported last heroin use was last night and he is expressing an interest in changing from suboxone treatment to methadonetreatment. rhythmic gymnastics coach Chano went to the [facility] methadone clinic across [facility] and obtained the hours for methadone intakes so patient can follow up. PLAN: Suboxone dosing schedule of 24 mg daily and management of side effects reviewed. Recovery support, harm reduction (including Narcan), and behavioral health attendance reviewed. Pt going to methadone for intake on . Patient expressed understanding and agreement with continuing plan of care. This information has been disclosed to you from records protected by federal confidentiality rules (42 CFR Part 2). The federal rules prohibit you from making any further disclosure of information inthis record that identifies a patient as having or having had a substance use disorder either directly, by reference to publicly available information, or through verification of such identification by another person unless further disclosure is expressly permitted by the written consent of the individual whose information is being disclosed or as otherwise permitted by (see2.3.1). The federal rules restrict any use of the information to investigate or prosecute with regard to a crime any patient with a substance use disorder, except as provided at 2.12??(5) and 2.65. documented in this encounter Plan of Treatment Upcoming Encounters Date Type Department Care Team (Late st Contact Info) Description 11/10/2024 10:15 AM EST Clinical Support [facility] [address] [place] [address] Tracie Martin RN documented as of this encounter Visit Diagnoses Diagnosis Uncomplicated opioid dependence (CMS/HCC) documented in this encounter Additional Health Concerns Assessment Noted Time PHQ-9 Depression Total Score: 11 024 11:00 AM EDT documented as of this encounter Care Teams Spring Fitter Relationship Specialty Start Date End Date Giulia Huff MD [address] [place] [address] PCP - General Internal Medicine 03/23/[address] Community Health Worker 05/18/[address], NEERAJ [address] [place] [phone] Housing Quality Standard Inspector 05/18/24 documented as of this encounter
--- OUTSIDE RECORDS SUMMARY | 2024-11-04 07:42 | XMS_ITS | Encounter Summary ---
Author Organization [employer] Address [address] [place] [address] Care Team Providers Care Preflight Mechanic Name Role Phone Giulia Huff MD Primary Care Provider + Sukhdeep Lane Unavailable Unavailable Temitope Lane RN Unavailable [phone] Reason for Visit * Reason Onset Date Comments Med Refill 10/12/2024 Encounter Details Date Type Department Care Team (Late st Contact Info) Description 10/12/2024 Refill [facility] [address] [place] [address] Tracie Martin, NEERAJ Opioid dependence, uncomplicated (CMS/HCC) Social History Tobacco Use Types Packs/Day [...] AM EDT documented as of this encounter Plan of Treatment Upcoming Encounters Date Type Department Care Team (Late st Contact Info) Description 11/10/2024 10:15 AM EST Clinical Support [facility] [address] [place] [phone] Tracie Martin RN documented as of this encounter Visit Diagnoses Diagnosis Opioid dependence, uncomplicated (CMS/HCC) documented in this encounter Additional Health Concerns Assessment Noted Time PHQ-9 Depression Total Score: 11 024 11:00 AM EDT documented as of this encounter Care Teams Preflight Mechanic Relationship Specialty Start Date End Date Giulia Huff MD [address] [place] [id number] PCP - General Internal Medicine 03/23/[address] Community Health Worker 05/18/[address], NEERAJ [address] [place] [phone] Import Customer Service Manager 05/18/24 documented as of this encounter
--- OUTSIDE RECORDS SUMMARY | 2024-11-04 07:43 | XMS_ITS | Encounter Summary ---
Author Organization [employer] Address [address] [facility] [address] [facility] [address] [place] [address] Care Team Providers Care Frontload Driver Name Role Phone Giulia Huff MD Primary Care Provider + Sukhdeep Lane Unavailable Unavailable Temitope Lane RN Unavailable [phone] Reason for Visit * Reason Comments Recovery Supports Encounter Details Date Type Department Care Team ([facility] st Contact Info) Description 10/27/2024 Patient Outreach [facility] [address] [place] [address] Johnathon Dover Recovery Supports Social History Tobacco Use Types Packs/Day Years [...] as of this encounter Progress Notes * Johnathon Dover - 10/27/2024 11:40 AM EST I met with Luis today. Setting: in person at [facility] Recovery Wellness Goals worked on: Social Stability Action taken/next steps: Offered person centered recovery support, Assisted with relapse prevention planning, and Referred to sober living Additional comments: I spoke with Luis and mentioned that he had contacted me about joining a recovery program. I then spoke with the clinician, Olimpia, for an assessment in order to make a referral to [facility]. Johnathon Dover documented in this encounter Plan of Treatment Upcoming Encounters Date Type Department Care Team (Late st Contact Info) Description 11/10/2024 10:15 AM EST Clinical Support [facility] [address] [place] [phone] Tracie Martin RN documented as of this encounter Visit Diagnoses Not on filedocumented in this encounter Additional Health Concerns Assessment Noted Time PHQ-9 Depression Total Score: 11 024 11:00 AM EDT documented as of this encounter Care Teams Frontload Driver Relationship Specialty Start Date End Date Giulia Huff MD [address] [place] [id number] PCP - General Internal Medicine 03/23/[address] Community Health Worker 05/18/[address] RN [address] [place] [phone] Security Rep 05/18/24 documented as of this encounter
--- OUTSIDE RECORDS SUMMARY | 2024-11-04 07:43 | XMS_ITS | Encounter Summary ---
Author Organization [employer] Address [address] [facility] 7t [place] [address] Care Team Providers Care Advanced Practice Psychiatric Nurse Name Role Phone Giulia Huff MD Primary Care Provider + Sukhdeep Lane Unavailable Unavailable Temitope Lane RN Unavailable Encounter Details Date Type Department Care Team (Late st Contact Info) Description 10/15/2024 Orders Only GENERIC EXTERNAL DATA DEPARTMENT Provider, Generic External Data Social History Tobacco Use Types Packs/Day Years [...] Description 11/10/2024 10:15 AM EST Clinical Support [facility] [address] [place] [address] Tracie Martin RN documented as of this encounter Procedures Procedure Name Priority Date/Time Associated Diagnosis Comments SARS COV2/INFLUENZA A/B AND RSV RNA QL NAAT Routine 10/15/2024 7:16 AM EST DRUG MONITOR, PANEL 1, SCREEN, URINE Routine 10/15/2024 4:08 AM EST ETHANOL Routine 10/15/2024 4:07 AM EST CBC WITH AUTO DIFFERENTIAL Routine 10/15/2024 4:07 AM EST URINALYSIS WITH REFLEX MICROSCOPIC Routine 10/15/2024 4:07 AM EST MAGNESIUM Routine 10/15/2024 4:07 AM EST LIPASE Routine 10/15/2024 4:07 AM EST COMPREHENSIVE METABOLIC PANEL Routine 10/15/2024 4:07 AM EST documented in this encounter Results * SARS-CoV-2 RNA, Influenza A/B, and RSV RNA, Ql NAAT (10/15/2024 7:16 AM EST) Influenza A PCR NEGATIVE Negative [facility] Influenza B PCR NEGATIVE Negative [facility] Resp Syncy Virus RNA Qual PCR NEGATIVE Negative [facility] SARS COV2 PCR NEGATIVE Negative [facility] Comment:All test results mus t be correlated with clinical findings.Negative results do not preclude SARS-CoV2, influenza Avirus, influenza B virus and/or RSV infectionand should not be used as the sole basis for treatment orother patient management decisions. Negative results must becombined with clinical observations, patient history, andepidemiological information.This test has not been evaluated for monitoring treatment ofinfection.This test has been authorized by the FDA under an EmergencyUse Authorization (EUA) for use by authorized laboratories.Testing performed on the [employer] GeneXpert utilizingreal-time RT-PCR.All SARS CoV2 and positive influenza A/B results arereported to [facility]. 10/15/2024 7:16 AM EST 10/15/2024 7:18 AM EST Generic External Data Provider LAB MICROBIOLOGY - GENERAL ORDERABLES Final Result [facility] [address] [place] [phone] * (ABNORMAL) Drug Monitoring, Panel 1, Screen, Urine (10/15/2024 4:08 AM EST) Opiate Screen Urine POSITIVE(A) Not Detect [facility] Comment:Opiate cut-off is 30 0 ng/mL.Positive results are unconfirmed and should not be used fornon-medical purposes. Barbiturates, Urine Not Detected Not Detect [facility] Comment:Barbiturate cut-off is 200 ng/mL.Positive results are unconfirmed and should not be used fornon-medical purposes. Phencyclidine Screen Urine Not Detected Not Detect [facility] Comment:Phencyclidine cut-of f is 25 ng/mL.Positive results are unconfirmed and should not be used fornon-medical purposes. Amphetamine Screen Urine Not Detected Not Detect [facility] Comment:Amphetamine cut-off is 1000 ng/mL.Positive results are unconfirmed and should not be used fornon-medical purposes. Benzodiazepines Screen Urine Not Detected Not Detect [facility] Comment:Benzodiazepine cut-o ff is 200 ng/mL.Positive results are unconfirmed and should not be used fornon-medical purposes. Cocaine Screen Urine POSITIVE(A) Not Detect [facility] Comment:Cocaine cut-off is 3 00 ng/mL.Positive results are unconfirmed and should not be used fornon-medical purposes. Cannabinoid Screen Urine POSITIVE(A) Not Detect [facility] Comment:Cannabinoid cut-off is 50 ng/mL.Positive results are unconfirmed and should not be used fornon-medical purposes. Methadone Screen, Urine Not Detected Not Detect ng/mL [facility] Comment:Methadone cut-off is 300 ng/mL.Positive results are unconfirmed and should not be used fornon-medical purposes. FENTANYL URINE POSITIVE(A) Not Detect [facility] Comment:Fentanyl cut-off is 1 ng/mL.Positive results are unconfirmed and should not be used fornon-medical purposes. Oxycodone Urine Screen Not Detected Not Detect ng/mL [facility] Comment:Oxycodone cut-off is 100 ng/mL.Positive results are unconfirmed and should not be used fornon-medical purposes. Buprenorphine Screen Not Detected Not Detect ng/mL [facility] Comment:Buprenorphine cut-of f is 5 ng/mL.Positive results are unconfirmed and should not be used fornon-medical purposes. 10/15/2024 4:08 AM EST 10/15/2024 4:12 AM EST Generic External Data Provider LAB URINE ORDERAB LES Final Result Performing Organization Address [facility] Co de Phone Number [facility] [address] [place] [phone] * Magnesium (10/15/2024 4:07 AM EST) Magnesium 2.1 1.6 - 2.6 mg/dL [facility] 10/15/2024 4:07 AM EST 10/15/2024 4:12 AM EST Generic External Data Provider LAB BLOOD ORDERAB LES Final Result Performing Organization Address [facility]/ZIP Co de Phone Number [facility] [address] [place] [address] [phone] * Ethanol (10/15/2024 4:07 AM EST) Pathologist [facility] ETHANOL (MG/DL) IN SER/PLAS <10 mg/dL [facility] Comment:Serum/plasma ethanol results are to be used formedical/treatment purposes only. 10/15/2024 4:07 AM EST 10/15/2024 4:12 AM EST Generic External Data Provider LAB BLOOD ORDERAB LES Final Result Performing Organization Address [facility] Co de Phone Number [facility] [address] [place] [phone] * (ABNORMAL) Lipase (10/15/2024 4:07 AM EST) Pathologist [facility] Lipase 79(H) 8 - 78 U/L [facility] 10/15/2024 4:07 AM EST 10/15/2024 4:12 AM EST Generic External Data Provider LAB BLOOD ORDERAB LES Final Result Performing Organization Address [facility] Co de Phone Number [facility] [address] [place] [phone] * (ABNORMAL) Comprehensive Metabolic Panel (10/15/2024 4:07 AM EST) Pathologist [facility] Sodium 144 135 - 145 mmol/L [facility] Potassium 4.0 3.3 - 5.1 mmol/L [facility] Chloride 111(H) 96 - 108 mmol/L [facility] Carbon Dioxide 23 22 - 29 mmol/L [facility] Anion Gap 14 12 - 20 [facility] Urea Nitrogen (BUN) 13 9 - 16 mg/dL [facility] Creatinine, Serum 0.76 0.5 - 1.4 mg/dL [facility] Creatinine Clr Calc Pharmacy 149.4 [facility] Comment:eGFR (calculated fro m the MDRD study equation) and eCrCl(calculated from the Cockcroft-Gault equation) are based ondifferent parameters and may not yield comparable results.If eCrCl result is absurd, please check patient'sheight/weight. Estimated Glomerular Filt Rate >60 [facility] Comment:Chronic Kidney Disea se: Estimated GFR < 60 mL/min/1.53w3Syhhrm Kidney Disease: Estimated GFR < 15 mL/min/1.73m2 Glucose 108 60 - 115 mg/dL [facility] Calcium 9.6 8.4 - 10.2 mg/dL [facility] Bilirubin, Total 0.3 0.0 - 1.0 mg/dL [facility] Aspartate Amino Transferase 35 5 - 37 U/L [facility] Alanine Aminotransferase 11 0 - 40 U/L [facility] Total Protein 7.8 6.5 - 8.0 g/dL [facility] Albumin Level 4.2 3.5 - 5.0 g/dL [facility] Alkaline Phosphatase 66 39 - 117 U/L [facility] 10/15/2024 4:07 AM EST 10/15/2024 4:12 AM EST us Generic External Data Provider LAB BLOOD ORDERAB LES Final Result [facility] [address] [place] [phone] * (ABNORMAL) CBC auto differential (10/15/2024 4:07 AM EST) White Blood Count 8.2 4.8 - 10.8 X10*3/uL [facility] Red Blood Count 4.80 4.60 - 5.80 X10*6/uL [facility] Hemoglobin 14.7 14.0 - 18.0 g/dl [facility] Hematocrit 42.8 42.0 - 52.0 % [facility] Mean Corpuscular Volume 89.2 80.0 - 98.0 fL [facility] Mean Corpuscular Hemoglobin 30.6 27.0 - 33.0 pg [facility] Mean Corpuscular HGB Conc 34.3 31.0 - 36.0 g/dl [facility] Red Cell Distribution Width 12.8 11.0 - 16.0 % [facility] Platelet Count 323 160 - 400 X10*3/uL [facility] Mean Platelet Volume 10.0 9.4 - 12.4 fL [facility] Neutrophils Percent Auto 60.6 45 - 73 % [facility] Imm Gran Pct Auto 0.2 0.0 - 0.4 % [facility] Lymphocytes Percent Auto 21.2 20 - 40 % [facility] Monocytes Percent Auto 8.6 2 - 11 % [facility] Eosinophils Percent Auto 8.3(H) 0 - 4 % [facility] Basophils Percent Auto 1.1 0 - 2 % [facility] NRBC Pct Auto 0.0 0.0 - 0.2 /100WBC [facility] Neutrophils Absolute Auto 5.0 2.0 - 8.3 x10*3/uL [facility] Imm Gran Abs Auto 0.02 0.00 - 0.03 X10*3/uL [facility] Lymphocytes Absolute Auto 1.7 1.2 - 4.9 X10*3/uL [facility] Monocytes Absolute Auto 0.7 0.1 - 1.2 X10*3/uL [facility] Eosinophils Absolute Auto 0.7(H) 0.0 - 0.4 X10*3/uL [facility] Basophils Absolute Auto 0.1 0.0 - 0.2 X10*3/uL [facility] NRBC Abs Auto 0.000 0.0 - 0.012 X10*3/uL [facility] 10/15/2024 4:07 AM EST 10/15/2024 4:12 AM EST us Generic External Data Provider LAB BLOOD ORDERAB LES Final Result [facility] [address] [place] [phone] * (ABNORMAL) Urinalysis w/reflex microscopic (10/15/2024 4:07 AM EST) Color Urine Yellow [facility] Appearance Urine Turbid [facility] PH 8.5 5.0 - 9.0 [facility] Glucose Urine UA Negative Negative mg/dL [facility] Urine Blood Negative Negative [facility] Specific Salley - Urine >=1.030(H) 1.005 - 1.025 [facility] Urine Protein Trace Neg-Trace mg/dL [facility] Urine Ketones Trace Negative mg/dL [facility] Nitrite Urine Negative Negative [facility] Leukocyte Esterase Urine Negative Negative [facility] 10/15/2024 4:07 AM EST 10/15/2024 4:12 AM EST Narrative [facility] - 10/15/2024 4:16 AM EST Urine, Clean Catch us Generic External Data Provider LAB URINE ORDERAB LES Final Result [facility] [address] [place] [phone] documented in this encounter Visit Diagnoses Not on filedocumented in this encounter Additional Health Concerns Assessment Noted Time PHQ-9 Depression Total Score: 11 024 11:00 AM EDT documented as of this encounter Care Teams Advanced Practice Psychiatric Nurse Relationship Specialty Start Date End Date Giulia Huff MD [address] [place] [address] PCP - General Internal Medicine 03/23/[address] Community Health Worker 05/18/[address], NEERAJ [address] [place] [phone] Automotive Sales Executive 05/18/24 documented as of this encounter
--- OUTSIDE RECORDS SUMMARY | 2024-11-04 07:43 | XMS_ITS | Encounter Summary ---
Author Organization [employer] Address [address] [facility] 7t [place] [address] Care Team Providers Care Assistant Professor Of Art Name Role Phone Giulia Huff MD Primary Care Provider + Sukhdeep Lane Unavailable Unavailable Temitope Lane RN Unavailable [phone] Encounter Details Date Type Department Care Team ([facility] st Contact Info) Description 10/22/2024 Orders Only [facility] [address] [place] [address] Tracie Martin, NEERAJ Social History Tobacco Use Types Packs/Day Years [...] Description 11/10/2024 10:15 AM EST Clinical Support [facility] [address] [place] [phone] Tracie Martin RN documented as of this encounter Visit Diagnoses Not on filedocumented in this encounter Additional Health Concerns Assessment Noted Time PHQ-9 Depression Total Score: 11 024 11:00 AM EDT documented as of this encounter Care Teams Assistant Professor Of Art Relationship Specialty Start Date End Date Giulia Huff MD [address] [place] [phone] PCP - General Internal Medicine 03/23/[address] Community Health Worker 05/18/[address], NEERAJ [address] [place] [phone] Auto Adjudication Specialist 05/18/24 documented as of this encounter
--- OUTSIDE RECORDS SUMMARY | 2024-11-04 07:43 | XMS_ITS | Encounter Summary ---
Author Organization [employer] Address [address] [facility] 7t [place] [address] Care Team Providers Care Mainframe Systems Programmer Name Role Phone Giulia Huff MD Primary Care Provider + Sukhdeep Lane Unavailable Unavailable Temitope Lane RN Unavailable [phone] Reason for Visit * Reason Comments [facility] Recovery Supports Encounter Details Date Type Department Care Team (Late st Contact Info) Description 10/27/2024 Patient Outreach [facility] [address] [place] [address] Chano Whiting [address] [place] [address] [facility] Recovery Supports Social History Tobacco Use Types [...] as of this encounter Progress Notes * Chano Whiting - 10/27/2024 11:43 AM EST I met with Luis today. Setting: in person at [facility] Recovery Wellness Goals worked on: Social Stability Action taken/next steps: Offered person centered recovery support, Assisted with relapse prevention planning, Attended alcohol and drug free activity, and Supported spiritual needs Additional comments: Today, I briefly spoke with Luis, who told me that he is doing well since leaving [facility]. He thanked his higher power for his sobriety and mentioned that he only smoked THC for one day after leaving [facility]. I congratulated Luis on his achievements and encouraged him to manage his marijuana use, which he said he would quit and remain sober on his new path toward healthy sobriety. Additionally, the patient was offered two pairs of socks as he was wearing sneakers and had coldfeet, along with foot warmers. Chano Whiting documented in this encounter Plan of Treatment Upcoming Encounters Date Type Department Care Team (Late st Contact Info) Description 11/10/2024 10:15 AM EST Clinical Support [facility] [address] [place] [phone] Tracie Martin RN documented as of this encounter Visit Diagnoses Not on filedocumented in this encounter Additional Health Concerns Assessment Noted Time PHQ-9 Depression Total Score: 11 024 11:00 AM EDT documented as of this encounter Care Teams Mainframe Systems Programmer Relationship Specialty Start Date End Date Giulia Huff MD [address] [place] [phone] PCP - General Internal Medicine 03/23/[address] Community Health Worker 05/18/[address] RN [address] [place] [phone] Publicity Consultant 05/18/24 documented as of this encounter
--- OUTSIDE RECORDS SUMMARY | 2024-11-04 07:43 | XMS_ITS | Encounter Summary ---
Author Organization [employer] Address [address] [facility] 7t [place] [address] Care Team Providers Care Cardiopulmonary Technician Name Role Phone Giulia Huff MD Primary Care Provider + Sukhdeep Lane Unavailable Unavailable Temitope Lane RN Unavailable [phone] Encounter Details Date Type Department Care Team (Latest Contact Info) Description 10/27/2024 Travel Social History Tobacco Use Types Packs/Day Years [...] Description 11/10/2024 10:15 AM EST Clinical Support [facility] [address] [place] [address] Tracie Martin RN documented as of this encounter Visit Diagnoses Not on filedocumented in this encounter Additional Health Concerns Assessment Noted Time PHQ-9 Depression Total Score: 11 024 11:00 AM EDT documented as of this encounter Care Teams Cardiopulmonary Technician Relationship Specialty Start Date End Date Giulia Huff MD [address] [place] [address] PCP - General Internal Medicine 03/23/[address] Community Health Worker 05/18/[address], RN [address] [place] [phone] Donor Relations Coordinator 05/18/24 documented as of this encounter
--- OUTSIDE RECORDS SUMMARY | 2024-11-04 07:43 | XMS_ITS | Encounter Summary ---
Author Organization [employer] Address [address] [facility] 7t [place] [address] Care Team Providers Care Water Treatment Technician Name Role Phone Giulia Huff MD Primary Care Provider + Sukhdeep Lane Unavailable Unavailable Temitope Lane RN Unavailable [phone] Reason for Visit * Reason Comments Recovery Supports Encounter Details Date Type Department Care Team ([facility] st Contact Info) Description 10/08/[address] [facility] [address] [place] [address] Nino Lopez Recovery Supports Social History Tobacco Use Types [...] as of this encounter Progress Notes * Nino Lopez - 10/08/2024 3:30 PM EST I met with Luis booker. Setting: in person at [facility] Recovery Wellness Goals worked on: Social Stability Action taken/next steps: Attended alcohol and drug free activity Additional comments: Nino Lopez documented in this encounter Plan of Treatment Upcoming Encounters Date Type Department Care Team (Late st Contact Info) Description 11/10/2024 10:15 AM EST Clinical Support [facility] [address] [place] [address] Tracie Martin RN documented as of this encounter Visit Diagnoses Not on filedocumented in this encounter Additional Health Concerns Assessment Noted Time PHQ-9 Depression Total Score: 11 024 11:00 AM EDT documented as of this encounter Care Teams Water Treatment Technician Relationship Specialty Start Date End Date Giulia Huff MD [address] [place] [address] PCP - General Internal Medicine 03/23/[address] Community Health Worker 05/18/[address] RN [address] [place] [phone] Market Sales Manager 05/18/24 documented as of this encounter
--- OUTSIDE RECORDS SUMMARY | 2024-11-04 07:43 | XMS_ITS | Encounter Summary ---
Author Organization [employer] Address [address] [facility] 7t [place] [address] Care Team Providers Care Documentation Improvement Specialist Name Role Phone Giulia Huff MD Primary Care Provider + Sukhdeep Lane Unavailable Unavailable Temitope Lane RN Unavailable [phone] Encounter Details Date Type Department Care Team (Latest Contact Info) Description 10/27/2024 9:30 AM EST Office Visit [facility] [address] [place] [address] Jerry Flowers MD [address] [place] [address] Uncomplicated opioid dependence (CMS/HCC) (Primary Dx); Cocaine use; Tobacco use disorder; Opioid dependence, uncomplicated (CMS/HCC) Social History Tobacco [...] as of this encounter Progress Notes * Jerry Flowers MD - 10/27/2024 9:30 AM EST Patient ID: Patient on current Suboxone dose of 24/6 mg Followed by Tracie Martin RN/Dr. [facility] Induction date: 07/26/23. LFTs done: 05/04/24 Behavioral health therapist: [employer] Sales Manager: Johnathon Dover 10/13/24 Luis presented today for OBAT RN IN PERSON VISIT for Opioid Use Disorder. He reported last heroin use was last night and he is expressing an interest in changing from suboxone treatment to methadonetreatment. golf coach Chano went to the [facility] methadone clinic across [facility] and obtained the hours for methadone intakes so patient can follow up. 10/16/24-accepted to [facility] 10/22/24 Luis returned to [facility] following his discharge from [facility] detox. He needed a suboxone rx which was provided to cover till his next appt with Dr. Flowers. He also requested something for dental pain until he is able to get a dental appt. He said that [facility] was handling it. Director Product Management noted a note in his chart that a telephone attempt was made by the dental dept at [facility] to Luis and they a LVM. Writercalled the dental appt and was able to secure him an appt on , 10/29/24 at 1:[address] Gallardo sent him an rx for Motrin for dental pain. Today 10/27/24 F/U for opioid use disorder States cannot void. Out of Detox last it helped. However, they were only giving him 2/0.5 TID. Rodeo WD symptoms in the evening. Feels he still needs 24/6. Did not experience any adverse effects. No alcohol or substance use. Knows he want use heroin though cannot guarantee he won't use cocaine. Smoking less THC. Sometimes buys from the dispensary, sometimes on the street. Staying with different people. Currently, not living with his girlfriend. Would like Narcan and FEN test strips. Declines meeting with a addictions recovery specialist or therapist. He will come to today's support group. His supports are in the streets. Smoking ~ 3 cigarettes daily. Mood is ok. Objective Physical Exam Constitutional: Appearance: Normal appearance. Neurological: Mental Status: He is alert and oriented to person, place, and time. Psychiatric: Mood and Affect: Mood normal. Behavior: Behavior normal. Thought Content: Thought content normal. Assessment/Plan Uncomplicated opioid dependence (CMS/HCC) States cannot void. Out of Detox last it helped. However, they were only giving him 2/0.5 TID. Rodeo WD symptoms in the evening. Feels he still needs 24/6. Previously, he did not experience any adverse effects. No alcohol or substance use. Knows he won't use heroin though cannot guarantee he won't use cocaine. Smoking less THC. Sometimes buys from the dispensary, sometimes on the street. Staying with different people. Currently, not living with his girlfriend. Would like Narcan and FEN test strips. Declines meeting with a addictions recovery specialist or therapist. He will come to today's support group. Reports that his supports are in the streets. Mood is ok. As above. Doing 'ok' post detox. Reports no substance use other than THC (less) or alcohol. Safe use reviewed. Dispensed FEN test strips and narcan. Says he will attend today's support group. Suboxone 24/6 daily, previously not ADRs and none now. Reminded of the support available in [facility]. Declined BH/addictions recovery specialist. F/U 1 week. Cocaine use As above. Safe use reviewed. Continue to discuss. Tobacco use disorder As above. Continue to review. Diagnoses and all orders for this visit: Uncomplicated opioid dependence (CMS/HCC) Cocaine use Tobacco use disorder This information has been disclosed to you from records protected by federal confidentiality rules(42 CFR Part 2). The federal rules prohibit you from making any further disclosure of information in this record that identifies a patient as having or having had a substance use disorder either directly, by reference to publicly available information, or through verification of such identificationby another person unless further disclosure is expressly permitted by the written consent of the individual whose information is being disclosed or as otherwise permitted by (see 2.3.1). The federal rules restrict any use of the information to investigate or prosecute with regard to a crime any patient with a substance use disorder, except as provided at 2.12??(5) and 2.65. documented in this encounter Plan of Treatment Upcoming Encounters Date Type Department Care Team (Late st Contact Info) Description 11/10/2024 10:15 AM EST Clinical Support [facility] [address] [place] [address] Tracie Martin RN documented as of this encounter Visit Diagnoses Diagnosis Uncomplicated opioid dependence (CMS/HCC)- Primary Cocaine use Tobacco use disorder Opioid dependence, uncomplicated (CMS/HCC) documented in this encounter Additional Health Concerns Assessment Noted Time PHQ-9 Depression Total Score: 11 024 11:00 AM EDT documented as of this encounter Care Teams Documentation Improvement Specialist Relationship Specialty Start Date End Date Giulia Huff MD [address] [place] [address] PCP - General Internal Medicine 03/23/[address] Community Health Worker 05/18/[address] RN [address] [place] [id number] Newspaper Subscription Solicitor 05/18/24 documented as of this encounter
--- OUTSIDE RECORDS SUMMARY | 2024-11-04 07:43 | XMS_ITS | Encounter Summary ---
Author Organization [employer] Address [address] [facility] 7t [place] [address] Care Team Providers Care Manager Music Name Role Phone Giulia Huff MD Primary Care Provider + Sukhdeep Lane Unavailable Unavailable Temitope Lane RN Unavailable [phone] Reason for Visit * Reason Comments RC Outreach/No Answer Encounter Details Date Type Department Care Team ([facility] st Contact Info) Description 10/15/2024 Patient Outreach [facility] [address] [place] [address] David Woods [address] [place] [address] RC Outreach/No Answer Social History Tobacco Use Types Packs/Day Years [...] as of this encounter Progress Notes * David Woods - 10/15/2024 11:39 AM EST I did a wellness check on Luis. I could not make contact but I could confirm he has been staying in the hotel room. documented in this encounter Plan of Treatment Upcoming Encounters Date Type Department Care Team (Late st Contact Info) Description 11/10/2024 10:15 AM EST Clinical Support [facility] [address] [place] [address] Tracie Martin RN documented as of this encounter Visit Diagnoses Not on filedocumented in this encounter Additional Health Concerns Assessment Noted Time PHQ-9 Depression Total Score: 11 024 11:00 AM EDT documented as of this encounter Care Teams Manager Music Relationship Specialty Start Date End Date Giulia Huff MD [address] [place] [address] PCP - General Internal Medicine 03/23/[address] Community Health Worker 05/18/[address] RN [address] [place] [address] Cost Accounting Manager 05/18/24 documented as of this encounter
--- OUTSIDE RECORDS SUMMARY | 2024-11-04 07:43 | XMS_ITS | Encounter Summary ---
Author Organization [employer] Address [address] [facility] 7t [place] [address] Care Team Providers Care Shoemaking Finisher Name Role Phone Giulia Huff MD Primary Care Provider + Sukhdeep Lane Unavailable Unavailable Temitope Lane RN Unavailable [phone] Reason for Visit * Reason Comments Recovery Supports Encounter Details Date Type Department Care Team ([facility] st Contact Info) Description 10/05/2024 Patient Outreach [facility] [address] [place] [address] Nino Lopez Recovery Supports Social History Tobacco [...] encounter Progress Notes * Nino Lopez - 10/05/2024 11:59 PM EST I met with Luis booker. Setting: in person at [facility] Recovery Wellness Goals worked on: Social Stability and Spiritual Wellness Action taken/next steps: Attended recovery support group, Offered person centered recovery support, Attended alcohol and drug free activity, and Supported spiritual needs Aditional comments: Attended 12-step support group focused on introducing Steps 1, 2, and 3, and discussing their application in our recovery journey. Nino Lopez documented in this encounter Plan of Treatment Upcoming Encounters Date Type Department Care Team (Late st Contact Info) Description 11/10/2024 10:15 AM EST Clinical Support [facility] [address] [place] [id number] Tracie Martin RN documented as of this encounter Visit Diagnoses Not on filedocumented in this encounter Additional Health Concerns Assessment Noted Time PHQ-9 Depression Total Score: 11 024 11:00 AM EDT documented as of this encounter Care Teams Shoemaking Finisher Relationship Specialty Start Date End Date Giulia Huff MD [address] [place] [address] PCP - General Internal Medicine 03/23/[address] Community Health Worker 05/18/[address] RN [address] [place] [phone] Robotics Testing Technician 05/18/24 documented as of this encounter
--- OUTSIDE RECORDS SUMMARY | 2024-11-04 07:43 | XMS_ITS | Encounter Summary ---
Author Organization [employer] Address [address] [facility] 7t [place] [address] Care Team Providers Care Cannery Worker Name Role Phone Giulia Huff MD Primary Care Provider + Sukhdeep Lnae Unavailable Unavailable Temitope Lane RN Unavailable [phone] Encounter Details Date Type Department Care Team (Latest Contact Info) Description 10/13/2024 Travel Social History Tobacco Use Types Packs/Day [...] 11/10/2024 10:15 AM EST Clinical Support [facility] [address] [place] [address] Tracie Martin RN documented as of this encounter Visit Diagnoses Not on filedocumented in this encounter Additional Health Concerns Assessment Noted Time PHQ-9 Depression Total Score: 11 024 11:00 AM EDT documented as of this encounter Care Teams Cannery Worker Relationship Specialty Start Date End Date Giulia Huff MD [address] [place] [address] PCP - General Internal Medicine 03/23/[address] Community Health Worker 05/18/[address], RN [address] [place] [phone] Curriculum Manager 05/18/24 documented as of this encounter
--- OUTSIDE RECORDS SUMMARY | 2024-11-04 07:43 | XMS_ITS | Encounter Summary ---
Author Organization [employer] Address [address] [facility] 7 [place] [address] Care Team Providers Care Electromechanical Equipment Assembler Name Role Phone Giulia Huff MD Primary Care Provider + Sukhdeep Lane Unavailable Unavailable Temitope Lane RN Unavailable [phone] Reason for Visit * Reason Comments RC Recovery Supports Encounter Details Date Type Department Care Team ([facility] st Contact Info) Description 2024 Patient Outreach [facility] [address] [place] [address] David Woods [address] [place] [address] RC Recovery Supports Social History Tobacco Use [...] encounter Progress Notes * David Woods - 2024 3:58 PM EST I met with Luis booker. Setting: in person at [facility] Recovery Wellness Goals worked on: Physical Health/Mental Health, Social Stability, and Spiritual Wellness Action taken/next steps: Attended recovery support group Additional comments: Attended 12-step support group focused on introducing Steps 1, 2, and 3, and discussing their application in our recovery journey. David Woods documented in this encounter Plan of Treatment Upcoming Encounters Date Type Department Care Team (Late st Contact Info) Description 11/10/2024 10:15 AM EST Clinical Support [facility] [address] [place] [address] Tracie Martin RN documented as of this encounter Visit Diagnoses Not on filedocumented in this encounter Additional Health Concerns Assessment Noted Time PHQ-9 Depression Total Score: 11 024 11:00 AM EDT documented as of this encounter Care Teams Electromechanical Equipment Assembler Relationship Specialty Start Date End Date Giulia Huff MD [address] [place] [address] PCP - General Internal Medicine 03/23/[address] Community Health Worker 05/18/[address] RN [address] [place] [address] WALLY Borges [phone] Hand Cementer 05/18/24 documented as of this encounter
--- OUTSIDE RECORDS SUMMARY | 2024-11-04 07:43 | XMS_ITS | Encounter Summary ---
Author Organization [employer] Address [address] [facility] 7t [place] [address] Care Team Providers Care Regular Senior Care Provider Name Role Phone Giulia Huff MD Primary Care Provider + Sukhdeep Lane Unavailable Unavailable Temitope Lane RN Unavailable [phone] Reason for Visit * Reason Comments RC Recovery Supports Encounter Details Date Type Department Care Team (Late st Contact Info) Description 10/29/2024 Patient Outreach [facility] [address] [place] [address] Chano Whiting [address] [place] [address] Recovery Supports Social History Tobacco Use Types [...] of this encounter Progress Notes * Chano Henok - 10/29/2024 3:08 PM EST I met with Luis today. Setting: in person at [facility] Recovery Wellness Goals worked on: Social Stability and Spiritual Wellness Action taken/next steps: Offered person centered recovery support, Assisted with relapse prevention planning, and Supported spiritual needs Additional comments: Chano Whiting documented in this encounter Plan of Treatment Upcoming Encounters Date Type Department Care Team (Late st Contact Info) Description 11/10/2024 10:15 AM EST Clinical Support [facility]ICINE [address] [place] [phone] Tracie Martin RN documented as of this encounter Visit Diagnoses Not on filedocumented in this encounter Additional Health Concerns Assessment Noted Time PHQ-9 Depression Total Score: 11 024 11:00 AM EDT documented as of this encounter Care Teams Regular Senior Care Provider Relationship Specialty Start Date End Date Giulia Huff MD [address] [place] [address] PCP - General Internal Medicine 03/23/[address] Community Health Worker 05/18/[address], NEERAJ [address] [place] [phone] Rn Integrated 05/18/24 documented as of this encounter
--- OUTSIDE RECORDS SUMMARY | 2024-11-04 07:43 | XMS_ITS | Clinical Summary ---
Author Organization [employer] Address [address] [facility] [address] [place] [address] Care Team Providers Care Entry Level Buyer Name Role Phone Giulia Huff MD Primary Care Provider + Sukhdeep Lane Unavailable Unavailable Temitope Lane RN Unavailable Allergies No known active allergies Medications * This document contains information received from the source organization and may not represent a complete record from that organization. fluticasone (Flonase Allergy Relief) 50 MCG/ACT nasal spray Administer 1 spray into each nostril in the morning. Shake gently. Before first use, prime pump. After use, clean tip and replace cap. 16 g 12 023 Active nicotine (Nicoderm CQ) 14 MG/24HR patch Place 1 patch on the skin 1 (one) time each day at the same time. 42 patch 024 Active nicotine (Nicoderm CQ) 7 MG/24HR patch Place 1 patch on the skin 1 (one) time each day at the same time. 14 patch 024 Active varenicline (Chantix) 0.5 MG tabletIndicatio ns:Tobacco use disorder 1 pill PO daily x 3 days, then 1 pill PO BID. Start 1 week before quit date. Take with full glass of water. 11 tablet 024 Active varenicline (Chantix) 1 MG tabletIndicatio ns:Tobacco use disorder Take 1 tablet (1 mg) by mouth 2 times daily. Take with full glass of water. 60 tablet 2 024 Active doxycycline (Vibramycin) 100 MG capsule Take 100 mg by mouth 2 times daily. 05/06/2 024 Active omeprazole (PriLOSEC) [address] capsule Take 20 mg by mouth Once per day. Active predniSONE (Deltasone) 20 MG tablet TAKE 3 TABLETS BY MOUTH EVERY DAY FOR 3 DAYS, THEN 2 TABLETS DAILY FOR 3 DAYS, THEN 1 TABLET DAILY FOR 3 DAYS Active Ventolin HFA 108 (90 Base) MCG/ACT inhalerIndicati ons:Mild intermittent asthma without complication INHALE 2 PUFFS BY MOUTH EVERY 6 HOURS NEEDED FOR WHEEZING 18 g 3 Active QUEtiapine (SEROquel) 50 MG tablet Take 1 tablet (50 mg) by mouth 2 times daily. 60 tablet 11 024 2024 Active apixaban (Eliquis) 5 MG tablet Take 1 tablet (5 mg) by mouth 2 times daily. 60 tablet 3 Active nicotine polacrilex (Nicorelief) 2 MG gum 1 or 2 lozenges PO q 1-2 hours instead of a cigarette. Allow to slowly dissolve. 60 each 1 Active loperamide (Imodium A-D) 2 MG tabletIndicatio ns:Uncomplicate d opioid dependence (CMS/HCC) 2 tablets PO initially, then 1 tablet PO q4h hours prn diarrhea. 15 tablet 024 Active ondansetron (Zofran) 4 MG tabletIndicatio ns:Uncomplicate d opioid dependence (CMS/HCC) 1 tablet PO q 8-12 hours prn nausea or vomiting. 6 tablet 024 Active cloNIDine (Catapres) 0.1 MG tabletIndicatio ns:Uncomplicate d opioid dependence (CMS/HCC) 1 tablet PO q 8-12 hours prn withdrawal. Stop if causes lightheadedness or dizziness. 6 tablet 024 Active Buprenorphine HCl-Naloxone HCl (Suboxone) 8-2 MG SL filmIndications :Uncomplicated opioid dependence (CMS/HCC) Place 1 Film under the tongue 3 times daily for 7 days. 21 Film 025 Active Buprenorphine HCl-Naloxone HCl (Suboxone) 8-2 MG SL filmIndications :Opioid dependence, uncomplicated (CMS/HCC) Place 1 Film under the tongue 3 times daily for 21 days. 21 Film 024 2024 Discontinued(R eorder (will not trigger notification to Pharmacy)) Buprenorphine HCl-Naloxone HCl (Suboxone) 8-2 MG SL filmIndications :Opioid dependence, uncomplicated (CMS/HCC) Place 1 Film under the tongue 3 times daily for 21 days. 21 Film 025 2024 Discontinued(R eorder (will not trigger notification to Pharmacy)) Buprenorphine HCl-Naloxone HCl (Suboxone) 8-2 MG SL filmIndications :Opioid dependence, uncomplicated (CMS/HCC) Place 1 Film under the tongue 3 times daily for 6 days. 16 Film 025 2024 Discontinued(D uplicate order (will not trigger notification to Pharmacy)) Buprenorphine HCl-Naloxone HCl (Suboxone) 8-2 MG SL filmIndications :Uncomplicated opioid dependence (CMS/HCC) Place 1 Film under the tongue 3 times daily for 7 days. 21 Film 025 2024 Discontinued(R eorder (will not trigger notification to Pharmacy)) Active Problems Problem Noted Date Diagnosed Date High liver transaminase level 04/23/2024 Assessment & Plan (04/23/2024 8:37 AM EDT): Improving from previous one at hospitalization, Hepatitis profile is NEG, advised to get Iz's but declined today. Will fu at upcoming visits. Order fu LFTs in Lower urinary tract symptoms (LUTS) 04/22/2024 Assessment & Plan (04/23/2024 8:32 AM EDT): Ro STD, order labs and fu results. Will order PSA when infection is ro'd, may need urology referral after labs Multiple subsegmental pulmon jamin emboli without acute cor pulmonale 03/23/2024 Overview (03/23/2024): During episode of Covid infection CTA chest on 03/01/24 at [facility] [place]: LLL PE Rx Eliquis Assessment & Plan (03/23/2024 12:21 PM EDT): Probably as a result of covid infection. On Eliquis until at least 08/2024 Advised to quit smoking COVID 03/23/2024 Assessment & Plan (03/23/2024 12:23 PM EDT): Resolved, sp Remdesevir + Decadron Will need Covid booster in the fall. Accidental overdose 03/23/2024 Assessment & Plan (03/23/2024 12:36 PM EDT): Triggered by unhelathy response to stress, we have discussed re avoid street drugs, reach out for safety on early signs of distress, he will continue coming to [facility] and meet with horse riding coach or instructor. He has Narcan at home Continue suboxone Active substance abuse 03/04/2024 Admitted to substance misuse detoxification cent er 03/04/2024 Allergic rhinitis 03/04/2024 Annual physical exam 03/04/2024 Narcotic withdrawal 03/04/2024 Nausea & vomiting 03/04/2024 Upper respiratory tract infection 03/04/2024 Mild intermittent asthma without complication Assessment & Plan (03/23/2024 12:20 PM EDT): Controlled. Advised to quit smoking Use albuterol inh prn only Bipolar disorder, in partial remission, most recent episode depressed 08/01/2023 Assessment & Plan (04/23/2024 8:35 AM EDT): Doing well on Seroquel 50mg bid, will send refills for the next 3m, he agreed to medboxes to help with compliance and med reminders. Seen by specialist , needs referral to a prescriber for further eval and rx. He's safe at home and is bale to contract for safety, avoids recreational substances . Assessment & Plan (03/23/2024 12:33 PM EDT): Refer again to , he's not seeing a counselor now (previously referred to [facility] therapy). We discuss about early warning s/s anxiety/lack of control and how to reach out for safety, crisis and suicide line number given. Continue Seroquel 50mg bid, will start a mood stabilizer after labs are done. Assessment & Plan (08/28/2023 11:42 AM EST): Assessment: Patient presents with bipolar symptoms. No risk for self-harm, SI, HI. Reason for visit was to follow up and provide support. Symptoms are present in the context of not taking his psych medications, stress relationship with mother of his daughter, starting a new job that is not meeting his financial expectations and stress about his legal situation with probation and ankle bracelet. Provided space for him to vent and encouraged him to continue using coping skills that are effective. Luis was already referred to [facility] Psych[facility] and is on the waiting list. Needs a new patient appt at [facility] in order to start been seen at [facility] Psych[facility]ology. At this time Luis Schmidt meets criteria for Visit Diagnoses: Problem List Items Addressed This Visit Other Opioid dependence, uncomplicated (CMS/HCC) Bipolar disorder, unspecified (CMS/HCC) Patient ready to address current needs Yes Strengths include Luis is in action stage of change and has been keeping up with [facility] for his intake. PLAN: 1. Follow up with [facility]: Recommended for follow-up: during OBAT appt 2. Patient goal is improve mental health and remained sober 3. Behavioral Recommendations a. Ind. Therapy with [facility] b. Use of effective coping skills c. IB contact for support Assessment & Plan (08/06/2023 12:23 PM EDT): Assessment: Patient presents with bipolar symptoms. No risk for self-harm, SI, HI. Reason for visit was to follow up and provide support. Symptoms are present in the context of not taking his psych medications, stress relationship with mother of his daughter. Provided space for him to vent and encouraged him to continue using coping skills that better fit him to cope with symptoms. Luis was already referred to [facility] and is on the waiting list. Needs a new patient appt at [facility] in order to start been seen at [facility] Psych[facility]armacology. At this time Luis Schmidt meets criteria for Visit Diagnoses: Problem List Items Addressed This Visit Other Opioid dependence, uncomplicated (CMS/HCC) Bipolar disorder, unspecified (CMS/HCC) Patient ready to address current needs Yes Strengths include Luis in in Maintenance stage on his sobriety and is in action stage in regards his mental health goal. PLAN: 1. Follow up with [facility]: Recommended for follow-up: during OBAT appt 2. Patient goal is to improve mental health and maintain sobriety. 3. Behavioral Recommendations a. [facility] follow up b. Ind. Therapy, referral has been submitted to [facility] for Op therapy services c. Use of coping skills provided as recommended Assessment & Plan (08/01/2023 3:02 PM EDT): Patient presents with mixed of bipolar, anxiety and depressive symptoms. No risk for self-harm, SI, HI. Reason for visit was to assess symptoms and provide support to patient and connect him with services. Symptoms are present in the context of not been ema to find a job due to hx of incarceration, unstable with mental health treatment. Provided Psychoeducation about the benefit of engaging in Medication Management and around anxiety, depressive coping skills for him to learn how to cope with symptoms. Referral for therapy/ med management was made. At this time Luis Schmidt meets criteria for Visit Diagnoses: Problem List Items Addressed This Visit Other Opioid dependence, uncomplicated (CMS/HCC) Bipolar disorder, unspecified (CMS/HCC) Patient ready to address current needs Yes Strengths include willing to engage in treatment PLAN: 1. Follow up with [facility]: Recommended for follow-up: during OBAT appt 2. Patient goal is improve mental health, maintain sobriety 3. Behavioral Recommendations a. Ind. Therapy, referral submitted b. Medication Management, referral submitted c. Use of coping skills provided d. [facility] contact number for support Attention deficit hyperactivity disorder 022 Assessment & Plan (04/23/2024 8:33 AM EDT): He's doing better on Seroquel low dose which probably helps as mood stabilizer. Needs to see a prescriber for further eval of ADHD rx if needed. Assessment & Plan (03/23/2024 12:24 PM EDT): Has lack of impulse control, I will refer to psychotherapy and a prescriber. Continue on Seroquel low dose for now for anxiety control. We discussed re early warning sxs of anxiety and reach out to either horse riding coach or instructor, his GF, crisis. Opioid dependence, uncomplicated 09/04/2022 Assessment & Plan (04/23/2024 8:34 AM EDT): Doing well on suboxone, he will fu with his provider. D/w patient re avoid street substances. Has narcan at home, he's able to reach out for safety. Assessment & Plan (03/23/2024 12:30 PM EDT): Doing well on suboxone, had a recently POS urine tox of fentanyl which is probably present on street benzos or THC. D/w patient re avoid street substances, he can get THC at a cannabis dispensary or try to cut down when he starts seeing a counselor. Has narcan at home, he's able to reach out for safety. Tobacco dependence syndrome 09/04/2022 Assessment & Plan (03/23/2024 12:30 PM EDT): Advised to quit, I will fu with him at next appt. Encounters * This document contains information received from the source organization and may not represent a complete record from that organization. Date Type Department Care Team Description 2024 Patient Outreach [address] [address] David Woods [facility] 10/30/2024 Patient Outreach [address] [address] Johnathon Dover Recovery [facility] 10/29/2024 Patient Outreach [address] [address] Chano Whiting [facility] 10/28/[address] [address] Tracie Martin RN Uncomplicated opioid dependence (CMS/HCC) 10/27/2024 9:30 AM EST Office Visit [address] [address] Jerry Flowers MD Uncomplicated opioid dependence (CMS/HCC) (Primary Dx); Cocaine use; Tobacco use disorder; Opioid dependence, uncomplicated (CMS/HCC) 10/27/2024 Patient Outreach [address] [address] Chano Whiting [facility] 10/27/2024 Patient Outreach [facility] [address], [place] [address] Johnathon Dover [facility] 10/27/2024 Travel 10/22/2024 Telephone [facility] [address], [place] [address] Tracie Martin, NEERAJ 10/22/2024 Orders Only [facility] [address], [place] [address] Tracie Martin, RN 10/22/2024 Refill [facility] [address], [place] [address] Tracie Martin, RN Opioid dependence, uncomplicated ([facility]) 10/22/2024 Telephone [facility] AD[facility] DENT[facility] [address], [place] [address] Johnathon Godwin DDS 10/16/2024 Patient Outreach [facility] [address], [place] [address] Johnathon Dover [facility] 10/15/2024 Patient Outreach [facility] [address], [place] [address] David Woods Outreach/No Answer 10/15/2024 Orders Only GENERIC EXTERNAL DATA DEPARTMENT Provider, Generic External Data 10/13/2024 9:30 AM EST Clinical Support [facility] [address], [place] [address] Tracie Martin, RN Uncomplicated opioid dependence (CMS/HCC) 10/13/2024 Patient Outreach [facility] [address], [place] [address] David Woods [facility] 10/13/2024 Patient Outreach [facility] [address], [place] [address] Chano Whiting [facility] 10/13/2024 Travel 10/12/2024 Refill [facility] [address], [place] [address] Tracie Martin, RN Opioid dependence, uncomplicated (CMS/HCC) 10/09/2024 Patient Outreach [facility] [address], [place] [address] Abhishek Joaquin RC Recovery Supports 10/08/2024 Patient Outreach [facility] [address] [place], [place] [address] Nino Lopez Recovery Supports 10/05/2024 Patient Outreach [facility] [address] [place] [address] Nino Lopez Recovery Supports 10/02/2024 Patient Outreach [address] [address] David Woods RC Recovery Supports 10/02/2024 Patient Outreach [facility] [address] [place] [address] Nino Lopez Recovery Supports 10/01/[address] [address] Tracie Martin RN Opioid dependence, uncomplicated ([facility]/HCC) 09/29/2024 9:00 AM EST Office Visit [facility] [address] [place] [phone] Jerry Flowers MD Uncomplicated opioid dependence ([facility]) (Primary Dx); Cocaine use; Tobacco use disorder 09/29/2024 Patient Outreach [facility] [address] [place] [address] Chano Whiting [facility] Supp[facility] 09/29/2024 Travel 09/28/2024 Telephone [facility] [address] [place] [phone] Tracie Martin RN 09/28/[address] [address] Tracie Martin RN Opioid dependence, uncomplicated ([facility]/HCC) 09/28/2024 Patient Outreach [address] [address] Chano Whiting [facility] 09/23/2024 Telephone [facility] [address] [place] [address] Giulia Huff MD 09/23/2024 Telephone [facility] [address] [place] [address] Giulia Huff MD 08/24/2024 Telephone [facility] [address] [place] [address] Yue Vera 08/18/2024 Telephone [facility] [address] [place] [address] Tracie Martin RN 08/10/2024 Patient Outreach [address] [address] David Woods Error (VOID this visit) 08/07/2024 Patient Outreach [address] [address] Abhishek Joaquin 08/05/2024 Telephone [facility] [address] [place] [address] Giulia Huff MD 08/04/2024 Patient Outreach [address] [id number] Johnathon Dover from Last 3 Months Immunizations Name Administration Dates Next Due Pfizer Covid-19 Vaccine 12+ 10/03/2021 Tdap 08/12/2016 Social History Tobacco Use Types Packs/Day Years Used Date Smoking Tobacco: Every Day Cigarettes Smokeless Tobacco: Never Tobacco Cessation:Ready to Q uit: Not Asked; Counseling Given: Not Answered Alcohol Use Standard Drinks/Week Comments Not Currently [...] Orientation Straight 08/06/2022 10 :39 AM EDT Last Filed Vital Signs Vital Sign Reading Time Taken Comments Blood Pressure 101/72 09/29/2024 10:22 AM EST Pulse 76 04/22/2024 11:43 AM EDT Temperature 36.6 ??C (97.9 ??F) 04/22/2024 11:43 AM E DT Respiratory Rate 12 03/23/2024 10:55 AM EDT Oxygen Saturation 100% 04/22/2024 11:43 AM EDT Inhaled Oxygen Concentration - - Weight 66.9 kg (147 lb 8 oz) 04/22/2024 11:43 AM EDT Height 167.6 cm (5' 6 ) 04/22/2024 11:43 AM EDT Body Mass Index 23.81 04/22/2024 11:43 AM EDT Plan of Treatment Upcoming Encounters Date Type Department Care Team (Late st Contact Info) Description 11/10/2024 10:15 AM EST Clinical Support [address] [address] Tracie Martin, RN Health Maintenance Due Date Last Done Comments Lipid Panel 1995 Pneumococcal Vaccine: Pediatrics (0 to 5 Years) and At-Risk Patients (6 to 49) Years) (1 of 2 - PCV) 2001 Family Planning (PISQ) 2010 Hepatitis A Vaccines (1 of 2 - Risk 2-dose series) 2014 Hepatitis B Vaccines (1 of 3 - 19+ 3-dose series) 2014 COVID-19 Vaccine (3 - 2023-2 5 season) 2024 01/31/2022, 10/03/2021 Influenza Vaccine (#1) 2024 Depression Monitoring (PHQ-9) 10/16/2024, 04/15/2024 Dental Oral Exam 11/21/2024 05/20/2024 Dental Prophylaxis 11/21/2024 05/20/2024 SDOH Screening 03/11/2025 03/11/2024 Depression Screening 04/15/2025 04/15/2024, 04/15/2024 Tobacco Screening 05/20/2025 05/20/2024 Dental X-Ray: Bitewings 05/21/2025 05/20/2024 Alcohol/Substance Use Screening 05/27/2025 05/27/2024 DTaP/Tdap/Td Vaccines (2 - T d or Tdap) 08/12/2026 08/12/2016 Dental X-Ray: Full Mouth 05/21/2027 05/20/2024 Zoster Vaccines (1 of 2) 2045 RSV Patients and Patients Aged 60 years or older (1 - 1-dose 75+ series) 2070 HIV Screening Completed 03/26/2024, 11/12/2023, 11/07/2021 Hepatitis C Screening Completed 03/26/2024 , 11/12/2023, 11/07/2021 HIB Vaccines Aged Out No longer eligi ble based on patient's age to complete this topic HPV Vaccines Aged Out No longer eligi ble based on patient's age to complete this topic IPV Vaccines Aged Out No longer eligi ble based on patient's age to complete this topic Meningococcal Vaccine Aged Out No george tara eligible based on patient's age to complete this topic RSV under 20 months Aged Out No longe r eligible based on patient's age to complete this topic Rotavirus Vaccines Aged Out No longer eligible based on patient's age to complete this topic Procedures Procedure Name Priority Date/Time Associated Diagnosis Comments SARS COV2/INFLUENZA A/B AND RSV RNA QL NAAT Routine 10/15/2024 7:16 AM EST DRUG MONITOR, PANEL 1, SCREEN, URINE Routine 10/15/2024 4:08 AM EST MAGNESIUM Routine 10/15/2024 4:07 AM EST ETHANOL Routine 10/15/2024 4:07 AM EST LIPASE Routine 10/15/2024 4:07 AM EST COMPREHENSIVE METABOLIC PANEL Routine 10/15/2024 4:07 AM EST CBC WITH AUTO DIFFERENTIAL Routine 10/15/2024 4:07 AM EST URINALYSIS WITH REFLEX MICROSCOPIC Routine 10/15/2024 4:07 AM EST POCT MARY ANNE-14 URINE DRUG SCREEN Routine 09/29/2024 10:04 AM EST Uncomplicated opioid dependence (CMS/HCC) Full PROPHYLAXIS - ADULT Routine 05/20/2024 1:00 PM EDT DIAGNOSTIC - DIAGNOSTIC IMAGING - INTRAORAL - COMPREHENSIVE SERIES OF RADIOGRAPHIC IMAGES Routine 05/20/2024 1:00 PM EDT PERIODIC ORAL EVALUATION - ESTABLISHED PATIENT Routine 05/20/2024 1:00 PM EDT HEPATITIS PANEL, GENERAL Routine 03/26/2024 12:00 PM EDT Opioid dependence, uncomplicated (CMS/HCC) HIV 1/2 ANTIGEN/ANTIBODY, FOURTH GENERATION W/RFL Routine 03/26/2024 12:00 PM EDT Opioid dependence, uncomplicated (CMS/HCC) from Last 3 Months or Most Recently Relevant to Health Maintenance Results * SARS-CoV-2 RNA, Influenza A/B, and RSV RNA, Ql NAAT (10/15/2024 7:16 AM EST) Influenza A PCR NEGATIVE Negative [facility] Influenza B PCR NEGATIVE Negative [facility] Resp Syncy Virus RNA Qual PCR NEGATIVE Negative [facility] SARS COV2 PCR NEGATIVE Negative [facility] Comment:All test results mus t [...] use by authorized laboratories.Testing performed on the [employer] GeneXpert utilizingreal-time RT-PCR.All SARS CoV2 and positive influenza A/B results arereported to [facility]. 10/15/2024 7:16 AM EST 10/15/2024 7:18 AM EST us Generic External Data Provider LAB MICROBIOLOGY - GENERAL ORDERABLES Final Result [facility] [address] [place] [address] [phone] * (ABNORMAL) Drug Monitoring, Panel 1, Screen, Urine (10/15/2024 4:08 AM EST) Opiate Screen Urine POSITIVE(A) Not Detect [facility] Comment:Opiate cut-off is 30 0 ng/mL.Positive results are unconfirmed and should not be used fornon-medical purposes. Barbiturates, Urine Not Detected Not Detect [facility] Comment:Barbiturate cut-off is 200 ng/mL.Positive results are unconfirmed and should not be used fornon-medical purposes. Phencyclidine Screen Urine Not Detected Not Detect [facility] Comment:Phencyclidine cut-of f is 25 ng/mL.Positive results are unconfirmed and should not be used fornon-medical purposes. Amphetamine Screen Urine Not Detected Not Detect [facility] Comment:Amphetamine cut-off is 1000 ng/mL.Positive results are unconfirmed and should not be used fornon-medical purposes. Benzodiazepines Screen Urine Not Detected Not Detect [facility] Comment:Benzodiazepine cut-o ff is 200 ng/mL.Positive results are unconfirmed and should not be used fornon-medical purposes. Cocaine Screen Urine POSITIVE(A) Not Detect [facility] Comment:Cocaine cut-off is 3 00 ng/mL.Positive results are unconfirmed and should not be used fornon-medical purposes. Cannabinoid Screen Urine POSITIVE(A) Not Detect [facility] Comment:Cannabinoid cut-off is 50 ng/mL.Positive results are unconfirmed and should not be used fornon-medical purposes. Methadone Screen, Urine Not Detected Not Detect ng/mL [facility] Comment:Methadone cut-off is 300 ng/mL.Positive results are unconfirmed and should not be used fornon-medical purposes. FENTANYL URINE POSITIVE(A) Not Detect [facility] Comment:Fentanyl cut-off is 1 ng/mL.Positive results are unconfirmed and should not be used fornon-medical purposes. Oxycodone Urine Screen Not Detected Not Detect ng/mL [facility] Comment:Oxycodone cut-off is 100 ng/mL.Positive results are unconfirmed and should not be used fornon-medical purposes. Buprenorphine Screen Not Detected Not Detect ng/mL [facility] Comment:Buprenorphine cut-of f is 5 ng/mL.Positive results are unconfirmed and should not be used fornon-medical purposes. 10/15/2024 4:08 AM EST 10/15/2024 4:12 AM EST Generic External Data Provider LAB URINE ORDERAB LES Final Result Performing Organization Address [facility]/ZIP Co de Phone Number [facility] [address] [place] [phone] * Ethanol (10/15/2024 4:07 AM EST) ETHANOL (MG/DL) IN SER/PLAS <10 mg/dL [facility] Comment:Serum/plasma ethanol results are to be used formedical/treatment purposes only. 10/15/2024 4:07 AM EST 10/15/2024 4:12 AM EST Generic External Data Provider LAB BLOOD ORDERAB LES Final Result Performing Organization Address [facility] Co de Phone Number [facility] [address] [place] [phone] * (ABNORMAL) CBC auto differential (10/15/2024 4:07 AM EST) White Blood Count 8.2 4.8 - 10.8 X10*3/uL [facility] Red Blood Count 4.80 4.60 - 5.80 X10*6/uL [facility] Hemoglobin 14.7 14.0 - 18.0 g/dl [facility] Hematocrit 42.8 42.0 - 52.0 % [facility] Mean Corpuscular Volume 89.2 80.0 - 98.0 fL [facility] Mean Corpuscular Hemoglobin 30.6 27.0 - 33.0 pg [facility] Mean Corpuscular HGB Conc 34.3 31.0 - 36.0 g/dl [facility] Red Cell Distribution Width 12.8 11.0 - 16.0 % [facility] Platelet Count 323 160 - 400 X10*3/uL [facility] Mean Platelet Volume 10.0 9.4 - 12.4 fL [facility] Neutrophils Percent Auto 60.6 45 - 73 % [facility] Imm Gran Pct Auto 0.2 0.0 - 0.4 % [facility] Lymphocytes Percent Auto 21.2 20 - 40 % [facility] Monocytes Percent Auto 8.6 2 - 11 % [facility] Eosinophils Percent Auto 8.3(H) 0 - 4 % [facility] Basophils Percent Auto 1.1 0 - 2 % [facility] NRBC Pct Auto 0.0 0.0 - 0.2 /100WBC [facility] Neutrophils Absolute Auto 5.0 2.0 - 8.3 x10*3/uL [facility] Imm Gran Abs Auto 0.02 0.00 - 0.03 X10*3/uL [facility] Lymphocytes Absolute Auto 1.7 1.2 - 4.9 X10*3/uL [facility] Monocytes Absolute Auto 0.7 0.1 - 1.2 X10*3/uL [facility] Eosinophils Absolute Auto 0.7(H) 0.0 - 0.4 X10*3/uL [facility] Basophils Absolute Auto 0.1 0.0 - 0.2 X10*3/uL [facility] NRBC Abs Auto 0.000 0.0 - 0.012 X10*3/uL [facility] 10/15/2024 4:07 AM EST 10/15/2024 4:12 AM EST Generic External Data Provider LAB BLOOD ORDERAB LES Final Result Performing Organization Address [facility] Co de Phone Number [facility] [address] [place] [phone] * (ABNORMAL) Urinalysis w/reflex microscopic (10/15/2024 4:07 AM EST) Color Urine Yellow [facility] Appearance Urine Turbid [facility] PH 8.5 5.0 - 9.0 [facility] Glucose Urine UA Negative Negative mg/dL [facility] Urine Blood Negative Negative [facility] Specific [place] - Urine >=1.030(H) 1.005 - 1.025 [facility] Urine Protein Trace Neg-Trace mg/dL [facility] Urine Ketones Trace Negative mg/dL [facility] Nitrite Urine Negative Negative [facility] Leukocyte Esterase Urine Negative Negative [facility] 10/15/2024 4:07 AM EST 10/15/2024 4:12 AM EST Narrative [facility] - 10/15/2024 4:16 AM EST Urine, Clean Catch Generic External Data Provider LAB URINE ORDERAB LES Final Result Performing Organization Address City/[facility]/ZIP Co de Phone Number [facility] [address] [place] [phone] * Magnesium (10/15/2024 4:07 AM EST) Magnesium 2.1 1.6 - 2.6 mg/dL [facility] 10/15/2024 4:07 AM EST 10/15/2024 4:12 AM EST us Generic External Data Provider LAB BLOOD ORDERAB LES Final Result Performing Organization Address City/[facility]/ZIP Co de Phone Number [facility] [address] [place] [phone] * (ABNORMAL) Lipase (10/15/2024 4:07 AM EST) Lipase 79(H) 8 - 78 U/L [facility] 10/15/2024 4:07 AM EST 10/15/2024 4:12 AM EST [employer] External Data Provider LAB BLOOD ORDERAB LES Final Result Performing Organization Address [facility] Co de Phone Number [facility] [address] [place] [phone] * (ABNORMAL) Comprehensive Metabolic Panel (10/15/2024 4:07 AM EST) Sodium 144 135 - 145 mmol/L [facility] Potassium 4.0 3.3 - 5.1 mmol/L [facility] Chloride 111(H) 96 - 108 mmol/L [facility] Carbon Dioxide 23 22 - 29 mmol/L [facility] Anion Gap 14 12 - 20 [facility] Urea Nitrogen (BUN) 13 9 - 16 mg/dL [facility] Creatinine, Serum 0.76 0.5 - 1.4 mg/dL [facility] Creatinine Clr Calc Pharmacy 149.4 [facility] Comment:eGFR (calculated fro m the MDRD study equation) and eCrCl(calculated from the Cockcroft-Gault equation) are based ondifferent parameters and may not yield comparable results.If eCrCl result is absurd, please check patient'sheight/weight. Estimated Glomerular Filt Rate >60 [facility] Comment:Chronic Kidney Disea se: Estimated GFR < 60 mL/min/1.32e5Qtdprk Kidney Disease: Estimated GFR < 15 mL/min/1.73m2 Glucose 108 60 - 115 mg/dL [facility] Calcium 9.6 8.4 - 10.2 mg/dL [facility] Bilirubin, Total 0.3 0.0 - 1.0 mg/dL [facility] Aspartate Amino Transferase 35 5 - 37 U/L [facility] Alanine Aminotransferase 11 0 - 40 U/L [facility] Total Protein 7.8 6.5 - 8.0 g/dL [facility] Albumin Level 4.2 3.5 - 5.0 g/dL [facility] Alkaline Phosphatase 66 39 - 117 U/L [facility] 10/15/2024 4:07 AM EST 10/15/2024 4:12 AM EST Generic External Data Provider LAB BLOOD ORDERAB LES Final Result [facility] [address] [place] [phone] * POCT MARY ANNE-14 Urine Drug Screen (09/29/2024 10:04 AM EST) THC Positive Cocaine Screen, Urine Positive Opiate Screen, Urine Positive Methamphetamine Screen Urine Negative Amphetamine Screen, Urine Negative Benzodiazepines Screen, Urine Negative Barbiturate Screen, Urine Negative Methadone Screen, Urine Negative Buprenophine Screen, Urine Negative TCA, Urine Negative MDMA Urine Negative ng/mL Oxycodone Screen, Urine Negative Phencyclidine (PCP), Urine Negative Propoxyphene, Urine Negative Fentanyl, Urine Positive Urine Urine specimen obtained by clean catch procedure / Unknown 09/29/2024 10:04 AM EST us Jerry Flowers MD POINT OF CARE TEST ENTER/EDIT ORDERABLES Final Result * Hepatitis Panel, General (03/26/2024 12:00 PM EDT) Hepatitis A IgM Nonreactive Nonreactive [facility] Comment:IgM antibodies to ELLIS V not detected; does not exclude earlyacute or recovered HAV infection. ~Hepatitis B Surface Antibody NONREACTIVE Nonreactive [facility] Comment:Nonreactive: < 8.00 mIU/mL Hepatitis B Core Antibody Nonreactive Nonreactive [facility] Hepatitis C Antibody Nonreactive Nonreactive [facility] Comment:Antibodies to HCV no t detected; does not exclude early acuteHCV infection. Hepatitis B Surface Ag Negative Negative [facility] Blood 03/26/2024 12:0 0 PM EDT 03/26/2024 1:01 PM EDT us Giulia Huff MD LAB BLOOD ORDERABLES Fin al Result Performing Organization Address City/[facility]/ZIP Co de Phone Number [facility] [address] [place] [phone] * HIV-1/2 Antigen and Antibodies, Fourth Generation, with Reflexes (03/26/2024 12:00 PM EDT) [facility] HIV AB/AG Nonreactive Nonreactive [facility] Comment:HIV-1 p24 Ag and/or HIV-1/HIV-2 Ab not detected.A test result that is nonreactive does not exclude thepossibility of exposure to or infection with HIV-1 and/orHIV-2. Nonreactive results in this assay for individualswith prior exposure to HIV-1 and/or HIV-2 may be due toantigen and antibody levels that are below the limit ofdetection of this assay.The X-1 HIV Ag/Ab Combo assay result andsupplemental assay results should be interpreted inconjunction with the patient's clinical presentation,history and other laboratory results. If the results areinconsistent with clinical evidence, additional testing issuggested to confirm the result. Blood Venous blood specimen / Unknown 03/26/2024 12:00 PM EDT 03/26/2024 1:01 PM EDT us Giulia Huff MD LAB BLOOD ORDERABLES Fin al Result Performing Organization Address City/[facility]/ZIP Co de Phone Number [facility] [address] [place] [phone] from Last 3 Months or Most Recently Relevant to Health Maintenance Insurance [place] [facility] MEDICAID STAND ADULT Care Teams Entry Level Buyer Relationship Specialty Start Date End Date Giulia Huff MD [address] [place] [address] PCP - General Internal Medicine 03/23/[address] Community Health Worker 05/18/[address] RN [address] [place] [phone] Business Process Specialist 05/18/24
--- OUTSIDE RECORDS SUMMARY | 2024-11-04 07:43 | XMS_ITS | Encounter Summary ---
Author Organization [employer] Address [address] [facility] [address] [place] [address] Care Team Providers Care Night Warehouse Selector Name Role Phone Giulia Huff MD Primary Care Provider + Sukhdeep Lane Unavailable Unavailable Temitope Lane RN Unavailable [phone] Reason for Visit * Reason Comments [facility] Recovery Supports Encounter Details Date Type Department Care Team (Late st Contact Info) Description 10/13/2024 Patient Outreach [facility] [address] [place] [address] Chano Whiting [address] [place] [address] Recovery Supports Social History Tobacco Use Types [...] encounter Progress Notes * Chano Whiting - 10/13/2024 9:56 AM EST I met with Luis today. Setting: in person at [facility] Recovery Wellness Goals worked on: Physical Health/Mental Health and Social Stability Action taken/next steps: Offered person centered recovery support, Assisted with relapse prevention planning, Attended alcohol and drug free activity, and Referred to detox/another level of care Additional comments: Today, Luis presented himself to the recovery center. I informed him that he had an appointment today, which the patient indicated he did not want our MAT services and that he will be in [facility] for methadone RN. He was offered a letter stating that the patient receives our services so that he can attend the walk-in days in the program. Chano Whiting documented in this encounter Plan of Treatment Upcoming Encounters Date Type Department Care Team (Late st Contact Info) Description 11/10/2024 10:15 AM EST Clinical Support [facility] [address] [place] [address] Tracie Martin RN documented as of this encounter Visit Diagnoses Not on filedocumented in this encounter Additional Health Concerns Assessment Noted Time PHQ-9 Depression Total Score: 11 024 11:00 AM EDT documented as of this encounter Care Teams Night Warehouse Selector Relationship Specialty Start Date End Date Giulia Huff MD [address] [place] [address] PCP - General Internal Medicine 03/23/[address] Community Health Worker 05/18/[address] RN [address] [place] [phone] Metal Melter 05/18/24 documented as of this encounter
--- OUTSIDE RECORDS SUMMARY | 2024-11-04 07:43 | XMS_ITS | Encounter Summary ---
Author Organization [employer] Address [address] [facility] 7t [place] [address] Care Team Providers Care Launch Commander [employer] Name Role Phone Giulia Huff MD Primary Care Provider + Sukhdeep Lane Unavailable Unavailable Temitope Lane RN Unavailable [phone] Encounter Details Date Type Department Care Team ([facility] st Contact Info) Description 10/22/2024 Telephone [facility] [address] [place] [address] Johnathon Godwin DDS [address] [place] [address] Social History Tobacco Use Types Packs/Day Years [...] AM EDT documented as of this encounter Miscellaneous Notes * Telephone Encounter - Nereyda Ashley - 10/22/2024 10:02 AM EST TC made per Patient request for a dental appointment. LVM for patient to call me back so that we can coordinate an appointment. documented in this encounter Plan of Treatment Upcoming Encounters Date Type Department Care Team (Late st Contact Info) Description 11/10/2024 10:15 AM EST Clinical Support [facility] [address] [place] [address] Tracie Martin RN documented as of this encounter Visit Diagnoses Not on filedocumented in this encounter Additional Health Concerns Assessment Noted Time PHQ-9 Depression Total Score: 11 024 11:00 AM EDT documented as of this encounter Care Teams Launch Commander [employer] Police Relationship Specialty Start Date End Date Giulia Huff MD [address] [place] [address] PCP - General Internal Medicine 03/23/[address] Community Health Worker 05/18/[address], NEERAJ [address] [place] [phone] Cartoon Artist 05/18/24 documented as of this encounter
--- OUTSIDE RECORDS SUMMARY | 2024-11-04 07:43 | XMS_ITS | Encounter Summary ---
Author Organization [email or web address] Address [address] [facility] 7t [place] [address] Care Team Providers Care Range Aide Name Role Phone Giulia Huff MD Primary Care Provider + Sukhdeep Lane Unavailable Unavailable Temitope Lane RN Unavailable [phone] Encounter Details Date Type Department Care Team ([facility] st Contact Info) Description 10/22/[address] [facility] [address] [place] [address] Tracie Martin RN Social History Tobacco Use Types Packs/Day Years [...] encounter Miscellaneous Notes * Telephone Encounter - Tracie Martin RN - 10/22/2024 3:07 PM EST Luis [facility] He needed a suboxone rx which was provided to cover till his next appt with Dr. Flowers. He also requested something for dental pain until he is able to get a dental appt. He said that [facility] was handling it. Cook Pie noted a note in his chart that a telephone attempt was made by the dental dept at [facility] to Luis and they a LVM. Writercalled the dental appt and was able to secure him an appt on , 10/29/24 at 1:[address] Gallardo sent him an rx for Motrin for dental pain. documented in this encounter Plan of Treatment Upcoming Encounters Date Type Department Care Team (Late st Contact Info) Description 11/10/2024 10:15 AM EST Clinical Support [facility] [address] [place] [phone] Tracie Martin RN documented as of this encounter Visit Diagnoses Not on filedocumented in this encounter Additional Health Concerns Assessment Noted Time PHQ-9 Depression Total Score: 11 024 11:00 AM EDT documented as of this encounter Care Teams Range Aide Relationship Specialty Start Date End Date Giulia Huff MD [address] [place] [phone] PCP - General Internal Medicine 03/23/[address] Community Health Worker 05/18/[address] RN [address] [place] [phone] Pharm Spec 05/18/24 documented as of this encounter
--- OUTSIDE RECORDS SUMMARY | 2024-11-04 07:43 | XMS_ITS | Encounter Summary ---
Author Organization [employer] Address [address] [facility] 7t [place] [address] Care Team Providers Care Director Of Integrated Marketing Name Role Phone Giulia Huff MD Primary Care Provider + Sukhdeep Lane Unavailable Unavailable Temitope Lane RN Unavailable Reason for Visit * Reason Comments Recovery Supports Encounter Details Date Type Department Care Team ([facility] st Contact Info) Description 10/30/2024 Patient Outreach [facility] [address] [place] [address] Johnathon Dover Recovery Supports Social History Tobacco [...] encounter Progress Notes * Johnathon Dover - 10/30/2024 2:52 PM EST I met with Luis booker. Setting: in person at [facility] Recovery Wellness Goals worked on: Social Stability Action taken/next steps: Offered person centered recovery support and Attended alcohol and drug free activity Additional comments: Pt came to Recovery Saturday. Johnathon Dover documented in this encounter Plan of Treatment Upcoming Encounters Date Type Department Care Team (Late st Contact Info) Description 11/10/2024 10:15 AM EST Clinical Support [facility] [address] [place] [phone] Tracie Martin RN documented as of this encounter Visit Diagnoses Not on filedocumented in this encounter Additional Health Concerns Assessment Noted Time PHQ-9 Depression Total Score: 11 024 11:00 AM EDT documented as of this encounter Care Teams Director Of Integrated Marketing Relationship Specialty Start Date End Date Giulia Huff MD [address] [place] [address] PCP - General Internal Medicine 03/23/[address] Community Health Worker 05/18/[address], NEERAJ [address] [place] [phone] Air Support Operations Operator 05/18/24 documented as of this encounter
--- OUTSIDE RECORDS SUMMARY | 2024-11-04 07:43 | XMS_ITS | Encounter Summary ---
Author Organization [employer] Address [address] [facility] 7t [place] [address] Care Team Providers Care Event Decorator And Designer Name Role Phone Giulia Huff MD Primary Care Provider + Sukhdeep Lane Unavailable Unavailable Temitope Lane RN Unavailable [phone] Reason for Visit * Reason Comments Recovery Supports Encounter Details Date Type Department Care Team ([facility] st Contact Info) Description 10/16/2024 Patient Outreach [facility] [address] [place] [address] Johnathon Dover Recovery Supports Social History Tobacco [...] encounter Progress Notes * Johnathon Dover - 10/16/2024 4:19 PM EST I met with Luis today. Setting: in person at [facility] Recovery Wellness Goals worked on: Social Stability Action taken/next steps: Offered person centered recovery support and Attended alcohol and drug free activity Additional comments: Luis was accepted at [facility]. Johnathon Dover documented in this encounter Plan of Treatment Upcoming Encounters Date Type Department Care Team (Late st Contact Info) Description 11/10/2024 10:15 AM EST Clinical Support [facility] [address] [place] [phone] Tracie Martin RN documented as of this encounter Visit Diagnoses Not on filedocumented in this encounter Additional Health Concerns Assessment Noted Time PHQ-9 Depression Total Score: 11 024 11:00 AM EDT documented as of this encounter Care Teams Event Decorator And Designer Relationship Specialty Start Date End Date Giulia Huff MD [address] [place] [address] PCP - General Internal Medicine 03/23/[address] Community Health Worker 05/18/[address], RN [address] [place] [phone] Glass Mould Cleaner 05/18/24 documented as of this encounter
--- OUTSIDE RECORDS SUMMARY | 2024-11-04 07:43 | XMS_ITS | Encounter Summary ---
Author Organization [employer] Address [address] [facility] [address] [place] [address] Care Team Providers Care Tray Line Supervisor Name Role Phone Giulia Huff MD Primary Care Provider + Sukhdeep Lane Unavailable Unavailable Temitope Lane RN Unavailable [phone] Reason for Visit * Reason Comments [facility] Recovery Supports Encounter Details Date Type Department Care Team ([facility] st Contact Info) Description 10/13/2024 Patient Outreach [facility] [address] [place] [address] David Woods [address] [place] [address] [facility] Recovery Supports Social History Tobacco Use [...] encounter Progress Notes * David Woods - 10/13/2024 3:03 PM EST I met with Luis today. Setting: in person at [facility] Recovery Wellness Goals worked on: Housing Stability Action taken/next steps: Offered person centered recovery support Additional comments: Met with Luis, he was evicted and askedfor help with a place to stay for a couple of days. We secured a three day stay at [facility] [place]. Luis understands this is a temporary solution. Igave him a list of possible options. At the moment he is not willing to accept any of them. He plans on finding income to continue paying for a motel room. David Woods documented in this encounter Plan of Treatment Upcoming Encounters Date Type Department Care Team (Late st Contact Info) Description 11/10/2024 10:15 AM EST Clinical Support [facility] [address] [place] [address] Tracie Martin RN documented as of this encounter Visit Diagnoses Not on filedocumented in this encounter Additional Health Concerns Assessment Noted Time PHQ-9 Depression Total Score: 11 024 11:00 AM EDT documented as of this encounter Care Teams Tray Line Supervisor Relationship Specialty Start Date End Date Giulia Huff MD [address] [place] [address] PCP - General Internal Medicine 03/23/[address] Community Health Worker 05/18/[address] RN [address] [place] [phone] Nurse Assistant 05/18/24 documented as of this encounter
--- OUTSIDE RECORDS SUMMARY | 2024-11-04 07:43 | XMS_ITS | Encounter Summary ---
Author Organization [employer] Address [address] [facility] 7t [place] [address] Care Team Providers Care Grounds And Nursery Specialist Name Role Phone Camilla Montano Primary Care Provider Giulia Huff MD Primary Care Provider + Sukhdeep Lane Unavailable Unavailable Temitope Lane RN Unavailable [phone] Reason for Visit * Reason Comments Med Refill Encounter Details Date Type Department Care Team (Late st Contact Info) Description 09/17/2023 Refill [facility] [address] [place] [address] Santiago Jacobson MD [address] [place] [address] Uncomplicated opioid dependence ([facility]/HCC) Social History Tobacco Use Types Packs/Day Years Used Date Smoking Tobacco: Every Day Cigarettes Smokeless Tobacco: Never Alcohol Use Standard Drinks/Week Comments Not Currently 0 (1 standard drink = 0.6 oz pur e alcohol) Depression Answer Date Recorded Patient Health Questionnaire-9 Score 12 08/12/2023 Patient Health Questionnaire-9 Score 12 08/12/2023 Last PHQ-9: Questionnaire Data Not on file 1 10/12/2022 Housing Stability Answer Date Recorded What is your housing situation today? I have jamil winters 07/24/[address] you li ve. Do you have problems with any of the following? None of the above 07/24/2023 Food Insecurity Answer Date Recorded Within the [...] Answer Date Recorded Patient Health Questionnaire-2 Score 2 08/12/2023 Sex and Gender Information Value Date Recorded Sex Assigned at Male 08/06/2022 10:39 AM EDT Legal Sex Male 10:39 AM EDT Gender Identity Male 08/06/2022 10:39 AM EDT Sexual Orientation Straight 08/06/2022 10 :39 AM EDT documented as of this encounter Plan of Treatment Upcoming Encounters Date Type Department Care Team (Late st Contact Info) Description 11/10/2024 10:15 AM EST Clinical Support [facility] [address] [place] [id number] Tracie Martin RN documented as of this encounter Visit Diagnoses Diagnosis Uncomplicated opioid dependence (CMS/HCC) documented in this encounter Additional Health Concerns Assessment Noted Time PHQ-9 Depression Total Score: 12 023 9:58 AM EST documented as of this encounter Care Teams Grounds And Nursery Specialist Relationship Specialty Start Date End Date Camilla Montano ANP [address] [place] [id number] PCP - General Family Medicine 02/04/23 02/03/24 Giulia Huff MD [address] [place] [phone] PCP - General Internal Medicine 03/23/[address] Community Health Worker 05/18/[address], RN [address] [place] [id number] International Student Counselor 05/18/24 documented as of this encounter
--- OUTSIDE RECORDS SUMMARY | 2024-11-04 07:43 | XMS_ITS | Encounter Summary ---
Author Organization [employer] Address [address] [facility] 7t [place] [address] Care Team Providers Care Finish Grinder Name Role Phone Giulia Huff MD Primary Care Provider + Sukhdeep Lane Unavailable Unavailable Temitope Lane RN Unavailable [phone] Reason for Visit * Reason Onset Date Comments Med Refill 10/22/2024 Encounter Details Date Type Department Care Team (Late st Contact Info) Description 10/22/2024 Refill [facility] [address] [place] [address] Tracie Martin, NEERAJ Opioid dependence, uncomplicated (CMS/HCC) [...] Description 11/10/2024 10:15 AM EST Clinical Support [facility] [address] [place] [phone] Tracie Martin RN documented as of this encounter Visit Diagnoses Diagnosis Opioid dependence, uncomplicated (CMS/HCC) documented in this encounter Additional Health Concerns Assessment Noted Time PHQ-9 Depression Total Score: 11 024 11:00 AM EDT documented as of this encounter Care Teams Finish Grinder Relationship Specialty Start Date End Date Giulia Huff MD [address] [place] [id number] PCP - General Internal Medicine 03/23/[address] Community Health Worker 05/18/[address], NEERAJ [address] [place] [phone] Gift Officer 05/18/24 documented as of this encounter
--- OUTSIDE RECORDS SUMMARY | 2024-11-04 07:43 | XMS_ITS | Encounter Summary ---
Author Organization [employer] Address [address] [facility] 7t [place] [address] Care Team Providers Care Executive Vice President And Chief Financial Officer Name Role Phone Giulia Huff MD Primary Care Provider + Sukhdeep Lane Unavailable Unavailable Temitope Lane RN Unavailable [phone] Reason for Visit * Reason Onset Date Comments Med Refill 10/28/2024 Encounter Details Date Type Department Care Team (Late st Contact Info) Description 10/28/2024 Refill [facility] [address] [place] [address] Tracie Martin, NEERAJ Uncomplicated opioid dependence (CMS/HCC) [...] Description 11/10/2024 10:15 AM EST Clinical Support [facility] [address] [place] [phone] Tracie Martin RN documented as of this encounter Visit Diagnoses Diagnosis Uncomplicated opioid dependence (CMS/HCC) documented in this encounter Additional Health Concerns Assessment Noted Time PHQ-9 Depression Total Score: 11 024 11:00 AM EDT documented as of this encounter Care Teams Executive Vice President And Chief Financial Officer Relationship Specialty Start Date End Date Giulia Huff MD [address] [place] [id number] PCP - General Internal Medicine 03/23/[address] Community Health Worker 05/18/24 Temitope Laen, NEERAJ [address] [place] [phone] Hand Counter 05/18/24 documented as of this encounter
--- OUTSIDE RECORDS SUMMARY | 2024-11-04 07:43 | XMS_ITS | Encounter Summary ---
Author Organization [employer] Address [address] [facility] 7t [place] [address] Care Team Providers Care Cannery Tender Engineer Name Role Phone Giulia Huff MD Primary Care Provider + Sukhdeep Lane Unavailable Unavailable Temitope Lane RN Unavailable [phone] Reason for Visit * Reason Comments Recovery Supports Encounter Details Date Type Department Care Team ([facility] st Contact Info) Description 10/09/2024 Patient Outreach [facility] [address] [place] [address] Abhishek Joaquin Recovery Supports Social History Tobacco Use Types [...] as of this encounter Progress Notes * Abhishek Joaquin - 10/09/2024 2:33 PM EST I met with Luis booker. Setting: in person at [facility] Recovery Wellness Goals worked on: Social Stability Action taken/next steps: Offered person centered recovery support and Attended alcohol and drug free activity Additional comments: The participant was socializing with peers, enjoying coffee and snacks. They are still actively working on their recovery process. Abhishek Joaquin documented in this encounter Plan of Treatment Upcoming Encounters Date Type Department Care Team (Late st Contact Info) Description 11/10/2024 10:15 AM EST Clinical Support [facility] [address] [place] [phone] Tracie Martin RN documented as of this encounter Visit Diagnoses Not on filedocumented in this encounter Additional Health Concerns Assessment Noted Time PHQ-9 Depression Total Score: 11 024 11:00 AM EDT documented as of this encounter Care Teams Cannery Tender Engineer Relationship Specialty Start Date End Date Giulia Huff MD [address] [place] [address] PCP - General Internal Medicine 03/23/[address] Community Health Worker 05/18/[address] RN [address] [place] [phone] Shipmaster 05/18/24 documented as of this encounter
[2024-11-04 07:55] LABS: MANUAL DIFF FLAG NO
[2024-11-04 07:58] LABS: Basophils Absolute Auto 0.1 X10*3/uL (0.0-0.2); Basophils Percent Auto 0.9 % (0-2); Eosinophils Absolute Auto 1.1 X10*3/uL (0.0-0.4); Eosinophils Percent Auto 11.9 % (0-4); Hematocrit 44.5 % (42.0-52.0); Hemoglobin 15.1 g/dl (14.0-18.0); Imm Gran Abs Auto 0.03 X10*3/uL (0.00-0.03); Imm Gran Pct Auto 0.3 % (0.0-0.4); Lymphocytes Absolute Auto 1.5 X10*3/uL (1.2-4.9); Lymphocytes Percent Auto 15.8 % (20-40); Mean Corpuscular HGB Conc 33.9 g/dl (31.0-36.0); Mean Corpuscular Volume 91.4 fL (80.0-98.0); Mean Platelet Volume 9.9 fL (9.4-12.4); Monocytes Absolute Auto 0.8 X10*3/uL (0.1-1.2); Monocytes Percent Auto 8.5 % (2-11); Neutrophils Absolute Auto 5.9 x10*3/uL (2.0-8.3); Neutrophils Percent Auto 62.6 % (45-73); Platelet Count 327 X10*3/uL (160-400); Red Blood Count 4.87 X10*6/uL (4.60-5.80); Red Cell Distribution Width 13.2 % (11.0-16.0); White Blood Count 9.4 X10*3/uL (4.8-10.8)
[2024-11-04 08:17] LABS: Alanine Aminotransferase 15 U/L (0-40); Albumin Level 4.3 g/dL (3.5-5.0); Anion Gap 11 (12-20); Aspartate Amino Transferase 33 U/L (5-37); Bilirubin Total 0.5 mg/dL (0.0-1.0); Blood Urea Nitrogen 9 mg/dL (9-16); Calcium 9.8 mg/dL (8.4-10.2); Carbon Dioxide 26 mmol/L (22-29); Chloride 110 mmol/L (96-108); Creatinine Clr Calc Pharmacy 127.7; Estimated Glomerular Filt Rate > 60; Glucose Random 97 mg/dL (60-115); Lipase 38 U/L (8-78); Potassium 4.1 mmol/L (3.3-5.1); Sodium 143 mmol/L (135-145); Total Protein 8.2 g/dL (6.5-8.0)
--- NOTE | 2024-11-04 09:19 | PC.NURSE ---
Pt comes to ED for complaints of n/v/d since 8pm last night. Pt endorsees he just stopped taking recreational opiates 2 days ago and questions if he is in withdrawal. Pt also reports being on Suboxone but is not currently taking it. Discussed with Dr. Turner--addiction medicine consult ordered. tax senior associate at bedside at this time. Awaiting dispo.
--- NOTE | 2024-11-04 09:49 | PC.NURSE ---
Pt becomes increasingly agitated when medicating Pt. Pt uses foul language and accuses this RN of neglect. Plan of care explained to Pt that Methadone will be given when vomiting subsides. Pt demands medications for anxiety and body aches. Demands relayed to ED provider--provider to bedside for eval.
[2024-11-04] MEDS: methADONE HCl 20 MG/2 ML ORAL.CONC 35 MG PO (09:58)
--- NOTE | 2024-11-04 10:46 | MHC.RECOVRN ---
Notified by RN pt is now interested in ATS. Referral sent to [facility] and is currently being reviewed.
[2024-11-04 11:06] LABS: Alkaline Phosphatase 66 U/L (39-117)
--- NOTE | 2024-11-04 12:20 | PC.NURSE ---
As Pt was up for d/c he expresses the desire for inpatient detox. associate programmer analyst Dasia contacted. Bed at [facility] was secured. Pre-screening completed via phone with associate programmer analyst and Pt provided with Lo to [facility].
[2024-11-04 12:22] VITALS: BP 134/81; PULSE 84; RESP 16; TEMP 36.8; O2SAT 95
== END 2024-11-04 12:23 | disposition home or self-care (01) ==
PROVIDERS: Emergency Provider Student in an Organized Health Care Education/Training Program; PCP Internal Medicine
DX: F11.23 Opioid dependence with withdrawal (principal); R11.2 Nausea with vomiting, unspecified; R10.10 Upper abdominal pain, unspecified; F17.210 Nicotine dependence, cigarettes, uncomplicated; Z79.899 Other long term (current) drug therapy; Z71.51 Drug abuse counseling and surveillance of drug abuser
CPT/HCPCS: 36415; 80053; 83690; 85025; 99284; S9485

== ENCOUNTER 2024-12-20 13:04 | Inpatient (IN) | payer MEDICAID, SELFPAY ==
[2024-12-20] VITALS (8 sets, daily range): BP systolic 109–155; BP diastolic 70–86; PULSE 68–83; RESP 12–26; TEMP 36.7–37.7; O2SAT 96–100; BMI 21.7
--- NOTE | ~2024-12-20 | XR_ITS ---
CLINICAL HISTORY: weakness Single view of the chest. COMPARISON: XR chest dated 02/29/24 at 12:51 EDT FINDINGS: Normal heart and mediastinal contours. Low lung volumes. No consolidation. No pleural effusion or pneumothorax. No fracture identified. IMPRESSION: 1. No consolidation. This document has been electronically signed by: Zan Cantrell MD on 12/20/2024 16:27:47
--- NOTE | 2024-12-20 13:09 | ED_ITS ---
HPI - General Adult General Chief complaint: General Medical Stated complaint: flu like symptoms Time Seen by Provider: 12/20/24 13:09 Source: patient and EMS Mode of arrival: EMS Limitations: no limitations History of Present Illness ED Provider: Camelia Flood PA-C HPI narrative: Patient is a 29 year old assigned male at with a history of OUD previously requiring intubation presenting to the emergency department today with nausea, vomiting, chills, diarrhea, and feeling generally unwell. Patient states that over the last 2 days he has felt generally unwell with nausea, vomiting, chills, and diarrhea. Patient states that he has not used opiates for 5 days. Patient states that he drinks hard liquor every day, is unsure how much per day, and his last drink was 2 days ago. Patient denies any dizziness, lightheadedness, abdominal pain, blurry vision, double vision, loss of vision, chest pain, difficulty breathing, shortness of breath, back pain, night sweats, pain with urination, increased urinary frequency, increased urinary urgency, blood in his urine or stool, syncope or a near syncopal episode, recent trauma or falls, bowel incontinence, bladder incontinence, or any other complaints at this time. Onset (ago): day(s) (2) Relieving factors: none Exacerbating factors: none Associated symptoms: fever/chills and nausea/vomiting Treatments prior to arrival: none Related Data Home Medications ?Medication ?Instructions ?Recorded ?Confirmed albuterol sulfate 90 mcg/actuation 2 puff inhalation Q6H PRN wheezing 02/04/23 12/20/24 aerosol inhaler (Ventolin HFA) apixaban 5 mg tablet (Eliquis) 5 mg PO BID 12/20/24 12/20/24 clonidine HCl 0.1 mg tablet 0.1 mg PO TID PRN Anxiety 12/20/24 12/20/24 hydroxyzine pamoate 25 mg capsule 25 mg PO TID PRN anxiety 12/20/24 12/20/24 nicotine (polacrilex) 2 mg gum 2 mg PO Q4H PRN Nicotine Cravings 12/20/24 12/20/24 quetiapine 25 mg tablet 25 mg PO BID 12/20/24 12/20/24 trazodone 50 mg tablet 50 mg PO BEDTIME insomnia 12/20/24 12/20/24 varenicline tartrate 1 mg tablet 1 mg PO BID 12/20/24 12/20/24 Previous Rx's ?Medication ?Instructions ?Recorded naloxone 4 mg/actuation nasal 4 mg intranasal Q2M PRN opioid 03/18/23 spray (Narcan) overdose #2 ea Allergies Allergy/AdvReac Type Severity Reaction Status Date / Time No Known Allergies Allergy Verified 12/20/24 13:15 Review of Systems 2 Constitutional: Constitutional: Reports no additional constitutional complaints, Reports chills, Reports fever(s) and Denies night sweats Eyes: Eyes: Reports no additional eye complaints, Denies blurry vision, Denies change in vision, Denies diplopia, Denies eye discharge, Denies loss of vision and Denies eye pain ENT: Denies dizziness Cardiovascular: Cardiovascular: Reports no additional cardiovascular complaints, Denies chest pain, Denies lightheadedness, Denies Loss of Consciousness and Denies dyspnea Respiratory: Respiratory: Reports no additional respiratory complaints and Denies dyspnea Gastrointestinal: Gastrointestinal: Reports no additional gastrointestinal complaints, Denies abdominal pain, Denies melena, Denies hematochezia, Denies change in bowel habits, Denies change in stool character, Reports diarrhea, Reports nausea and Reports vomiting Genitourinary: Genitourinary: Reports no additional male genitourinary complaints, Denies hematuria, Denies oliguria, Denies difficulty urinating, Denies dysuria, Denies urinary frequency, Denies urinary hesitancy, Denies urinary incontinence and Denies urinary urgency Musculoskeletal: Musculoskeletal: Reports no additional musculoskeletal complaints, Denies numbness and Denies tingling Neurologic: Denies dizziness, Denies loss of vision, Denies numbness and Denies tingling Psychiatric: Psychiatric: Reports no additional psychiatric complaints Endocrine: Endocrine: Reports no additional endocrine complaints Hematologic/Lymphatic: Hematologic/Lymphatic: Reports no additional hematologic/lymphatic complaints Allergic/Immunologic: Allergic/Immunologic: Reports no additional allergic/immunologic complaints PMFSH Past Medical History Attestation statement: The following information was validated with the patient. Source: old records reviewed and nursing notes reviewed Medical History ADHD Bipolar 1 disorder Allergic rhinitis Surgical History History of surgery Family History Family History Father Depression Asthma Mother Asthma Depression Migraine Brother No problems noted. Sister No problems noted. Son In good health Social History Social History Alcohol intake: current Alcohol intake frequency: a few times a month Alcohol type: hard liquor Patient Tobacco Use Status: Tobacco use Unknown Cigarettes Per Day: 5 Smoked in Last 30 Days: Yes Substance Use Type: Opiates Advance Directives: No Advance Directives Information Provided: No Do you have a plan to hurt others: No Plan Nutrition Risks: No Nutritional Risk Physical Exam ED Vital Signs: Vital Signs - 24 hr 12/20/24 13:14 12/20/24 13:32 12/20/24 14:31 Temperature 99.8 F 99.8 F 98.6 F Pulse Rate 81 81 82 Respiratory Rate 20 20 26 H Blood Pressure 155/83 H 155/83 H 135/86 Pulse Oximetry 99 99 100 Oxygen Delivery Method Room Air Room Air Room Air BMI result Body Mass Index 21.7 Const General: cooperative, no acute distress, alert and awake Nutritional Appearance: well nourished Orientation/consciousness: patient oriented x3 Limitations: no limitations HENMT Head: Yes normal to inspection and Yes atraumatic Ears: hearing grossly normal bilaterally and external ears normal General nose exam: Normal external nose present, no nasal discharge noted and no epistaxis Face and sinus: Yes normal facial exam, No abrasion and No laceration Mouth: Normal oral and palatal mucosa present, no drooling and no muffled voice Eyes General: appearance normal, both eyes and all related structures Periorbital: periorbital findings normal Eyelids: Yes eyelids normal Conjunctivae: conjunctivae normal Pupils: Equal, round and reactive pupils present EOM: EOMs intact bilaterally Neck Neck: Yes normal visual inspection, Yes full ROM and Yes no lymphadenopathy Chest Chest palpation & inspection: normal inspection of the chest Resp Effort & Inspection: normal respiratory effort and able to speak in complete sentences GI Inspection: Yes normal to inspection Palpation (GI): Soft to palpation, not firm, nontender and no guarding Neuro General: patient oriented x3, moves all extremities and CN's II-XI intact bilaterally Cranial nerves: Yes Equal, round and reactive pupils present Cognition (Neuro): normal cognition Extrem General: Yes normal to inspection, Yes full ROM and Yes capillary refill normal Psych Appearance: grossly normal Mental Status: mental status grossly normal Affect: normal affect Attitude: cooperative Thought process: Normal thought process present Thought content: Normal thought content present Insight: Good insight present (Psych) Medications Administered Generic Name Dose Route Start Last Admin Trade Name Farhad PRN Reason Stop Dose Admin Lactated Ringer's 1,000 mls @ 100 mls/hr 12/20/24 16:30 12/20/24 17:41 Lr IVCONT 100 mls/hr .Q10H [facility] Administration Discontinued Medications Generic Name Dose Route Start Last Admin Trade Name Farhad PRN Reason Stop Dose Admin Sodium Chloride 1,000 mls @ 999 mls/hr 12/20/24 14:00 12/20/24 17:17 Ns IV 12/20/24 15:00 Infused .Q1H1M [facility] Infusion Acetaminophen 1,000 mg in 100 mls @ 400 mls/hr 12/20/24 14:24 12/20/24 15:25 Ofirmev IV 12/20/24 14:38 Infused ONCE ONE Infusion Lorazepam 2 mg 12/20/24 13:52 12/20/24 14:40 Lorazepam 2 Mg/Ml Vial IVPUSH 12/20/24 13:53 2 mg ONCE ONE Administration Methadone HCl 40 mg 12/20/24 13:11 12/20/24 13:43 Methadone Hcl 20 Mg/2 Ml Oral.Conc PO 12/20/24 13:12 40 mg ONCE ONE Administration Ondansetron HCl 4 mg 12/20/24 13:50 12/20/24 14:40 Ondansetron Hcl 4 Mg/2 Ml Vial IVPUSH 12/20/24 13:51 4 mg ONCE ONE Administration Phenobarbital Sodium 245 mg 12/20/24 15:00 12/20/24 17:14 Phenobarbital Sodium 130 Mg/Ml Im Once IM 12/20/24 15:01 Not Given ONCE ONE Protocol Medical Decision Making Medical Decision Making MDM Narrative: Patient is a 29 year old assigned male at with a history of OUD previously requiring intubation presenting to the emergency department today with nausea, vomiting, chills, diarrhea, and feeling generally unwell. Patient's physical exam was as noted in the physical exam portion of this note. Patient appeared as though he felt unwell and 1 episode of witnessed vomiting. Patient's blood work showed an elevated potassium however, the sample was somewhat hemolyzed. Patient's lactic acid was elevated at 2.8 with a bun of 17 at gap of 22. Patient's EKG was unremarkable. Patient's chest x-ray showed no acute process. Patient's clinical presentation is most consistent with alcohol withdrawal vs. opiate withdrawal vs. viral illness. I spoke to the hospitalist team who agreed to admission. Patient was given IV Zofran, ativan, and fluids. I explained my physical exam findings as well as all test results to the patient. I answered all questions asked by the patient. Patient verbalized agreement and understanding with this treatment plan and admission. Differential Diagnosis Differential Diagnoses: The differential diagnosis associated with the presentation includes Viral illness Gastroenteritis Alcohol withdrawal Opiate withdrawal Admission/Observation Consideration of admission/observation: Escalation of care including admission/observation considered Patient admitted as noted in the MDM Rationale portion of this note. Consult Healthcare Provider Management of the patient was discussed with: Hospitalist (agreed to admission as noted in the MDM Rationale portion of this note. ) Lab Data [facility] Lab Attestation statement: I reviewed the patient's lab results. My interpretation of these results are in the MDM Rationale portion of this note. 12/20/24 14:26 12/20/24 14:25 Labs: Lab Results 12/20/24 12/20/24 12/20/24 Range/Units 14:25 14:26 15:18 WBC 10.0 (4.8-10.8) X10*3/uL RBC 5.50 (4.60-5.80) X10*6/uL Hgb 16.8 (14.0-18.0) g/dl Hct 48.8 (42.0-52.0) % MCV 88.7 (80.0-98.0) fL MCH 30.5 (27.0-33.0) pg MCHC 34.4 (31.0-36.0) g/dl RDW 13.2 (11.0-16.0) % Plt Count 386 (160-400) X10*3/uL MPV 10.0 (9.4-12.4) fL Immature Gran % (Auto) 0.3 (0.0-0.4) % Neut % (Auto) 91.8 H (45-73) % Lymph % (Auto) 6.0 L (20-40) % [place] % (Auto) 1.7 L (2-11) % Eos % (Auto) 0.0 (0-4) % Baso % (Auto) 0.2 (0-2) % Lymph # (Auto) 0.6 L (1.2-4.9) X10*3/uL [place] # (Auto) 0.2 (0.1-1.2) X10*3/uL Eos # (Auto) 0.0 (0.0-0.4) X10*3/uL Baso # (Auto) 0.0 (0.0-0.2) X10*3/uL Abs Immat Gran (auto) 0.03 (0.00-0.03) X10*3/uL Absolute Neuts (auto) 9.2 H (2.0-8.3) x10*3/uL Absolute Nucleated RBC 0.000 (0.0-0.012) X10*3/uL Nucleated RBC % (auto) 0.0 (0.0-0.2) /100WBC Smear Tech's Comments VERIFIED ESR 7 (0-15) MM/HR VBG pH (7.32-7.43) VBG pCO2 mmHg VBG pO2 mmHg VBG HCO3 (22-26) mmol/L VBG O2 Saturation % VBG Base Excess mmol/L Sodium 138 (135-145) mmol/L Potassium 5.5 H D (3.3-5.1) mmol/L Chloride 102 (96-108) mmol/L Carbon Dioxide 20 L (22-29) mmol/L Anion Gap 22 H (12-20) BUN 17 H (9-16) mg/dL Creatinine 0.99 (0.5-1.4) mg/dL Estim Creat Clear Calc 94.8 Estimated GFR > 60 Random Glucose 101 (60-115) mg/dL Lactic Acid 2.8 H* (0.5-2.0) mmol/L Calcium 10.3 H (8.4-10.2) mg/dL Magnesium 2.1 (1.6-2.6) mg/dL Total Bilirubin 1.0 (0.0-1.0) mg/dL AST 47 H (5-37) U/L ALT 14 (0-40) U/L Alkaline Phosphatase 88 (39-117) U/L Ammonia 42 (13-55) umol/L Troponin I High Sens (<3.5-35.0) ng/L C-Reactive Protein < 0.10 (< or = 0.50) mg/dL Total Protein 10.1 H (6.5-8.0) g/dL Albumin 5.0 (3.5-5.0) g/dL Beta-Hydroxybutyrate 1.57 H (0.02-0.27) mmol/L Ethyl Alcohol < 10 mg/dL Influenza Type A (PCR) NEGATIVE (Negative) Influenza Type B (PCR) NEGATIVE (Negative) RSV RNA Qual (PCR) NEGATIVE (Negative) SARS-CoV-2 RNA (RT-PCR) NEGATIVE (Negative) S. pyogenes GrpA JAMEE Negative (Negative) 12/20/24 12/20/24 Range/Units 15:19 15:25 WBC (4.8-10.8) X10*3/uL RBC (4.60-5.80) X10*6/uL Hgb (14.0-18.0) g/dl Hct (42.0-52.0) % MCV (80.0-98.0) fL MCH (27.0-33.0) pg MCHC (31.0-36.0) g/dl RDW (11.0-16.0) % Plt Count (160-400) X10*3/uL MPV (9.4-12.4) fL Immature Gran % (Auto) (0.0-0.4) % Neut % (Auto) (45-73) % Lymph % (Auto) (20-40) % [place] % (Auto) (2-11) % Eos % (Auto) (0-4) % Baso % (Auto) (0-2) % Lymph # (Auto) (1.2-4.9) X10*3/uL [place] # (Auto) (0.1-1.2) X10*3/uL Eos # (Auto) (0.0-0.4) X10*3/uL Baso # (Auto) (0.0-0.2) X10*3/uL Abs Immat Gran (auto) (0.00-0.03) X10*3/uL Absolute Neuts (auto) (2.0-8.3) x10*3/uL Absolute Nucleated RBC (0.0-0.012) X10*3/uL Nucleated RBC % (auto) (0.0-0.2) /100WBC Smear Tech's Comments ESR (0-15) MM/HR VBG pH 7.43 (7.32-7.43) VBG pCO2 30 mmHg VBG pO2 56 mmHg VBG HCO3 20 L (22-26) mmol/L VBG O2 Saturation 88.0 % VBG Base Excess -2.3 mmol/L Sodium (135-145) mmol/L Potassium (3.3-5.1) mmol/L Chloride (96-108) mmol/L Carbon Dioxide (22-29) mmol/L Anion Gap (12-20) BUN (9-16) mg/dL Creatinine (0.5-1.4) mg/dL Estim Creat Clear Calc Estimated GFR Random Glucose (60-115) mg/dL Lactic Acid (0.5-2.0) mmol/L Calcium (8.4-10.2) mg/dL Magnesium (1.6-2.6) mg/dL Total Bilirubin (0.0-1.0) mg/dL AST (5-37) U/L ALT (0-40) U/L Alkaline Phosphatase (39-117) U/L Ammonia (13-55) umol/L Troponin I High Sens < 2.7 (<3.5-35.0) ng/L C-Reactive Protein (< or = 0.50) mg/dL Total Protein (6.5-8.0) g/dL Albumin (3.5-5.0) g/dL Beta-Hydroxybutyrate (0.02-0.27) mmol/L Ethyl Alcohol mg/dL Influenza Type A (PCR) (Negative) Influenza Type B (PCR) (Negative) RSV RNA Qual (PCR) (Negative) SARS-CoV-2 RNA (RT-PCR) (Negative) S. pyogenes GrpA JAMEE (Negative) Independent Interpretation I performed an independent interpretation of an: EKG and Plain X-Ray Interpretation: My interpretation is in agreement with the radiologist's impression of this imaging study. L CLINICAL HISTORY: weakness Single view of the chest. COMPARISON: XR chest dated 02/29/24 at 12:51 EDT FINDINGS: Normal heart and mediastinal contours. Low lung volumes. No consolidation. No pleural effusion or pneumothorax. No fracture identified. IMPRESSION: 1. No consolidation. This document has been electronically signed by: Zan Cantrell MD on 12/20/2024 16:27:47 Dictated By: Zan Cantrell MD Signed By: Electronically signed by Zan Cantrell MD 12/20/24 1628 I independently interpreted this EKG and am in agreement with the below findings: Vent. Rate: 100 BPM Atrial Rate: 100 BPM P-R Int: 122 ms QRS Dur: 112 ms QT Int: 340 ms P-R-T Axes: 62 57 68 degrees QTcB Int: 438 ms Normal sinus rhythm Incomplete right bundle branch block Nonspecific T wave abnormality When compared with ECG of 02-Feb-2023 18:00, Nonspecific T wave abnormality now evident in Inferior leads Nonspecific T wave abnormality now evident in Anterolateral leads DD/ 1356 Radiology Impression Discussion of test interpretation with radiology: I have reviewed the radiologist's reading. Independent Historian Clinical information obtained from an independent historian. History obtained from or confirmed by: EMS (EMS provided additional history and confirmed the history provided by the patient.) Critical Care Time Critical Care Time Critical Care Time: Yes Total Critical Care Time: 34 Attestation: I spent 34 minutes of Critical Care Time with this patient. This does not include time spent on separately reported billable procedures. Discharge Plan Discharge Clinical Impression: Nausea & vomiting, Acidosis, lactic Patient Disposition: Admitted As Inpatient Interventions: Admission Worksheet (ED) Last Done: 12/20/24 16:51
[2024-12-20] MEDS: methADONE HCl 20 MG/2 ML ORAL.CONC 40 MG PO (13:43)
--- NOTE | 2024-12-20 13:52 | ECG_ITS ---
Test Reason : qTC eval Blood Pressure : */* mmHG Vent. Rate : 100 BPM Atrial Rate : 100 BPM P-R Int : 122 ms QRS Dur : 112 ms QT Int : 340 ms P-R-T Axes : 62 57 68 degrees QTcB Int : 438 ms Normal sinus rhythm Incomplete right bundle branch block Nonspecific T wave abnormality Abnormal ECG When compared with ECG of 02-Feb-2023 18:00, Nonspecific T wave abnormality now evident in Inferior leads Nonspecific T wave abnormality now evident in Anterolateral leads Referred By: Camelia Flood Electronically Signed By: Bert Beaver
--- NOTE | 2024-12-20 14:15 | PC.NURSE ---
patient vomited all liquid and methadone medication. Patient moved to monitor room, vitals retaken, PA aware, new orders placed and medication interventions. patient continues to seem disoriented slightly and reports stomach pains and yelling while staff standing next to him.
[2024-12-20 14:35] LABS: Basophils Percent Auto 0.2 % (0-2); Hematocrit 48.8 % (42.0-52.0); Hemoglobin 16.8 g/dl (14.0-18.0); Imm Gran Abs Auto 0.03 X10*3/uL (0.00-0.03); Imm Gran Pct Auto 0.3 % (0.0-0.4); Lymphocytes Absolute Auto 0.6 X10*3/uL (1.2-4.9); MANUAL DIFF FLAG SCAN; Mean Corpuscular HGB Conc 34.4 g/dl (31.0-36.0); Mean Corpuscular Hemoglobin 30.5 pg (27.0-33.0); Mean Corpuscular Volume 88.7 fL (80.0-98.0); Monocytes Absolute Auto 0.2 X10*3/uL (0.1-1.2); Monocytes Percent Auto 1.7 % (2-11); Neutrophils Absolute Auto 9.2 x10*3/uL (2.0-8.3); Neutrophils Percent Auto 91.8 % (45-73); Platelet Count 386 X10*3/uL (160-400); Red Cell Distribution Width 13.2 % (11.0-16.0); SCAN SMEAR FLAG 1
[2024-12-20] MEDS: 0.9 % Sodium Chloride 1,000 ML 999 ML IV (14:39)
[2024-12-20] MEDS: Acetaminophen 1,000 MG/100 ML PIGGYBACK 400 MG IV (14:39)
[2024-12-20] MEDS: LORazepam 2 MG/ML VIAL IVPUSH (14:40)
[2024-12-20] MEDS: ondansetron HCL 4 MG/2 ML VIAL IVPUSH (14:40)
[2024-12-20 14:43] LABS: IDNOW Serial# 58CA691E; Strep A Nucleic Acid Negative (Negative)
--- NOTE | 2024-12-20 14:44 | PC.NURSE ---
patient admits to daily drinking of liquor and last drink was couple nights ago patient reports going threw withdrawal before but does not report seizure hx at this time. PA aware.
[2024-12-20 14:52] LABS: Magnesium 2.1 mg/dL (1.6-2.6)
[2024-12-20 14:53] LABS: Alanine Aminotransferase 14 U/L (0-40); Alkaline Phosphatase 88 U/L (39-117); Anion Gap 22 (12-20); Aspartate Amino Transferase 47 U/L (5-37); Blood Urea Nitrogen 17 mg/dL (9-16); C Reactive Protein < 0.10 mg/dL (< or = 0.50); Calcium 10.3 mg/dL (8.4-10.2); Carbon Dioxide 20 mmol/L (22-29); Chloride 102 mmol/L (96-108); Creatinine Clr Calc Pharmacy 94.8; Estimated Glomerular Filt Rate > 60; Glucose Random 101 mg/dL (60-115); Potassium 5.5 mmol/L (3.3-5.1); Sodium 138 mmol/L (135-145); Total Protein 10.1 g/dL (6.5-8.0)
[2024-12-20 14:55] LABS: Lactic Acid 2.8 mmol/L (0.5-2.0)
[2024-12-20 14:56] LABS: SLIDE REVIEW VERIFIED
[2024-12-20 15:09] LABS: Erythrocyte Sedimentation Rate 7 MM/HR (0-15)
[2024-12-20 15:22] LABS: Influenza A PCR NEGATIVE (Negative); Influenza B PCR NEGATIVE (Negative); Resp Syncy Virus RNA Qual PCR NEGATIVE (Negative); SARS COV2 PCR INHOUSE NEGATIVE (Negative)
[2024-12-20 15:24] LABS: Beta-Hydroxybutyrate 1.57 mmol/L (0.02-0.27); Ethanol < 10 mg/dL
[2024-12-20 15:28] LABS: Venous Blood Gas Refer to POC result
[2024-12-20 15:29] LABS: VBG Base Excess -2.3 mmol/L; VBG HCO3 20 mmol/L (22-26); VBG pCO2 30 mmHg; VBG pH 7.43 (7.32-7.43); VBG pO2 56 mmHg
--- NOTE | 2024-12-20 15:43 | PC.NURSE ---
PER JULIA Flood hold on phenobarbital procotol administration at this time d/t pt sedation level.
[2024-12-20 15:46] LABS: Ammonia 42 umol/L (13-55)
[2024-12-20 16:02] LABS: Troponin-I High Sensitivity < 2.7 ng/L (<3.5-35.0)
--- NOTE | 2024-12-20 16:05 | PC.NURSE ---
patient sleeping comfortably in stretcher at this time. less restless and agitated. Pt alert to painful stimuli. Patient even unlabored resp. Vitals WNL.
--- NOTE | 2024-12-20 16:29 | PM.IMHP ---
History of Present Illness Date of Service: 12/20/24 Chief Complaint: flu like symptoms 29M PMH alcohol dependence, polysubstance abuse, ADHD, bipolar with history of overdose, presented with flu-like symptoms. History is obtained from ER report as patient is not participatory in history and family is unaware of what happened. Patient was brought in for nausea vomiting chills and diarrhea and generally feeling unwell for 2 days. He reports not using opiates for 5 days. He reports drinking hard liquor every day and not drinking for 2 days. Of note recently was at [facility] for similar symptoms and had left AMA. Records have been requested. In ED mild lactic acidosis and signs of dehydration. Given methadone and Ativan for withdrawal. Viral swabs negative Review of Systems Review of Systems: Yes Unobtainable due to mental status [facility] Medical History ADHD Bipolar 1 disorder Allergic rhinitis Family History Father Depression Asthma Mother Asthma Depression Migraine Brother No problems noted. Sister No problems noted. Son In good health Surgical History History of surgery Social History Alcohol intake: current Alcohol intake frequency: a few times a month Alcohol type: hard liquor Patient Tobacco Use Status: Current everyday Tobacco user Cigarettes Per Day: 5 Smoked in Last 30 Days: Yes Substance Use Type: Opiates Advance Directives: No Advance Directives Information Provided: No Do you have a plan to hurt others: No Plan Meds Allergies Allergy/AdvReac Type Severity Reaction Status Date / Time No Known Allergies Allergy Verified 12/20/24 13:15 Active Medications: Current Medications Lactated Ringer's (Lr) 1,000 mls @ 100 mls/hr IVCONT .Q10H [facility] Pharmacy Consult (Consult Rx Etoh Phenob Im/Po) 1 each MISCELLANE ONCE PRN; Protocol PRN Reason: Consult order Phenobarbital (Phenobarbital 15 Mg Tablet) 45 mg PO BID [facility]; Protocol Stop: 12/22/24 21:01 Phenobarbital (Phenobarbital 15 Mg Tablet) 15 mg PO BID [facility]; Protocol Stop: 12/24/24 21:01 Phenobarbital (Phenobarbital 15 Mg Tablet) 15 mg PO DAILY [facility]; Protocol Stop: 12/26/24 09:01 Phenobarbital Sodium (Phenobarbital Sodium 130 Mg/Ml Vial Im Q3hx2) 180 mg IM Q3H [facility]; Protocol Stop: 12/20/24 21:01 Home Medications ?Medication ?Instructions ?Recorded ?Confirmed ?Last Taken ?Type albuterol sulfate 90 mcg/actuation 2 puff inhalation Q6H PRN wheezing 02/04/23 02/04/23 Unknown History aerosol inhaler (Ventolin HFA) buprenorphine 12 mg-naloxone 3 mg 15 mg sublingual BID 02/04/23 02/04/23 02/03/23 History sublingual film (Suboxone) clonidine HCl 0.1 mg tablet 0.1 mg PO BEDTIME PRN Anxiety 02/04/23 02/04/23 02/03/23 History fluticasone propionate 50 1 spray intranasal DAILY 02/04/23 02/04/23 02/03/23 History mcg/actuation nasal spray,suspension Physical Exam Vital Signs and Narrative: Vital Signs: Last Vital Signs Temp 98.6 F 12/20/24 14:31 Pulse 82 12/20/24 14:31 Resp 26 H 12/20/24 14:31 BP 135/86 12/20/24 14:31 Pulse Ox 100 12/20/24 14:31 O2 Del Method Room Air 12/20/24 14:31 BMI result Body Mass Index 21.7 Obtunded, no acute distress, lungs clear, abdomen soft Results Labs 12/20/24 14:26 12/20/24 14:25 Labs: Laboratory Results - last 24 hr 12/20/24 12/20/24 12/20/24 14:25 14:26 15:18 MCV 88.7 MCH 30.5 MCHC 34.4 RDW 13.2 Plt Count 386 MPV 10.0 Immature Gran % (Auto) 0.3 Neut % (Auto) 91.8 H Lymph % (Auto) 6.0 L [place] % (Auto) 1.7 L Eos % (Auto) 0.0 Baso % (Auto) 0.2 Lymph # (Auto) 0.6 L [place] # (Auto) 0.2 Eos # (Auto) 0.0 Baso # (Auto) 0.0 Abs Immat Gran (auto) 0.03 Absolute Neuts (auto) 9.2 H Absolute Nucleated RBC 0.000 Nucleated RBC % (auto) 0.0 Smear Tech's Comments VERIFIED ESR 7 VBG pH VBG pCO2 VBG pO2 VBG HCO3 VBG O2 Saturation VBG Base Excess Anion Gap 22 H Estim Creat Clear Calc 94.8 Estimated GFR > 60 Random Glucose 101 Lactic Acid 2.8 H* Calcium 10.3 H Magnesium 2.1 Total Bilirubin 1.0 AST 47 H ALT 14 Alkaline Phosphatase 88 Ammonia 42 C-Reactive Protein < 0.10 Total Protein 10.1 H Albumin 5.0 Beta-Hydroxybutyrate 1.57 H Ethyl Alcohol < 10 Influenza Type A (PCR) NEGATIVE Influenza Type B (PCR) NEGATIVE RSV RNA Qual (PCR) NEGATIVE SARS-CoV-2 RNA (RT-PCR) NEGATIVE S. pyogenes GrpA JAMEE Negative 12/20/24 15:25 MCV MCH MCHC RDW Plt Count MPV Immature Gran % (Auto) Neut % (Auto) Lymph % (Auto) [place] % (Auto) Eos % (Auto) Baso % (Auto) Lymph # (Auto) [place] # (Auto) Eos # (Auto) Baso # (Auto) Abs Immat Gran (auto) Absolute Neuts (auto) Absolute Nucleated RBC Nucleated RBC % (auto) Smear Tech's Comments ESR VBG pH 7.43 VBG pCO2 30 VBG pO2 56 VBG HCO3 20 L VBG O2 Saturation 88.0 VBG Base Excess -2.3 Anion Gap Estim Creat Clear Calc Estimated GFR Random Glucose Lactic Acid Calcium Magnesium Total Bilirubin AST ALT Alkaline Phosphatase Ammonia C-Reactive Protein Total Protein Albumin Beta-Hydroxybutyrate Ethyl Alcohol Influenza Type A (PCR) Influenza Type B (PCR) RSV RNA Qual (PCR) SARS-CoV-2 RNA (RT-PCR) S. pyogenes GrpA JAMEE Assessment and Plan (1) Opioid use disorder: Status: Acute Plan 29M PMH alcohol dependence, polysubstance abuse, ADHD, bipolar with history of overdose, presented with flu-like symptoms Polysubstance dependence with withdrawal further complicated by acute toxic metabolic encephalopathy inpatient with history of ADHD and bipolar disorder Currently lethargic/obtunded we will hold further meds until more alert, monitor CIWA, addiction eval Monitored on telemetry IV fluids for dehydration DVT prophylaxis with Lovenox Full Code Given extent of patient's symptoms will likely require at least 2 midnights inpatient until back to baseline Quality Stroke Does the patient have a stroke diagnosis?: No VTE Prior VTE?: No VTE Risk Level:: Medical - moderate - high VTE Device Contraindication: Treatment Not Indicated VTE Drug Contraindication: N/A - Med Ordered
[2024-12-20 16:33] LABS: Reflex Lactate? Lactic Acid Added
[2024-12-20 17:11] LABS: ~Lactic Acid-LAB USE ONLY 1.2 mmol/L (0.5-2.0)
--- NOTE | 2024-12-20 17:19 | PHA.MEDREC ---
Pharmacy Consult ? Medication Reconciliation Pharmacy has completed the medication reconciliation. Went down to speak with patient who was sleeping, stepmom in room. Stepmom did not know about patient med history. Med rec completed via claim history.
[2024-12-20] MEDS: Lactated Ringers 1,000 ML 100 ML IVCONT (17:41)
--- NOTE | 2024-12-20 17:44 | PC.NURSE ---
LR maintenance currently infusing by drip rate d/t no IV pump availability. 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
--- NOTE | 2024-12-20 19:40 | MHC.EDTECH ---
This tech took over care of pt at 1900,rounded and introduced self to pt, upon entry to room pt was yelling and demanding food,and anne marie RN made aware, vitals taken,call weaver in reach
[2024-12-21 00:55] VITALS: BMI 21.7
--- NOTE | 2024-12-21 01:05 | PC.NURSE ---
PATIENT LETHARGIC BUT AROUSABLE TO NAME BUT FALLS ASLEEP ALMOST IMMEDIATELY. BRANDEE MOST OF ADMISSION DUE TO PATIENTS LETHARGY ON ANSWERING QUESTIONS. VSS. EVEN CHEST RISE AND FALL, RESP EVEN AND UNLABORED. FALL PRECAUTIONS IN PLACE. BED ALARM ACTIVATED.
[2024-12-21 03:36] VITALS: BP 147/66; PULSE 83; RESP 18; TEMP 37.6; O2SAT 100
[2024-12-21 04:40] LABS: Amphetamine Screen Urine Not Detected (Not Detect); Barbiturates, Urine Not Detected (Not Detect); Benzodiazepines Screen Urine Not Detected (Not Detect); Buprenorphine Scr Not Detected (Not Detect); Cannabinoid Screen Urine POSITIVE (Not Detect); Cocaine Screen Urine POSITIVE (Not Detect); Fentanyl, urine POSITIVE (Not Detect); Methadone Screen, Urine Positive (Not Detect); Opiate Screen Urine POSITIVE (Not Detect); Oxycodone Screen Urine Not Detected (Not Detect); Phencyclidine Screen Urine POSITIVE (Not Detect)
[2024-12-21] MEDS: ondansetron HCL 4 MG/2 ML VIAL IVPUSH (05:23)
[2024-12-21 07:10] VITALS: BP 125/74; PULSE 86; RESP 20; TEMP 36.8; O2SAT 97
--- NOTE | 2024-12-21 08:36 | MHC.CM.PN ---
CM attempted to meet with Patient at bedside but was unable to wake Patient. From chart review only, tentative dc plan appears to be home vs Recovery Team intervention R/T Polysubstance Abuse & history of overdose. CM has initiated and will follow for dc planning.
--- NOTE | 2024-12-21 09:00 | HO.PM.IMPN ---
Subjective Subjective Date of Service: 12/21/24 Interval History: non participatory Physical Exam Vital Signs: Vital Signs: Last Vital Signs Temp 98.3 F 12/21/24 07:10 Pulse 86 12/21/24 07:10 Resp 20 12/21/24 07:10 BP 125/74 12/21/24 07:10 Pulse Ox 97 12/21/24 07:10 O2 Del Method Room Air 12/21/24 07:10 BMI result Body Mass Index 21.7 letyhargic, non participatory, lungs clear, abd soft Objective Data Active Medications Acetaminophen (Acetaminophen 325 Mg Tablet) 650 mg PO Q6H PRN PRN Reason: Pain, Mild 1-3,fever,headache Apixaban (Apixaban 5 Mg Tablet) 5 mg PO BID [facility] Last Admin: 12/20/24 22:13 Dose: Not Given Documented By: CODY Non-Admin Reason: patient very lethargic, aware Calcium Carbonate (Calcium Carbonate 750 Mg Tab.Chew) 750 mg PO Q4H PRN PRN Reason: Heartburn Clonidine HCl (Clonidine Hcl 0.1 Mg Tablet) 0.1 mg PO TID PRN; Protocol PRN Reason: Anxiety Hydroxyzine HCl (Hydroxyzine Hcl 25 Mg Tablet) 25 mg PO TID PRN PRN Reason: anxiety Lactated Ringer's (Lr) 1,000 mls @ 100 mls/hr IVCONT .Q10H [facility] Last Admin: 12/21/24 03:33 Dose: Not Given Documented By: CODY Non-Admin Reason: IV Running Magnesium Hydroxide (Milk Of Magnesia 30 Ml Oral.Susp) 30 ml PO DAILY PRN PRN Reason: Constipation Melatonin (Melatonin 3 Mg Tablet) 6 mg PO BEDTIME PRN PRN Reason: Insomnia Quetiapine Fumarate (Quetiapine Fumarate 25 Mg Tablet) 25 mg PO BID [facility] Last Admin: 12/20/24 22:13 Dose: Not Given Documented By: CODY Non-Admin Reason: patient lethargic, MD aware Sodium Chloride (0.9 % Sodium Chloride Flush 3 Ml Syringe) 3 ml IVFLUSH QSHIFT [facility] Last Admin: 12/21/24 01:11 Dose: Not Given Documented By: CODY Non-Admin Reason: IV Running Labs 12/20/24 14:26 12/20/24 14:25 Labs: Laboratory Results - last 24 hr 12/20/24 12/20/24 12/20/24 14:25 14:26 15:18 MCV 88.7 MCH 30.5 MCHC 34.4 RDW 13.2 Plt Count 386 MPV 10.0 Immature Gran % (Auto) 0.3 Neut % (Auto) 91.8 H Lymph % (Auto) 6.0 L Steele % (Auto) 1.7 L Eos % (Auto) 0.0 Baso % (Auto) 0.2 Lymph # (Auto) 0.6 L Steele # (Auto) 0.2 Eos # (Auto) 0.0 Baso # (Auto) 0.0 Abs Immat Gran (auto) 0.03 Absolute Neuts (auto) 9.2 H Absolute Nucleated RBC 0.000 Nucleated RBC % (auto) 0.0 Smear Tech's Comments VERIFIED ESR 7 VBG pH VBG pCO2 VBG pO2 VBG HCO3 VBG O2 Saturation VBG Base Excess Anion Gap 22 H Estim Creat Clear Calc 94.8 Estimated GFR > 60 Random Glucose 101 Lactic Acid 2.8 H* Lactic Acid F/U @ 2Hr Calcium 10.3 H Magnesium 2.1 Total Bilirubin 1.0 AST 47 H ALT 14 Alkaline Phosphatase 88 Ammonia 42 C-Reactive Protein < 0.10 Total Protein 10.1 H Albumin 5.0 Beta-Hydroxybutyrate 1.57 H Urine Opiates Screen Ur Buprenorphine Scrn Ur Oxycodone Screen Urine Methadone Screen Urine Fentanyl Screen Ur Barbiturates Screen Ur Phencyclidine Scrn Ur Amphetamines Screen U Benzodiazepines Scrn Urine Cocaine Screen U Marijuana (THC) Screen Ethyl Alcohol < 10 Influenza Type A (PCR) NEGATIVE Influenza Type B (PCR) NEGATIVE RSV RNA Qual (PCR) NEGATIVE SARS-CoV-2 RNA (RT-PCR) NEGATIVE S. pyogenes GrpA JAMEE Negative 12/20/24 12/20/24 12/21/24 15:25 16:49 03:49 MCV MCH MCHC RDW Plt Count MPV Immature Gran % (Auto) Neut % (Auto) Lymph % (Auto) Steele % (Auto) Eos % (Auto) Baso % (Auto) Lymph # (Auto) Steele # (Auto) Eos # (Auto) Baso # (Auto) Abs Immat Gran (auto) Absolute Neuts (auto) Absolute Nucleated RBC Nucleated RBC % (auto) Smear Tech's Comments ESR VBG pH 7.43 VBG pCO2 30 VBG pO2 56 VBG HCO3 20 L VBG O2 Saturation 88.0 VBG Base Excess -2.3 Anion Gap Estim Creat Clear Calc Estimated GFR Random Glucose Lactic Acid Lactic Acid F/U @ 2Hr 1.2 Calcium Magnesium Total Bilirubin AST ALT Alkaline Phosphatase Ammonia C-Reactive Protein Total Protein Albumin Beta-Hydroxybutyrate Urine Opiates Screen POSITIVE H Ur Buprenorphine Scrn Not Detected Ur Oxycodone Screen Not Detected Urine Methadone Screen Positive H Urine Fentanyl Screen POSITIVE H Ur Barbiturates Screen Not Detected Ur Phencyclidine Scrn POSITIVE H Ur Amphetamines Screen Not Detected U Benzodiazepines Scrn Not Detected Urine Cocaine Screen POSITIVE H U Marijuana (THC) Screen POSITIVE H Ethyl Alcohol Influenza Type A (PCR) Influenza Type B (PCR) RSV RNA Qual (PCR) SARS-CoV-2 RNA (RT-PCR) S. pyogenes GrpA JAMEE Assessment and Plan (1) Opioid use disorder: Status: Acute Plan 29M PMH alcohol dependence, polysubstance abuse, ADHD, bipolar with history of overdose, presented with flu-like symptoms Polysubstance dependence with withdrawal further complicated by acute toxic metabolic encephalopathy inpatient with history of ADHD and bipolar disorder Continues to be lethargic/obtunded, will continue to hold further meds until more alert, monitor CIWA, addiction eval Monitored on telemetry IV fluids for dehydration ? recent VTE awaiting reports from jamey, continue eliquis DVT prophylaxis with eliquis Full Code reason for continued hospitalization:ams Quality Stroke Does the patient have a stroke diagnosis?: No VTE Prior VTE?: No VTE Risk Level:: Medical - moderate - high VTE Device Contraindication: Treatment Not Indicated VTE Drug Contraindication: N/A - Med Ordered
[2024-12-21] MEDS: Apixaban 5 MG TABLET PO (09:24)
[2024-12-21] MEDS: QUEtiapine Fumarate 25 MG TABLET PO (09:24)
[2024-12-21] MEDS: hydrOXYzine HCL 25 MG TABLET PO (09:29)
--- NOTE | 2024-12-21 09:58 | P.CDIM_ITS ---
PROVIDER RESPONSE TEXT: To clarify, the appropriate diagnosis supported by the clinical indicators: Acute QUERY TEXT: PHYSICIAN'S DOCUMENTATION REQUEST Date of Query: 12/21/2024 09:46 AM EDT Patient Name: Luis Schmidt Admit Date: 12/20/2024 Dear Jj Flores MD, A review of the medical record indicates additional documentation may be needed. Please review below and update the documentation accordingly. Clinical Indicators: H&P 3/16 - In the ED mild lactic acidosis and signs of dehydration. LA 2.8 H Clarify which of the following accurately represents the acuity of the Lactic acidosis: Possible options might include: Acute Chronic Other specified Other (explain) Clinically unable to determine (explain) Thank you, Mona Ibarra, CCS, CDIS Use of terms such as suspected, likely, concern for, or probable (associated with a specific diagnosi s that is being evaluated, monitored, or treated as if it exists) are acceptable and can be coded in the inpatient se tting, when documented at the time of discharge. Please use your independent medical judgment in providing your response. THIS QUERY IS PART OF THE PERMANENT MEDICAL RECORD
--- NOTE | 2024-12-21 10:01 | P.CDIM_ITS ---
PROVIDER RESPONSE TEXT: To clarify, the appropriate diagnosis supported by the clinical indicators: Other (explain): hypokalemia QUERY TEXT: PHYSICIAN'S DOCUMENTATION REQUEST Date of Query: 12/21/2024 09:50 AM EDT Patient Name: Luis Schmidt Admit Date: 12/20/2024 Dear Jj Flores MD, A review of the medical record indicates additional documentation may be needed. Please review below and update the documentation accordingly. Clinical Indicators: LABS: potassium 2.8 H IV for dehydration. Based on the above, could you clarify if there is a diagnosis that correlates with the above lab find ings: Hyperkalemia resolved, possible, cannot rule out etc. Labs indicate a diagnosis of (please specify) Other (explain) Clinically unable to determine (explain) Thank you, Mona Ibarra, CCS, CDIS Use of terms such as suspected, likely, concern for, or probable (associated with a specific diagnosi s that is being evaluated, monitored, or treated as if it exists) are acceptable and can be coded in the inpatient se tting, when documented at the time of discharge. Please use your independent medical judgment in providing your response. THIS QUERY IS PART OF THE PERMANENT MEDICAL RECORD
[2024-12-21] MEDS: methADONE HCl 20 MG/2 ML ORAL.CONC 40 MG PO (10:24)
[2024-12-21 10:56] VITALS: BP 137/83; PULSE 79; RESP 20; TEMP 36.8; O2SAT 100
--- NOTE | 2024-12-21 12:34 | HO.ADDICT_ITS ---
History of Present Illness Date of Service: 12/21/2024 Chief Complaint: encephlaopathy Reason for Consult: MARISOL HPI Narrative: Patient is a 29 year only male medically admitted with acute opioid withdrawal and toxic encephalopathy Per chart review he presented to ED reporting general malaise and reporting nausea and vomiting Consult requested as patient reporting ongoing substance use UDS +fentanyl, cocaine, PCP He received methadone 40mg while in ED, however it is reported that he vomited shortly after administration. Patient seen in room 458. He is awake, alert, somewhat engaged in interview. Patient heard moaning and appearing restless in bed upon entering his room He reports feeling sick States he has been using approx 1/2 to one bundle of fentanyl daily States he is currently engaged in treatment for OUD at [facility] and states his dose is 75mg Per his report, last dose was over a week ago . He presents as anxious, restless and visibly diaphoretic Methadone 40mg ordered and administered with positive effect. Patient reassessed later in the afternoon He is up out of bed and dressed. Reports methadone was helpful and denies any withdrawal sx. This mortgage or loan underwriter inquired about alcohol intake as AUDIT C screen+ at time of admission. Patient denies alcohol use. I don't drink like that . When asked report at admission that he drinks hard liquor daily, he stated, I don't know why I said that, I don;t . Brief intervention deferred Review of Systems Constitutional: Reports as per HPI and Reports no additional constitutional complaints Diagnostics Vital Signs (24Hr): Vital Signs - 24 hr 12/20/24 13:14 12/20/24 13:32 12/20/24 14:31 Temperature 99.8 F 99.8 F 98.6 F Pulse Rate 81 81 82 Respiratory Rate 20 20 26 H Blood Pressure 155/83 H 155/83 H 135/86 Pulse Oximetry 99 99 100 Oxygen Delivery Method Room Air Room Air Room Air 12/20/24 16:47 12/20/24 16:51 12/20/24 18:02 Temperature 99.1 F 99.1 F Pulse Rate 70 82 Respiratory Rate 17 12 Blood Pressure 109/81 130/85 Pulse Oximetry 100 100 Oxygen Delivery Method Room Air Room Air Room Air 12/20/24 19:38 12/20/24 21:51 12/21/24 03:36 Temperature 98.6 F 98.1 F 99.6 F Pulse Rate 83 68 83 Respiratory Rate 16 18 18 Blood Pressure 136/70 128/76 147/66 H Pulse Oximetry 100 96 100 Oxygen Delivery Method Room Air Room Air Room Air 12/21/24 07:10 12/21/24 10:56 Temperature 98.3 F 98.3 F Pulse Rate 86 79 Respiratory Rate 20 20 Blood Pressure 125/74 137/83 Pulse Oximetry 97 100 Oxygen Delivery Method Room Air Room Air BMI result Body Mass Index 21.7 Labs 12/20/24 14:26 12/20/24 14:25 Labs: Laboratory Results - last 48 hr 12/20/24 12/20/24 12/20/24 14:25 14:26 15:18 WBC 10.0 RBC 5.50 Hgb 16.8 Hct 48.8 MCV 88.7 MCH 30.5 MCHC 34.4 RDW 13.2 Plt Count 386 MPV 10.0 Immature Gran % (Auto) 0.3 Neut % (Auto) 91.8 H Lymph % (Auto) 6.0 L [place] % (Auto) 1.7 L Eos % (Auto) 0.0 Baso % (Auto) 0.2 Lymph # (Auto) 0.6 L [place] # (Auto) 0.2 Eos # (Auto) 0.0 Baso # (Auto) 0.0 Abs Immat Gran (auto) 0.03 Absolute Neuts (auto) 9.2 H Absolute Nucleated RBC 0.000 Nucleated RBC % (auto) 0.0 Smear Tech's Comments VERIFIED ESR 7 VBG pH VBG pCO2 VBG pO2 VBG HCO3 VBG O2 Saturation VBG Base Excess Sodium 138 Potassium 5.5 H D Chloride 102 Carbon Dioxide 20 L Anion Gap 22 H BUN 17 H Creatinine 0.99 Estim Creat Clear Calc 94.8 Estimated GFR > 60 Random Glucose 101 Lactic Acid 2.8 H* Lactic Acid F/U @ 2Hr Calcium 10.3 H Magnesium 2.1 Total Bilirubin 1.0 AST 47 H ALT 14 Alkaline Phosphatase 88 Ammonia 42 Troponin I High Sens C-Reactive Protein < 0.10 Total Protein 10.1 H Albumin 5.0 Beta-Hydroxybutyrate 1.57 H Urine Opiates Screen Ur Buprenorphine Scrn Ur Oxycodone Screen Urine Methadone Screen Urine Fentanyl Screen Ur Barbiturates Screen Ur Phencyclidine Scrn Ur Amphetamines Screen U Benzodiazepines Scrn Urine Cocaine Screen U Marijuana (THC) Screen Ethyl Alcohol < 10 Influenza Type A (PCR) NEGATIVE Influenza Type B (PCR) NEGATIVE RSV RNA Qual (PCR) NEGATIVE SARS-CoV-2 RNA (RT-PCR) NEGATIVE S. pyogenes GrpA JAMEE Negative 12/20/24 12/20/24 12/20/24 15:19 15:25 16:49 WBC RBC Hgb Hct MCV MCH MCHC RDW Plt Count MPV Immature Gran % (Auto) Neut % (Auto) Lymph % (Auto) [place] % (Auto) Eos % (Auto) Baso % (Auto) Lymph # (Auto) [place] # (Auto) Eos # (Auto) Baso # (Auto) Abs Immat Gran (auto) Absolute Neuts (auto) Absolute Nucleated RBC Nucleated RBC % (auto) Smear Tech's Comments ESR VBG pH 7.43 VBG pCO2 30 VBG pO2 56 VBG HCO3 20 L VBG O2 Saturation 88.0 VBG Base Excess -2.3 Sodium Potassium Chloride Carbon Dioxide Anion Gap BUN Creatinine Estim Creat Clear Calc Estimated GFR Random Glucose Lactic Acid Lactic Acid F/U @ 2Hr 1.2 Calcium Magnesium Total Bilirubin AST ALT Alkaline Phosphatase Ammonia Troponin I High Sens < 2.7 C-Reactive Protein Total Protein Albumin Beta-Hydroxybutyrate Urine Opiates Screen Ur Buprenorphine Scrn Ur Oxycodone Screen Urine Methadone Screen Urine Fentanyl Screen Ur Barbiturates Screen Ur Phencyclidine Scrn Ur Amphetamines Screen U Benzodiazepines Scrn Urine Cocaine Screen U Marijuana (THC) Screen Ethyl Alcohol Influenza Type A (PCR) Influenza Type B (PCR) RSV RNA Qual (PCR) SARS-CoV-2 RNA (RT-PCR) S. pyogenes GrpA JAMEE 12/21/24 03:49 WBC RBC Hgb Hct MCV MCH MCHC RDW Plt Count MPV Immature Gran % (Auto) Neut % (Auto) Lymph % (Auto) [place] % (Auto) Eos % (Auto) Baso % (Auto) Lymph # (Auto) [place] # (Auto) Eos # (Auto) Baso # (Auto) Abs Immat Gran (auto) Absolute Neuts (auto) Absolute Nucleated RBC Nucleated RBC % (auto) Smear Tech's Comments ESR VBG pH VBG pCO2 VBG pO2 VBG HCO3 VBG O2 Saturation VBG Base Excess Sodium Potassium Chloride Carbon Dioxide Anion Gap BUN Creatinine Estim Creat Clear Calc Estimated GFR Random Glucose Lactic Acid Lactic Acid F/U @ 2Hr Calcium Magnesium Total Bilirubin AST ALT Alkaline Phosphatase Ammonia Troponin I High Sens C-Reactive Protein Total Protein Albumin Beta-Hydroxybutyrate Urine Opiates Screen POSITIVE H Ur Buprenorphine Scrn Not Detected Ur Oxycodone Screen Not Detected Urine Methadone Screen Positive H Urine Fentanyl Screen POSITIVE H Ur Barbiturates Screen Not Detected Ur Phencyclidine Scrn POSITIVE H Ur Amphetamines Screen Not Detected U Benzodiazepines Scrn Not Detected Urine Cocaine Screen POSITIVE H U Marijuana (THC) Screen POSITIVE H Ethyl Alcohol Influenza Type A (PCR) Influenza Type B (PCR) RSV RNA Qual (PCR) SARS-CoV-2 RNA (RT-PCR) S. pyogenes GrpA JAMEE Mental Status Exam Mental Status Exam Patient Appearance: Well Grooomed and Appropriate Patient Orientation: Person, Place, Time and Situation Level of Consciousness: Awake, Appropriate and Alert Patient Behavior: Appropriate and Guarded Mood Description: Calm Speech Pattern: Clear Hallucinations: None Thought Process: Intact Thought Content: positive for Intact Judgement: Fair Medications Medications Current Medications Acetaminophen (Acetaminophen 325 Mg Tablet) 650 mg PO Q6H PRN PRN Reason: Pain, Mild 1-3,fever,headache Apixaban (Apixaban 5 Mg Tablet) 5 mg PO BID [facility] Last Admin: 12/21/24 09:24 Dose: 5 mg Calcium Carbonate (Calcium Carbonate 750 Mg Tab.Chew) 750 mg PO Q4H PRN PRN Reason: Heartburn Clonidine HCl (Clonidine Hcl 0.1 Mg Tablet) 0.1 mg PO TID PRN; Protocol PRN Reason: Anxiety Hydroxyzine HCl (Hydroxyzine Hcl 25 Mg Tablet) 25 mg PO TID PRN PRN Reason: anxiety Last Admin: 12/21/24 09:29 Dose: 25 mg Lactated Ringer's (Lr) 1,000 mls @ 100 mls/hr IVCONT .Q10H [facility] Last Infusion: 12/21/24 09:33 Dose: Infused Magnesium Hydroxide (Milk Of Magnesia 30 Ml Oral.Susp) 30 ml PO DAILY PRN PRN Reason: Constipation Melatonin (Melatonin 3 Mg Tablet) 6 mg PO BEDTIME PRN PRN Reason: Insomnia Quetiapine Fumarate (Quetiapine Fumarate 25 Mg Tablet) 25 mg PO BID [facility] Last Admin: 12/21/24 09:24 Dose: 25 mg Sodium Chloride (0.9 % Sodium Chloride Flush 3 Ml Syringe) 3 ml IVFLUSH QSHIFT [facility] Last Admin: 12/21/24 09:25 Dose: Not Given Allergies Allergies Allergy/AdvReac Type Severity Reaction Status Date / Time No Known Allergies Allergy Verified 12/20/24 13:15 Assessment & Plan Assessment & Plan (1) Opioid use disorder: Status: Acute Code(s): F11.90 - Opioid use, unspecified, uncomplicated Assessment and Plan: * acute withdrawal (resolved) * methadone 40mg X1 * patient already connected to [facility]--last dose letter provided by RN. Patient to present to [facility] in AM for ongoing dosing * at time of this note, patient has discharged (self directed) Total time managing care of this patient today ____ minutes. PMFSH Past Medical History Medical History ADHD Bipolar 1 disorder Allergic rhinitis Family History Family History Father Depression Asthma Mother Asthma Depression Migraine Brother No problems noted. Sister No problems noted. Son In good health Surgical History Surgical History History of surgery Social History Social History Household Members: Unknown / Unable to assess Housing: Unknown / Unable to assess Alcohol intake: current Alcohol intake frequency: a few times a month Alcohol type: hard liquor Patient Tobacco Use Status: Tobacco use Unknown Cigarettes Per Day: 5 Smoked in Last 30 Days: Yes Use of substances other than those prescribed or required for medical reasons: Unable to respond Substance Use Type: Opiates Currently Displaying Signs/Symptoms of Drug Intoxication Withdrawal: No Advance Directives: No Advance Directives Information Provided: No Do you have a plan to hurt others: No Plan Recently lost weight without trying: Unsure Nutrition Risks: No Nutritional Risk service: No
[2024-12-21 16:00] VITALS: BP 115/73; PULSE 77; RESP 20; TEMP 36.9; O2SAT 100
--- NOTE | 2024-12-21 16:40 | P.DS_ITS ---
DS: Providers Provider Date of Service: 12/21/24 Date of admission: 12/20/24 16:29 Date of discharge: 12/21/24 Primary care physician: Giulia Huff MD Consults: 12/20/24 16:27 Addiction Medicine Provider Routine Consulting Provider: Addiction Covering Reason for consultation: poly DS: Diagnosis Discharge Diagnosis (1) Opioid use disorder: Status: Acute DS: Summary Hospital Course Hospital Course: from initial hpi: 29M PMH alcohol dependence, polysubstance abuse, ADHD, bipolar with history of overdose, presented with flu-like symptoms. History is obtained from ER report as patient is not participatory in history and family is unaware of what happened. Patient was brought in for nausea vomiting chills and diarrhea and generally feeling unwell for 2 days. He reports not using opiates for 5 days. He reports drinking hard liquor every day and not drinking for 2 days. Of note recently was at [facility] for similar symptoms and had left AMA. Records have been requested. In ED mild lactic acidosis and signs of dehydration. Given methadone and Ativan for withdrawal. Viral swabs negative hospital course: patient was admitted for Polysubstance dependence with withdrawal further complicated by acute toxic metabolic encephalopathy inpatient with history of ADHD and bipolar disorder. he was seen by addiction medicine and started on methadone. initially treated for etoh withdrawal as well, but likely more opiate, phenobarb was held. patient noted to have hyperkalemia, but refused repeat labs. for recent VTE was continued on eliquis. patient still having withdrawal and unclear status of hyperkalemia, but decided to leave against medical advice, he was able to express understanding of risks of doing so including . Time Attestation Discharge Coordination Time (in mins): 34 Quality: Safe Use of Opioids Does Pt have an Active Cancer Diagnosis on the Problem List?: No Quality: Stroke Does the patient have a stroke diagnosis?: No Physical Exam Vital Signs: Vital Signs: Last Vital Signs Temp 98.5 F 12/21/24 16:00 Pulse 77 12/21/24 16:00 Resp 20 12/21/24 16:00 BP 115/73 12/21/24 16:00 Pulse Ox 100 12/21/24 16:00 O2 Del Method Room Air 12/21/24 16:00 BMI result Body Mass Index 21.7 General: AO X 3, no acute distress Resp: CTA bilateral, no accessory muscles used CVS: S1,S2,RRR GI: soft, non tender, non distended Neuro: motor grossly intact, alert Psych: appropriate affect, appropriate insight DS: Data Data Completed and Pending Labs on day of discharge: Laboratory Results - last 24 hr 12/20/24 12/21/24 16:49 03:49 Lactic Acid F/U @ 2Hr 1.2 Urine Opiates Screen POSITIVE H Ur Buprenorphine Scrn Not Detected Ur Oxycodone Screen Not Detected Urine Methadone Screen Positive H Urine Fentanyl Screen POSITIVE H Ur Barbiturates Screen Not Detected Ur Phencyclidine Scrn POSITIVE H Ur Amphetamines Screen Not Detected U Benzodiazepines Scrn Not Detected Urine Cocaine Screen POSITIVE H U Marijuana (THC) Screen POSITIVE H Preliminary micro results at discharge 12/20/24 14:21 Blood Culture - Preliminary Blood - Venous No growth after 24 hours. Discharge Plan Discharge Anticipated Discharge Date/Time: 12/21/24 16:39 Patient Disposition: Left Against Medical Advice Discharge Diagnosis: withdrawal, hyperkalemia Referrals: Giulia Huff MD [Primary Care Provider] - 1 Week Discharge Medications: Continued albuterol sulfate [Ventolin HFA] 90 mcg/actuation HFA aerosol inhaler 2 puff INHALATION Q6H PRN (Reason: wheezing) naloxone [Narcan] 4 mg/actuation spray,non-aerosol 4 mg intranasal Q2M PRN (Reason: opioid overdose) Qty: 2 0RF Rx Instructions: spray 1 dose into ONE nostril; alternate nostrils w each dose until help arrives quetiapine 25 mg tablet 25 mg PO BID clonidine HCl 0.1 mg tablet 0.1 mg PO TID PRN (Reason: Anxiety) trazodone 50 mg tablet 50 mg PO BEDTIME nicotine (polacrilex) 2 mg gum 2 mg PO Q4H PRN (Reason: Nicotine Cravings) hydroxyzine pamoate 25 mg capsule 25 mg PO TID PRN (Reason: anxiety) varenicline tartrate 1 mg tablet 1 mg PO BID Eliquis 5 mg tablet 5 mg PO BID Discharge Orders: Discharge Order (Routine); Ordered 12/21/24 Ordered By: Jj Flores Diet: Advance to usual diet Activity on Discharge: no drugs or etoh Print Language: Greek Care Plan Goals: recovery Health Concerns: polysubstance dependence Plan of Treatment: avoid drugs and alcohol Assessment: see above
--- NOTE | 2024-12-21 17:12 | PC.NURSE ---
patient verbalized desire to leave [facility]. rn reviewed that the plan was for him to stay the night, reassess his hyperkalemia in the am, receive a dose of methadone, get his last dose letter and leave tomorrow. patient states he feels fine and that he wants to go home now. md notified, last dose letter indicting patient received 40 mg of methadone at 1030 signed by this rn and placed in sealed envelope. patients iv removed wo issue, and patient ambulated out with family at side
== END 2024-12-21 17:00 | disposition left against medical advice (07) | DRG 770 ==
LOC: HO.ED 14:05 → HO.EDOVER 16:38 → HO.IMC 17:01 → HO.EDOVER 17:32 → HO.IMC 19:50
PROVIDERS: Physician Assistant Medical; Admitting Provider Internal Medicine; Emergency Provider Emergency Medicine; PCP Internal Medicine; Visit Provider Internal Medicine
DX: F11.23 Opioid dependence with withdrawal (principal); G92.8 Other toxic encephalopathy; E87.21 Acute metabolic acidosis; F19.20 Other psychoactive substance dependence, uncomplicated; F10.239 Alcohol dependence with withdrawal, unspecified; F10.20 Alcohol dependence, uncomplicated; E87.5 Hyperkalemia; F17.210 Nicotine dependence, cigarettes, uncomplicated; F90.9 Attention-deficit hyperactivity disorder, unspecified type; Z20.822 Contact with and (suspected) exposure to COVID-19; Z71.6 Tobacco abuse counseling; Z79.01 Long term (current) use of anticoagulants; Z79.899 Other long term (current) drug therapy
CPT/HCPCS: 0241U; 36415; 71045; 80053; 80307; 82010; 82140; 82803; 83605; 83735; 84484; 85025; 85652; 86140; 87040; 87651; 93005; 99285; J0131; J2060; J2405; J2560; J7120

== ENCOUNTER → 2024-12-20 13:29 | Outpatient (BNV) | payer MEDICAID, SELFPAY | PROVIDERS: Emergency Provider Emergency Medicine; PCP Internal Medicine; Visit Provider Internal Medicine | DX: G93.41 Metabolic encephalopathy (principal); F11.90 Opioid use, unspecified, uncomplicated | CPT/HCPCS: 99223; 99239 ==

== ENCOUNTER → 2024-12-20 13:52 | Outpatient (BNV) | payer MEDICAID, SELFPAY | PROVIDERS: Admitting Provider Internal Medicine; Emergency Provider Emergency Medicine; PCP Internal Medicine; Visit Provider Internal Medicine Cardiovascular Disease | DX: R94.31 Abnormal electrocardiogram [ECG] [EKG] (principal); I45.10 Unspecified right bundle-branch block | CPT/HCPCS: 93010 ==

== ENCOUNTER → 2024-12-20 14:58 | Outpatient (BNV) | payer MEDICAID, SELFPAY | PROVIDERS: Admitting Provider Internal Medicine; Emergency Provider Emergency Medicine; PCP Internal Medicine; Visit Provider Radiology Diagnostic Radiology | DX: R53.1 Weakness (principal) | CPT/HCPCS: 71045 ==

== ENCOUNTER → 2024-12-20 16:29 | Outpatient (BNV) | payer MEDICAID, SELFPAY | PROVIDERS: Admitting Provider Internal Medicine; Emergency Provider Emergency Medicine; PCP Internal Medicine; Visit Provider Nurse Practitioner Psychiatric/Mental Health | DX: F11.90 Opioid use, unspecified, uncomplicated (principal) | CPT/HCPCS: 99222 ==

== ENCOUNTER 2024-12-23 22:10 | Emergency (ER) | payer MEDICAID, SELFPAY ==
[2024-12-23 22:13] VITALS: BP 138/84; PULSE 76; O2SAT 98
[2024-12-23 22:24] VITALS: BP 138/92; PULSE 83; RESP 17; TEMP 37.8; O2SAT 99; BMI 24.2
--- NOTE | 2024-12-23 23:04 | ED.NAVMDI ---
HPI - Nausea/Vomiting/Diarrhea General Chief complaint: Nausea/Vomiting/Diarrhea Stated complaint: Methadone withdrawl Time Seen by Provider: 12/23/24 23:03 Source: patient Mode of arrival: ambulatory Limitations: no limitations History of Present Illness ED Provider: HPI Narrative: Patient's history of substance abuse anxiety methadone use and marijuana use comes here as he missed his methadone today and been having nausea vomiting since then patient was seen here 2 days ago at that time patient was positive for opiates fentanyl and cocaine and marijuana Related Data Home Medications ?Medication ?Instructions ?Recorded ?Confirmed albuterol sulfate 90 mcg/actuation 2 puff inhalation Q6H PRN wheezing 02/04/23 12/20/24 aerosol inhaler (Ventolin HFA) apixaban 5 mg tablet (Eliquis) 5 mg PO BID 12/20/24 12/20/24 clonidine HCl 0.1 mg tablet 0.1 mg PO TID PRN Anxiety 12/20/24 12/20/24 hydroxyzine pamoate 25 mg capsule 25 mg PO TID PRN anxiety 12/20/24 12/20/24 nicotine (polacrilex) 2 mg gum 2 mg PO Q4H PRN Nicotine Cravings 12/20/24 12/20/24 quetiapine 25 mg tablet 25 mg PO BID 12/20/24 12/20/24 trazodone 50 mg tablet 50 mg PO BEDTIME insomnia 12/20/24 12/20/24 varenicline tartrate 1 mg tablet 1 mg PO BID 12/20/24 12/20/24 Previous Rx's ?Medication ?Instructions ?Recorded naloxone 4 mg/actuation nasal 4 mg intranasal Q2M PRN opioid 03/18/23 spray (Narcan) overdose #2 ea Allergies Allergy/AdvReac Type Severity Reaction Status Date / Time No Known Allergies Allergy Verified 12/23/24 22:25 Review of Systems Review of Systems: Yes all other systems are reviewed and are negative PMFSH Past Medical History Medical History ADHD Bipolar 1 disorder Allergic rhinitis Surgical History History of surgery Family History Family History Father Depression Asthma Mother Asthma Depression Migraine Brother No problems noted. Sister No problems noted. Son In good health Social History Social History Household Members: Unknown / Unable to assess Housing: Unknown / Unable to assess Alcohol intake: current Alcohol intake frequency: a few times a month Alcohol type: hard liquor Patient Tobacco Use Status: Tobacco use Unknown Cigarettes Per Day: 5 Substance Use Type: Opiates Advance Directives: No Advance Directives Information Provided: No Do you have a plan to hurt others: No Plan service: No Physical Exam Vital Signs: Vital Signs: Last Vital Signs Temp 100.1 F 12/23/24 22:24 Pulse 83 12/23/24 22:24 Resp 17 12/23/24 22:24 BP 138/92 H 12/23/24 22:24 Pulse Ox 99 12/23/24 22:24 O2 Del Method Room Air 12/23/24 22:24 BMI result Body Mass Index 24.2 Appearance: Alert. Oriented X3. No acute distress. Anxious Eyes: PERRLA, No Nystagmus ENT: Pharynx normal. Oral Mucosa moist Neck: Normal inspection. Neck supple. CVS: Normal heart rate and rhythm. Pulses normal. Respiratory: No respiratory distress. Equal air entry bilateral, no wheezing/rales/rhonchi Abdomen: Soft and nontender. Bowel sounds are present, no mass palpable, no CVA tenderness Skin: Skin warm and dry. Normal skin color. Normal skin turgor. Extremities: No lower extremity edema. No calf tenderness Neuro: Oriented X 3. No motor deficit. No sensory deficit.No cerebellar signs , cranial nerves II-XII intact Medications Administered Discontinued Medications Generic Name Dose Route Start Last Admin Trade Name Freq PRN Reason Stop Dose Admin Methadone HCl 40 mg 12/23/24 23:04 12/23/24 23:52 Methadone Hcl 20 Mg/2 Ml Oral.Conc PO 12/23/24 23:05 40 mg ONCE ONE Administration Ondansetron HCl 4 mg 12/23/24 23:10 12/23/24 23:52 Ondansetron Odt 4 Mg Tab.Rapdis TRANSLINGU 12/23/24 23:11 4 mg ONCE ONE Administration Medical Decision Making Medical Decision Making MDM Narrative: Patient with nausea vomiting with substance abuse methadone withdrawal responded to methadone and Zofran felt better and start taking p.o. fluids Discharge Plan Discharge Clinical Impression: Opiate withdrawal Patient Disposition: Home, Self-Care Instructions: Opioid Withdrawal (ED) Additional Instructions: Follow up with detox clinic and have your methadone on time Prescriptions: No Action albuterol sulfate [Ventolin HFA] 90 mcg/actuation HFA aerosol inhaler 2 puff INHALATION Q6H PRN (Reason: wheezing) naloxone [Narcan] 4 mg/actuation spray,non-aerosol 4 mg intranasal Q2M PRN (Reason: opioid overdose) Qty: 2 0RF Rx Instructions: spray 1 dose into ONE nostril; alternate nostrils w each dose until help arrives quetiapine 25 mg tablet 25 mg PO BID clonidine HCl 0.1 mg tablet 0.1 mg PO TID PRN (Reason: Anxiety) trazodone 50 mg tablet 50 mg PO BEDTIME nicotine (polacrilex) 2 mg gum 2 mg PO Q4H PRN (Reason: Nicotine Cravings) hydroxyzine pamoate 25 mg capsule 25 mg PO TID PRN (Reason: anxiety) varenicline tartrate 1 mg tablet 1 mg PO BID Eliquis 5 mg tablet 5 mg PO BID Print Language: [place]
[2024-12-23] MEDS: methADONE HCl 20 MG/2 ML ORAL.CONC 40 MG PO (23:52)
[2024-12-23] MEDS: Ondansetron ODT 4 MG TAB.RAPDIS TRANSLINGU (23:52)
[2024-12-24 01:17] VITALS: BP 138/92; PULSE 83; RESP 17; TEMP 37.2; O2SAT 99
== END 2024-12-24 01:17 | disposition home or self-care (01) ==
PROVIDERS: Emergency Provider Internal Medicine; PCP Internal Medicine
DX: F11.23 Opioid dependence with withdrawal (principal); R11.2 Nausea with vomiting, unspecified; F14.90 Cocaine use, unspecified, uncomplicated; F12.90 Cannabis use, unspecified, uncomplicated; Z79.899 Other long term (current) drug therapy
CPT/HCPCS: 99283; 99284

== ENCOUNTER 2025-03-13 16:00 | Emergency (ER) | payer MEDICAID, SELFPAY | END 2025-03-13 18:39 | disposition left against medical advice (07) | PROVIDERS: Emergency Provider Emergency Medicine | DX: Z53.21 Procedure and treatment not carried out due to patient leaving prior to being seen by health care provider (principal); R50.9 Fever, unspecified; R11.0 Nausea ==

== ENCOUNTER 2025-05-02 10:34 | Emergency (ER) | payer MEDICAID, SELFPAY ==
[2025-05-02 10:45] VITALS: BP 116/62; BP 126/67; PULSE 64; PULSE 77; RESP 18; TEMP 36.5; O2SAT 98; O2SAT 99; BMI 22.3
--- NOTE | 2025-05-02 10:47 | PC.NURSE ---
pt a&ox3, pt is being cantankerous to this nurse and then stated I know what is wrong, I need my methadone, how long will it take to dose me pt then requeted PO, this nurse told patient he couldnt have PO until a provider saw him, pt became upset and stated This is fucking stupid I have to wait for a doctor for my dose . This nurse told the patient that it will take time to obtain the dose verification from [facility] and the provider to order it
--- NOTE | 2025-05-02 11:07 | ED.NAVMDI ---
HPI - Nausea/Vomiting/Diarrhea General Chief complaint: Nausea/Vomiting/Diarrhea Stated complaint: N/V x 2 HRS Time Seen by Provider: 05/02/25 10:50 Source: patient Limitations: no limitations History of Present Illness ED Provider: Dr. Balaji Neville HPI Narrative: 29-year-old male with a history of substance use disorder, ADHD, pulmonary embolism, alcohol use disorder who presents emergency department for evaluation of opiate withdrawal. Patient states that he gets methadone daily from the [facility]. He states that he did not get his dose yesterday and feels like he is withdrawing from opiates at this time. Patient states that yesterday afternoon he used 5 bags of intranasal heroin and missed his methadone appointment. He states he received his last dose on Saturday04/30/2025. He reports that he receives methadone 75 mg daily. Currently he feels like he is withdrawing. He states that he has diffuse body ache nausea, vomiting, shakes and diarrhea. Related Data Home Medications ?Medication ?Instructions ?Recorded ?Confirmed albuterol sulfate 90 mcg/actuation 2 puff inhalation Q6H PRN wheezing 02/04/23 12/20/24 aerosol inhaler (Ventolin HFA) apixaban 5 mg tablet (Eliquis) 5 mg PO BID 12/20/24 12/20/24 clonidine HCl 0.1 mg tablet 0.1 mg PO TID PRN Anxiety 12/20/24 12/20/24 hydroxyzine pamoate 25 mg capsule 25 mg PO TID PRN anxiety 12/20/24 12/20/24 nicotine (polacrilex) 2 mg gum 2 mg PO Q4H PRN Nicotine Cravings 12/20/24 12/20/24 quetiapine 25 mg tablet 25 mg PO BID 12/20/24 12/20/24 trazodone 50 mg tablet 50 mg PO BEDTIME insomnia 12/20/24 12/20/24 varenicline tartrate 1 mg tablet 1 mg PO BID 12/20/24 12/20/24 Previous Rx's ?Medication ?Instructions ?Recorded naloxone 4 mg/actuation nasal 4 mg intranasal Q2M PRN opioid 03/18/23 spray (Narcan) overdose #2 ea Allergies Allergy/AdvReac Type Severity Reaction Status Date / Time No Known Allergies Allergy Verified 05/02/25 10:46 Review of Systems Review of Systems: Yes all other systems are reviewed and are negative [facility] Past Medical History Medical History ADHD Bipolar 1 disorder Allergic rhinitis Surgical History History of surgery Family History Family History Father Depression Asthma Mother Asthma Depression Migraine Brother No problems noted. Sister No problems noted. Son In good health Social History Social History Household Members: Unknown / Unable to assess Housing: Unknown / Unable to assess Alcohol intake: current Alcohol intake frequency: does not drink Alcohol type: hard liquor Patient Tobacco Use Status: Tobacco use Unknown Cigarettes Per Day: 5 Substance Use Type: Opiates Advance Directives: No Advance Directives Information Provided: No Do you have a plan to hurt others: No Plan service: No Physical Exam Vital Signs: Vital Signs: Last Vital Signs Temp 97.7 F 05/02/25 10:45 Pulse 77 05/02/25 10:45 Resp 18 05/02/25 10:45 BP 126/67 05/02/25 10:45 Pulse Ox 99 05/02/25 10:45 O2 Del Method Room Air 05/02/25 10:45 BMI result Body Mass Index 22.3 Vital signs were normal Exam: General: Agitated, tremulous, diaphoretic Head: Normocephalic, atraumatic EENT: PERRL, Lids normal, sclera normal, conjunctiva normal, nose normal , ears normal, throat without erythema or exudates Neck: Supple, no adenopathy Lung: breath sounds symmetric, no wheezing, rales or rhonchi Chest: symmetric movement, nontender Heart: regular rate and rhythm, normal S1, S2 no murmurs or rubs Abdomen: soft, non-tender, nondistended, normal bowel sounds Back: no vertebral tenderness, no CVAT Extremities: no deformities, moves all extremities symmetrically Neuro: Awake, alert, oriented, normal speech, moves all extremities symmetrically Psych: Agitated Medical Decision Making Medical Decision Making MDM Narrative: 29-year-old male with a history of substance use disorder, ADHD, pulmonary embolism, alcohol use disorder who presents emergency department for evaluation of opiate withdrawal. Patient states that he gets methadone daily from the [facility]. He states that he did not get his dose yesterday and feels like he is withdrawing from opiates at this time. Patient states that yesterday afternoon he used 5 bags of intranasal heroin and missed his methadone appointment. He states he received his last dose on Saturday04/30/2025. He reports that he receives methadone 75 mg daily. Currently he feels like he is withdrawing. He states that he has diffuse body ache nausea, vomiting, shakes and diarrhea. Vital signs were normal. The patient is agitated, diaphoretic otherwise exam is unremarkable Differential diagnosis: ?Includes but is not limited to opiate withdrawal, methadone withdrawal Course: 11:14 Patient appears to be in opiate withdrawal. Patient's methadone clinic is open until 13:40 hours however he seems to be extremely uncomfortable at this time and I do believe that he is experiencing significant opiate withdrawal symptoms . We will verify the patient's methadone dose and last dose with [facility] and dose the patient appropriately based on this information. 12:18 We have not been able to verify the patient's methadone dose and when he was last dosed. Patient is withdrawing and is threatening to leave. Given the high-risk of this patient leaving and using illicit opiates and the risk of overdosing, I did talk to the pharmacist and ask them to release the methadone so that we could dose the patient. Patient was given methadone 75 mg orally. He was advised to contact the methadone clinic and make sure that he gets his next dose tomorrow from the clinic. I also told him that he should talk to the methadone clinic about possibly increasing his methadone if he is continuing to use heroin. Patient was discharged home with a Narcan rescue pack. Admission/Observation Consideration of admission/observation: Escalation of care including admission/observation considered (Yes) Chronic Conditions Patient?s care impacted by: Other (Opiate use disorder) Discharge Plan Discharge Clinical Impression: Opiate withdrawal, Heroin use disorder, severe, Patient on methadone maintenance therapy Patient Disposition: Home, Self-Care Additional Instructions: You were given methadone 75 mg orally here in the emergency department. You need to contact the methadone clinic, let them know that you received your methadone here today. You should discuss your continued heroin use with the methadone clinic to see if they need to increase your methadone dose or get you further counseling to help you stay off illicit opiates. Your are being discharged home with intranasal Narcan. If you are going to continue to use heroin, you should make sure that there is a sober person with you that is not using drugs and that this person can administer intranasal Narcan in the event that you stop breathing. Opiate use disorder You were seen in our Emergency Department today for treatment of opiate use disorder. You may have been dosed with medication for opiate use disorder (MOUD) - methadone. You also may have been given naloxone (narcan) to take home with you. This medication is used to potentially treat opiate overdose. If you need more counseling and have then your methadone clinic can provide for you, you can call or walk into our outpatient Addiction Treatment office: [facility] (M-F 9am-5p) [address] [place] [address], [phone] You may have been provided with safer injection?items, please take time to take care of YOU and your health. Use new supplies whenever possible to lessen the chances of infections and other illnesses.? ?If you need more supplies, please go [facility],? [address] [place] [address] OR you can call or text to coordinate delivery of safer supplies. If you experience any worsening symptoms you cannot control please return to the ED or call 911. Prescriptions: No Action albuterol sulfate [Ventolin HFA] 90 mcg/actuation HFA aerosol inhaler 2 puff INHALATION Q6H PRN (Reason: wheezing) naloxone [Narcan] 4 mg/actuation spray,non-aerosol 4 mg intranasal Q2M PRN (Reason: opioid overdose) Qty: 2 0RF Rx Instructions: spray 1 dose into ONE nostril; alternate nostrils w each dose until help arrives quetiapine 25 mg tablet 25 mg PO BID clonidine HCl 0.1 mg tablet 0.1 mg PO TID PRN (Reason: Anxiety) trazodone 50 mg tablet 50 mg PO BEDTIME nicotine (polacrilex) 2 mg gum 2 mg PO Q4H PRN (Reason: Nicotine Cravings) hydroxyzine pamoate 25 mg capsule 25 mg PO TID PRN (Reason: anxiety) varenicline tartrate 1 mg tablet 1 mg PO BID Eliquis 5 mg tablet 5 mg PO BID Print Language: Yoruba
--- NOTE | 2025-05-02 12:15 | HE.PHANOTE ---
RE: methadone not verified Spoke to Dr. Neville regarding methadone, even though dose is unable to be verified patient is in active withdrawal and provider would like to continue with patient's reported dose of 75mg x 1
[2025-05-02] MEDS: methADONE HCl 20 MG/2 ML ORAL.CONC 75 MG PO (12:20)
--- NOTE | 2025-05-02 12:29 | PC.NURSE ---
this nurse attempted multiple portals to get verification on this patients methadone from [facility]. assistance from Maria Elena in the pod was also obtained despite her resources this nurse was unable to verfiy the dosage. THis nurse spoke with the nursing jewelry department supervisor at [facility] who stated she was inpt nursing jewelry department supervisor and does not have access to the clinic information and she gave me another number to attempt to call. To recap: To verify this nurse faxed a AMY with methadone verification request[facility] a [facility], called the main number of [facility] was transferred to a answering machine-left a messaged, then called the main number asked for the nursing jewelry department supervisor and called the number the nursing jewelry department supervisor gave without success. The provider was notified of this and he put in the dosage the patient stated he took, pharmacy initially unwilling to verify dose and requested to speak with the provider. Provider spoke with pharmacy and pts dose was approved and given to him per orders.
--- NOTE | 2025-05-02 12:42 | PC.NURSE ---
last dose pt given last dose letter
[2025-05-02 12:43] VITALS: BP 128/60; PULSE 78; RESP 18; TEMP 36.7; O2SAT 99
== END 2025-05-02 12:44 | disposition home or self-care (01) ==
PROVIDERS: Emergency Provider Emergency Medicine Emergency Medical Services
DX: F11.23 Opioid dependence with withdrawal (principal); R11.2 Nausea with vomiting, unspecified; M79.10 Myalgia, unspecified site; R19.7 Diarrhea, unspecified; Z79.899 Other long term (current) drug therapy; Z79.01 Long term (current) use of anticoagulants; Z71.51 Drug abuse counseling and surveillance of drug abuser
CPT/HCPCS: 99283

== ENCOUNTER 2025-05-30 20:01 | Emergency (ER) | payer MEDICAID, SELFPAY ==
--- NOTE | ~2025-05-30 | XR_ITS ---
CLINICAL HISTORY: pain 1 view abdomen Comparison: None provided Findings: Nonspecific bowel-gas pattern with mild gaseous distention of the imaged stomach. Small bowel loops measuring 2 cm diameter in the left hemiabdomen. Gas-filled intestine measuring 3.3 cm in imaged left upper quadrant is favored to represent splenic flexure. Apparent air-fluid level in the imaged rectum. Mild atelectasis in the [id number] No acute fractures. IMPRESSION: Nonspecific bowel-gas pattern without definite or defined small-bowel obstruction. This document has been electronically signed by: Julio César Delaney MD on 05/30/2025 23:31:50
[2025-05-30 20:18] VITALS: BP 116/77; BP 118/78; PULSE 73; PULSE 75; RESP 16; TEMP 37; O2SAT 97; O2SAT 98; BMI 24.2
[2025-05-30 20:22] VITALS: PULSE 83
[2025-05-30 20:46] LABS: Hematocrit 45.3 % (42.0-52.0); Hemoglobin 15.4 g/dl (14.0-18.0); Imm Gran Abs Auto 0.02 X10*3/uL (0.00-0.03); Imm Gran Pct Auto 0.2 % (0.0-0.4); Lymphocytes Absolute Auto 1.7 X10*3/uL (1.2-4.9); MANUAL DIFF FLAG NO; Mean Corpuscular HGB Conc 34.0 g/dl (31.0-36.0); Mean Corpuscular Hemoglobin 30.7 pg (27.0-33.0); Mean Corpuscular Volume 90.4 fL (80.0-98.0); NRBC Abs Auto 0.000 X10*3/uL (0.0-0.012); NRBC Pct Auto 0.0 /100WBC (0.0-0.2); Platelet Count 347 X10*3/uL (160-400); Red Blood Count 5.01 X10*6/uL (4.60-5.80); White Blood Count 8.3 X10*3/uL (4.8-10.8)
[2025-05-30 20:47] LABS: Appearance Urine Clear; Glucose Urine UA Negative (Negative); PH >= 9.0 (5.0-9.0); Specific Gravity - Urine 1.010 (1.005-1.025)
[2025-05-30 21:20] LABS: Alanine Aminotransferase 14 U/L (0-40); Albumin Level 4.7 g/dL (3.5-5.0); Alkaline Phosphatase 78 U/L (39-117); Anion Gap 14 (12-20); Aspartate Amino Transferase 35 U/L (5-37); Blood Urea Nitrogen 8 mg/dL (9-16); Calcium 9.8 mg/dL (8.4-10.2); Carbon Dioxide 26 mmol/L (22-29); Chloride 106 mmol/L (96-108); Creatinine Clr Calc Pharmacy 124.5; Estimated Glomerular Filt Rate > 60; Potassium 3.8 mmol/L (3.3-5.1); Sodium 142 mmol/L (135-145); Total Protein 8.3 g/dL (6.5-8.0)
--- OUTSIDE RECORDS SUMMARY | 2025-05-30 21:25 | XMS_ITS | Encounter Summary ---
Author Organization [employer] Address [address] [place] [address] Care Team Providers Care Ripsaw Operator Name Role Phone Physician, Pcp Unknown Primary Care Provider Emili vailable Encounter Details Date Type Department Care Team (Late st Contact Info) Description 12/22/2024 Lab Requisition [facility] - Main Lab [address] [facility] [place] [address] Willa Mott MD [address] [place] [address] Opioid dependence, uncomplicated (CMS/HCC V24, CMS/HCC V28) Social History Tobacco Use Types Packs/Day Years Used Date Smoking Tobacco: Never Assessed Sex and Gender Information Value Date Recorded Sex Assigned at Not on file Legal Sex Male 5:44 AM EST Gender Identity Not on file Sexual Orientation Not on file documented as of this encounter Plan of Treatment Not on file documented as of this encounter Procedures Procedure Name Priority Date/Time Associated Diagnosis Comments HEPATITIS C ANTIBODY Routine 12/22/2024 10:20 AM EDT Opioid dependence, uncomplicated (CMS/HCC) HIV 1, 2 ANTIBODY, P24 ANTIGEN WITH REFLEX TO DIFFERENTIATION Routine 12/22/2024 10:20 AM EDT Opioid dependence, uncomplicated (CMS/HCC) WHITE - NO ADDITIVE Routine 12/22/2024 1 0:20 AM EDT Opioid dependence, uncomplicated (CMS/HCC) HEPATITIS B SURFACE ANTIGEN WITH CONFIRMATION Routine 12/22/2024 10:20 AM EDT Opioid dependence, uncomplicated (CMS/HCC) TREPONEMA PALLIDUM ANTIBODY WITH REFLEX TO RPR AND PARTICLE AGGLUTINATION Routine 12/22/2024 10:20 AM EDT Opioid dependence, uncomplicated (CMS/HCC) HEPATITIS A ANTIBODY TOTAL WITH REFLEX IGM Routine 12/22/2024 10:20 AM EDT Opioid dependence, uncomplicated (CMS/HCC) RED - PLAIN Routine 12/22/2024 10:20 AM EDT Opioid dependence, uncomplicated (CMS/HCC) HEPATITIS A ANTIBODY IGM Routine 12/22/2024 10:20 AM EDT Opioid dependence, uncomplicated (CMS/HCC) HEPATITIS B CORE ANTIBODY IGM Routine 12/22/2024 10:20 AM EDT Opioid dependence, uncomplicated (CMS/HCC) HEPATITIS B SURFACE ANTIBODY Routine 12/22/2024 10:20 AM EDT Opioid dependence, uncomplicated (CMS/HCC) COMPLETE BLOOD COUNT Routine 12/22/2024 10:20 AM EDT Opioid dependence, uncomplicated (CMS/HCC) COMPREHENSIVE METABOLIC PANEL Routine 12/22/2024 10:20 AM EDT Opioid dependence, uncomplicated (CMS/HCC) documented in this encounter Results * Hepatitis A antibody IgM (12/22/2024 10:20 AM EDT) Hepatitis A Antibody IgM LAB CHEMISTRY METHOD 12/23/2024 9:25 AM EDT [facility] Comment:Corrected result: Pr eviously reported as Negative on 12/22/2024 at 1721 EDT. Blood Venous blood specimen / Unknown 12/22/2024 10:20 AM EDT 12/22/2024 2:39 PM EDT Narrative [facility] - 12/23/2024 9:25 AM EDT ATTENTION - WRONG PATIENT: Please do not use for clinical decision making as these results do not belong to this patient. Due to regulatory guidelines, incorrect results are to remain on the patient's chart. us Willa Mott MD LAB BLOOD ORDERABLES Ed ited Result - Final Performing Organization Address [facility]/ZIP Co de Phone Number [facility] [address] [place] [address], * White no additive tube (12/22/2024 10:20 AM EDT) Extra Tube 12/23/2024 9:22 AM EDT [facility] Comment: Auto resulted. Corrected result: Previously reported as Hold for add-ons. on 12/22/2024 at 1601 EDT. Urine Urine specimen obtained by clean catch procedure / Unknown 12/22/2024 10:20 AM EDT 12/22/2024 2:39 PM EDT [facility] - 12/23/2024 9:22 AM EDT ATTENTION - WRONG PATIENT: Please do not use for clinical decision making as these results do not belong to this patient. Due to regulatory guidelines, incorrect results are to remain on the patient's chart. Willa Mott MD LAB MICROBIOLOGY - [facility] ORDERABLES Edited Result - Final Performing Organization Address [facility]/[place] Co de Phone Number [facility] [address] [place] [address], * Red tube (12/22/2024 10:20 AM EDT) Extra Tube 12/23/2024 9:23 AM EDT [facility] Comment: Auto resulted. Corrected result: Previously reported as Hold for add-ons. on 12/22/2024 at 1601 EDT. Blood Venous blood specimen / Unknown 12/22/2024 10:20 AM EDT 12/22/2024 2:39 PM EDT [facility] - 12/23/2024 9:23 AM EDT ATTENTION - WRONG PATIENT: Please do not use for clinical decision making as these results do not belong to this patient. Due to regulatory guidelines, incorrect results are to remain on the patient's chart. Willa Mott MD LAB BLOOD ORDERABLES Ed ited Result - Final Performing Organization Address [facility]/ZIP Co de Phone Number [facility] [address] [place] [address], [place] [phone] * Hepatitis C antibody (12/22/2024 10:20 AM EDT) Hepatitis C Antibody LAB CHEMISTRY METHOD 12/23/2024 9:26 AM EDT [facility] Comment: Corrected result: Previously reported as Negative on 12/22/2024 at 1607 EDT. Result component is no longer reportable to [facility] [place]. Blood Venous blood specimen / Unknown 12/22/2024 10:20 AM EDT 12/22/2024 2:39 PM EDT Narrative [facility] - 12/23/2024 9:26 AM EDT ATTENTION - WRONG PATIENT: Please do not use for clinical decision making as these results do not belong to this patient. Due to regulatory guidelines, incorrect results are to remain on the patient's chart. Willa Mott MD LAB BLOOD ORDERABLES Ed ited Result - Final Performing Organization Address [facility] de Phone Number [facility] [address] [place] [address], [place] [phone] * Hepatitis A antibody total with reflex IgM (12/22/2024 10:20 AM EDT) Hep A Total Ab LAB CHEMISTRY METHOD 12/23/2024 9:28 AM EDT [facility] Comment:Corrected result: Pr eviously reported as Positive on 12/22/2024 at 1615 EDT. Blood Venous blood specimen / Unknown 12/22/2024 10:20 AM EDT 12/22/2024 2:39 PM EDT [facility] - 12/23/2024 9:28 AM EDT ATTENTION - WRONG PATIENT: Please do not use for clinical decision making as these results do not belong to this patient. Due to regulatory guidelines, incorrect results are to remain on the patient's chart. Willa Mott MD LAB BLOOD ORDERABLES Ed ited Result - Final Performing Organization Address [facility]/ZIP Co de Phone Number [facility] [address] [place] [address], [place] [phone] * HIV 1,2 antibody, p24 antigen with reflex to differentiation (12/22/2024 10:20 AM EDT) [facility] HIV Combo AB/AG LAB CHEMISTRY METHOD 12/23/2024 9:26 AM EDT [facility] Comment:Corrected result: Pr eviously reported as Negative on 12/22/2024 at 1608 EDT. Blood Venous blood specimen / Unknown 12/22/2024 10:20 AM EDT 12/22/2024 2:39 PM EDT Narrative [facility] - 12/23/2024 9:26 AM EDT ATTENTION - WRONG PATIENT: Please do not use for clinical decision making as these results do not belong to this patient. Due to regulatory guidelines, incorrect results are to remain on the patient's chart. Willa Mott MD LAB BLOOD ORDERABLES Ed ited Result - Final Performing Organization Address [facility]/ZIP Co de Phone Number [facility] [address] [place] [address], [place] [phone] * Hepatitis B core antibody IgM (12/22/2024 10:20 AM EDT) Pathologist [facility] Hep B Core IgM LAB CHEMISTRY METHOD 12/23/2024 10:00 AM EDT [facility] Comment: ATTENTION - WRONG PATIENT: Please do not use for clinical decision making as these results do not belong to this patient. Due to regulatory guidelines, incorrect results are to remain on the patient's chart. Corrected result: Previously reported as Negative on 12/22/2024 at 1615 EDT. Blood Venous blood specimen / Unknown 12/22/2024 10:20 AM EDT 12/22/2024 2:39 PM EDT Willa Mott MD LAB BLOOD ORDERABLES Ed ited Result - Final Performing Organization Address [facility] de Phone Number [facility] [address] [place] [address], [place] [phone] * Hepatitis B surface antibody (12/22/2024 10:20 AM EDT) Pathologist [facility] Hepatitis B Surface Ab LAB CHEMISTRY METHOD 12/23/2024 9:59 AM EDT [facility] Comment: ATTENTION - WRONG PATIENT: Please do not use for clinical decision making as these results do not belong to this patient. Due to regulatory guidelines, incorrect results are to remain on the patient's chart. Corrected result: Previously reported as Negative on 12/22/2024 at 1529 EDT. Hepatitis B Surface Ab Quantitative LAB CHEMISTRY METHOD 12/23/2024 9:59 AM EDT [facility] Comment: ATTENTION - WRONG PATIENT: Please do not use for clinical decision making as these results do not belong to this patient. Due to regulatory guidelines, incorrect results are to remain on the patient's chart. Corrected result: Previously reported as <3.1 mIU/mL on 12/22/2024 at 1529 EDT. Blood Venous blood specimen / Unknown 12/22/2024 10:20 AM EDT 12/22/2024 2:39 PM EDT Narrative [facility] - 12/23/2024 9:59 AM EDT Willa Mott MD LAB BLOOD ORDERABLES Ed ited Result - Final Performing Organization Address [facility]/ZIP Co de Phone Number [facility] [address] [place] [address], [place] [phone] * Hepatitis B surface antigen with reflex to confirmation (12/22/2024 10:20 AM EDT) Hepatitis B Surface Ag LAB CHEMISTRY METHOD 12/23/2024 9:27 AM EDT [facility] Comment: Corrected result: Previously reported as Negative on 12/22/2024 at 1539 EDT. Result component is no longer reportable to [facility] [place]. Blood Venous blood specimen / Unknown 12/22/2024 10:20 AM EDT 12/22/2024 2:39 PM EDT [facility] - 12/23/2024 9:27 AM EDT ATTENTION - WRONG PATIENT: Please do not use for clinical decision making as these results do not belong to this patient. Due to regulatory guidelines, incorrect results are to remain on the patient's chart. Willa Mott MD LAB BLOOD ORDERABLES Ed ited Result - Final [facility] [address] [place] [address], [place] [phone] * Treponema pallidum antibody with reflex to RPR and particle agglutination (12/22/2024 10:20 AM EDT) T. Pallidum Antibodies LAB CHEMISTRY METHOD 12/23/2024 9:26 AM EDT [facility] Comment:Corrected result: Pr eviously reported as Negative on 12/22/2024 at 1539 EDT. Blood Venous blood specimen / Unknown 12/22/2024 10:20 AM EDT 12/22/2024 2:39 PM EDT [facility] - 12/23/2024 9:26 AM EDT ATTENTION - WRONG PATIENT: Please do not use for clinical decision making as these results do not belong to this patient. Due to regulatory guidelines, incorrect results are to remain on the patient's chart. Willa Mott MD LAB BLOOD ORDERABLES Ed ited Result - Final [facility] [address] [place] [address], [place] [phone] * Comprehensive metabolic panel (12/22/2024 10:20 AM EDT) Sodium LAB CHEMISTRY METHOD 12/23/2024 9:28 AM EDT [facility] Comment:Corrected result: Pr eviously reported as 136 mmol/L on 12/22/2024 at 1535 EDT. Potassium LAB CHEMISTRY METHOD 12/23/2024 9:28 AM EDT [facility] Comment:Corrected result: Pr eviously reported as 4.3 mmol/L on 12/22/2024 at 1535 EDT. Chloride LAB CHEMISTRY METHOD 12/23/2024 9:28 AM EDT [facility] Comment:Corrected result: Pr eviously reported as 101 mmol/L on 12/22/2024 at 1535 EDT. CO2 LAB CHEMISTRY METHOD 12/23/2024 9:28 AM EDT [facility] Comment:Corrected result: Pr eviously reported as 28 mmol/L on 12/22/2024 at 1535 EDT. Anion Gap LAB CHEMISTRY METHOD 12/23/2024 9:28 AM EDT [facility] Comment:Corrected result: Pr eviously reported as 7 on 12/22/2024 at 1535 EDT. Glucose LAB CHEMISTRY METHOD 12/23/2024 9:28 AM EDT [facility] Comment:Corrected result: Pr eviously reported as 91 mg/dL on 12/22/2024 at 1535 EDT. BUN LAB CHEMISTRY METHOD 12/23/2024 9:28 AM EDT [facility] Comment:Corrected result: Pr eviously reported as 11 mg/dL on 12/22/2024 at 1535 EDT. Creatinine LAB CHEMISTRY METHOD 12/23/2024 9:28 AM EDT [facility] Comment:Corrected result: Pr eviously reported as 0.92 mg/dL on 12/22/2024 at 1535 EDT. eGFR LAB CHEMISTRY METHOD 12/23/2024 9:28 AM EDT [facility] Comment: Calculation based on the Chronic Kidney Disease Epidemiology Collaboration (CKD-EPI) equation refit without adjustment for race. Corrected result: Previously reported as 115 mL/min/1.73m2 on 12/22/2024 at 1535 EDT. BUN/Creatinine Ratio LAB CHEMISTRY METHOD 12/23/2024 9:28 AM EDT [facility] Comment:Corrected result: Pr eviously reported as 12.0 on 12/22/2024 at 1535 EDT. Calcium LAB CHEMISTRY METHOD 12/23/2024 9:28 AM EDT [facility] Comment:Corrected result: Pr eviously reported as 9.8 mg/dL on 12/22/2024 at 1535 EDT. AST (SGOT) LAB CHEMISTRY METHOD 12/23/2024 9:28 AM EDT [facility] Comment:Corrected result: Pr eviously reported as 16 unit/L on 12/22/2024 at 1535 EDT. ALT (SGPT) LAB CHEMISTRY METHOD 12/23/2024 9:28 AM EDT [facility] Comment:Corrected result: Pr eviously reported as 16 unit/L on 12/22/2024 at 1535 EDT. Alkaline Phosphatase LAB CHEMISTRY METHOD 12/23/2024 9:28 AM T [facility] Comment:Corrected result: Pr eviously reported as 84 unit/L on 12/22/2024 at 1535 EDT. Total Protein LAB CHEMISTRY METHOD 12/23/2024 9:28 AM EDT [facility] Comment:Corrected result: Pr eviously reported as 8.0 g/dL on 12/22/2024 at 1535 EDT. Albumin LAB CHEMISTRY METHOD 12/23/2024 9:28 AM T [facility] Comment:Corrected result: Pr eviously reported as 4.2 g/dL on 12/22/2024 at 1535 EDT. Total Bilirubin LAB CHEMISTRY METHOD 12/23/2024 9:28 AM EDT [facility] Comment:Corrected result: Pr eviously reported as 0.9 mg/dL on 12/22/2024 at 1535 EDT. Blood Venous blood specimen / Unknown 12/22/2024 10:20 AM EDT 12/22/2024 2:39 PM EDT Narrative [facility] - 12/23/2024 9:28 AM EDT ATTENTION - WRONG PATIENT: Please do not use for clinical decision making as these results do not belong to this patient. Due to regulatory guidelines, incorrect results are to remain on the patient's chart. us Willa Mott MD LAB BLOOD ORDERABLES Ed ited Result - Final [facility] [address] [place] [address], * Complete blood count (12/22/2024 10:20 AM EDT) WBC LAB HEMETOLOGY METHOD 12/23/2024 9:24 AM EDT [facility] Comment:Corrected result: Pr eviously reported as 9.2 K/mcL on 12/22/2024 at 1502 EDT. RBC LAB HEMETOLOGY METHOD 12/23/2024 9:24 AM EDT [facility] Comment:Corrected result: Pr eviously reported as 4.90 M/mcL on 12/22/2024 at 1502 EDT. Hemoglobin LAB HEMETOLOGY METHOD 12/23/2024 9:24 AM EDT [facility] Comment:Corrected result: Pr eviously reported as 15.2 g/dL on 12/22/2024 at 1502 EDT. Hematocrit LAB HEMETOLOGY METHOD 12/23/2024 9:24 AM EDT [facility] Comment:Corrected result: Pr eviously reported as 45.0 % on 12/22/2024 at 1502 EDT. MCV LAB HEMETOLOGY METHOD 12/23/2024 9:24 AM EDT [facility] Comment:Corrected result: Pr eviously reported as 92.2 FL on 12/22/2024 at 1502 EDT. MCH LAB HEMETOLOGY METHOD 12/23/2024 9:24 AM EDT [facility] Comment:Corrected result: Pr eviously reported as 31.1 pcg on 12/22/2024 at 1502 EDT. MCHC LAB HEMETOLOGY METHOD 12/23/2024 9:24 AM EDT [facility] Comment:Corrected result: Pr eviously reported as 33.8 g/dL on 12/22/2024 at 1502 EDT. RDW LAB HEMETOLOGY METHOD 12/23/2024 9:24 AM EDT [facility] Comment:Corrected result: Pr eviously reported as 13.4 % on 12/22/2024 at 1502 EDT. Platelets LAB HEMETOLOGY METHOD 12/23/2024 9:24 AM EDT [facility] Comment:Corrected result: Pr eviously reported as 321 K/mcL on 12/22/2024 at 1502 EDT. MPV LAB HEMETOLOGY METHOD 12/23/2024 9:24 AM EDT [facility] Comment:Corrected result: Pr eviously reported as 10.8 FL on 12/22/2024 at 1502 EDT. NRBC LAB HEMETOLOGY METHOD 12/23/2024 9:24 AM EDT [facility] Comment:Corrected result: Pr eviously reported as 0.0 % on 12/22/2024 at 1502 EDT. NRBC Absolute LAB HEMETOLOGY METHOD 12/23/2024 9:24 AM EDT [facility] Comment:Corrected result: Pr eviously reported as 0.00 K/mcL on 12/22/2024 at 1502 EDT. Blood Venous blood specimen / Unknown 12/22/2024 10:20 AM EDT 12/22/2024 2:39 PM EDT Narrative [facility] - 12/23/2024 9:24 AM EDT ATTENTION - WRONG PATIENT: Please do not use for clinical decision making as these results do not belong to this patient. Due to regulatory guidelines, incorrect results are to remain on the patient's chart. us Willa Mott MD LAB BLOOD ORDERABLES Ed ited Result - Final [facility] [address] [place] [address], [place] [phone] documented in this encounter Visit Diagnoses Diagnosis Opioid dependence, uncomplicated (CMS/HCC V24, CMS/HCC V28) documented in this encounter Care Teams Ripsaw Operator Relationship Specialty Start Date End Date Physician, Pcp Unknown PCP - General 12/23/24 documented as of this encounter
--- OUTSIDE RECORDS SUMMARY | 2025-05-30 21:25 | XMS_ITS | Encounter Summary ---
Author Organization [employer] Address [address] [place] [address] Care Team Providers Care Outside Deliverer Name Role Phone Giulia Huff MD Primary Care Provider + Sukhdeep Lane Unavailable Temitope Lane RN Unavailable [phone] Reason for Visit * Reason Comments Med Refill Encounter Details Date Type Department Care Team ([facility] st Contact Info) Description 11/17/2024 Refill [facility] [address] [place] [address] Jerry Flowers MD [address] [place] [address] Uncomplicated opioid dependence (CMS/HCC) Social History Tobacco [...] on file documented as of this encounter Goals Goal Patient Goal Type Associated Problems Recent Progress Patient-Stated? Author Keep your medical appointments Lifestyle No Rashid Kyle, NEERAJ documented as of this encounter Visit Diagnoses Diagnosis Uncomplicated opioid dependence (CMS/HCC) documented in this encounter Additional Health Concerns Assessment Noted Time PHQ-9 Depression Total Score: 11 024 11:00 AM EDT documented as of this encounter Care Teams Outside Deliverer Relationship Specialty Start Date End Date Giulia Huff MD [address] [place] [address] PCP - General Internal Medicine 03/23/[address] Community Health Worker 05/18/[address], NEERAJ [address] [place] [id number] Fruit St[employer] 05/18/24 documented as of this encounter
--- OUTSIDE RECORDS SUMMARY | 2025-05-30 21:25 | XMS_ITS | Clinical Summary ---
Author Organization [facility] Address [address] [place] [phone] Phone Care Team Providers Care [employer] Installer Name Role Phone [facility] MD Primary Care Provider Allergies No known active allergies Medications No known medications Social History Tobacco Use Types Packs/Day Years Used Date Smoking Tobacco: Some Days Cigarettes Smokeless Tobacco: Never Tobacco Cessation:Ready to Q uit: Not Asked; Counseling Given: Not Answered Alcohol Use Standard Drinks/Week Comments Yes 0 (1 standard drink = 0.6 oz pur e alcohol) Education Answer Date Recorded Are you interested in more education? Not on kenneth e 12/20/2024 Are you concerned about learning? Not on file 12/20/2024 No 12/20/2024 No 12/20/2024 Digital Access Answer Date Recorded No 12/20/2024 No 12/20/2024 Reliable internet access at home? Not on file 12/20/2024 Device with a working camera? Not on file Intimate Partner Violence Answer Date R ecorded Are you denied basic needs s uch as food, clothing, or medical care? No 12/20/2024 In the past 12 months have y ou been in a relationship with a person who hurts, threatens, or tries to control you? No 12/20/2024 Are you denied basic needs s uch as food, clothing, or medical care? No 12/20/2024 In the past 12 months have y ou been in a relationship with a person who hurts, threatens, or tries to control you? No 12/20/2024 Sex and Gender Information Value Date Recorded Sex Assigned at Male 12/20/2024 7:20 AM EDT Legal Sex Male 7:16 AM EDT Gender Identity Male 12/20/2024 7:20 AM EDT Sexual Orientation Straight 12/20/2024 7: 20 AM EDT Last Filed Vital Signs Vital Sign Reading Time Taken Comments Blood Pressure 144/85 12/20/2024 9:04 AM EDT Pulse 60 12/20/2024 9:04 AM EDT Temperature 36.6 C (97.8 F) 12/20/2024 9:04 AM EDT Respiratory Rate 16 12/20/2024 7:23 AM EDT Oxygen Saturation 100% 12/20/2024 9:04 AM EDT Inhaled Oxygen Concentration - - Weight 79.4 kg (175 lb) 12/20/2024 9:04 AM EDT Height 170.2 cm (5' 7 ) 12/20/2024 9:04 AM EDT Body Mass Index 27.41 12/20/2024 9:04 AM EDT Plan of Treatment Health Maintenance Due Date Last Done Comments DEPRESSION SCREENING 2007 SMOKING Hx and SMOKELESS TOB ACCO SCREENING 2008 HEPATITIS C SCREENING 2013 HIV ONE-TIME SCREENING (18-6 5 YEARS) 2013 PNEUMOCOCCAL VACCINES (0-49 years) (1 of 2 - PCV) 2014 COVID-19 VACCINE ( - 2023-2 5 season) 2024 Adult Td,Tdap Booster 08/12/2026 08/12/2016 HEPATITIS A VACCINES Aged Out No long er eligible based on patient's age to complete this topic HIB VACCINES Aged Out No longer eligi ble based on patient's age to complete this topic MENINGOCOCCAL VACCINES (ACWY) Aged Out No longer eligible based on patient's age to complete this topic MENINGOCOCCAL VACCINES (B) Aged Out N o longer eligible based on patient's age to complete this topic Medical Devices Not on file Insurance [facility] [address] [place] [address] [place] [address] [place] [address] [place] [address] [place] [address] [place] [address] [place] [address] [place] [address] [employer] [facility] [place] [id number] Care Teams [employer] Installer Relationship Specialty Start Date End [facility] [address] [place] [address] PCP - General 12/20/24 Additional Source Comments The information contained in this document represents components of the legal health record. It is not the complete legal health record.[facility]ly [facility]
[2025-05-30 21:34] LABS: Cannabinoid Screen Urine POSITIVE (Not Detect)
[2025-05-30] MEDS: diazePAM 10 MG/2 ML CARTRIDGE 2.5 MG IVPUSH (22:57)
--- NOTE | 2025-05-30 23:37 | ED.GENADULT ---
HPI - General Adult General Chief complaint: ETOH/Substance Use Stated complaint: Ab pain detoxing from opiates x1 week Time Seen by Provider: 05/30/25 21:15 Source: patient Limitations: no limitations History of Present Illness ED Provider: Joanna Soto PA-C HPI narrative: 29-year-old male with a history of alcohol dependence, polysubstance abuse on methadone, ADHD, bipolar presents with concern for opiate withdrawal. Patient states he last use illicit substances 2 days ago. Associated body ache, chills, abdominal pain, nausea vomiting. Denies diarrhea. Patient states he typically receives his methadone from [facility], he has not been there in a week. He states his current dose of methadone is 75 mg daily. Related Data Home Medications ?Medication ?Instructions ?Recorded ?Confirmed albuterol sulfate 90 mcg/actuation 2 puff inhalation Q6H PRN wheezing 02/04/23 12/20/24 aerosol inhaler (Ventolin HFA) apixaban 5 mg tablet (Eliquis) 5 mg PO BID 12/20/24 12/20/24 clonidine HCl 0.1 mg tablet 0.1 mg PO TID PRN Anxiety 12/20/24 12/20/24 hydroxyzine pamoate 25 mg capsule 25 mg PO TID PRN anxiety 12/20/24 12/20/24 nicotine (polacrilex) 2 mg gum 2 mg PO Q4H PRN Nicotine Cravings 12/20/24 12/20/24 quetiapine 25 mg tablet 25 mg PO BID 12/20/24 12/20/24 trazodone 50 mg tablet 50 mg PO BEDTIME insomnia 12/20/24 12/20/24 varenicline tartrate 1 mg tablet 1 mg PO BID 12/20/24 12/20/24 methadone 10 mg/mL oral 75 mg PO DAILY 05/31/25 05/31/25 concentrate (Methadone Intensol) Previous Rx's ?Medication ?Instructions ?Recorded naloxone 4 mg/actuation nasal 4 mg intranasal Q2M PRN opioid 03/18/23 spray (Narcan) overdose #2 ea Allergies Allergy/AdvReac Type Severity Reaction Status Date / Time No Known Allergies Allergy Verified 05/30/25 20:21 Review of Systems Review of Systems: Yes all other systems are reviewed and are negative Constitutional: Constitutional: Reports chills, Denies fatigue and Denies fever(s) Cardiovascular: Cardiovascular: Denies chest pain and Denies dyspnea Respiratory: Respiratory: Denies dyspnea Gastrointestinal: Gastrointestinal: Reports abdominal pain, Denies diarrhea, Reports nausea and Reports vomiting Musculoskeletal: Musculoskeletal: Reports myalgias Endocrine: Endocrine: Denies fatigue PMF Past Medical History Attestation statement: The following information was validated with the patient. Medical History ADHD Bipolar 1 disorder Allergic rhinitis Surgical History History of surgery Family History Family History Father Depression Asthma Mother Asthma Depression Migraine Brother No problems noted. Sister No problems noted. Son In good health Social History Social History Household Members: Unknown / Unable to assess Housing: Unknown / Unable to assess Alcohol intake: current Alcohol intake frequency: does not drink Alcohol type: hard liquor Patient Tobacco Use Status: Tobacco use Unknown Cigarettes Per Day: 5 Substance Use Type: Heroin service: No Physical Exam ED Vital Signs: Vital Signs - 24 hr 05/31/25 03:58 05/31/25 06:00 05/31/25 08:05 Temperature 98 F 97.8 F 97.8 F Pulse Rate 76 76 76 Respiratory Rate 22 H 18 18 Blood Pressure 156/76 H 138/80 138/80 Pulse Oximetry 100 96 96 Oxygen Delivery Method Room Air Room Air Room Air BMI result Body Mass Index 24.2 Const Other: Alert ill-appearing actively dry heaving Orientation/consciousness: patient oriented x3 Resp Effort & Inspection: normal respiratory effort Cardio Other: Normal peripheral perfusion Skin Other: Warm dry no rash Neuro General: patient oriented x3, gait normal, no focal motor deficits and CN's II-XI intact bilaterally Psych Other: Uncooperative at times Course Reevaluation(s) Reevaluation #1: Time: 01:39 Date: 05/31/25 Provider: JULIA Acosta Patient in physician observation for psychiatric evaluation.? No acute events reported overnight. No current complaints. VS stable.? Patient is in bed search status/pending CARE team evaluation. Will continue to monitor. Reevaluation #2: Patient has been seen by recovery team, patient can be discharged to [facility] to continue rehab if patient is still interested in, patient will receive his methadone at [facility]. No SI, no HI, no hallucination. Time: 07:46 Medications Administered Discontinued Medications Generic Name Dose Route Start Last Admin Trade Name Reillyq PRN Reason Stop Dose Admin Diazepam 2.5 mg 05/30/25 22:49 05/30/25 22:57 Diazepam 10 Mg/2 Ml Cartridge IVPUSH 05/30/25 22:50 2.5 mg STAT STA Administration Diphenhydramine HCl 25 mg 05/30/25 21:19 05/30/25 21:49 Diphenhydramine Hcl 50 Mg/Ml Vial IVPUSH 05/30/25 21:20 25 mg ONCE ONE Administration Droperidol 2.5 mg 05/30/25 21:19 05/30/25 21:48 Droperidol 5 Mg/2 Ml Vial IVPUSH 05/30/25 21:20 2.5 mg ONCE ONE Administration Sodium Chloride 1,000 mls @ 999 mls/hr 05/30/25 21:30 05/31/25 00:12 Ns IV 05/30/25 22:30 Infused .Q1H1M LULÚ Infusion Sodium Chloride 1,000 mls @ 999 mls/hr 05/30/25 23:45 05/31/25 06:24 Ns IV 05/31/25 00:45 Infused .Q1H1M LULÚ Infusion Midazolam HCl 3 mg 05/30/25 23:54 05/31/25 00:19 Midazolam Hcl 2 Mg/2 Ml Vial IVPUSH 05/30/25 23:55 3 mg ONCE ONE Administration Phenobarbital Sodium 192 mg 05/31/25 06:15 05/31/25 06:30 Phenobarbital Sodium 130 Mg/Ml Vial Im Q3hx2 IM 05/31/25 09:16 Not Given Q3H LULÚ Phenobarbital Sodium 254 mg 05/31/25 03:15 05/31/25 03:29 Phenobarbital Sodium 130 Mg/Ml Im Once IM 05/31/25 03:16 254 mg ONCE ONE Administration Scopolamine 1.5 mg 05/30/25 23:54 05/31/25 00:10 Scopolamine 1.5 Mg Patch.Td.3 EAR-BEHIND 05/30/25 23:55 1.5 mg ONCE ONE Administration Medical Decision Making Medical Decision Making [facility] Narrative: 29-year-old male with a history of alcohol dependence, polysubstance abuse on methadone, ADHD, bipolar presents with concern for opiate withdrawal. Patient states he last use illicit substances 2 days ago. Associated body ache, chills, abdominal pain, nausea vomiting. Denies diarrhea. Patient states he typically receives his methadone from [facility], he has not been there in a week. He states his current dose of methadone is 75 mg daily. Problem: Psychiatric illness, polysubstance abuse, alcohol abuse History: Per patient I have considered the following differential diagnoses: Drug/alcohol intoxication, alcohol withdrawal, opiate withdrawal, decompensated psychiatric illness, SI, HI , cannabinoid hyperemesis Plan: Screening labs including serum ethanol and drug screen were obtained from triage. His U tox is glaring lay positive. He smells strongly of marijuana, this certainly could be cannabinoid hyperemesis, we will try droperidol Benadryl and fluid. I am apprehensive about giving his methadone, he has been using multiple illicit substances, and we also can not called to verify his dosage. He has also been off it for a week. We will place a CIWA, given his alcohol history. Thus far his symptoms are not consistent with alcohol withdrawal, he is not hypertensive nor tachycardic. 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 I have independently reviewed the following tests: Labs: No leukocytosis, not anemic, no electrolyte abnormality, ethanol less than 10, drug screen positive for opiates, fentanyl, cocaine and marijuana. KUB:Findings: Nonspecific bowel-gas pattern with mild gaseous distention of the imaged stomach. Small bowel loops measuring 2 cm diameter in the left hemiabdomen. Gas-filled intestine measuring 3.3 cm in imaged left upper quadrant is favored to represent splenic flexure. Apparent air-fluid level in the imaged rectum. Mild atelectasis in the [id number] No acute fractures. IMPRESSION: Nonspecific bowel-gas pattern without definite or defined small-bowel obstruction. Lab Data 05/30/25 20:40 05/30/25 20:40 Labs: Lab Results 05/30/25 Range/Units 20:40 WBC 8.3 (4.8-10.8) X10*3/uL RBC 5.01 (4.60-5.80) X10*6/uL Hgb 15.4 (14.0-18.0) g/dl Hct 45.3 (42.0-52.0) % MCV 90.4 (80.0-98.0) fL MCH 30.7 (27.0-33.0) pg MCHC 34.0 (31.0-36.0) g/dl RDW 13.2 (11.0-16.0) % Plt Count 347 (160-400) X10*3/uL MPV 10.1 (9.4-12.4) fL Immature Gran % (Auto) 0.2 (0.0-0.4) % Neut % (Auto) 61.2 (45-73) % Lymph % (Auto) 20.3 (20-40) % [place] % (Auto) 10.2 (2-11) % Eos % (Auto) 7.1 H (0-4) % Baso % (Auto) 1.0 (0-2) % Lymph # (Auto) 1.7 (1.2-4.9) X10*3/uL [place] # (Auto) 0.8 (0.1-1.2) X10*3/uL Eos # (Auto) 0.6 H (0.0-0.4) X10*3/uL Baso # (Auto) 0.1 (0.0-0.2) X10*3/uL Abs Immat Gran (auto) 0.02 (0.00-0.03) X10*3/uL Absolute Neuts (auto) 5.1 (2.0-8.3) x10*3/uL Absolute Nucleated RBC 0.000 (0.0-0.012) X10*3/uL Nucleated RBC % (auto) 0.0 (0.0-0.2) /100WBC Sodium 142 (135-145) mmol/L Potassium 3.8 D (3.3-5.1) mmol/L Chloride 106 (96-108) mmol/L Carbon Dioxide 26 (22-29) mmol/L Anion Gap 14 (12-20) BUN 8 L (9-16) mg/dL Creatinine 0.79 (0.5-1.4) mg/dL Estim Creat Clear Calc 124.5 Estimated GFR > 60 Random Glucose 94 (60-115) mg/dL Calcium 9.8 (8.4-10.2) mg/dL Total Bilirubin 0.5 (0.0-1.0) mg/dL AST 35 (5-37) U/L ALT 14 (0-40) U/L Alkaline Phosphatase 78 (39-117) U/L Total Protein 8.3 H (6.5-8.0) g/dL Albumin 4.7 (3.5-5.0) g/dL Urine Color Yellow Urine Appearance Clear Urine pH >= 9.0 (5.0-9.0) Ur Specific [place] 1.010 (1.005-1.025) Urine Protein Negative (Neg-Trace) mg/dL Urine Glucose (UA) Negative (Negative) mg/dL Urine Ketones Negative (Negative) mg/dL Urine Blood Negative (Negative) Urine Nitrite Negative (Negative) Ur Leukocyte Esterase Negative (Negative) Urine RBC 0-2 (0-2) /HPF Urine WBC 0-5 (0-5) /HPF Ur Squamous Epith Cells 0-2 (0-2) /HPF Urine Bacteria None Seen (None Seen) Hyaline Casts 0-2 (0-2) /LPF Urine Opiates Screen POSITIVE H (Not Detect) Ur Buprenorphine Scrn Not Detected (Not Detect) ng/mL Ur Oxycodone Screen Not Detected (Not Detect) ng/mL Urine Methadone Screen Not Detected (Not Detect) ng/mL Urine Fentanyl Screen POSITIVE H (Not Detect) Ur Barbiturates Screen Not Detected (Not Detect) Ur Phencyclidine Scrn Not Detected (Not Detect) Ur Amphetamines Screen Not Detected (Not Detect) U Benzodiazepines Scrn Not Detected (Not Detect) Urine Cocaine Screen POSITIVE H (Not Detect) U Marijuana (THC) Screen POSITIVE H (Not Detect) Ethyl Alcohol < 10 mg/dL Discharge Plan Discharge Clinical Impression: Nausea & vomiting, Polysubstance abuse Patient Disposition: Home, Self-Care Instructions: Polysubstance Use Disorder (ED) Additional Instructions: Go to [facility] Prescriptions: No Action albuterol sulfate [Ventolin HFA] 90 mcg/actuation HFA aerosol inhaler 2 puff INHALATION Q6H PRN (Reason: wheezing) naloxone [Narcan] 4 mg/actuation spray,non-aerosol 4 mg intranasal Q2M PRN (Reason: opioid overdose) Qty: 2 0RF Rx Instructions: spray 1 dose into ONE nostril; alternate nostrils w each dose until help arrives quetiapine 25 mg tablet 25 mg PO BID clonidine HCl 0.1 mg tablet 0.1 mg PO TID PRN (Reason: Anxiety) trazodone 50 mg tablet 50 mg PO BEDTIME nicotine (polacrilex) 2 mg gum 2 mg PO Q4H PRN (Reason: Nicotine Cravings) hydroxyzine pamoate 25 mg capsule 25 mg PO TID PRN (Reason: anxiety) varenicline tartrate 1 mg tablet 1 mg PO BID Eliquis 5 mg tablet 5 mg PO BID methadone [Methadone Intensol] 10 mg/mL Concentrate 75 mg PO DAILY Interventions: ED Discharge Assessment Last Done: 05/31/25 08:05 Discharge Date/Time: 05/31/25 08:10 Print Language: Korean
[2025-05-31 00:05] VITALS: BP 117/71; PULSE 83; RESP 18; O2SAT 100
--- NOTE | 2025-05-31 00:22 | PC.NURSE ---
Multiple failed attempts at verifying methadone with [facility] as voicemail box is not set up and unable to leave voicemail, and no answer on the main business line. MLP made aware.
[2025-05-31 02:04] VITALS: BP 129/74; PULSE 97; RESP 20; O2SAT 100
[2025-05-31] MEDS: PHENobarbitaL sodium 130 MG/ML IM ONCE 254 MG IM (03:29)
[2025-05-31 03:58] VITALS: BP 156/76; PULSE 76; RESP 22; TEMP 36.6; O2SAT 100
[2025-05-31 06:00] VITALS: BP 138/80; PULSE 76; RESP 18; TEMP 36.6; O2SAT 96
--- NOTE | 2025-05-31 06:30 | PC.NURSE ---
Pt refused phenobarb due at 0615. Pt states not wanting phenobarb and is requesting Methadone. Methadone dose still unable to be verified. made aware.
--- NOTE | 2025-05-31 06:50 | MHC.EDTECH ---
given breakfast, pt refused left in room
--- NOTE | 2025-05-31 07:40 | PC.NURSE ---
PT A&O X4 but extremely drowsy. Pt with low BP, Dr Painting notified. Pt denies complaints. Afebrile. Wounds on bilat arms are draining bloody drainage. Awaiting provider eval. then will be redressed.
--- NOTE | 2025-05-31 07:44 | PC.NURSE ---
Pt A&O X4 [facility] care team saw pt. Will be DC so he can go get Methadone dose at [facility].
--- NOTE | 2025-05-31 07:55 | HE.PHANOTE ---
Re Methadone Received verification from nursing. Pt gets 75mg from [facility]. Last dose was 05/19/25
[2025-05-31 08:05] VITALS: BP 138/80; PULSE 76; RESP 18; TEMP 36.6; O2SAT 96
== END 2025-05-31 08:10 | disposition home or self-care (01) ==
PROVIDERS: Emergency Provider Emergency Medicine
DX: R11.2 Nausea with vomiting, unspecified (principal); F19.139 Other psychoactive substance abuse with withdrawal, unspecified; F11.13 Opioid abuse with withdrawal; R10.9 Unspecified abdominal pain
CPT/HCPCS: 36415; 74018; 80053; 80307; 81001; 85025; 96361; 96372; 96374; 96375; 99285; J1200; J1790; J2250; J2560; J3360; S9485

== ENCOUNTER → 2025-05-30 22:49 | Outpatient (BNV) | payer MEDICAID, SELFPAY | PROVIDERS: Emergency Provider Emergency Medicine; Visit Provider Radiology Neuroradiology | DX: R10.9 Unspecified abdominal pain (principal) | CPT/HCPCS: 74018 ==

== ENCOUNTER 2025-07-13 01:25 | Emergency (ER) | payer MEDICAID, SELFPAY ==
[2025-07-13 01:38] VITALS: BP 136/76; PULSE 67; RESP 18; TEMP 36.7; O2SAT 98; BMI 23.4
--- NOTE | 2025-07-13 02:14 | PC.NURSE ---
Pt continues to lay in the stretcher, choosing to not freely respond to staff when asked questions and/or engaged however when he needs/wants something he will freely yell out Yo or nurse . The pt continues to intermittently vomit and dry heave. He requested his methadone stating when are yall going to give me my methadone? . He reports that he is typically dosed at [facility] and takes 75mg per day (last dose 2 days ago). This RN attempted to call the [facility] after hours number and spoke with Ludivina who informed me that she does not have access to the clinic information and to call back at [phone]. This RN provided her with the name/ of the patient as well as the direct contact number to the ed and requested that this information be passed along to the [facility] carding supervisor per our methadone verification advisement.
--- NOTE | 2025-07-13 02:46 | ED.GENADULT ---
HPI - General Adult General Chief complaint: General Medical Stated complaint: WITHDRAWING FROM OPIODS Time Seen by Provider: 07/13/25 02:46 Source: patient, EMS, RN notes reviewed and old records reviewed Mode of arrival: EMS Limitations: other (Patient is belligerent) History of Present Illness ED Provider: Dr. Diamond Godfrey HPI narrative: 29-year-old male with a history of opiate use disorder on methadone presenting in apparent opioid withdrawal. Patient reports that he last use fentanyl and methadone 2 days ago. Admits that he ?wanted to quit? so he stopped taking these drugs cold turkey. Usually snorts fentanyl. Denies IV drug use. Denies other illicit substance use. Describes lower abdominal pain, nausea, vomiting. He denies recent fevers. Denies diarrhea. Patient is refusing to answer further questions at this point. Related Data Home Medications ?Medication ?Instructions ?Recorded ?Confirmed albuterol sulfate 90 mcg/actuation 2 puff inhalation Q6H PRN wheezing 02/04/23 12/20/24 aerosol inhaler (Ventolin HFA) apixaban 5 mg tablet (Eliquis) 5 mg PO BID 12/20/24 12/20/24 clonidine HCl 0.1 mg tablet 0.1 mg PO TID PRN Anxiety 12/20/24 12/20/24 hydroxyzine pamoate 25 mg capsule 25 mg PO TID PRN anxiety 12/20/24 12/20/24 nicotine (polacrilex) 2 mg gum 2 mg PO Q4H PRN Nicotine Cravings 12/20/24 12/20/24 quetiapine 25 mg tablet 25 mg PO BID 12/20/24 12/20/24 trazodone 50 mg tablet 50 mg PO BEDTIME insomnia 12/20/24 12/20/24 varenicline tartrate 1 mg tablet 1 mg PO BID 12/20/24 12/20/24 methadone 10 mg/mL oral 75 mg PO DAILY 05/31/25 05/31/25 concentrate (Methadone Intensol) Previous Rx's ?Medication ?Instructions ?Recorded naloxone 4 mg/actuation nasal 4 mg intranasal Q2M PRN opioid 03/18/23 spray (Narcan) overdose #2 ea Allergies Allergy/AdvReac Type Severity Reaction Status Date / Time No Known Allergies Allergy Verified 07/13/25 01:39 Review of Systems Review of Systems: Yes Other (Patient is belligerent, noncompliant with interview) [facility] Past Medical History Medical History ADHD Bipolar 1 disorder Allergic rhinitis Surgical History History of surgery Family History Family History Father Depression Asthma Mother Asthma Depression Migraine Brother No problems noted. Sister No problems noted. Son In good health Social History Social History Household Members: Unknown / Unable to assess Housing: Unknown / Unable to assess Unable to assess alcohol history related to: Refusing to respond Alcohol intake: current Alcohol intake frequency: does not drink Alcohol type: hard liquor Patient Tobacco Use Status: Tobacco use Unknown Cigarettes Per Day: 5 Use of substances other than those prescribed or required for medical reasons: Yes Substance Use Type: Opiates and Other Advance Directives: No Advance Directives Information Provided: No service: No Physical Exam ED Exam Exam: GENERAL: Ill-Appearing, appears uncomfortable. SKIN: Normal skin color for ethnicity, warm, dry, no rashes noted. HEENT: Normocephalic, atraumatic, no stridor, dry mucous membranes, dentition intact, EOMI, PERRLA. NECK: Soft, supple, full ROM, midline structures nontender, no step-offs, no deformities, no lymphadenopathy. CHEST: Heart regular rhythm, no murmurs, symmetric chest rise and fall. PULMONARY: Clear to auscultation bilaterally, diminished at the bases, no labored breathing, no wheezes/rhales/rhonchi. ABDOMINAL: Soft, nondistended, diffusely tender to palpation without rebound or guarding, positive bowel sounds in all quadrants. : Deferred. MUSCULOSKELETAL: Normal tone, full range of motion, no deformities, no peripheral edema. NEURO: Alert and oriented x3, CN II through XII intact, equal strength and sensation bilateral upper and lower extremities, no focal neurologic deficits. PSYCHIATRIC: Belligerent, poor eye contact, resistant to questions. Vital Signs: Vital Signs - 24 hr 07/13/25 01:38 07/13/25 07:25 Temperature 98.0 F 98.2 F Pulse Rate 67 69 Respiratory Rate 18 16 Blood Pressure 136/76 119/60 Pulse Oximetry 98 99 Oxygen Delivery Method Room Air Room Air BMI result Body Mass Index 23.4 Course Course Course Narrative: 07/13/25 08:43 MANDY Calvo: Physician observation continued, patient waiting to speak with recovery team. Vital stable. Reevaluation(s) Reevaluation #1: JACOBO 07/13/25 147pm the patient states he wants to leave, can follow up with [facility], given narcan, steady gait. Medications Administered Discontinued Medications Generic Name Dose Route Start Last Admin Trade Name Reillyq PRN Reason Stop Dose Admin Buprenorphine HCl 2 mg 07/13/25 03:07 07/13/25 03:11 Buprenorphine Hcl 2 Mg Tab.Subl SUBLINGUAL 07/13/25 03:08 2 mg ONCE ONE Administration Buprenorphine HCl 2 mg 07/13/25 03:07 07/13/25 03:11 Buprenorphine Hcl 2 Mg Tab.Subl SUBLINGUAL 07/13/25 03:08 2 mg ONCE ONE Administration Buprenorphine HCl 2 mg 07/13/25 03:07 07/13/25 03:12 Buprenorphine Hcl 2 Mg Tab.Subl SUBLINGUAL 07/13/25 03:08 2 mg ONCE ONE Administration Buprenorphine HCl 2 mg 07/13/25 03:07 07/13/25 03:12 Buprenorphine Hcl 2 Mg Tab.Subl SUBLINGUAL 07/13/25 03:08 2 mg ONCE ONE Administration Methadone HCl 50 mg 07/13/25 09:54 07/13/25 10:23 Methadone Hcl 20 Mg/2 Ml Oral.Conc PO 07/13/25 09:55 50 mg ONCE ONE Administration Prochlorperazine Edisylate 10 mg 07/13/25 03:14 07/13/25 04:19 Prochlorperazine Edisylate 10 Mg/2 Ml Vial IM 07/13/25 03:15 10 mg ONCE ONE Administration Prochlorperazine Edisylate 10 mg 07/13/25 11:19 07/13/25 11:24 Prochlorperazine Edisylate 10 Mg/2 Ml Vial IM 07/13/25 11:20 10 mg ONCE ONE Administration Medical Decision Making Medical Decision Making MDM Narrative: Patient presents with reported opiate withdrawal. Differential diagnosis includes intoxication, opiate withdrawal, substance use disorder, decompensated mental illness including depression and anxiety, gastroenteritis, among many others. We will initiate medical clearance and recovery team/care team consult. Patient given an initial dose of buprenorphine given his cows score of 10. He unfortunately probably did not absorb much of it because he vomited shortly thereafter. Received IM Compazine with good relief of vomiting. Ultimately may need to be re-dosed with buprenorphine. Since he is in methadone withdrawal, better treatment might be buprenorphine any way. We will initiate recovery team consult to discuss treatment options. 6:29 AM 07/13/2025 (Dr. Diamond Godfrey, D.O.) Patient is currently rather belligerent, refusing to answer questions and asking for warm blankets so he can sleep. We will try to approach him again later to see if we can initiate treatment and facilitate his workup. Signing out to oncoming provider pending recovery team consult and final disposition. Differential Diagnosis Differential Diagnoses: The differential diagnosis associated with the presentation includes (As above) Admission/Observation Consideration of admission/observation: Escalation of care including admission/observation considered Consult Healthcare Provider Management of the patient was discussed with: Behavioral Health Provider Lab Data [facility] Lab Attestation statement: I reviewed the patient's lab results. 07/13/25 07:13 07/13/25 07:13 Labs: Lab Results 07/13/25 Range/Units 07:13 WBC 7.2 (4.8-10.8) X10*3/uL RBC 4.95 (4.60-5.80) X10*6/uL Hgb 15.3 (14.0-18.0) g/dl Hct 43.1 (42.0-52.0) % MCV 87.1 (80.0-98.0) fL MCH 30.9 (27.0-33.0) pg MCHC 35.5 (31.0-36.0) g/dl RDW 12.7 (11.0-16.0) % Plt Count 277 (160-400) X10*3/uL MPV 10.3 (9.4-12.4) fL Immature Gran % (Auto) 0.1 (0.0-0.4) % Neut % (Auto) 88.3 H (45-73) % Lymph % (Auto) 7.1 L (20-40) % [place] % (Auto) 4.2 (2-11) % Eos % (Auto) 0.0 (0-4) % Baso % (Auto) 0.3 (0-2) % Lymph # (Auto) 0.5 L (1.2-4.9) X10*3/uL [place] # (Auto) 0.3 (0.1-1.2) X10*3/uL Eos # (Auto) 0.0 (0.0-0.4) X10*3/uL Baso # (Auto) 0.0 (0.0-0.2) X10*3/uL Abs Immat Gran (auto) 0.01 (0.00-0.03) X10*3/uL Absolute Neuts (auto) 6.4 (2.0-8.3) x10*3/uL Absolute Nucleated RBC 0.000 (0.0-0.012) X10*3/uL Nucleated RBC % (auto) 0.0 (0.0-0.2) /100WBC Sodium 143 (135-145) mmol/L Potassium 3.4 (3.3-5.1) mmol/L Chloride 102 (96-108) mmol/L Carbon Dioxide 26 (22-29) mmol/L Anion Gap 18 (12-20) BUN 16 (9-16) mg/dL Creatinine 0.86 (0.5-1.4) mg/dL Estim Creat Clear Calc 114.3 Estimated GFR > 60 Random Glucose 130 H (60-115) mg/dL Calcium 10.0 (8.4-10.2) mg/dL Total Bilirubin 1.2 H (0.0-1.0) mg/dL AST 59 H (5-37) U/L ALT 18 (0-40) U/L Alkaline Phosphatase 82 (39-117) U/L Total Protein 8.6 H (6.5-8.0) g/dL Albumin 5.1 H (3.5-5.0) g/dL Ethyl Alcohol < 10 mg/dL Independent Historian Clinical information obtained from an independent historian. History obtained from or confirmed by: EMS Prescription Management I considered prescription management with: Other (Opiate use disorder treatment (MAT)) Chronic Conditions Patient?s care impacted by: Other (Opiate use disorder) Social Determinants Patient?s care significantly limited by Social Determinants of Health including: Inadequate housing, Alcoholism and drug addiction in family and Other Social Determinant of Health Scores Additional Scores COWS: Score: 11 Discharge Plan Discharge Clinical Impression: Acute opioid withdrawal, Opioid use disorder Patient Disposition: Home, Self-Care Instructions: Opioid Withdrawal (ED), Opioid Use Disorder (ED) Additional Instructions: given 50mg methadone at [facility] on 07/13/25 follow up with clinic at [facility] Opiate use disorder You were seen in our Emergency Department today for treatment of opiate use disorder. You may have been dosed with medication for opiate use disorder (MOUD) in the form of suboxone or methadone. You may experience feeling some withdrawal symptoms and this is normal. The? dose in the Emergency Department is a starting dose and meant to be titrated up once you follow up with a clinic. Please do not feel discouraged, it is a process. The nurse has reviewed with you where to follow up and what information to bring with you, to continue treatment. You also may have been given naloxone (narcan) to take home with you. This medication is used to potentially treat opiate overdose. If you decide you want to stop or cut down on how much you?re using, you can call or walk into our outpatient Addiction Treatment office: [facility] (M-F 9am-5p) [address] [place] [address], [address] [phone] You may have been provided with safer injection?items, please take time to take care of YOU and your health. Use new supplies whenever possible to lessen the chances of infections and other illnesses.? ?If you need more supplies, please go [facility],? [address] [place] [address] OR you can call or text to coordinate delivery of safer supplies. You were also provided a list of several treatment providers in the area.? If you experience any worsening symptoms you cannot control please return to the ED or call 911. Please follow up at your next appointment. Things to look out for are fevers, chest pain, shortness of breath, severe pain, dizziness, fainting or any other concerns. Prescriptions: No Action albuterol sulfate [Ventolin HFA] 90 mcg/actuation HFA aerosol inhaler 2 puff INHALATION Q6H PRN (Reason: wheezing) naloxone [Narcan] 4 mg/actuation spray,non-aerosol 4 mg intranasal Q2M PRN (Reason: opioid overdose) Qty: 2 0RF Rx Instructions: spray 1 dose into ONE nostril; alternate nostrils w each dose until help arrives quetiapine 25 mg tablet 25 mg PO BID clonidine HCl 0.1 mg tablet 0.1 mg PO TID PRN (Reason: Anxiety) trazodone 50 mg tablet 50 mg PO BEDTIME nicotine (polacrilex) 2 mg gum 2 mg PO Q4H PRN (Reason: Nicotine Cravings) hydroxyzine pamoate 25 mg capsule 25 mg PO TID PRN (Reason: anxiety) varenicline tartrate 1 mg tablet 1 mg PO BID Eliquis 5 mg tablet 5 mg PO BID methadone [Methadone Intensol] 10 mg/mL Concentrate 75 mg PO DAILY Referrals: [facility] [Other] - 07/14/25 8:00 am Print Language: Latvian
[2025-07-13 02:53] VITALS: PULSE 67
--- NOTE | 2025-07-13 05:43 | MHC.EDTECH ---
asked pt ten minutes after arrival if i can draw his blood and he didn't respond keeping his eyes closed and back turned. asked again 20 minutes later after pt started vomiting and he said no.
--- NOTE | 2025-07-13 05:49 | PC.NURSE ---
late entry for 314: was made aware of the pt's 11 COWS score and his continued request for medication, which prompted the buprenorphine order. While RN at bedside to provide medication, pt seemed upset/bothered that he was not getting methadone that he reported he was last dosed with on Saturday with 75mg of methadone. Within less than 5 minutes of the pt placing the meds under his tongue he vomited onto the floor despite an emesis bag being within arms reach, began to yell at staff. made aware and new orders to be received.
--- NOTE | 2025-07-13 05:57 | PC.NURSE ---
RN received a call back from [facility] regarding the pt's methadone dose confirmation... Per Jeanna at [facility] the patient does infact receive 75mg of methadone however he has not been dosed since 07/08/25 at 1014. MD Godfrey aware
--- NOTE | 2025-07-13 05:58 | PC.NURSE ---
Pt rested for a brief period of time after IM injection and then recently woke up and continue to request water. he was able to tolerate a small amount of water without any noted vomiting episodes. Pt will be relocated to ed 22h for continued monitoring while he awaits MD follow up
[2025-07-13 06:37] VITALS: PULSE 76
[2025-07-13 07:16] LABS: MANUAL DIFF FLAG NO
[2025-07-13 07:18] LABS: Hematocrit 43.1 % (42.0-52.0); Hemoglobin 15.3 g/dl (14.0-18.0); Imm Gran Abs Auto 0.01 X10*3/uL (0.00-0.03); Imm Gran Pct Auto 0.1 % (0.0-0.4); Lymphocytes Absolute Auto 0.5 X10*3/uL (1.2-4.9); Mean Corpuscular HGB Conc 35.5 g/dl (31.0-36.0); Mean Corpuscular Hemoglobin 30.9 pg (27.0-33.0); Mean Corpuscular Volume 87.1 fL (80.0-98.0); NRBC Abs Auto 0.000 X10*3/uL (0.0-0.012); NRBC Pct Auto 0.0 /100WBC (0.0-0.2); Platelet Count 277 X10*3/uL (160-400); Red Blood Count 4.95 X10*6/uL (4.60-5.80); White Blood Count 7.2 X10*3/uL (4.8-10.8)
[2025-07-13 07:25] VITALS: BP 119/60; PULSE 69; RESP 16; TEMP 36.8; O2SAT 99
[2025-07-13 07:34] LABS: Alanine Aminotransferase 18 U/L (0-40); Albumin Level 5.1 g/dL (3.5-5.0); Alkaline Phosphatase 82 U/L (39-117); Anion Gap 18 (12-20); Aspartate Amino Transferase 59 U/L (5-37); Blood Urea Nitrogen 16 mg/dL (9-16); Calcium 10.0 mg/dL (8.4-10.2); Carbon Dioxide 26 mmol/L (22-29); Chloride 102 mmol/L (96-108); Creatinine Clr Calc Pharmacy 114.3; Estimated Glomerular Filt Rate > 60; Potassium 3.4 mmol/L (3.3-5.1); Sodium 143 mmol/L (135-145); Total Protein 8.6 g/dL (6.5-8.0)
--- NOTE | 2025-07-13 09:05 | HO.ADDICT_ITS ---
History of Present Illness Date of Service: 07/13/2025 Chief Complaint: WITHDRAWING FROM OPIODS Reason for Consult: opiate withdrawal Sources of Information: chart reviewed HPI Narrative: Patient is a 29 year old male who presented to [facility] ED reporting acute opiate withdrawal. Information obtained via chart review as patient was sleeping and not responding to verbal stimulus or light touch. He did not appear diaphoretic or restless.; noted what appeared to be billious liquid on blanket and floor with emesis bags nearby. Per ED note, patient reported abrupt discontinuation of methadone and opioids 2 days prior to coming to ED. In ED suboxone was ordered and administered, and patient vomited shortly after. Methadone dose was verified 75mg last dose administered 07/08. Medical Evaluation Reviewed: Yes Review of Systems Review of Systems Yes Unobtainable due to mental status Diagnostics Vital Signs (24Hr): Vital Signs - 24 hr 07/13/25 01:38 07/13/25 07:25 Temperature 98.0 F 98.2 F Pulse Rate 67 69 Respiratory Rate 18 16 Blood Pressure 136/76 119/60 Pulse Oximetry 98 99 Oxygen Delivery Method Room Air Room Air BMI result Body Mass Index 23.4 Labs 07/13/25 07:13 07/13/25 07:13 Labs: Laboratory Results - last 48 hr 07/13/25 07:13 WBC 7.2 RBC 4.95 Hgb 15.3 Hct 43.1 MCV 87.1 MCH 30.9 MCHC 35.5 RDW 12.7 Plt Count 277 MPV 10.3 Immature Gran % (Auto) 0.1 Neut % (Auto) 88.3 H Lymph % (Auto) 7.1 L [place] % (Auto) 4.2 Eos % (Auto) 0.0 Baso % (Auto) 0.3 Lymph # (Auto) 0.5 L [place] # (Auto) 0.3 Eos # (Auto) 0.0 Baso # (Auto) 0.0 Abs Immat Gran (auto) 0.01 Absolute Neuts (auto) 6.4 Absolute Nucleated RBC 0.000 Nucleated RBC % (auto) 0.0 Sodium 143 Potassium 3.4 Chloride 102 Carbon Dioxide 26 Anion Gap 18 BUN 16 Creatinine 0.86 Estim Creat Clear Calc 114.3 Estimated GFR > 60 Random Glucose 130 H Calcium 10.0 Total Bilirubin 1.2 H AST 59 H ALT 18 Alkaline Phosphatase 82 Total Protein 8.6 H Albumin 5.1 H Ethyl Alcohol < 10 Mental Status Exam Mental Status Exam Narrative: patient somnolent Medications Allergies Allergies Allergy/AdvReac Type Severity Reaction Status Date / Time No Known Allergies Allergy Verified 07/13/25 01:39 Assessment & Plan Assessment & Plan (1) Acute opioid withdrawal: Status: Acute Code(s): F11.93 - Opioid use, unspecified with withdrawal Assessment and Plan: * patient established with OTP, methadone should be continued to address acute withdrawal sx * PRN zofran as needed * methadone 50mg X1 ordered to be given to patient when he wakes. If he tolerates dose, can have additional 15mg 2-3 hours later. (total 65mg) * unit director to check back in --take home narcan and last dose letter to be given at discharge. Total time managing care of this patient today _30___ minutes. PMFSH Past Medical History Medical History ADHD Bipolar 1 disorder Allergic rhinitis Family History Family History Father Depression Asthma Mother Asthma Depression Migraine Brother No problems noted. Sister No problems noted. Son In good health Surgical History Surgical History History of surgery Social History Social History Household Members: Unknown / Unable to assess Housing: Unknown / Unable to assess Unable to assess alcohol history related to: Refusing to respond Alcohol intake: current Alcohol intake frequency: does not drink Alcohol type: hard liquor Patient Tobacco Use Status: Tobacco use Unknown Cigarettes Per Day: 5 Use of substances other than those prescribed or required for medical reasons: Yes Substance Use Type: Opiates and Other Advance Directives: No Advance Directives Information Provided: No service: No
[2025-07-13] MEDS: methADONE HCl 20 MG/2 ML ORAL.CONC 50 MG PO (10:23)
--- NOTE | 2025-07-13 13:55 | PC.NURSE ---
patient ambulated to the bathroom, requested to leave, patient given take home narcan and dc papers. patient is alert and oriented x3
[2025-07-13] MEDS: Naloxone HCl Nasal TAKE HOME 4 MG SPRAY 8 MG NOSTRILALT (13:56)
== END 2025-07-13 13:54 | disposition home or self-care (01) ==
PROVIDERS: Emergency Provider Emergency Medicine
DX: F11.23 Opioid dependence with withdrawal (principal)
CPT/HCPCS: 36415; 80053; 80307; 85025; 96372; 99284; 99285; J0571; J0737; S9485

== ENCOUNTER → 2025-07-13 08:15 | Outpatient (BNV) | payer OTHER, SELFPAY | PROVIDERS: Emergency Provider Emergency Medicine; Visit Provider Nurse Practitioner Psychiatric/Mental Health | DX: F11.93 Opioid use, unspecified with withdrawal (principal) | CPT/HCPCS: 99282 ==

== ENCOUNTER 2025-07-15 11:02 | Emergency (ER) | payer MEDICAID, SELFPAY ==
[2025-07-15 11:14] VITALS: BP 137/88; PULSE 62; RESP 18; TEMP 36.6; O2SAT 99; BMI 22.1
--- NOTE | 2025-07-15 11:15 | ED.GENADULT ---
HPI - General Adult General Chief complaint: Abdominal Pain Stated complaint: Abd pain, vomiting Related Data Home Medications ?Medication ?Instructions ?Recorded ?Confirmed albuterol sulfate 90 mcg/actuation 2 puff inhalation Q6H PRN wheezing 02/04/23 12/20/24 aerosol inhaler (Ventolin HFA) apixaban 5 mg tablet (Eliquis) 5 mg PO BID 12/20/24 12/20/24 clonidine HCl 0.1 mg tablet 0.1 mg PO TID PRN Anxiety 12/20/24 12/20/24 hydroxyzine pamoate 25 mg capsule 25 mg PO TID PRN anxiety 12/20/24 12/20/24 nicotine (polacrilex) 2 mg gum 2 mg PO Q4H PRN Nicotine Cravings 12/20/24 12/20/24 quetiapine 25 mg tablet 25 mg PO BID 12/20/24 12/20/24 trazodone 50 mg tablet 50 mg PO BEDTIME insomnia 12/20/24 12/20/24 varenicline tartrate 1 mg tablet 1 mg PO BID 12/20/24 12/20/24 methadone 10 mg/mL oral 75 mg PO DAILY 05/31/25 05/31/25 concentrate (Methadone Intensol) Previous Rx's ?Medication ?Instructions ?Recorded naloxone 4 mg/actuation nasal 4 mg intranasal Q2M PRN opioid 03/18/23 spray (Narcan) overdose #2 ea Allergies Allergy/AdvReac Type Severity Reaction Status Date / Time No Known Allergies Allergy Verified 07/15/25 11:18 [facility] Past Medical History Medical History ADHD Bipolar 1 disorder Allergic rhinitis Surgical History History of surgery Family History Family History Father Depression Asthma Mother Asthma Depression Migraine Brother No problems noted. Sister No problems noted. Son In good health Social History Social History Household Members: Unknown / Unable to assess Housing: Unknown / Unable to assess Alcohol intake: current Alcohol intake frequency: does not drink Alcohol type: hard liquor Patient Tobacco Use Status: Tobacco use Unknown Cigarettes Per Day: 5 Substance Use Type: Opiates and Other Advance Directives: No Advance Directives Information Provided: No Do you have a plan to hurt others: No Plan service: No Physical Exam ED Vital Signs: BMI result Body Mass Index 22.1 Course Course Course Narrative: This is a rapid medical exam performed by Taylor Calvo NP: Additional HPI, ROS, PE not included below will be deferred to primary provider. Patient is a 29y/o M with history of OUD, states he was here the other day for withdrawal symptoms presenting with epigastric burning, nausea and vomiting. States he does not feel like this is withdrawal as he went to the clinic yesterday and started on methadone. Ate two pieces of pizza last night from his cousin but states he heated it up. Plan: labs, viral swabs Patient left the emergency department before myself or any of the other clinicians could review or explain physical exam findings, test results, need or lack there of for additional testing, treatment options, or a treatment plan. Medical Decision Making Lab Data 07/15/25 11:24 07/15/25 11:24 Labs: Lab Results 07/15/25 Range/Units 11:24 WBC 8.4 (4.8-10.8) X10*3/uL RBC 4.62 (4.60-5.80) X10*6/uL Hgb 14.0 (14.0-18.0) g/dl Hct 41.8 L (42.0-52.0) % MCV 90.5 (80.0-98.0) fL MCH 30.3 (27.0-33.0) pg MCHC 33.5 (31.0-36.0) g/dl RDW 12.9 (11.0-16.0) % Plt Count 252 (160-400) X10*3/uL MPV 10.7 (9.4-12.4) fL Immature Gran % (Auto) 0.2 (0.0-0.4) % Neut % (Auto) 81.1 H (45-73) % Lymph % (Auto) 12.1 L (20-40) % [place] % (Auto) 5.6 (2-11) % Eos % (Auto) 0.5 (0-4) % Baso % (Auto) 0.5 (0-2) % Lymph # (Auto) 1.0 L (1.2-4.9) X10*3/uL [place] # (Auto) 0.5 (0.1-1.2) X10*3/uL Eos # (Auto) 0.0 (0.0-0.4) X10*3/uL Baso # (Auto) 0.0 (0.0-0.2) X10*3/uL Abs Immat Gran (auto) 0.02 (0.00-0.03) X10*3/uL Absolute Neuts (auto) 6.8 (2.0-8.3) x10*3/uL Absolute Nucleated RBC 0.000 (0.0-0.012) X10*3/uL Nucleated RBC % (auto) 0.0 (0.0-0.2) /100WBC Sodium 140 (135-145) mmol/L Potassium 3.3 (3.3-5.1) mmol/L Chloride 103 (96-108) mmol/L Carbon Dioxide 28 (22-29) mmol/L Anion Gap 12 (12-20) BUN 12 (9-16) mg/dL Creatinine 0.88 (0.5-1.4) mg/dL Estim Creat Clear Calc 105.4 Estimated GFR > 60 Random Glucose 98 (60-115) mg/dL Calcium 9.0 D (8.4-10.2) mg/dL Total Bilirubin 0.7 (0.0-1.0) mg/dL AST 63 H (5-37) U/L ALT 23 (0-40) U/L Alkaline Phosphatase 72 (39-117) U/L Total Protein 7.4 (6.5-8.0) g/dL Albumin 4.4 (3.5-5.0) g/dL COVID-19 (KIMBERLEE) Negative (Negative) COVID-19 Clin Com See Note Influenza Type A (JAMEE) Negative (Negative) Influenza Type B (JAMEE) Negative (Negative) Influenza A & B Note See Note Discharge Plan Discharge Clinical Impression: Diagnosis unknown, Abdominal pain Patient Disposition: Left W/O Completing Treatment Prescriptions: No Action albuterol sulfate [Ventolin HFA] 90 mcg/actuation HFA aerosol inhaler 2 puff INHALATION Q6H PRN (Reason: wheezing) naloxone [Narcan] 4 mg/actuation spray,non-aerosol 4 mg intranasal Q2M PRN (Reason: opioid overdose) Qty: 2 0RF Rx Instructions: spray 1 dose into ONE nostril; alternate nostrils w each dose until help arrives quetiapine 25 mg tablet 25 mg PO BID clonidine HCl 0.1 mg tablet 0.1 mg PO TID PRN (Reason: Anxiety) trazodone 50 mg tablet 50 mg PO BEDTIME nicotine (polacrilex) 2 mg gum 2 mg PO Q4H PRN (Reason: Nicotine Cravings) hydroxyzine pamoate 25 mg capsule 25 mg PO TID PRN (Reason: anxiety) varenicline tartrate 1 mg tablet 1 mg PO BID Eliquis 5 mg tablet 5 mg PO BID methadone [Methadone Intensol] 10 mg/mL Concentrate 75 mg PO DAILY Discharge Date/Time: 07/15/25 13:22
[2025-07-15 11:49] LABS: MANUAL DIFF FLAG NO
[2025-07-15 11:51] LABS: Hematocrit 41.8 % (42.0-52.0); Hemoglobin 14.0 g/dl (14.0-18.0); Imm Gran Abs Auto 0.02 X10*3/uL (0.00-0.03); Imm Gran Pct Auto 0.2 % (0.0-0.4); Lymphocytes Absolute Auto 1.0 X10*3/uL (1.2-4.9); Mean Corpuscular HGB Conc 33.5 g/dl (31.0-36.0); Mean Corpuscular Hemoglobin 30.3 pg (27.0-33.0); Mean Corpuscular Volume 90.5 fL (80.0-98.0); NRBC Abs Auto 0.000 X10*3/uL (0.0-0.012); NRBC Pct Auto 0.0 /100WBC (0.0-0.2); Platelet Count 252 X10*3/uL (160-400); Red Blood Count 4.62 X10*6/uL (4.60-5.80); White Blood Count 8.4 X10*3/uL (4.8-10.8)
[2025-07-15 12:06] LABS: COVID-19 Test Negative (Negative); IDNOW Serial# 08D9AD1C
[2025-07-15 12:08] LABS: Alanine Aminotransferase 23 U/L (0-40); Albumin Level 4.4 g/dL (3.5-5.0); Alkaline Phosphatase 72 U/L (39-117); Anion Gap 12 (12-20); Aspartate Amino Transferase 63 U/L (5-37); Blood Urea Nitrogen 12 mg/dL (9-16); Calcium 9.0 mg/dL (8.4-10.2); Carbon Dioxide 28 mmol/L (22-29); Chloride 103 mmol/L (96-108); Creatinine Clr Calc Pharmacy 105.4; Estimated Glomerular Filt Rate > 60; Potassium 3.3 mmol/L (3.3-5.1); Sodium 140 mmol/L (135-145); Total Protein 7.4 g/dL (6.5-8.0)
[2025-07-15 12:15] LABS: IDNOW Serial# 58CA691E; Influenza B2 Negative (Negative)
--- OUTSIDE RECORDS SUMMARY | 2025-07-15 13:25 | XMS_ITS | Encounter Summary ---
Author Organization [employer] Address [address] [facility] [address] [place] [address] Care Team Providers Care Dry House Worker Name Role Phone Camilla Montano Primary Care Provider [phone] Giulia Huff MD Primary Care Provider + Sukhdeep Lane Unavailable Temitope Lane RN Unavailable [phone] Erasmo Casey RN Unavailable [phone] Unavailable Reason for Visit * Reason Comments Med Refill Encounter Details Date Type Department Care Team (Late st Contact Info) Description 09/17/2023 Refill [facility] [address] [place], [place] [id number] Santiago Jacobson MD [address] [place], [place] [phone] Uncomplicated opioid dependence (CMS/HCC) Social History Tobacco [...] the past 12 months, has t he [employer], gas, oil or water company threatened to [...] on file documented as of this encounter Visit Diagnoses Diagnosis Uncomplicated opioid dependence (CMS/HCC) (HCC) documented in this encounter Additional Health Concerns Assessment Noted Time PHQ-9 Depression Total Score: 12 023 9:58 AM EST documented as of this encounter Care Teams Dry House Worker Relationship Specialty Start Date End Date Camilla Montano ANP [address] [place] [address] PCP - General Family Medicine 02/04/23 02/03/24 Giulia Huff MD [address] [place] [address] PCP - General Internal Medicine 03/23/[address] Community Health Worker 05/18/[address], RN [address] [place] [address] Accounts Receivable Collector 05/18/24 Erasmo Casey, NEERAJ [address] [place] [address] Registered Nurse Family Medicine 07/02/[address] 07/02/25 documented as of this encounter
--- OUTSIDE RECORDS SUMMARY | 2025-07-15 13:25 | XMS_ITS | Encounter Summary ---
Author Organization [employer] Address [address] [place] [address] Care Team Providers Care Sports Equipment Supervisor Name Role Phone Physician, Pcp Unknown Primary Care Provider Emili vailable Encounter Details Date Type Department Care Team (Late st Contact Info) Description 12/22/2024 Lab Requisition [facility] - Main Lab [address] [facility] [employer] [address] Willa Mott MD [address] [place] [address] Opioid dependence, uncomplicated (CMS/HCC V24, CMS/HCC V28) [...] LAB CHEMISTRY METHOD 12/23/2024 9:25 AM EDT [facility] Comment:Corrected result: Pr eviously reported as Negative on 12/22/2024 at 1721 EDT. Blood Venous blood specimen / Unknown 12/22/2024 10:20 AM EDT 12/22/2024 2:39 PM EDT Narrative [facility] - 12/23/2024 9:25 AM EDT ATTENTION - WRONG PATIENT: Please do not use for clinical decision making as these results do not belong to this patient. Due to regulatory guidelines, incorrect results are to remain on the patient's chart. us Willa Mott MD LAB BLOOD ORDERABLES Ed ited Result - Final Performing Organization Address [facility]/ZIP Co de Phone Number [facility] [address] [place] [address], * White no additive tube (12/22/2024 10:20 AM EDT) Extra Tube 12/23/2024 9:22 AM EDT [facility] Comment: Auto resulted. Corrected result: Previously reported as Hold for add-ons. on 12/22/2024 at 1601 EDT. Urine Urine specimen obtained by clean catch procedure / Unknown 12/22/2024 10:20 AM EDT 12/22/2024 2:39 PM EDT [facility] - 12/23/2024 9:22 AM EDT ATTENTION - WRONG PATIENT: Please do not use for clinical decision making as these results do not belong to this patient. Due to regulatory guidelines, incorrect results are to remain on the patient's chart. Willa Mott MD LAB MICROBIOLOGY - [facility] ORDERABLES Edited Result - Final Performing Organization Address [facility] Co de Phone Number [facility] [address] [place] [address], * Red tube (12/22/2024 10:20 AM EDT) Extra Tube 12/23/2024 9:23 AM EDT [facility] Comment: Auto resulted. Corrected result: Previously reported as Hold for add-ons. on 12/22/2024 at 1601 EDT. Blood Venous blood specimen / Unknown 12/22/2024 10:20 AM EDT 12/22/2024 2:39 PM EDT [facility] - 12/23/2024 9:23 AM EDT ATTENTION - WRONG PATIENT: Please do not use for clinical decision making as these results do not belong to this patient. Due to regulatory guidelines, incorrect results are to remain on the patient's chart. Willa Mott MD LAB BLOOD ORDERABLES Ed ited Result - Final Performing Organization Address [facility]/ZIP Co de Phone Number [facility] [address] [place] [address], [place] [phone] * Hepatitis C antibody (12/22/2024 10:20 AM EDT) Hepatitis C Antibody LAB CHEMISTRY METHOD 12/23/2024 9:26 AM EDT [facility] Comment: Corrected result: Previously reported as Negative on 12/22/2024 at 1607 EDT. Result component is no longer reportable to [facility]. Blood Venous blood specimen / Unknown 12/22/2024 10:20 AM EDT 12/22/2024 2:39 PM EDT Narrative [facility] - 12/23/2024 9:26 AM EDT ATTENTION - WRONG PATIENT: Please do not use for clinical decision making as these results do not belong to this patient. Due to regulatory guidelines, incorrect results are to remain on the patient's chart. Willa Mott MD LAB BLOOD ORDERABLES Ed ited Result - Final Performing Organization Address [facility] de Phone Number [facility] [address] [place] [address], [place] [phone] * Hepatitis A antibody total with reflex IgM (12/22/2024 10:20 AM EDT) Hep A Total Ab LAB CHEMISTRY METHOD 12/23/2024 9:28 AM EDT [facility] Comment:Corrected result: Pr eviously reported as Positive on 12/22/2024 at 1615 EDT. Blood Venous blood specimen / Unknown 12/22/2024 10:20 AM EDT 12/22/2024 2:39 PM EDT [facility] - 12/23/2024 9:28 AM EDT ATTENTION - WRONG PATIENT: Please do not use for clinical decision making as these results do not belong to this patient. Due to regulatory guidelines, incorrect results are to remain on the patient's chart. Willa Mott MD LAB BLOOD ORDERABLES Ed ited Result - Final Performing Organization Address [facility]/ZIP Co de Phone Number [facility] [address] [place] [address], [place] [phone] * HIV 1,2 antibody, p24 antigen with reflex to differentiation (12/22/2024 10:20 AM EDT) [facility] HIV Combo AB/AG LAB CHEMISTRY METHOD 12/23/2024 9:26 AM EDT [facility] Comment:Corrected result: Pr eviously reported as Negative on 12/22/2024 at 1608 EDT. Blood Venous blood specimen / Unknown 12/22/2024 10:20 AM EDT 12/22/2024 2:39 PM EDT Narrative [facility] - 12/23/2024 9:26 AM EDT ATTENTION - WRONG PATIENT: Please do not use for clinical decision making as these results do not belong to this patient. Due to regulatory guidelines, incorrect results are to remain on the patient's chart. Willa Mott MD LAB BLOOD ORDERABLES Ed ited Result - Final Performing Organization Address [facility]/ZIP Co de Phone Number [facility] [address] [place] [address], [place] [phone] * Hepatitis B core antibody IgM (12/22/2024 10:20 AM EDT) Pathologist [facility] Hep B Core IgM LAB CHEMISTRY METHOD 12/23/2024 10:00 AM EDT [facility] Comment: ATTENTION - WRONG [...] ited Result - Final Performing Organization Address [facility] de Phone Number [facility] [address] [place] [address], [place] [phone] * Hepatitis B surface antibody (12/22/2024 10:20 AM EDT) Pathologist [facility] Hepatitis B Surface Ab LAB CHEMISTRY METHOD 12/23/2024 9:59 AM EDT [facility] Comment: ATTENTION - WRONG PATIENT: Please do not use for clinical decision making as these results do not belong to this patient. Due to regulatory guidelines, incorrect results are to remain on the patient's chart. Corrected result: Previously reported as Negative on 12/22/2024 at 1529 EDT. Hepatitis B Surface Ab Quantitative LAB CHEMISTRY METHOD 12/23/2024 9:59 AM EDT [facility] Comment: ATTENTION - WRONG [...] EDT 12/22/2024 2:39 PM EDT Narrative [facility] - 12/23/2024 9:59 AM EDT Willa Mott MD LAB BLOOD ORDERABLES Ed ited Result - Final Performing Organization Address [facility]/ZIP Co de Phone Number [facility] [address] [place] [address], [place] [phone] * Hepatitis B surface antigen with reflex to confirmation (12/22/2024 10:20 AM EDT) Hepatitis B Surface Ag LAB CHEMISTRY METHOD 12/23/2024 9:27 AM EDT [facility] Comment: Corrected result: Previously reported as Negative on 12/22/2024 at 1539 EDT. Result component is no longer reportable to [facility]. Blood Venous blood specimen / Unknown 12/22/2024 10:20 AM EDT 12/22/2024 2:39 PM EDT [facility] - 12/23/2024 9:27 AM EDT ATTENTION - WRONG PATIENT: Please do not use for clinical decision making as these results do not belong to this patient. Due to regulatory guidelines, incorrect results are to remain on the patient's chart. Willa Mott MD LAB BLOOD ORDERABLES Ed ited Result - Final [facility] [address] [place] [address], [place] [phone] * Treponema pallidum antibody with reflex to RPR and particle agglutination (12/22/2024 10:20 AM EDT) T. Pallidum Antibodies LAB CHEMISTRY METHOD 12/23/2024 9:26 AM EDT [facility] Comment:Corrected result: Pr eviously reported as Negative on 12/22/2024 at 1539 EDT. Blood Venous blood specimen / Unknown 12/22/2024 10:20 AM EDT 12/22/2024 2:39 PM EDT [facility] - 12/23/2024 9:26 AM EDT ATTENTION - WRONG PATIENT: Please do not use for clinical decision making as these results do not belong to this patient. Due to regulatory guidelines, incorrect results are to remain on the patient's chart. Willa Mott MD LAB BLOOD ORDERABLES Ed ited Result - Final [facility] [address] [place] [address], [place] [phone] * Comprehensive metabolic panel (12/22/2024 10:20 AM EDT) Sodium LAB CHEMISTRY METHOD 12/23/2024 9:28 AM EDT [facility] Comment:Corrected result: Pr eviously reported as 136 mmol/L on 12/22/2024 at 1535 EDT. Potassium LAB CHEMISTRY METHOD 12/23/2024 9:28 AM EDT [facility] Comment:Corrected result: Pr eviously reported as 4.3 mmol/L on 12/22/2024 at 1535 EDT. Chloride LAB CHEMISTRY METHOD 12/23/2024 9:28 AM EDT [facility] Comment:Corrected result: Pr eviously reported as 101 mmol/L on 12/22/2024 at 1535 EDT. CO2 LAB CHEMISTRY METHOD 12/23/2024 9:28 AM EDT [facility] Comment:Corrected result: Pr eviously reported as 28 mmol/L on 12/22/2024 at 1535 EDT. Anion Gap LAB CHEMISTRY METHOD 12/23/2024 9:28 AM EDT [facility] Comment:Corrected result: Pr eviously reported as 7 on 12/22/2024 at 1535 EDT. Glucose LAB CHEMISTRY METHOD 12/23/2024 9:28 AM EDT [facility] Comment:Corrected result: Pr eviously reported as 91 mg/dL on 12/22/2024 at 1535 EDT. BUN LAB CHEMISTRY METHOD 12/23/2024 9:28 AM EDT [facility] Comment:Corrected result: Pr eviously reported as 11 mg/dL on 12/22/2024 at 1535 EDT. Creatinine LAB CHEMISTRY METHOD 12/23/2024 9:28 AM EDT [facility] Comment:Corrected result: Pr eviously reported as 0.92 mg/dL on 12/22/2024 at 1535 EDT. eGFR LAB CHEMISTRY METHOD 12/23/2024 9:28 AM EDT [facility] Comment: Calculation based on the Chronic Kidney Disease Epidemiology Collaboration (CKD-EPI) equation refit without adjustment for race. Corrected result: Previously reported as 115 mL/min/1.73m2 on 12/22/2024 at 1535 EDT. BUN/Creatinine Ratio LAB CHEMISTRY METHOD 12/23/2024 9:28 AM EDT [facility] Comment:Corrected result: Pr eviously reported as 12.0 on 12/22/2024 at 1535 EDT. Calcium LAB CHEMISTRY METHOD 12/23/2024 9:28 AM EDT [facility] Comment:Corrected result: Pr eviously reported as 9.8 mg/dL on 12/22/2024 at 1535 EDT. AST (SGOT) LAB CHEMISTRY METHOD 12/23/2024 9:28 AM EDT [facility] Comment:Corrected result: Pr eviously reported as 16 unit/L on 12/22/2024 at 1535 EDT. ALT (SGPT) LAB CHEMISTRY METHOD 12/23/2024 9:28 AM EDT [facility] Comment:Corrected result: Pr eviously reported as 16 unit/L on 12/22/2024 at 1535 EDT. Alkaline Phosphatase LAB CHEMISTRY METHOD 12/23/2024 9:28 AM T [facility] Comment:Corrected result: Pr eviously reported as 84 unit/L on 12/22/2024 at 1535 EDT. Total Protein LAB CHEMISTRY METHOD 12/23/2024 9:28 AM EDT [facility] Comment:Corrected result: Pr eviously reported as 8.0 g/dL on 12/22/2024 at 1535 EDT. Albumin LAB CHEMISTRY METHOD 12/23/2024 9:28 AM T [facility] Comment:Corrected result: Pr eviously reported as 4.2 g/dL on 12/22/2024 at 1535 EDT. Total Bilirubin LAB CHEMISTRY METHOD 12/23/2024 9:28 AM EDT [facility] Comment:Corrected result: Pr eviously reported as 0.9 mg/dL on 12/22/2024 at 1535 EDT. Blood Venous blood specimen / Unknown 12/22/2024 10:20 AM EDT 12/22/2024 2:39 PM EDT Narrative [facility] - 12/23/2024 9:28 AM EDT ATTENTION - WRONG PATIENT: Please do not use for clinical decision making as these results do not belong to this patient. Due to regulatory guidelines, incorrect results are to remain on the patient's chart. us Willa Mott MD LAB BLOOD ORDERABLES Ed ited Result - Final [facility] [address] [place] [address], * Complete blood count (12/22/2024 10:20 AM EDT) WBC LAB HEMETOLOGY METHOD 12/23/2024 9:24 AM EDT [facility] Comment:Corrected result: Pr eviously reported as 9.2 K/mcL on 12/22/2024 at 1502 EDT. RBC LAB HEMETOLOGY METHOD 12/23/2024 9:24 AM EDT [facility] Comment:Corrected result: Pr eviously reported as 4.90 M/mcL on 12/22/2024 at 1502 EDT. Hemoglobin LAB HEMETOLOGY METHOD 12/23/2024 9:24 AM EDT [facility] Comment:Corrected result: Pr eviously reported as 15.2 g/dL on 12/22/2024 at 1502 EDT. Hematocrit LAB HEMETOLOGY METHOD 12/23/2024 9:24 AM EDT [facility] Comment:Corrected result: Pr eviously reported as 45.0 % on 12/22/2024 at 1502 EDT. MCV LAB HEMETOLOGY METHOD 12/23/2024 9:24 AM EDT [facility] Comment:Corrected result: Pr eviously reported as 92.2 FL on 12/22/2024 at 1502 EDT. MCH LAB HEMETOLOGY METHOD 12/23/2024 9:24 AM EDT [facility] Comment:Corrected result: Pr eviously reported as 31.1 pcg on 12/22/2024 at 1502 EDT. MCHC LAB HEMETOLOGY METHOD 12/23/2024 9:24 AM EDT [facility] Comment:Corrected result: Pr eviously reported as 33.8 g/dL on 12/22/2024 at 1502 EDT. RDW LAB HEMETOLOGY METHOD 12/23/2024 9:24 AM EDT [facility] Comment:Corrected result: Pr eviously reported as 13.4 % on 12/22/2024 at 1502 EDT. Platelets LAB HEMETOLOGY METHOD 12/23/2024 9:24 AM EDT [facility] Comment:Corrected result: Pr eviously reported as 321 K/mcL on 12/22/2024 at 1502 EDT. MPV LAB HEMETOLOGY METHOD 12/23/2024 9:24 AM EDT [facility] Comment:Corrected result: Pr eviously reported as 10.8 FL on 12/22/2024 at 1502 EDT. NRBC LAB HEMETOLOGY METHOD 12/23/2024 9:24 AM EDT [facility] Comment:Corrected result: Pr eviously reported as 0.0 % on 12/22/2024 at 1502 EDT. NRBC Absolute LAB HEMETOLOGY METHOD 12/23/2024 9:24 AM EDT [facility] Comment:Corrected result: Pr eviously reported as 0.00 K/mcL on 12/22/2024 at 1502 EDT. Blood Venous blood specimen / Unknown 12/22/2024 10:20 AM EDT 12/22/2024 2:39 PM EDT Narrative [facility] ([facility] - 12/23/2024 9:24 AM EDT ATTENTION - WRONG PATIENT: Please do not use for clinical decision making as these results do not belong to this patient. Due to regulatory guidelines, incorrect results are to remain on the patient's chart. us Willa Mott MD LAB BLOOD ORDERABLES Ed ited Result - Final [facility] [address] [place] [address], [place] [phone] documented in this encounter Visit Diagnoses Diagnosis Opioid dependence, uncomplicated (CMS/HCC V24, CMS/HCC V28) documented in this encounter Care Teams Sports Equipment Supervisor Relationship Specialty Start Date End Date Physician, Pcp Unknown PCP - General 12/23/24 documented as of this encounter
--- OUTSIDE RECORDS SUMMARY | 2025-07-15 13:25 | XMS_ITS | Clinical Summary ---
Author Organization [facility] Address [address] [address] Phone Care Team Providers Care Emergency Vehicle Technician Name Role Phone [facility], Facility MD Primary Care Provider [...] years) (1 of 2 - PCV) 2014 INFLUENZA VACCINE (#1) 2025 COVID-19 VACCINE (1 - 2024-2 6 season) 2025 Adult Td,Tdap Booster 08/12/2026 08/12/2016 HEPATITIS A [...] topic Medical Devices Not on file Insurance [facility] [address] [place] [address] [place] [address] [place] [address] [employer] [facility] [employer]3 [employer] [facility] C3 ACO [facility] C3 ACO Care Teams Emergency Vehicle Technician Relationship Specialty Start Date End Date [facility] [address] [place] [address] PCP - General 12/20/24 Additional Source Comments The information contained in this document represents components of the legal health record. It is not the complete legal health record.[facility]
--- OUTSIDE RECORDS SUMMARY | 2025-07-15 13:25 | XMS_ITS | Clinical Summary ---
Author Organization [address] [facility] Address [address] [place] [address] Phone Care Team Providers Care Director Of Nursing Name Role Phone Physician, Pcp Unknown Primary Care Provider Emili vailable Social History Tobacco Use Types Packs/Day Years Used Date Smoking Tobacco: Never Assessed Sex and Gender Information Value Date Recorded Sex Assigned at Not on file Legal Sex Male 5:44 AM EST Gender Identity Not on file Sexual Orientation Not on file Plan of Treatment Health Maintenance Due Date Last Done Comments DTaP,Tdap,and Td Vaccines (1 - Tdap) 2014 Hepatitis A Vaccines (1 of 2 - Risk 2-dose series) 2014 Hepatitis B Vaccines (1 of 3 - 19+ 3-dose series) 2014 Social Influencers of Health Screening 09/09/2022 HPV Vaccines (1 - 3-dose SCD M series) 2022 Depression Screening 10/07/2024 COVID-19 Vaccine ( - 2023-2 5 season) 2025 Influenza Vaccine (#1) 2025 RSV Immunization Adult Patients (1 - 1-dose 75+ series) 2070 HIV Screening Completed 12/22/2024, 12/22/2024 Hepatitis C Screening Completed 12/22/2024 , 12/22/2024 HIB Vaccines Aged Out No longer eligi ble based on patient's age to complete this topic IPV Vaccines Aged Out No longer eligi ble based on patient's age to complete this topic MMR Vaccines Aged Out No longer eligi ble based on patient's age to complete this topic Meningococcal ACWY Vaccine Aged Out N o longer eligible based on patient's age to complete this topic Meningococcal B Vaccine Aged Out No l onger eligible based on patient's age to complete this topic Pneumococcal Vaccine: Pediatrics (0 to 5 Years) and At-Risk Patients (6 to 49 Years) Aged Out No longer eligible b ased on patient's age to complete this topic RSV Immunization Patients Under 20 months Aged Out No longer eligible b ased on patient's age to complete this topic Varicella Vaccines Aged Out No longer eligible based on patient's age to complete this topic Procedures Procedure Name Priority Date/Time Associated Diagnosis Comments HEPATITIS C ANTIBODY Routine 12/22/2024 12:00 AM EDT Opioid dependence, uncomplicated (CMS/HCC) HIV 1, 2 ANTIBODY, P24 ANTIGEN WITH REFLEX TO DIFFERENTIATION Routine 12/22/2024 12:00 AM EDT Opioid dependence, uncomplicated (CMS/HCC) from Last 3 Months or Most Recently Relevant to Health Maintenance Results * Hepatitis C antibody (12/22/2024 12:00 AM EDT) Hepatitis C Antibody Negative Negative LAB CHEMISTRY METHOD 12/22/2024 7:25 PM EDT [facility] Blood Venous blood specimen / Unknown 12/22/2024 12/22/2024 6:19 PM EDT us Willa Mott MD LAB BLOOD ORDERABLES Fi nal Result [facility] [address] [place] [address], * HIV 1,2 antibody, p24 antigen with reflex to differentiation (12/22/2024 12:00 AM EDT) HIV Combo AB/AG Negative Negative LAB CHEMISTRY METHOD 12/22/2024 7:26 PM EDT [facility] Blood Venous blood specimen / Unknown 12/22/2024 12/22/2024 6:19 PM EDT Narrative [facility] - 12/22/2024 7:26 PM EDT This assay is a 4th generation assay allowing for earlier detection of HIV infection by detecting the presence of the HIV-1 p24 antigen as well as the traditional antibodies to HIV type 1 (including group O) and type 2. Use of a 4th generation assay is the current CDC recommendation for HIV screening. us Willa Mott MD LAB BLOOD ORDERABLES Fi nal Result [facility] ([facility] [address] [place] [address], [place] [phone] from Last 3 Months or Most Recently Relevant to Health Maintenance Insurance [place] Care Teams Director Of Nursing Relationship Specialty Start Date End Date Physician, Pcp Unknown PCP - General 12/23/24
--- OUTSIDE RECORDS SUMMARY | 2025-07-15 13:25 | XMS_ITS | Clinical Summary ---
Author Organization [employer] Address [address] [facility] [address] [place] [address] Care Team Providers Care Instructor [employer] Name Role Phone Giulia Huff MD Primary Care Provider + Sukhdeep Lane Unavailable Temitope Lane RN Unavailable Erasmo Casey RN Unavailable [phone] Unavailable Allergies No known active allergies Medications * This document contains information received from the source organization and may not represent a complete record from that organization. fluticasone (Flonase Allergy Relief) 50 MCG/ACT nasal spray Administer 1 spray into each nostril in the morning. Shake gently. Before first use, prime pump. After use, clean tip and replace cap. 16 g 12 09/23/20 23 Active nicotine (Nicoderm CQ) 14 MG/24HR patch Place 1 patch on the skin 1 (one) time each day at the same time. 42 patch 10/15/19 24 Active varenicline (Chantix) 1 MG tabletIndication s:Tobacco use disorder Take 1 tablet (1 mg) by mouth 2 times daily. Take with full glass of water. 60 tablet 2 01/28/20 24 Active omeprazole (PriLOSEC) [address] capsule Take 20 mg by mouth Once per day. 03/19/20 23 Active Ventolin HFA 108 (90 Base) MCG/ACT inhalerIndicatio ns:Mild intermittent asthma without complication INHALE 2 PUFFS BY MOUTH EVERY 6 HOURS NEEDED FOR WHEEZING 18 g 3 03/31/20 24 Active apixaban (Eliquis) 5 MG tablet Take 1 tablet (5 mg) by mouth 2 times daily. 60 tablet 3 04/28/20 24 Active nicotine polacrilex (Nicorelief) 2 MG gum 1 or 2 lozenges PO q 1-2 hours instead of a cigarette. Allow to slowly dissolve. 60 each 1 06/30/20 24 Active ondansetron (Zofran) 4 MG tabletIndication s:Uncomplicated opioid dependence (CMS/HCC) (HCC) 1 tablet PO q 8-12 hours prn nausea or vomiting. 6 tablet 09/29/20 24 Active cloNIDine (Catapres) 0.1 MG tabletIndication s:Uncomplicated opioid dependence (CMS/HCC) (HCC) 1 tablet PO q 8-12 hours prn withdrawal. Stop if causes lightheadedness or dizziness. 6 tablet 09/29/20 24 Active Buprenorphine HCl-Naloxone HCl (Suboxone) 8-2 MG SL filmIndications: Uncomplicated opioid dependence (CMS/HCC) (HCC) Place 1 Film under the tongue 3 times daily for 7 days. 21 Film 10/28/19 25 Active QUEtiapine (SEROquel) 25 MG tabletIndication s:Bipolar affective disorder, remission status unspecified (CMS/HCC) (HCC),Anxiety Take 1 tablet (25 mg) by mouth 2 times daily. 60 tablet 11/17/19 25 Active cyclobenzaprine (Flexeril) 5 MG tablet Take 1 tablet by mouth if needed in the morning, at noon, and at bedtime for muscle spasms. 10/22/19 25 Active hydrOXYzine pamoate (Vistaril) 25 MG capsule Take 1 capsule by mouth every 8 (eight) hours if needed for anxiety. 10/22/19 25 Active naloxone (Narcan) 4 mg/0.1 mL nasal spray Administer 4 mg into affected nostril(s) if needed for opioid reversal. 11/24/19 25 Active traZODone (Desyrel) 50 MG tablet Take 1 tablet by mouth if needed at bedtime for sleep. 10/22/19 25 Active Active Problems Problem Noted Date Diagnosed Date DANIEL (generalized anxiety disorder) 03/30/2025 High liver transaminase level 04/23/2024 Assessment & Plan (04/23/2024 8:37 AM EDT): Improving from previous one at hospitalization, Hepatitis profile is NEG, advised to get Iz's but declined today. Will fu at upcoming visits. Order fu LFTs in 3m Lower urinary tract symptoms (LUTS) 04/22/2024 Assessment & Plan (04/23/2024 8:32 AM EDT): Ro STD, order labs and fu results. Will order PSA when infection is ro'd, may need urology referral after labs Multiple subsegmental pulmon jamin emboli without acute cor pulmonale ([facility]) 03/23/2024 Overview (03/23/2024): During episode of Covid infection CTA chest on 03/01/24 at [facility] htal: LLL PE Rx Eliquis Assessment & Plan (03/23/2024 12:21 PM EDT): Probably as a result of covid infection. On Eliquis until at least 08/2024 Advised to quit smoking Accidental overdose 03/23/2024 Assessment & Plan (03/23/2024 12:36 PM EDT): Triggered by unhelathy response to stress, we have discussed re avoid street drugs, reach out for safety on early signs of distress, he will continue coming to [facility] and meet with livestock judging coach. He has Narcan at home Continue suboxone Active substance abuse ([facility]) 03/04/2024 Admitted to substance misuse detoxification cent er 03/04/2024 Allergic rhinitis 03/04/2024 Annual physical exam 03/04/2024 Narcotic withdrawal ([facility]) 03/04/2024 Mild intermittent asthma without complication Assessment & Plan (03/23/2024 12:20 PM EDT): Controlled. Advised to quit smoking Use albuterol inh prn only Bipolar disorder, in partial remission, most recent episode depressed ([facility]) 08/01/2023 Assessment & Plan (04/23/2024 8:35 AM EDT): Doing well on Seroquel 50mg bid, will send refills for the next 3m, he agreed to [employer] to help with compliance and med reminders. Seen by specialist , needs referral to a prescriber for further eval and rx. He's safe at home and is bale to contract for safety, avoids recreational substances . Assessment & Plan (03/23/2024 12:33 PM EDT): Refer again to , he's not seeing a counselor now (previously referred to [facility] therapy). We discuss about early warning s/s [...] are effective. Luis was already referred to [facility] and is on the waiting list. Needs a new patient appt at [facility] in order to start been seen at [facility]. At this time Luis Schmidt meets criteria for Visit Diagnoses: Problem List Items Addressed This Visit Other Opioid dependence, uncomplicated (CMS/HCC) Bipolar disorder, unspecified (CMS/HCC) Patient ready to address current needs Yes Strengths include Luis is in action stage of change and has been keeping up with [facility] for his intake. PLAN: 1. Follow up with [facility]: Recommended for follow-up: during OBAT appt 2. Patient goal is improve mental health and remained sober 3. Behavioral Recommendations a. Ind. Therapy with [facility] b. Use of effective coping skills c. [facility] contact for support Assessment & Plan (08/06/2023 [...] with symptoms. Luis was already referred to [facility] and is on the waiting list. Needs a new patient appt at [facility] in order to start been seen at [facility]. At this time Luis Schmidt meets criteria for Visit Diagnoses: Problem List Items Addressed This Visit Other Opioid dependence, uncomplicated (CMS/HCC) Bipolar disorder, unspecified (CMS/HCC) Patient ready to address current needs Yes Strengths include Luis in in Maintenance stage on his sobriety and is in action stage in regards his mental health goal. PLAN: 1. Follow up with [facility]: Recommended for follow-up: during OBAT appt 2. Patient goal is to improve mental health and maintain sobriety. 3. Behavioral Recommendations a. [facility] follow up b. Ind. Therapy, referral has been submitted to [facility] for Op therapy services c. Use of coping skills provided as recommended Assessment & Plan (08/01/2023 3:02 PM EDT): Patient presents with mixed of bipolar, anxiety and depressive symptoms. No risk for self-harm, SI, HI. Reason for visit was to assess symptoms and provide support to patient and connect him with MH services. Symptoms are present in the context [...] in treatment PLAN: 1. Follow up with [facility]: Recommended for follow-up: during OBAT appt 2. Patient goal is improve mental health, maintain sobriety 3. Behavioral Recommendations a. Ind. Therapy, referral submitted b. Medication Management, referral submitted c. Use of coping skills provided d. [facility] contact number for support Attention deficit hyperactivity [...] of anxiety and reach out to either livestock judging coach, his GF, crisis. Opioid dependence, uncomplicated (CMS/HCC) 09/04 Assessment & Plan (04/23/2024 8:34 AM EDT): [...] will fu with him at next appt. Resolved Problems Problem Noted Date Diagnosed Date Resolved Date COVID 03/23/2024 12/31/2024 Assessment & Plan (03/23/2024 12:23 PM EDT): Resolved, sp Remdesevir + Decadron Will need Covid booster in the fall. Nausea & vomiting 03/04/2024 12/31/2024 Upper respiratory tract infection 03/04/2024 12/31/2024 Encounters * This document contains information received from the source organization and may not represent a complete record from that organization. Date Type Department Care Team Description 07/15/2025 Orders Only GENERIC EXTERNAL DATA DEPARTMENT Provider, Generic External Data 07/12/2025 Patient Outreach [address] [address] David Woods Recovery Supports 07/05/2025 Patient Outreach [address] [address] Nino Lopez Recovery Supports 07/05/2025 Patient Outreach [address] [address] Abhishek Joaquin Recovery Supports 07/02/2025 Patient Outreach [address] [address] Giulia Huff MD Care Coordination ([facility] Sukhdeep Lane, returned call_initial assessment scheduled ) 07/02/2025 Patient Outreach [address] [address] Giulia Huff MD Care Coordination ([facility] Sukhdeep Lane, initial outreach_lvm ) 07/02/2025 Patient Outreach [address] [address] Giulia Huff MD Care Coordination ([facility] Sukhdeep Lane, Chart review) 07/02/2025 Patient Outreach [facility] [address] [place], [place] [address] Giulia Huff MD Care Coordination ([facility]- chart review) 07/02/2025 Patient Outreach [address] [address] Giulia Huff MD 07/01/2025 Patient Outreach [address] [address] Abhishek Joaquin Recovery Supports 06/29/2025 Patient Outreach [address] [address] Navid Mckinley Recovery Supports 06/24/2025 Patient Outreach [address] [address] Abhishek Joaquin Recovery Supports 06/14/2025 Patient Outreach [address] [address] Abhishek Joaquin Recovery Supports 06/03/2025 Patient Outreach [address] [address] Abhishek Joaquin Recovery Supports 05/30/2025 Orders Only GENERIC EXTERNAL DATA DEPARTMENT Provider, Generic External Data 04/26/2025 Patient Outreach [address] [address] David Woods RC Recovery Supports 04/23/2025 Patient Outreach [address] [address] Nino Lopez RC Recovery Supports 04/22/2025 Patient Outreach [address] [address] Navid Mckinley Recovery Supports 04/22/2025 Patient Outreach [address] [address] Abhishek Joaquin 04/21/2025 10:00 AM EDT Office Visit [address] [address] Bigg Begum MD Opioid dependence, uncomplicated (CMS/[facility]) (Primary Dx) 04/21/2025 Travel 04/20/2025 Patient Outreach [address] [address] Navid Mckinley Recovery Supports 04/16/2025 Patient Outreach [address] [address] Johnathon Dover Recovery Supports from Last 3 Months Immunizations Immunization Administration Dates Next Due Pfizer Covid-19 Vaccine [...] Recorded Patient Health Questionnaire-2 Score 4 04/15/2024 Internet Access Answer Date Recorded Internet Access Q1 Yes 12/23/2024 Internet Access Q2 Not on file 12/23/2024 Sex and Gender Information Value Date Recorded Sex Assigned at Male 08/06/2022 10:39 AM EDT Legal Sex Male 10:39 AM EDT Gender Identity Male 08/06/2022 10:39 AM EDT Sexual Orientation Straight 08/06/2022 10 :39 AM EDT Last Filed Vital Signs Vital Sign Reading Time Taken Comments Blood Pressure 101/72 09/29/2024 10:22 AM EST Pulse 76 04/22/2024 11:43 AM EDT Temperature 36.6 C (97.9 F) 04/22/2024 11:43 AM EDT Respiratory Rate 12 03/23/2024 10:55 AM EDT Oxygen Saturation 100% 04/22/2024 11:43 AM EDT Inhaled Oxygen Concentration - - Weight 66.9 kg (147 lb 8 oz) 04/22/2024 11:43 AM EDT Height 167.6 cm (5' 6 ) 04/22/2024 11:43 AM EDT Body Mass Index 23.81 04/22/2024 11:43 AM EDT Plan of Treatment Health Maintenance Due Date Last Done Comments Lipid Panel 1995 Disability Screening 1995 Family Planning (PISQ) 2010 HPV Vaccines (1 - Male 3-dos e series) 2010 Hepatitis B Vaccines (1 of 3 - 19+ 3-dose series) 2014 Pneumococcal Vaccine: Pediatrics (0 to 5 Years) and At-Risk Patients (6 to 49) Years (1 of 2 - PCV) 2014 Depression Monitoring 10/16/2024 04/15/2024 , 04/15/2024 Dental Oral Exam 11/21/2024 05/20/2024 Dental Prophylaxis 11/21/2024 05/20/2024 Dental X-Ray: Bitewings 05/21/2025 05/20/2024 COVID-19 Vaccine (3 - 2024-2 6 season) 2025 01/31/2022, 10/03/2021 Influenza Vaccine (#1) 2025 SDOH Screening 12/23/2025 12/23/2024 Tobacco Screening 12/23/2025 12/23/2024 Alcohol/Substance Use Screening 02/11/2026 02/11/2025 DTaP/Tdap/Td Vaccines (2 - T d or [...] on patient's age to complete this topic Hepatitis A Vaccines Aged Out No long er eligible based [...] on patient's age to complete this topic Goals Goal Patient Goal Type Associated Problems Recent Progress Patient-Stated? Author Keep your medical appointments Lifestyle Rashid Vasquez, business taxes specialist Procedure Name Priority Date/Time Associated Diagnosis Comments COMPREHENSIVE METABOLIC PANEL Routine 07/15/2025 11:24 AM EDT COVID-19 ID NOW ([facility] [employer]) Routine 07/15/2025 11:24 AM EDT CBC WITH AUTO DIFFERENTIAL Routine 07/15/2025 11:24 AM EDT INFLUENZA A B2 ID NOW (DICKSON) Routine 07/15/2025 11:24 AM EDT ETHANOL Routine 05/30/2025 8:40 PM EDT COMPREHENSIVE METABOLIC PANEL Routine 05/30/2025 8:40 PM EDT URINALYSIS, COMPLETE, WITH REFLEX TO CULTURE Routine 05/30/2025 8:40 PM EDT CBC WITH AUTO DIFFERENTIAL Routine 05/30/2025 8:40 PM EDT Full PROPHYLAXIS - ADULT Routine 05/20/2024 1:00 PM EDT INTRAORAL - COMPLETE SERIES OF RADIOGRAPHIC IMAGES Routine 05/20/2024 1:00 PM EDT PERIODIC ORAL EVALUATION - ESTABLISHED PATIENT Routine 05/20/2024 1:00 PM EDT HEPATITIS PANEL, GENERAL Routine 03/26/2024 12:00 PM EDT Opioid dependence, uncomplicated (CMS/HCC) HIV 1/2 ANTIGEN/ANTIBODY, FOURTH GENERATION W/RFL Routine 03/26/2024 12:00 PM EDT Opioid dependence, uncomplicated (CMS/HCC) from Last 3 Months or Most Recently Relevant to Health Maintenance Results * Influenza A B2 ID NOW (Dickson) (07/15/2025 11:24 AM EDT) IDNOW SERIAL# [id number] [facility] Influenza A Negative Negative [facility] Influenza B2 Negative Negative [facility] Influenza A B2 Note See Note [facility] Comment:The Dickson ID NOW In fluenza A B2 test is used for thequalitative detection of influenza A and B from patientswith signs and symptoms of respiratory infection.Negative results do not preclude influenza virus infectionand should not be used as the sole basis for diagnosis,treatment or other patient management decisions.There is a risk of false negative results due to thepresence of variants in the viral targets of the assay, lowlevels of virus in the specimen and co- infection withRespiratory Syncytial Virus. 07/15/2025 11:2 4 AM EDT 07/15/2025 11:46 AM EDT us Generic External Data Provider LAB MICROBIOLOGY - GENERAL ORDERABLES Final Result Performing Organization Address City/State/[facility] Co de Phone Number [facility] [address] [place] [phone] * COVID-19 ID NOW (DICKSON) (07/15/2025 11:24 AM EDT) IDNOW SERIAL# [id number] [facility] COVID-19 TEST Negative Negative [facility] COVID-19 NOTE See Note [facility] Comment: Results are for the identification of SARS-CoV2 RNA. TheSARS-CoV2 RNA is generally detectable in respiratory samplesduring the acute phase of infection. Positive results areindicative of the presence of SARS-CoV-2 RNA; clinicalcorrelation with patient history and other diagnosticinformation is necessary to determine patient infectionstatus. Positive results do not rule out bacterial infectionor co- infection with other viruses.Testing facilities within the [facility] and itsterritories are required to report all positive results tothe appropriate public health authorities.Negative results should be treated as presumptive and, ifinconsistent with clinical signs and symptoms or necessaryfor patient management, should be tested with differentauthorized or cleared molecular tests. Negative results donot preclude SARS-CoV2 RNA infection and should not be usedas the sole basis for patient management decisions. Negativeresults should be considered in the context of a patient'srecent exposures, history and the presence of clinical signsand symptoms consistent with COVID-19.This test has been authorized by the FDA under an EmergencyUse Authorization (EUA) for use by authorized laboratories.Testing performed on the [employer] ID NOW utilizing NAAT. 07/15/2025 11:2 4 AM EDT 07/15/2025 11:46 AM EDT us Generic External Data Provider LAB MOLECULAR ISAURO GNOSTICS ORDERABLES Final Result [facility] [address] [place] [address] [phone] * (ABNORMAL) CBC auto differential (07/15/2025 11:24 AM EDT) Only the most recent of2 resultswithin the time period is included. White Blood Count 8.4 4.8 - 10.8 X10*3/uL [facility] Red Blood Count 4.62 4.60 - 5.80 X10*6/uL [facility] Hemoglobin 14.0 14.0 - 18.0 g/dl [facility] Hematocrit 41.8(L) 42.0 - 52.0 % [facility] Mean Corpuscular Volume 90.5 80.0 - 98.0 fL [facility] Mean Corpuscular Hemoglobin 30.3 27.0 - 33.0 pg [facility] Mean Corpuscular HGB Conc 33.5 31.0 - 36.0 g/dl [facility] Red Cell Distribution Width 12.9 11.0 - 16.0 % [facility] Platelet Count 252 160 - 400 X10*3/uL [facility] Mean Platelet Volume 10.7 9.4 - 12.4 fL [facility] Neutrophils Percent Auto 81.1(H) 45 - 73 % [facility] Imm Gran Pct Auto 0.2 0.0 - 0.4 % [facility] Lymphocytes Percent Auto 12.1(L) 20 - 40 % [facility] Monocytes Percent Auto 5.6 2 - 11 % [facility] Eosinophils Percent Auto 0.5 0 - 4 % [facility] Basophils Percent Auto 0.5 0 - 2 % [facility] NRBC Pct Auto 0.0 0.0 - 0.2 /100WBC [facility] Neutrophils Absolute Auto 6.8 2.0 - 8.3 x10*3/uL [facility] Imm Gran Abs Auto 0.02 0.00 - 0.03 X10*3/uL [facility] Lymphocytes Absolute Auto 1.0(L) 1.2 - 4.9 X10*3/uL [facility] Monocytes Absolute Auto 0.5 0.1 - 1.2 X10*3/uL [facility] Eosinophils Absolute Auto 0.0 0.0 - 0.4 X10*3/uL [facility] Basophils Absolute Auto 0.0 0.0 - 0.2 X10*3/uL [facility] NRBC Abs Auto 0.000 0.0 - 0.012 X10*3/uL [facility] 07/15/2025 11:2 4 AM EDT 07/15/2025 11:47 AM EDT us Generic External Data Provider LAB BLOOD ORDERAB LES Final Result [facility] [address] [place] [address] [phone] * (ABNORMAL) Comprehensive Metabolic Panel (07/15/2025 11:24 AM EDT) Only the most recent of2 resultswithin the time period is included. Sodium 140 135 - 145 mmol/L [facility] Potassium 3.3 3.3 - 5.1 mmol/L [facility] Chloride 103 96 - 108 mmol/L [facility] Carbon Dioxide 28 22 - 29 mmol/L [facility] Anion Gap 12 12 - 20 [facility] Urea Nitrogen (BUN) 12 9 - 16 mg/dL [facility] Creatinine, Serum 0.88 0.5 - 1.4 mg/dL [facility] Creatinine Clr Calc Pharmacy 105.4 [facility] Comment:eGFR (calculated fro m the MDRD study equation) and eCrCl(calculated from the Cockcroft-Gault equation) are based ondifferent parameters and may not yield comparable results.If eCrCl result is absurd, please check patient'sheight/weight. Estimated Glomerular Filt Rate >60 [facility] Comment:Chronic Kidney Disea se: Estimated GFR < 60 mL/min/1.83b8Lnblzm Kidney Disease: Estimated GFR < 15 mL/min/1.73m2 Glucose 98 60 - 115 mg/dL [facility] Calcium 9.0 8.4 - 10.2 mg/dL [facility] Bilirubin, Total 0.7 0.0 - 1.0 mg/dL [facility] Aspartate Amino Transferase 63(H) 5 - 37 U/L [facility] Alanine Aminotransferase 23 0 - 40 U/L [facility] Total Protein 7.4 6.5 - 8.0 g/dL [facility] Albumin Level 4.4 3.5 - 5.0 g/dL [facility] Alkaline Phosphatase 72 39 - 117 U/L [facility] 07/15/2025 11:2 4 AM EDT 07/15/2025 11:47 AM EDT us Generic External Data Provider LAB BLOOD ORDERAB LES Final Result [facility] [address] [place] [phone] * Ethanol (05/30/2025 8:40 PM EDT) ETHANOL (MG/DL) IN SER/PLAS <10 mg/dL [facility] Comment:Serum/plasma ethanol results are to be used formedical/treatment purposes only. 05/30/2025 8:40 PM EDT 05/30/2025 8:44 PM EDT us Generic External Data Provider LAB BLOOD ORDERAB LES Final Result [facility] [address] [place] [phone] * Urinalysis, Complete, with Reflex to Culture (05/30/2025 8:40 PM EDT) Color Urine Yellow [facility] Appearance Urine Clear [facility] PH >=9.0 5.0 - 9.0 [facility] Glucose Urine UA Negative Negative mg/dL [facility] Urine Blood Negative Negative [facility] Specific [place] - Urine 1.010 1.005 - 1.025 [facility] Urine Protein Negative Neg-Trace mg/dL [facility] Urine Ketones Negative Negative mg/dL [facility] Nitrite Urine Negative Negative [facility] Leukocyte Esterase Urine Negative Negative [facility] RBC Urine 0-2 0 - 2 /HPF [facility] Urine WBC 0-5 0 - 5 /HPF [facility] Urine Squamous Epithelial Cell 0-2 0 - 2 /HPF [facility] Urine Bacteria None Seen None Seen [facility] Hyaline Casts, Urine 0-2 0 - 2 /LPF [facility] 05/30/2025 8:40 PM EDT 05/30/2025 8:44 PM EDT Narrative [facility] - 05/30/2025 8:50 PM EDT Urine, Clean Catch us Generic External Data Provider LAB URINE ORDERAB LES Final Result [facility] [address] [place] [phone] * Hepatitis Panel, General (03/26/2024 12:00 PM EDT) Hepatitis A IgM Nonreactive Nonreactive [facility] Comment:IgM antibodies to ELLIS V not detected; does not exclude earlyacute or recovered HAV infection. ~Hepatitis B Surface Antibody NONREACTIVE Nonreactive [facility] Comment:Nonreactive: < 8.00 mIU/mL Hepatitis B Core Antibody Nonreactive Nonreactive [facility] Hepatitis C Antibody Nonreactive Nonreactive [facility] Comment:Antibodies to HCV no t detected; does not exclude early acuteHCV infection. Hepatitis B Surface Ag Negative Negative [facility] Blood 03/26/2024 12:0 0 PM EDT 03/26/2024 1:01 PM EDT us Giulia Huff MD LAB BLOOD ORDERABLES Fin al Result Performing Organization Address [facility]/ZIP Co de Phone Number [facility] [address] [place] [phone] * HIV-1/2 Antigen and Antibodies, Fourth Generation, with Reflexes (03/26/2024 12:00 PM EDT) HIV AB/AG Nonreactive Nonreactive [facility] Comment:HIV-1 p24 Ag and/or HIV-1/HIV-2 Ab not detected.A test result that is nonreactive does not exclude thepossibility of exposure to or infection with HIV-1 and/orHIV-2. Nonreactive results in this assay for individualswith prior exposure to HIV-1 and/or HIV-2 may be due toantigen and antibody levels that are below the limit ofdetection of this assay.The [employer] Shield HIV Ag/Ab Combo assay result andsupplemental assay results should be interpreted inconjunction with the patient's clinical presentation,history and other laboratory results. If the results areinconsistent with clinical evidence, additional testing issuggested to confirm the result. Blood Venous blood specimen / Unknown 03/26/2024 12:00 PM EDT 03/26/2024 1:01 PM EDT us Giulia Huff MD LAB BLOOD ORDERABLES Fin al Result Performing Organization Address City/[facility]/ZIP Co de Phone Number [facility] [address] [place], [place] [phone] from Last 3 Months or Most Recently Relevant to Health Maintenance Insurance [place] [facility] MEDICAID STAND ADULT Care Teams In[employer] Relationship Specialty Start Date End Date Giulia Huff MD [address] [place] [phone] PCP - General Internal Medicine 03/23/[address] Community Health Worker 05/18/[address], NEERAJ [address] [place] [address] Twitchell Operator 05/18/24 Erasmo Casey, NEERAJ [address] [place], [place] [phone] Registered Nurse Family Medicine 07/02/[address] 07/02/25
--- OUTSIDE RECORDS SUMMARY | 2025-07-15 13:25 | XMS_ITS | Encounter Summary ---
Author Organization [employer] Address [address] [place] [address] Care Team Providers Care Technical Sales Associate Name Role Phone Physician, Pcp Unknown Primary Care Provider Emili vailable Encounter Details Date Type Department Care Team (Late st Contact Info) Description 12/22/2024 Lab Requisition [facility] - Main Lab [address] [facility] [place] [address] Willa Mott MD [address] [place] [address] Opioid dependence, uncomplicated (CMS/HCC V24, CMS/HCC V28) [...] 12:00 AM EDT Opioid dependence, uncomplicated (CMS/HCC) WHITE - NO ADDITIVE Routine 12/22/2024 1 2:00 AM EDT Opioid dependence, uncomplicated (CMS/HCC) HEPATITIS B SURFACE ANTIGEN WITH CONFIRMATION Routine 12/22/2024 12:00 AM EDT Opioid dependence, uncomplicated (CMS/HCC) TREPONEMA PALLIDUM ANTIBODY WITH REFLEX TO RPR AND PARTICLE AGGLUTINATION Routine 12/22/2024 12:00 AM EDT Opioid dependence, uncomplicated (CMS/HCC) HEPATITIS A ANTIBODY TOTAL WITH REFLEX IGM Routine 12/22/2024 12:00 AM EDT Opioid dependence, uncomplicated (CMS/HCC) RED - PLAIN Routine 12/22/2024 12:00 AM EDT Opioid dependence, uncomplicated (CMS/HCC) HEPATITIS A ANTIBODY IGM Routine 12/22/2024 12:00 AM EDT Opioid dependence, uncomplicated (CMS/HCC) HEPATITIS B CORE ANTIBODY, TOTAL Routine 12/22/2024 12:00 AM EDT Opioid dependence, uncomplicated (CMS/HCC) HEPATITIS B SURFACE ANTIBODY Routine 12/22/2024 12:00 AM EDT Opioid dependence, uncomplicated (CMS/HCC) COMPLETE BLOOD COUNT Routine 12/22/2024 12:00 AM EDT Opioid dependence, uncomplicated (CMS/HCC) COMPREHENSIVE METABOLIC PANEL Routine 12/22/2024 12:00 AM EDT Opioid dependence, uncomplicated (CMS/HCC) documented in this encounter Results * Hepatitis A antibody IgM (12/22/2024 12:00 AM EDT) Hepatitis A Antibody IgM Negative Negative LAB CHEMISTRY METHOD 12/22/2024 8:37 PM EDT [facility] Blood Venous blood specimen / Unknown 12/22/2024 12/22/2024 6:19 PM EDT Narrative [facility] - 12/22/2024 8:37 PM EDT Over the counter supplements containing high doses of biotin may interfere with this assay. If interference is suspected, patients shoud be retested after refraining from biotin supplements for 72 hours. us Willa Mott MD LAB BLOOD ORDERABLES Fi nal Result [facility] [address] [place] [address], [place] [phone] * White no additive tube (12/22/2024 12:00 AM EDT) Extra Tube Hold for add-ons. 12/22/2024 8:01 PM EDT [facility] Comment:Auto resulted. Urine Urine specimen obtained by clean catch procedure / Unknown 12/22/2024 12/22/2024 6:19 PM EDT us Willa Mott MD LAB MICROBIOLOGY - GENE RAL ORDERABLES Final Result Performing Organization Address City/[facility]/ZIP Co de Phone Number [facility] [address] [place] [address], [place] [phone] * Red tube (12/22/2024 12:00 AM EDT) Extra Tube Hold for add-ons. 12/22/2024 8:01 PM EDT [facility] Comment:Auto resulted. Blood Venous blood specimen / Unknown 12/22/2024 12/22/2024 6:19 PM EDT us Willa Mott MD LAB BLOOD ORDERABLES Fi nal Result Performing Organization Address City/[facility]/ZIP Co de Phone Number [facility] [address] [place] [address], [place] [phone] * Hepatitis C antibody (12/22/2024 12:00 AM EDT) Pathologist [facility] Hepatitis C Antibody Negative Negative LAB CHEMISTRY METHOD 12/22/2024 7:25 PM EDT [facility] Blood Venous blood specimen / Unknown 12/22/2024 12/22/2024 6:19 PM EDT us Willa Mtot MD LAB BLOOD ORDERABLES Fi nal Result [facility] [address] [place] [address], [place] [phone] * (ABNORMAL) Hepatitis A antibody total with reflex IgM (12/22/2024 12:00 AM EDT) [facility] Hep A Total Ab Positive( A) Negative LAB CHEMISTRY METHOD 12/22/2024 7:31 PM EDT [facility] Blood Venous blood specimen / Unknown 12/22/2024 12/22/2024 6:19 PM EDT Narrative [facility] - 12/22/2024 7:31 PM EDT Over the counter supplements containing high doses of biotin may interfere with this assay. If interference is suspected, patients shoud be retested after refraining from biotin supplements for 72 hours. Willa Mott MD LAB BLOOD ORDERABLES Fi nal Result Performing Organization Address [facility] de Phone Number [facility] [address] [place] [address], [place] [phone] * HIV 1,2 antibody, p24 antigen with reflex to differentiation (12/22/2024 12:00 AM EDT) [facility] HIV Combo AB/AG Negative Negative LAB CHEMISTRY METHOD 12/22/2024 7:26 PM EDT [facility] Blood Venous blood specimen / Unknown 12/22/2024 12/22/2024 6:19 PM EDT Narrative [facility] - 12/22/2024 7:26 PM EDT This assay is a 4th generation assay allowing for earlier detection of HIV infection by detecting the presence of the HIV-1 p24 antigen as well as the traditional antibodies to HIV type 1 (including group O) and type 2. Use of a 4th generation assay is the current CDC recommendation for HIV screening. Willa Mott MD LAB BLOOD ORDERABLES Fi nal Result [facility] [address] [place] [address], [place] [phone] * Hepatitis B core antibody, total (12/22/2024 12:00 AM EDT) Pathologist [facility] Hep B Core Total Ab Negative Negative LAB CHEMISTRY METHOD 12/22/2024 7:32 PM EDT [facility] Blood Venous blood specimen / Unknown 12/22/2024 12/22/2024 6:19 PM EDT Willa Mott MD LAB BLOOD ORDERABLES Fi nal Result Performing Organization Address [facility] de Phone Number [facility] [address] [place] [address], [place] [phone] * Hepatitis B surface antibody (12/22/2024 12:00 AM EDT) [facility] Hepatitis B Surface Ab Negative Negative LAB CHEMISTRY METHOD 12/22/2024 6:46 PM EDT [facility] Hepatitis B Surface Ab Quantitative <3.1 mIU/mL LAB CHEMISTRY METHOD 12/22/2024 6:46 PM EDT [facility] Blood Venous blood specimen / Unknown 12/22/2024 12/22/2024 6:19 PM EDT Narrative [facility] - 12/22/2024 6:46 PM EDT >=10 mIU/mL is considered to be consistent with immunity. us Willa Mott MD LAB BLOOD ORDERABLES Fi nal Result Performing Organization Address [facility] Co de Phone Number [facility] [address] [place] [address], [place] [phone] * Hepatitis B surface antigen with reflex to confirmation (12/22/2024 12:00 AM EDT) Pathologist [facility] Hepatitis B Surface Ag Negative Negative LAB CHEMISTRY METHOD 12/22/2024 6:57 PM EDT [facility] Blood Venous blood specimen / Unknown 12/22/2024 12/22/2024 6:19 PM EDT Narrative [facility] - 12/22/2024 6:57 PM EDT Over the counter supplements containing high doses of biotin may interfere with this assay. If interference is suspected, patients shoud be retested after refraining from biotin supplements for 72 hours. Willa Mott MD LAB BLOOD ORDERABLES Fi nal Result Performing Organization Address City/[facility]/ZIP Co de Phone Number [facility] [address] [place] [address], [place] [phone] * Treponema pallidum antibody with reflex to RPR and particle agglutination (12/22/2024 12:00 AM EDT) T. Pallidum Antibodies Negative Negative LAB CHEMISTRY METHOD 12/22/2024 6:56 PM EDT [facility] Blood Venous blood specimen / Unknown 12/22/2024 12/22/2024 6:19 PM EDT Willa Mott MD LAB BLOOD ORDERABLES Fi nal Result [facility] [address] [place] [address], [place] [phone] * (ABNORMAL) Comprehensive metabolic panel (12/22/2024 12:00 AM EDT) Sodium 137 133 - 145 mmol/L LAB CHEMISTRY METHOD 12/22/2024 6:37 PM EDT [facility] Potassium 4.3 3.5 - 5.5 mmol/L LAB CHEMISTRY METHOD 12/22/2024 6:37 PM EDT [facility] Chloride 101 96 - 110 mmol/L LAB CHEMISTRY METHOD 12/22/2024 6:37 PM [facility] CO2 25 21 - 32 mmol/L LAB CHEMISTRY METHOD 12/22/2024 6:37 PM [facility] Anion Gap 11 3 - 11 LAB CHEMISTRY METHOD 12/22/2024 6:37 PM [facility] Glucose 88 70 - 100 mg/dL LAB CHEMISTRY METHOD 12/22/2024 6:37 PM [facility] BUN 12 5 - 25 mg/dL LAB CHEMISTRY METHOD 12/22/2024 6:37 PM [facility] Creatinine 0.94 0.70 - 1.30 mg/dL LAB CHEMISTRY METHOD 12/22/2024 6:37 PM [facility] eGFR 113 >=60 mL/min/1. 73m2 LAB CHEMISTRY METHOD 12/22/2024 6:37 PM [facility] Comment:Calculation based on the Chronic Kidney Disease Epidemiology Collaboration (CKD-EPI) equation refit without adjustment for race. BUN/Creatinine Ratio 12.8 LAB CHEMISTRY METHOD 12/22/2024 6:37 PM [facility] Calcium 9.6 8.5 - 10.5 mg/dL LAB CHEMISTRY METHOD 12/22/2024 6:37 PM [facility] AST (SGOT) 22 10 - 42 unit/L LAB CHEMISTRY METHOD 12/22/2024 6:37 PM [facility] ALT (SGPT) 16 10 - 60 unit/L LAB CHEMISTRY METHOD 12/22/2024 6:37 PM [facility] Alkaline Phosphatase 84 42 - 121 unit/L LAB CHEMISTRY METHOD 12/22/2024 6:37 PM [facility] Total Protein 8.1(H) 6.0 - 8.0 g/dL LAB CHEMISTRY METHOD 12/22/2024 6:37 PM [facility] Albumin 4.1 3.2 - 5.0 g/dL LAB CHEMISTRY METHOD 12/22/2024 6:37 PM EDT [facility] Total Bilirubin 0.9 0.0 - 1.4 mg/dL LAB CHEMISTRY METHOD 12/22/2024 6:37 PM EDT [facility] Blood Venous blood specimen / Unknown 12/22/2024 12/22/2024 6:19 PM EDT us Willa Mott MD LAB BLOOD ORDERABLES Fi nal Result [facility] [address] [place] [address], * Complete blood count (12/22/2024 12:00 AM EDT) WBC 9.3 4.8 - 10.8 K/mcL LAB HEMETOLOGY METHOD 12/22/2024 6:25 PM EDT [facility] RBC 5.00 4.50 - 5.50 M/mcL LAB HEMETOLOGY METHOD 12/22/2024 6:25 PM EDT [facility] Hemoglobin 15.2 13.5 - 17.5 g/dL LAB HEMETOLOGY METHOD 12/22/2024 6:25 PM EDT [facility] Hematocrit 46.9 42.0 - 54.0 % LAB HEMETOLOGY METHOD 12/22/2024 6:25 PM EDT [facility] MCV 93.8 79.0 - 98.0 FL LAB HEMETOLOGY METHOD 12/22/2024 6:25 PM EDT [facility] MCH 30.4 27.0 - 32.0 pcg LAB HEMETOLOGY METHOD 12/22/2024 6:25 PM EDT [facility] MCHC 32.4 32.0 - 37.0 g/dL LAB HEMETOLOGY METHOD 12/22/2024 6:25 PM EDT [facility] RDW 13.6 11.0 - 15.0 % LAB HEMETOLOGY METHOD 12/22/2024 6:25 PM EDT [facility] Platelets 322 130 - 400 K/mcL LAB HEMETOLOGY METHOD 12/22/2024 6:25 PM EDT [facility] MPV 11.0 7.0 - 11.0 FL LAB HEMETOLOGY METHOD 12/22/2024 6:25 PM EDT [facility] NRBC 0.0 <1.0 % LAB HEMETOLOGY METHOD 12/22/2024 6:25 PM EDT [facility] NRBC Absolute 0.00 <0.10 K/mcL LAB HEMETOLOGY METHOD 12/22/2024 6:25 PM EDT [facility] Blood Venous blood specimen / Unknown 12/22/2024 12/22/2024 6:19 PM EDT us Willa Mott MD LAB BLOOD ORDERABLES Fi nal Result [facility] [address] [place] [address], documented in this encounter Visit Diagnoses Diagnosis Opioid dependence, uncomplicated (CMS/HCC V24, CMS/HCC V28) documented in this encounter Care Teams Technical Sales Associate Relationship Specialty Start Date End Date Physician, Pcp Unknown PCP - General 12/23/24 documented as of this encounter
--- OUTSIDE RECORDS SUMMARY | 2025-07-15 13:25 | XMS_ITS | Encounter Summary ---
Author Organization [employer] Address [address] [facility] [place] [address] Care Team Providers Care Anatomic Pathology Assistant Name Role Phone Giulia Huff MD Primary Care Provider + Sukhdeep Lane Unavailable Temitope Lane RN Unavailable [phone] Erasmo Casey RN Unavailable [phone] Unavailable Encounter Details Date Type Department Care Team (Late st Contact Info) Description 07/15/2025 Orders Only GENERIC EXTERNAL DATA [...] Keep your medical appointments Lifestyle No Rashid Kyle RN documented as of this encounter Procedures Procedure Name Priority Date/Time Associated Diagnosis Comments INFLUENZA A B2 ID NOW (DICKSON) Routine 07/15/2025 11:24 AM EDT COVID-19 ID NOW (DICKSON) Routine 07/15/2025 11:24 AM EDT CBC WITH AUTO DIFFERENTIAL Routine 07/15/2025 11:24 AM EDT COMPREHENSIVE METABOLIC PANEL Routine 07/15/2025 11:24 AM EDT documented in this encounter Results * Influenza A B2 ID NOW (Dickson) (07/15/2025 11:24 AM EDT) IDNOW SERIAL# [id number] [facility] Influenza A Negative Negative [facility] Influenza B2 Negative Negative [facility] Influenza A B2 Note See Note [facility] Comment:The Dickson ID NOW In fluenza [...] LAB MICROBIOLOGY - GENERAL ORDERABLES Final Result [facility] [address] [place] [address] [phone] * (ABNORMAL) Comprehensive Metabolic Panel (07/15/2025 11:24 AM EDT) Sodium 140 135 - 145 mmol/L [facility] Potassium 3.3 3.3 - 5.1 mmol/L [facility] Chloride 103 96 - 108 mmol/L [facility] Carbon Dioxide 28 22 - 29 mmol/L [facility] Anion Gap 12 12 - 20 [facility] Urea Nitrogen (BUN) 12 9 - 16 mg/dL [facility] Creatinine, Serum 0.88 0.5 - 1.4 mg/dL [facility] Creatinine Clr Calc Pharmacy 105.4 [facility] Comment:eGFR (calculated fro m the MDRD study equation) and eCrCl(calculated from the Cockcroft-Gault equation) are based ondifferent parameters and may not yield comparable results.If eCrCl result is absurd, please check patient'sheight/weight. Estimated Glomerular Filt Rate >60 [facility] Comment:Chronic Kidney Disea se: Estimated GFR < 60 mL/min/1.04s5Kviwhg Kidney Disease: Estimated GFR < 15 mL/min/1.73m2 Glucose 98 60 - 115 mg/dL [facility] Calcium 9.0 8.4 - 10.2 mg/dL [facility] Bilirubin, Total 0.7 0.0 - 1.0 mg/dL [facility] Aspartate Amino Transferase 63(H) 5 - 37 U/L [facility] Alanine Aminotransferase 23 0 - 40 U/L [facility] Total Protein 7.4 6.5 - 8.0 g/dL [facility] Albumin Level 4.4 3.5 - 5.0 g/dL [facility] Alkaline Phosphatase 72 39 - 117 U/L [facility] 07/15/2025 11:2 4 AM EDT 07/15/2025 11:47 AM EDT us Generic External Data Provider LAB BLOOD ORDERAB LES Final Result [facility] [address] [place] [address] [phone] * COVID-19 ID NOW (Innohat) (07/15/2025 11:24 AM EDT) IDNOW SERIAL# [id number] [facility] COVID-19 TEST Negative Negative [facility] COVID-19 NOTE See Note [facility] Comment: Results are for the identification of SARS-CoV2 RNA. TheSARS-CoV2 RNA is generally detectable in respiratory samplesduring the acute phase of infection. Positive results areindicative of the presence of SARS-CoV-2 RNA; clinicalcorrelation with patient history and other diagnosticinformation is necessary to determine patient infectionstatus. Positive results do not rule out bacterial infectionor co- infection with other viruses.Testing facilities within the [facility] and [facility] are required to report all positive results [...] use by authorized laboratories.Testing performed on the [employer] ID NOW utilizing NAAT. 07/15/2025 11:2 4 AM EDT 07/15/2025 11:46 AM EDT us Generic External Data Provider LAB MOLECULAR ISAURO [employer]NOST[employer] ORDERABLES Final Result [facility] [address] [place] [address] [phone] * (ABNORMAL) CBC auto differential (07/15/2025 11:24 AM EDT) White Blood Count 8.4 4.8 - 10.8 X10*3/uL [facility] Red Blood Count 4.62 4.60 - 5.80 X10*6/uL [facility] Hemoglobin 14.0 14.0 - 18.0 g/dl [facility] Hematocrit 41.8(L) 42.0 - 52.0 % [facility] Mean Corpuscular Volume 90.5 80.0 - 98.0 fL [facility] Mean Corpuscular Hemoglobin 30.3 27.0 - 33.0 pg [facility] Mean Corpuscular HGB Conc 33.5 31.0 - 36.0 g/dl [facility] Red Cell Distribution Width 12.9 11.0 - 16.0 % [facility] Platelet Count 252 160 - 400 X10*3/uL [facility] Mean Platelet Volume 10.7 9.4 - 12.4 fL [facility] Neutrophils Percent Auto 81.1(H) 45 - 73 % [facility] Imm Gran Pct Auto 0.2 0.0 - 0.4 % [facility] Lymphocytes Percent Auto 12.1(L) 20 - 40 % [facility] Monocytes Percent Auto 5.6 2 - 11 % [facility] Eosinophils Percent Auto 0.5 0 - 4 % [facility] Basophils Percent Auto 0.5 0 - 2 % [facility] NRBC Pct Auto 0.0 0.0 - 0.2 /100WBC [facility] Neutrophils Absolute Auto 6.8 2.0 - 8.3 x10*3/uL [facility] Imm Gran Abs Auto 0.02 0.00 - 0.03 X10*3/uL [facility] Lymphocytes Absolute Auto 1.0(L) 1.2 - 4.9 X10*3/uL [facility] Monocytes Absolute Auto 0.5 0.1 - 1.2 X10*3/uL [facility] Eosinophils Absolute Auto 0.0 0.0 - 0.4 X10*3/uL [facility] Basophils Absolute Auto 0.0 0.0 - 0.2 X10*3/uL [facility] NRBC Abs Auto 0.000 0.0 - 0.012 X10*3/uL [facility] 07/15/2025 11:2 4 AM EDT 07/15/2025 11:47 AM EDT us Generic External Data Provider LAB BLOOD ORDERAB LES Final Result Performing Organization Address City/State/[facility] Co de Phone Number [facility] [address] [place] [phone] documented in this encounter Visit Diagnoses Not on filedocumented in this encounter Additional Health Concerns Assessment Noted Time PHQ-9 Depression Total Score: 11 024 11:00 AM EDT documented as of this encounter Care Teams Anatomic Pathology Assistant Relationship Specialty Start Date End Date Giulia Huff MD [address] [place] [phone] PCP - General Internal Medicine 03/23/[address] Community Health Worker 05/18/[address] RN [address] [place] [address] Filter Washer 05/18/24 Erasmo Casey RN [address] [place] [address] Registered Nurse Family Medicine 07/02/[address] 07/02/25 documented as of this encounter
--- OUTSIDE RECORDS SUMMARY | 2025-07-15 13:25 | XMS_ITS | Encounter Summary ---
Author Organization [employer] Address [address] [facility] [address] [place] [address] Care Team Providers Care Golf Ball Marker Name Role Phone Giulia Huff MD Primary Care Provider + Sukhdeep Lane Unavailable [address]ope [address] RN Unavailable [phone] Erasmo Casey RN Unavailable [phone] Unavailable Reason for Visit * Reason Comments Med Refill Encounter Details Date Type Department Care Team (Late st Contact Info) Description 11/17/2024 Refill [facility] [address] [place], [place] [phone] Jerry Flowers MD [address] [place], [place] [phone] Uncomplicated opioid dependence (CMS/HCC) Social History Tobacco [...] documented as of this encounter Care Teams Golf Ball Marker Relationship Specialty Start Date End Date Giulia Huff MD [address] [place] [phone] PCP - General Internal Medicine 03/23/[address] Community Health Worker 05/18/[address], NEERAJ [address] [place] [address] Leather Softener 05/18/24 Erasmo Casey, NEERAJ [address] [place] [address] Registered Nurse Family Medicine 07/02/[address] 07/02/25 documented as of this encounter
--- OUTSIDE RECORDS SUMMARY | 2025-07-15 13:25 | XMS_ITS | Clinical Summary ---
Author Organization [facility] Address [address] [place] [address] Care Team Providers Care Olap Developer Name Role Phone Unavailable Primary Care Provider Unavailabl e Source Comments PLEASE NOTE, if this patient is a minor, it may be UNLAWFUL to discuss sensitive information that is contained in these records (such as FAMILY PLANNING, MENTAL HEALTH or SUBSTANCE ABUSE) with the minor patient's parent or other person without the patient's specific authorization.[facility] Encounters Date Type Department Care Team Description 06/08/2025 / TELEPHONE [facility] [address] [place] [address] WALLY BARAJAS [id number] Parrish Faith, NIXON from Last 3 Months Social History Tobacco Use Types Packs/Day Years Used Date Smoking Tobacco: Never Assessed Sex and Gender Information Value Date Recorded Sex Assigned at Male 04/07/2025 8:35 AM PDT Legal Sex Male 8:35 AM PDT Gender Identity Male 04/07/2025 8:35 AM PDT Sexual Orientation Not on file Plan of Treatment Health Maintenance Due Date Last Done Comments Anxiety Screening 1995 Tobacco Screening 1995 Hypertension Screening (#1) 2013 Imm-Hepatitis B (1 of 3 - 19 + 3-dose series) 2014 Imm-HPV (1 - 3-dose SCDM series) 2022 Alcohol and Drug Screen 10/07/2024 Depression Annual Screen 10/07/2024 [id number] ( season) 2025 022, 10/03/2021 Imm-Influenza (#1) 2025 Imm-DTaP/Tdap/Td (2 - Td or Tdap) 08/12/2026 016 HIV Screening Completed 12/21/2024, 03/08, 03/26/2024, Additional history exists Hepatitis C Screening Completed 12/21/2024 Insurance [facility] [employer]
--- OUTSIDE RECORDS SUMMARY | 2025-07-15 13:26 | XMS_ITS | Encounter Summary ---
Author Organization [employer] Address [address] [place] [address] Care Team Providers Care Production Mechanic Name Role Phone Giulia Huff MD Primary Care Provider + Sukhdeep Lane Unavailable Temitope Lane RN Unavailable [phone] Erasmo Casey RN Unavailable [phone] Unavailable Encounter Details Date Type Department Care Team (Late st Contact Info) Description 10/22/2024 Orders Only [facility] [address] [place] [address] Tracie Martin, NEERAJ Social History Tobacco Use [...] documented as of this encounter Care Teams Production Mechanic Relationship Specialty Start Date End Date Giulia Huff MD [address] [place] [id number] PCP - General Internal Medicine 03/23/[address] Community Health Worker 05/18/[address], RN [address] [place] [address] Quarantine Inspector 05/18/24 Erasmo Casey, NEERAJ [address] [place] [address] Registered Nurse Family Medicine 07/02/[address] 07/02/25 documented as of this encounter
--- OUTSIDE RECORDS SUMMARY | 2025-07-15 13:26 | XMS_ITS | Encounter Summary ---
Author Organization [employer] Address [address] [place] [address] Care Team Providers Care Fruit Thinner Machine Operator Name Role Phone Giulia Huff MD Primary Care Provider + Sukhdeep Lane Unavailable Temitope Lane RN Unavailable [phone] Erasmo Casey RN Unavailable [phone] Unavailable Reason for Visit * Reason Comments [facility] Recovery Supports Encounter Details Date Type Department Care Team (Late st Contact Info) Description 07/12/2025 Patient Outreach [facility] [address] [place], [place] [id number] David Woods [address] [place] [address] Recovery Supports Social History Tobacco Use Types [...] encounter Progress Notes * David Woods - 07/12/2025 3:34 PM EDT I met with Luis booker. Setting: in person at [facility] Recovery Wellness Goals worked on: Physical Health/Mental Health Action taken/next steps: Offered person centered recovery support and Provided transportation assistance (bus pass, uber, etc.) Additional comments: David Woods documented in this encounter Plan of Treatment Not on file documented as of this encounter Goals Goal Patient Goal Type Associated Problems Recent Progress Patient-Stated? Author Keep your medical appointments Lifestyle No Rashid Kyle, RN documented as of this encounter Visit Diagnoses Not on filedocumented in this encounter Additional Health Concerns Assessment Noted Time PHQ-9 Depression Total Score: 11 024 11:00 AM EDT documented as of this encounter Care Teams Fruit Thinner Machine Operator Relationship Specialty Start Date End Date Giulia Huff MD [address] [place] [id number] PCP - General Internal Medicine 03/23/[address] Community Health Worker 05/18/[address], NEERAJ [address] [place] [address] Area Field Person 05/18/24 Erasmo Casey RN [address] [facility] [place] [address] Registered Nurse Family Medicine 07/02/[address] 07/02/25 documented as of this encounter
--- OUTSIDE RECORDS SUMMARY | 2025-07-15 13:26 | XMS_ITS ---
Author Organization [employer] Address [address] [place] [address] [address] [place] [address] Care Team Providers Care Ticket Taker Ferryboat Name Role Phone Giulia Huff MD Primary Care Provider + Sukhdeep Lane Unavailable Temitope Lane RN Unavailable Erasmo Casey RN Unavailable [phone] Unavailable CM Complex Status:Outreach In Progress (Enrolling) Start date:07/02/2025 Enrollment reason:C3 Manual Referral Overview C3 Referral- High ED Utilization Case Team Name Relationship Phone Erasmo Casey RN(Responsible Staff) Registered Yudi newell [phone] Continued Care and Services Coordination
--- OUTSIDE RECORDS SUMMARY | 2025-07-15 13:26 | XMS_ITS ---
Author Organization [employer] Address [address] [place] [address] [address] [place] [address] Care Team Providers Care Workday Consultant Name Role Phone Giulia Huff MD Primary Care Provider + Sukhdeep Lane Unavailable Temitope Lane RN Unavailable [phone] Erasmo Casey RN Unavailable [phone] Unavailable [facility] Complex Status:Outreach In Progress (Enrolling) Start date:07/02/2025 Enrollment reason:C3 Manual Referral Overview C3 Referral- High ED Utilization Case Team Name Relationship Phone Sukhdeep Lane(Responsible Staff) [phone] Continued Care and Services Coordination
== END 2025-07-15 13:22 | disposition left against medical advice (07) ==
PROVIDERS: Registered Nurse Emergency; Emergency Provider Emergency Medicine
DX: R10.9 Unspecified abdominal pain (principal); R11.10 Vomiting, unspecified; Z03.818 Encounter for observation for suspected exposure to other biological agents ruled out
CPT/HCPCS: 80053; 85025; 87502; 87635; 99281; 99283

== ENCOUNTER 2025-09-09 10:54 | Emergency (ER) | payer MEDICAID, SELFPAY ==
[2025-09-09 11:03] VITALS: BP 200/100; PULSE 98; O2SAT 98
[2025-09-09 11:26] VITALS: BP 125/65; PULSE 90; RESP 16; TEMP 36.3; O2SAT 98; BMI 23.6
--- NOTE | 2025-09-09 11:31 | ED.GENADULT ---
HPI - General Adult General Chief complaint: Nausea/Vomiting/Diarrhea Stated complaint: N/V X1H,NO PAIN, NO METHADONE THIS AM,BP 200/100 Time Seen by Provider: 09/09/25 14:17 Source: patient and RN notes reviewed Mode of arrival: ambulatory Limitations: no limitations History of Present Illness ED Provider: Carol Jeffries PA-C HPI narrative: This is a 29-year-old male, with a past medical history of opioid use disorder who presents emergency department for methadone dosing. Patient states that he last received methadone on 09/05. He goes to [facility] for his dosing. He states that he is here to be dose with his methadone. He states that he has had nausea and 1 episode of vomiting which occurred this morning, which is consistent with his opioid withdrawal. He denies any fevers, chills, chest pain, shortness of breath, abdominal pain, or diarrhea. No other complaints or concerns at this time. MD complaint: Methadone dosing Relieving factors: none Exacerbating factors: none Associated symptoms: denies other symptoms Treatments prior to arrival: none Related Data Home Medications ?Medication ?Instructions ?Recorded ?Confirmed albuterol sulfate 90 mcg/actuation 2 puff inhalation Q6H PRN wheezing 02/04/23 12/20/24 aerosol inhaler (Ventolin HFA) apixaban 5 mg tablet (Eliquis) 5 mg PO BID 12/20/24 12/20/24 clonidine HCl 0.1 mg tablet 0.1 mg PO TID PRN Anxiety 12/20/24 12/20/24 hydroxyzine pamoate 25 mg capsule 25 mg PO TID PRN anxiety 12/20/24 12/20/24 nicotine (polacrilex) 2 mg gum 2 mg PO Q4H PRN Nicotine Cravings 12/20/24 12/20/24 quetiapine 25 mg tablet 25 mg PO BID 12/20/24 12/20/24 trazodone 50 mg tablet 50 mg PO BEDTIME insomnia 12/20/24 12/20/24 varenicline tartrate 1 mg tablet 1 mg PO BID 12/20/24 12/20/24 methadone 10 mg/mL oral 75 mg PO DAILY 05/31/25 09/09/25 concentrate (Methadone Intensol) Previous Rx's ?Medication ?Instructions ?Recorded naloxone 4 mg/actuation nasal 4 mg intranasal Q2M PRN opioid 03/18/23 spray (Narcan) overdose #2 ea Allergies Allergy/AdvReac Type Severity Reaction Status Date / Time No Known Allergies Allergy Verified 09/09/25 11:28 Review of Systems Review of Systems: Constitutional : No Fever, No Chills ENT/Mouth : No sore throat, No Rhinorrhea Eyes: No Eye Pain, No Swelling, No Redness Cardiovascular : No Chest Pain, No SOB Respiratory : No Cough, No Sputum Gastrointestinal : +Nausea (resolved), + Vomiting (resolved), No Diarrhea, No abdominal Pain Genitourinary : No Dysuria, No Hematuria Musculoskeletal : No joint pain, No Myalgias, No Joint Swelling Skin : No Skin Lesions Neuro : No Weakness, No Numbness, No Headache All other systems reviewed and are negative Yes all other systems are reviewed and are negative Constitutional: Constitutional: Reports as per [facility] Past Medical History Medical History ADHD Bipolar 1 disorder Allergic rhinitis Surgical History History of surgery Family History Family History Father Depression Asthma Mother Asthma Depression Migraine Brother No problems noted. Sister No problems noted. Son In good health Social History Social History Household Members: Unknown / Unable to assess Housing: Unknown / Unable to assess Alcohol intake: current Alcohol intake frequency: does not drink Alcohol type: hard liquor Patient Tobacco Use Status: Tobacco use Unknown Cigarettes Per Day: 5 Substance Use Type: Opiates and Other Advance Directives: No Advance Directives Information Provided: No service: No Physical Exam ED Exam Exam: General: Awake, alert, and oriented X3. No acute distress. HEENT: Normal inspection CVS: Normal heart rate and rhythm. Pulses normal. Respiratory: No respiratory distress Skin: Warm, dry, no rashes noted to exposed skin. Normal skin color. Normal skin turgor. Extremities: Normal to inspection Neuro: Oriented X 3. No motor deficit. No sensory deficit. Vital Signs: Vital Signs - 24 hr 09/09/25 14:23 09/09/25 15:19 09/09/25 15:32 Temperature 98.1 F 98.4 F 98.4 F Pulse Rate 56 100 100 Respiratory Rate 16 20 20 Blood Pressure 121/67 137/91 H 137/91 H Pulse Oximetry 99 100 100 Oxygen Delivery Method Room Air Room Air Room Air BMI result Body Mass Index 23.6 Course Course Course Narrative: RME: 29 yold male presents to the ED for URI SYmptoms and missing his methadone dose which is 75mg. swabs placed. Medications Administered Discontinued Medications Generic Name Dose Route Start Last Admin Trade Name Farhad PRN Reason Stop Dose Admin Methadone HCl 75 mg 09/09/25 15:03 09/09/25 15:22 Methadone Hcl 20 Mg/2 Ml Oral.Conc PO 09/09/25 15:04 75 mg ONCE ONE Administration Medical Decision Making Medical Decision Making [facility] Narrative: This is a 29-year-old male who presents emergency department for methadone dosing. On arrival, patient well-appearing, appears to be under no acute distress. COVID, flu swabs were obtained, are negative today. He states that his symptoms are consistent with opioid withdrawal. Last dose was confirmed to be on 09/05 from a take home bottle. Discussed with the Addiction Medicine, given that this has not been greater than 5 days, patient can resume normal dosing at 75 mg. He does not have any abdominal pain. He no longer has nausea. He had 1 episode of vomiting. He will follow-up with his outpatient methadone clinic. Given strict return precautions. Patient stable for discharge. Differential Diagnosis Differential Diagnoses: The differential diagnosis associated with the presentation includes Opioid use disorder, opioid withdrawal, depression, anxiety, polysubstance abuse Lab Data [facility] Lab Attestation statement: I reviewed the patient's lab results. Negative Labs: Lab Results 09/09/25 Range/Units 11:34 COVID-19 (KIMBERLEE) Negative (Negative) COVID-19 Clin Com See Note Influenza Type A (JAMEE) Negative (Negative) Influenza Type B (JAMEE) Negative (Negative) Influenza A & B Note See Note Discharge Plan Discharge Clinical Impression: Opioid use disorder Patient Disposition: Home, Self-Care Instructions: Opioid Withdrawal (ED), Opioid Use Disorder (ED) Additional Instructions: You were seen in the emergency department and received your dose of methadone. You need to follow-up with your methadone clinic for additional methadone dosing. If any new or worsening symptoms occur including but not limited to severe chest pain, or shortness of breath, please seek emergent care. Prescriptions: No Action albuterol sulfate [Ventolin HFA] 90 mcg/actuation HFA aerosol inhaler 2 puff INHALATION Q6H PRN (Reason: wheezing) naloxone [Narcan] 4 mg/actuation spray,non-aerosol 4 mg intranasal Q2M PRN (Reason: opioid overdose) Qty: 2 0RF Rx Instructions: spray 1 dose into ONE nostril; alternate nostrils w each dose until help arrives quetiapine 25 mg tablet 25 mg PO BID clonidine HCl 0.1 mg tablet 0.1 mg PO TID PRN (Reason: Anxiety) trazodone 50 mg tablet 50 mg PO BEDTIME nicotine (polacrilex) 2 mg gum 2 mg PO Q4H PRN (Reason: Nicotine Cravings) hydroxyzine pamoate 25 mg capsule 25 mg PO TID PRN (Reason: anxiety) varenicline tartrate 1 mg tablet 1 mg PO BID Eliquis 5 mg tablet 5 mg PO BID methadone [Methadone Intensol] 10 mg/mL Concentrate 75 mg PO DAILY Interventions: ED Discharge Assessment Last Done: 09/09/25 15:32 Discharge Date/Time: 09/09/25 15:33 Print Language: Norwegian
[2025-09-09 12:05] LABS: COVID-19 Test Negative (Negative); IDNOW Serial# 58CA691E; Influenza B2 Negative (Negative)
[2025-09-09 14:23] VITALS: BP 121/67; PULSE 56; RESP 16; TEMP 36.7; O2SAT 99
--- NOTE | 2025-09-09 14:37 | HE.PHANOTE ---
Re Methadone Pt received 75mg on 09/04/25 from [facility] and 1 take home bottle.
[2025-09-09 15:19] VITALS: BP 137/91; PULSE 100; RESP 20; TEMP 36.9; O2SAT 100
[2025-09-09] MEDS: methADONE HCl 20 MG/2 ML ORAL.CONC 75 MG PO (15:22)
[2025-09-09 15:32] VITALS: BP 137/91; PULSE 100; RESP 20; TEMP 36.9; O2SAT 100
== END 2025-09-09 15:33 | disposition home or self-care (01) ==
PROVIDERS: Physician Assistant; Emergency Provider Emergency Medicine
DX: F11.23 Opioid dependence with withdrawal (principal); T40.2X6A Underdosing of other opioids, initial encounter; Z91.128 Patient's intentional underdosing of medication regimen for other reason; Y92.9 Unspecified place or not applicable; F90.9 Attention-deficit hyperactivity disorder, unspecified type; F31.9 Bipolar disorder, unspecified
CPT/HCPCS: 87502; 87635; 99283